=== PATIENT | male | born 1945 | race Caucasian/White ===

== ENCOUNTER 2017-09-03 18:08 | Observation (INO) | payer MEDICARE, MEDICAID, SELFPAY ==
[2017-09-03 18:09] VITALS: BP 131/64; PULSE 79; RESP 16; TEMP 37.4; O2SAT 91; BMI 18.1
--- NOTE | 2017-09-03 19:06 | ED.DCSUM_ITS ---
- ER Visit Summary Date of Service: 09/03/17 Chief Complaint: Nausea and vomiting. History of Present Illness: The patient is a 71 M who was seen and treated here earlier this morning. He has a history of chronic back pain for which she has an intrathecal pump. He has had 3 prior back surgeries. He states that he has had nausea and vomiting since last night. He denies any diarrhea. He denies any abdominal pain. He denies any hematemesis. Also stating that his back pain which is chronic is worse at this time. Physical Examination: Elderly male no acute distress. Vital signs are stable afebrile. Blood pressure 131/64. He does not look septic or toxic. H EENT exam mildly dry mucous membranes. Neck nontender no lymphadenopathy. Lungs clear to auscultation bilaterally. Heart is regular rate and rhythm rate about 80 no murmur. Abdomen is soft and nontender. Normal bowel sounds nondistended. No hernias or masses. Is moving all 4 extremities. Neurologically is awake and alert. No cauda equina. Dorsi plantar flexion intact. Test Results: CBC showed a white count of 3.8. H&H 11 and 32 which is his baseline. Electrolytes are sodium of 128. He has chronic hyponatremia. Chloride 94. Gap is 7. Normal BUN and creatinine. Emergency Department Course and Treatment: He will be treated with IV fluids and IV Zofran. He also be given morphine for his pain. Treatment Plan: Repeat exam initially I was going to attempt to let the patient be discharged to home. When his son came to pick him up he did not feel the patient was well enough to be discharged to home. I spoke to the hospitalist Dr. Bright who will admit the patient for viral syndrome, nausea and vomiting, generalized weakness and fever. Disposition: Admission Impression: Acute nausea and vomiting. Mild dehydration Acute on chronic pain Generalized weakness Chronic hyponatremia. This note was generated with [employer] dictation software. It may contain incorrect words, spelling, and punctuation that were not noted in review of the chart prior to signing ED Disposition - Plan for ED Patient: Disposition: Home or Assisted Living Chief Complaint: Nausea/Vomiting Instructions: The Cycle of Chronic Pain, ED Nausea Vomiting Referrals: Dilma Alvarez MD [Primary Care Provider] - As soon as possible Additional Instructions: Plan fluids and rest. Zofran as needed for nausea. Follow-up with your primary care physician or return to ER feeling worse.
[2017-09-03] MEDS: Ondansetron 4 MG/2 ML Vial IV (19:12)
[2017-09-03] MEDS: 0.9% Normal Saline 1,000 ML 1000 ML IV (19:12)
[2017-09-03 19:27] LABS: Anion Gap 7 (5-15); BUN 20 mg/dL (7-18); BUN/Creat Ratio 20.1 RATIO (10-20); Calcium,Total 8.3 mg/dL (8.5-10.1); Chloride 94 mmol/L (98-107); EST Glomerular Filtration Rate 79 mL/min (>60); Est Glom Filt Rate - Afr Amer 95 mL/min (>60); Estimated Creatinine Clearance 63.94 ml/min; Glucose 125 mg/dL (70-110); Potassium 4.4 mmol/L (3.5-5.1); Sodium Level 128 mmol/L (136-145)
[2017-09-03 19:28] LABS: Absolute Lymphocyte Count 0.37 X10^3/ul (0.83-4.51); Absolute Neutrophil Count 3.1 X10^3/uL (2.0-7.7); Hematocrit 32.9 % (40-54); Hemoglobin 11.4 g/dl (13.0-16.5); Lymphocyte # 0.37 X10^3/ul (4.0); Lymphocyte % 9.8 % (19-41); Mean Corp Hgb Conc 34.7 g/gl (32-36); Mean Corpuscular Hgb 29.4 pg (27.0-32.0); Mean Corpuscular Volume 84.8 fL (80-94); Monocyte# 0.32 X10^3/uL; Monocyte% 8.5 % (0-10); Neutrophil # 3.08 X10^3/uL (2.7-7.7); Neutrophil % 81.7 % (47-70); Platelet Count 153 K/mm3 (150-450); RBC Distribution Width CV 13.4 % (11.6-14.6); RBC Distribution Width SD 40.9 fl (35.1-43.9); Red Blood Count 3.88 M/mm3 (4.6-6.2); White Blood Count 3.8 K/mm3 (4.4-11.0)
[2017-09-03 19:29] LABS: Differential Indicated SCAN CRITERIA MET; POSITIVE COUNT NO; POSITIVE DIFFERENTIAL YES; POSITIVE MORPHOLOGY NO
[2017-09-03 19:48] VITALS: BP 136/66; PULSE 90; RESP 16
[2017-09-03 20:05] LABS: Differential Comment SCANNED
[2017-09-03 21:00] VITALS: BP 133/64; PULSE 75; RESP 18; O2SAT 94
[2017-09-03 23:00] VITALS: BP 110/57; RESP 16; O2SAT 95
--- NOTE | 2017-09-03 23:08 | ED.DEP ---
ED Disposition - Plan for ED Patient: Disposition: Home or Assisted Living Chief Complaint: Nausea/Vomiting Instructions: ED Nausea Vomiting, The Cycle of Chronic Pain Referrals: Dilma Alvarez MD [Primary Care Provider] - As soon as possible Additional Instructions: Plan fluids and rest. Zofran as needed for nausea. Follow-up with your primary care physician or return to ER feeling worse.
[2017-09-03 23:45] VITALS: BP 110/57; PULSE 102; RESP 16; O2SAT 95
--- NOTE | 2017-09-03 23:45 | ED.RN ---
REVIEWED D/C INSTRUCTIONS, FOLLOW UP CARE, PRESCRIPTIONS, AND S/S THAT WOULD WARRANT A RETURN TO THE ED WITH PT. PT VERBALIZED AN UNDERSTANDING AND DENIES FURTHER QUESTIONS FOR THIS RN. PT SKIN P/W/D, RESP EVEN AND UNLABORED, PT A&O X 3, NO DISTRESS NOTED. PT ASSISTED OUT OF ED IN WHEELCHAIR. PT IN LOBBY WAITING FOR SON TO COME PICK HIM UP.
[2017-09-03] MEDS: Ondansetron ODT 4 MG Tablet PO (23:47)
[2017-09-04] VITALS (7 sets, daily range): BP systolic 82–127; BP diastolic 49–72; PULSE 64–81; RESP 16–20; TEMP 36.6–38.4; O2SAT 92–97; BMI 22.1
--- NOTE | 2017-09-04 00:42 | PCM.HP.STD ---
Problem List (1) Chronic pain syndrome Status: Chronic (2) Viral gastroenteritis Status: Acute (3) Anxiety Status: Chronic (4) GERD (gastroesophageal reflux disease) Status: Chronic Qualifiers: Esophagitis presence: esophagitis presence not specified Qualified Code(s): K21.9 - Gastro-esophageal reflux disease without esophagitis (5) Hypertension Status: Chronic Qualifiers: Hypertension type: essential hypertension Qualified Code(s): I10 - Essential (primary) hypertension (6) Hypothyroidism Status: Chronic Qualifiers: Hypothyroidism type: unspecified Qualified Code(s): E03.9 - Hypothyroidism, unspecified (7) Normocytic anemia Status: Chronic (8) Rheumatoid arthritis Status: Chronic Qualifiers: Rheumatoid arthritis location: unspecified site Rheumatoid factor presence: unspecified presence Qualified Code(s): M06.9 - Rheumatoid arthritis, unspecified (9) history of malignant tumor of oropharynx Status: Chronic (10) Chronic hyponatremia Status: Chronic History of Present Illness Date of Admission: 09/04/17 Chief Complaint: Nausea, emesis The patient is a 71 y/o M w/ PMHx: Chronic Normocytic Anemia (Hgb baseline 11-12 range), History of Throat Cancer, Chronic Hyponatremia (Na baseline 127-133), HTN, GERD/PUD, Hypothyroidism, Rheumatoid Arthritis, Chronic Back Pain s/p morphine pain intrathecal pump insertion, Anxiety who was evaluated 09/03/17 AM secondary to ongoing complaint of nausea, emesis as well as intermittent subjective fever, worsened over the last three days but ongoing intermittently since [place] in addition to acute on chronic back pain secondary to muscle strain with emesis bouts, treated w/ IVFs/anti-emetics and discharged to home improved; however, he returned 09/03/17 evening with similar complaint and was administered IVFs, morphine in the ED with no observed emesis events again discharged to home but returned secondary to family concerns for ongoing acute on chronic back pain and dehydration. It is unclear what evaluation he has had outpatient per his PCP. He notes that he always has a modified diet, but cannot given exact alterations, but from description, suspect thin liquids and mechanical soft. In the ED prior evaluation work-up included CBC w/ WBC 3.8, Hgb 11.4, Plts 153 without marked shift, BMP w/ Na 128, Chl 94, BUN/Cr 20/1, glucose 125. Upon current ED return, additional work-up included T 99.3, HR 102, BP 110/57, RR 16, 95% on RA, CXR w/ no acute process. Past Medical History Past Medical History (Chronic Problems): Chronic Problems Rheumatoid arthritis (Chronic) history of malignant tumor of oropharynx (Chronic) Arthropathy of lumbar facet joint (Chronic) Anxiety (Chronic) Normocytic anemia (Chronic) GERD (gastroesophageal reflux disease) (Chronic) Hypothyroidism (Chronic) Hypertension (Chronic) Chronic pain syndrome (Chronic) Chronic hyponatremia (Chronic) Allergies ciprofloxacin [From Cipro] Allergy (Verified 08/07/17 08:02) Itching diclofenac sodium [From Solaraze] Allergy (Verified 08/07/17 08:02) Anaphylaxis fluorouracil Allergy (Verified 08/07/17 08:02) Anaphylaxis methotrexate Allergy (Verified 08/07/17 08:02) Anaphylaxis ondansetron [From Zofran (as hydrochloride)] Allergy (Verified 08/07/17 08:02) Other Penicillins Allergy (Verified 08/07/17 08:02) Itching pentazocine lactate [From Talwin] Allergy (Verified 08/07/17 08:02) Other venom-honey bee [bee venom (honey bee)] Allergy (Verified 08/07/17 08:02) Anaphylaxis amlodipine Adverse Reaction (Verified 08/07/17 08:02) Nausea buspirone Adverse Reaction (Verified 08/07/17 08:02) Other ciprofloxacin HCl [From Cipro] Adverse Reaction (Verified 08/07/17 08:02) Pain in joints clonidine Adverse Reaction (Verified 08/07/17 08:02) Other NSAIDS (Non-Steroidal Anti-Inflamma Adverse Reaction (Verified 08/07/17 08:02) Upset Stomach promethazine Adverse Reaction (Verified 08/07/17 08:02) Other SEAFOOD Adverse Reaction (Severe, Uncoded 08/07/17 08:02) Unknown Home Medications: Ambulatory Orders Medication Instructions Recorded Omeprazole [Prilosec] 40 mg PO DAILY 09/14/14 Clonazepam [Klonopin] 0.5 mg PO DAILY PRN 09/22/14 Epinephrine [Epi Pen] 0.3 mg IM X1 PRN 09/22/14 Levothyroxine [Synthroid] 125 mcg PO DAILY 09/22/14 Ensure Complete 240 ml PO 5X/DAY 09/24/15 Acetaminophen [Pain Relief] 1,000 mg PO TID 11/22/16 Lisinopril [Zestril] 10 mg PO DAILY 02/15/17 Ondansetron [Zofran Odt] 4 mg SL Q4H PRN PRN 02/15/17 MorphINE mg INTRATH CONT 09/03/17 Surgical History: - - Appendectomy, Back surgery x 2, Tonsilar tumor resection, Esophageal dilations and endscopies, R maxillary sinus surgery. Psychiatric History: Anxiety Lives: With Family Smoking Status: Former smoker Tobacco Use: Non-smoker Alcohol: None Drugs: None - *Family History Maternal History Items: Heart Disease, Hypertension Paternal History Items: Cancer, Heart Disease, Hypertension Review of Systems Constitutional: Reports: Anorexia, Fever, Malaise, Weakness, Fatigue. Denies: Chills, Weight Change HEENT: Denies: Head Aches, Sinus Congestion, Sinus Drainage Cardiovascular: Denies: Chest Pain, Palpitations Respiratory: Denies: Cough, Shortness of breath at rest, Sputum production Gastrointestinal: Reports: Nausea, Vomiting. Denies: Abdominal Pain Genitourinary: Denies: Dysuria Musculoskeletal: Reports: Back Pain. Denies: Joint Pain, Joint Tenderness Skin: Denies: Rash, Wounds Neurological: Reports: Difficulty swallowing. Denies: Focal weakness, Numbness, Tingling Psychiatric: Reports: Anxiety. Denies: Depression, Homicidal Ideations, Suicidal Ideations Hematologic/ Lymphatic: Reports: Anemia. Denies: Easy Bruising, Easy Bleeding VTE Information - Inpt Only VTE Present on Admission: No VTE Mechan Device Prophylaxis: SCD's VTE Pharm Prophylaxis ordered?: Yes Subjective: Seated upright in the ED bed, fatigued appearance. Objective: Physical Examination: General: awake, alert, oriented x 3 and cooperative, seated upright in the ED bed, fatigued appearance. Skin: normal color, turgor, no icterus, cyanosis. HEENT: AT/NC, EOMI, PERRLA, moderately dry MM, no carotid bruits or JVD noted. Lungs: Diminished BS BL bases, poor effort, no rales, ronchi or wheezing. Heart: Regular rate and rhythm; no gallop, rub audible. Abdomen: soft, NTTP, ND, normal BS, no HSM, pain pump in place RUQ. Extremities: no cyanosis, clubbing, or edema. Neurological: patient awake, alert, oriented x 3; cognitive function intact; pupils equally reactive to light and accomodation; cranial nerves II-XII grossly normal, moving all 4 extremities, no focal deficits, strength moderately to severely globally decreased secondary to acute presentation. Psychiatric: affect appears fatigued, no acute evidence of depressive or anxiety feelings. - Physical Exam Vital Signs Temp Pulse Resp BP Pulse Ox 99.3 F H 102 H 16 110/57 L 95 09/03/17 18:09 09/03/17 23:45 09/03/17 23:45 09/03/17 23:45 09/03/17 23:45 Oxygen Delivery Method Room Air Weight: 145 lb Body Mass Index (BMI) 18.1 Finger Stick Blood Glucose 86 Laboratory Tests Past 24 Hrs 09/03/17 09/03/17 19:10 19:10 WBC 3.8 L RBC 3.88 L Hgb 11.4 L Hct 32.9 L MCV 84.8 MCH 29.4 MCHC 34.7 RDW 13.4 RDW Differential 40.9 Plt Count 153 MPV 8.0 Immature Gran % (Auto) 0.000 Neut % (Auto) 81.7 H Lymph % (Auto) 9.8 L Letcher % (Auto) 8.5 Eos % (Auto) 0.0 Baso % (Auto) 0.0 Absolute Neuts (auto) 3.1 Absolute Lymphs (auto) 0.37 L Total Counted Not Reportable Differential Comment SCANNED Sodium 128 L Potassium 4.4 Chloride 94 L Carbon Dioxide 27.0 Anion Gap 7 BUN 20 H Creatinine 1.00 Estim Creat Clear Calc 63.94 Est GFR (MDRD) Af Amer 95 Est GFR (MDRD) Non-Af 79 BUN/Creatinine Ratio 20.1 H Glucose 125 H Calcium 8.3 L Assessment/Plan The patient is a 71 y/o M w/ PMHx: Chronic Normocytic Anemia (Hgb baseline 11-12 range), History of Throat Cancer, Chronic Hyponatremia (Na baseline 127-133), HTN, GERD/PUD, Hypothyroidism, Rheumatoid Arthritis, Chronic Back Pain s/p morphine pain intrathecal pump insertion, Anxiety who presents to the [facility] ED on 09/04/17 w/ ongoing intermittent complaint of nausea, emesis worsened over the last three days but ongoing intermittently since [place] in addition to acute on chronic back pain secondary to muscle strain with emesis bouts. (1) Ongoing, N/V, ? Viral Gastroenteritis: Will continue aggressive hydration, if diarrhea onset will obtain c diff, stool cx, O+P with repeat AM CBC. Will not start antibiotics at this time given suspected viral gastroenteritis. Allow clears and ADAT. Anti-emetics, pain regimen PRN. Will obtain UA, UCx, Respiratory Viral Panel as well as Bld Cx x 2 as febrile in the ED upon admission. Will defer abx as no clear source. If no marked improvement, may need to consider alternate etiology especially given underlying history of throat cancer. From review of visits, do note several ED presentations over the last year w/ nausea, emesis complaint. Last EGD noted per Dr. Hoyos, 02/23/17 unremarkable. (2) Acute on Chronic Back Pain: Likely secondary to recent bouts of emesis with strain. Maintain on fall precautions, q 2 hour position changes, PT, OT and CM consultations for discharge planning. PRN pain regimen above baseline pump regimen. (3) Chronic Hyponatremia: Admission Na 128, noted Na baseline 127-133, appears consistent, continue gentle hydration, repeat BMP in AM. (4) Chronic Normocytic Anemia: Admission Hgb 11.4, Hgb baseline 11-12 range, stable. Encourage outpatient evaluation with PCP. (5) Hypertension: Continue home regimen including lisinopril, PRN hydralazine. (6) Hypothyroidism: Continue home synthroid regimen. (7) Anxiety: Maintain on home klonopin regimen. (8) Rheumatoid Arthritis: Intrathecal pain pump in place, PRN regimen, fall precautions, therapies as noted. (9) GERD/PUD: Famotidine. (10) History of Throat CA w/ chronic oropharyngeal dysphagia: Maintain on clears initially as noted, once ADAT transition to mechanical soft, thin liquids w/ speech assessment. Following w/ Dr. Cox. (11) DVT Prophylaxis: SCDs, lovenox. (12) CODE status: FULL CODE. Discussed CODE status including difference between FULL code, DNR-CCA and DNR-CC status. Following discussions about the differences in these status, patient confirmed planned continuation of full measures. He did not continuation of these measures until they were not reasonable which we discussed would need to be further stipulated per his HCPOA or his living will which he reports having in place. Advanced Care Planning Face to Face Time: 16 minutes. Code Visit OBSV E&M: 29573 Initial observation care L3 Procedures: 94432 Advncd Care Plan 30 Min
--- NOTE | 2017-09-04 00:53 | HP.PCM_ITS ---
Problem List (1) Chronic pain syndrome Status: Chronic (2) Viral gastroenteritis Status: Acute (3) Anxiety Status: Chronic (4) GERD (gastroesophageal reflux disease) Status: Chronic Qualifiers: Esophagitis presence: esophagitis presence not specified Qualified Code(s) : K21.9 - Gastro-esophageal reflux disease without esophagitis (5) Hypertension Status: Chronic Qualifiers: Hypertension type: essential hypertension Qualified Code(s): I10 - Essential (primary) hypertension (6) Hypothyroidism Status: Chronic Qualifiers: Hypothyroidism type: unspecified Qualified Code(s): E03.9 - Hypothyroidism , unspecified (7) Normocytic anemia Status: Chronic (8) Rheumatoid arthritis Status: Chronic Qualifiers: Rheumatoid arthritis location: unspecified site Rheumatoid factor presence : unspecified presence Qualified Code(s): M06.9 - Rheumatoid arthritis, unspecified (9) history of malignant tumor of oropharynx Status: Chronic (10) Chronic hyponatremia Status: Chronic History of Present Illness Date of Admission: 09/04/17 Chief Complaint: Nausea, emesis The patient is a 71 y/o M w/ PMHx: Chronic Normocytic Anemia (Hgb baseline 11- 12 range), History of Throat Cancer, Chronic Hyponatremia (Na baseline 127-133) , HTN, GERD/PUD, Hypothyroidism, Rheumatoid Arthritis, Chronic Back Pain s/p morphine pain intrathecal pump insertion, Anxiety who was evaluated 09/03/17 AM secondary to ongoing complaint of nausea, emesis as well as intermittent subjective fever, worsened over the last three days but ongoing intermittently since Juan José in addition to acute on chronic back pain secondary to muscle strain with emesis bouts, treated w/ IVFs/anti-emetics and discharged to home improved; however, he returned 09/03/17 evening with similar complaint and was administered IVFs, morphine in the ED with no observed emesis events again discharged to home but returned secondary to family concerns for ongoing acute on chronic back pain and dehydration. It is unclear what evaluation he has had outpatient per his PCP. He notes that he always has a modified diet, but cannot given exact alterations, but from description, suspect thin liquids and mechanical soft. In the ED prior evaluation work-up included CBC w/ WBC 3.8, Hgb 11.4, Plts 153 without marked shift, BMP w/ Na 128, Chl 94, BUN/Cr 20/1, glucose 125. Upon current ED return, additional work-up included T 99.3, HR 102 , BP 110/57, RR 16, 95% on RA, CXR w/ no acute process. Past Medical History Past Medical History (Chronic Problems): Chronic Problems Rheumatoid arthritis (Chronic) history of malignant tumor of oropharynx (Chronic) Arthropathy of lumbar facet joint (Chronic) Anxiety (Chronic) Normocytic anemia (Chronic) GERD (gastroesophageal reflux disease) (Chronic) Hypothyroidism (Chronic) Hypertension (Chronic) Chronic pain syndrome (Chronic) Chronic hyponatremia (Chronic) Allergies ciprofloxacin [From Cipro] Allergy (Verified 08/07/17 08:02) Itching diclofenac sodium [From Solaraze] Allergy (Verified 08/07/17 08:02) Anaphylaxis fluorouracil Allergy (Verified 08/07/17 08:02) Anaphylaxis methotrexate Allergy (Verified 08/07/17 08:02) Anaphylaxis ondansetron [From Zofran (as hydrochloride)] Allergy (Verified 08/07/17 08:02) Other Penicillins Allergy (Verified 08/07/17 08:02) Itching pentazocine lactate [From Talwin] Allergy (Verified 08/07/17 08:02) Other venom-honey bee [bee venom (honey bee)] Allergy (Verified 08/07/17 08:02) Anaphylaxis amlodipine Adverse Reaction (Verified 08/07/17 08:02) Nausea buspirone Adverse Reaction (Verified 08/07/17 08:02) Other ciprofloxacin HCl [From Cipro] Adverse Reaction (Verified 08/07/17 08:02) Pain in joints clonidine Adverse Reaction (Verified 08/07/17 08:02) Other NSAIDS (Non-Steroidal Anti-Inflamma Adverse Reaction (Verified 08/07/17 08:02) Upset Stomach promethazine Adverse Reaction (Verified 08/07/17 08:02) Other SEAFOOD Adverse Reaction (Severe, Uncoded 08/07/17 08:02) Unknown Home Medications: Ambulatory Orders Medication Instructions Recorded Omeprazole [Prilosec] 40 mg PO DAILY 09/14/14 Clonazepam [Klonopin] 0.5 mg PO DAILY PRN 09/22/14 Epinephrine [Epi Pen] 0.3 mg IM X1 PRN 09/22/14 Levothyroxine [Synthroid] 125 mcg PO DAILY 09/22/14 Ensure Complete 240 ml PO 5X/DAY 09/24/15 Acetaminophen [Pain Relief] 1,000 mg PO TID 11/22/16 Lisinopril [Zestril] 10 mg PO DAILY 02/15/17 Ondansetron [Zofran Odt] 4 mg SL Q4H PRN PRN 02/15/17 MorphINE mg INTRATH CONT 09/03/17 Surgical History: - - Appendectomy, Back surgery x 2, Tonsilar tumor resection, Esophageal dilations and endscopies, R maxillary sinus surgery. Psychiatric History: Anxiety Lives: With Family Smoking Status: Former smoker Tobacco Use: Non-smoker Alcohol: None Drugs: None - *Family History Maternal History Items: Heart Disease, Hypertension Paternal History Items: Cancer, Heart Disease, Hypertension Review of Systems Constitutional: Reports: Anorexia, Fever, Malaise, Weakness, Fatigue. Denies: Chills, Weight Change HEENT: Denies: Head Aches, Sinus Congestion, Sinus Drainage Cardiovascular: Denies: Chest Pain, Palpitations Respiratory: Denies: Cough, Shortness of breath at rest, Sputum production Gastrointestinal: Reports: Nausea, Vomiting. Denies: Abdominal Pain Genitourinary: Denies: Dysuria Musculoskeletal: Reports: Back Pain. Denies: Joint Pain, Joint Tenderness Skin: Denies: Rash, Wounds Neurological: Reports: Difficulty swallowing. Denies: Focal weakness, Numbness , Tingling Psychiatric: Reports: Anxiety. Denies: Depression, Homicidal Ideations, Suicidal Ideations Hematologic/ Lymphatic: Reports: Anemia. Denies: Easy Bruising, Easy Bleeding VTE Information - Inpt Only VTE Present on Admission: No VTE Mechan Device Prophylaxis: SCD's VTE Pharm Prophylaxis ordered?: Yes Subjective: Seated upright in the ED bed, fatigued appearance. Objective: Physical Examination: General: awake, alert, oriented x 3 and cooperative, seated upright in the ED bed, fatigued appearance. Skin: normal color, turgor, no icterus, cyanosis. HEENT: AT/NC, EOMI, PERRLA, moderately dry MM, no carotid bruits or JVD noted. Lungs: Diminished BS BL bases, poor effort, no rales, ronchi or wheezing. Heart: Regular rate and rhythm; no gallop, rub audible. Abdomen: soft, NTTP, ND, normal BS, no HSM, pain pump in place RUQ. Extremities: no cyanosis, clubbing, or edema. Neurological: patient awake, alert, oriented x 3; cognitive function intact; pupils equally reactive to light and accomodation; cranial nerves II-XII grossly normal, moving all 4 extremities, no focal deficits, strength moderately to severely globally decreased secondary to acute presentation. Psychiatric: affect appears fatigued, no acute evidence of depressive or anxiety feelings. - Physical Exam Vital Signs Temp Pulse Resp BP Pulse Ox 99.3 F H 102 H 16 110/57 L 95 09/03/17 18:09 09/03/17 23:45 09/03/17 23:45 09/03/17 23:45 09/03/17 23:45 Oxygen Delivery Method Room Air Weight: 145 lb Body Mass Index (BMI) 18.1 Finger Stick Blood Glucose 86 Laboratory Tests Past 24 Hrs 09/03/17 09/03/17 19:10 19:10 WBC 3.8 L RBC 3.88 L Hgb 11.4 L Hct 32.9 L MCV 84.8 MCH 29.4 MCHC 34.7 RDW 13.4 RDW Differential 40.9 Plt Count 153 MPV 8.0 Immature Gran % (Auto) 0.000 Neut % (Auto) 81.7 H Lymph % (Auto) 9.8 L [place] % (Auto) 8.5 Eos % (Auto) 0.0 Baso % (Auto) 0.0 Absolute Neuts (auto) 3.1 Absolute Lymphs (auto) 0.37 L Total Counted Not Reportable Differential Comment SCANNED Sodium 128 L Potassium 4.4 Chloride 94 L Carbon Dioxide 27.0 Anion Gap 7 BUN 20 H Creatinine 1.00 Estim Creat Clear Calc 63.94 Est GFR (MDRD) Af Amer 95 Est GFR (MDRD) Non-Af 79 BUN/Creatinine Ratio 20.1 H Glucose 125 H Calcium 8.3 L Assessment/Plan The patient is a 71 y/o M w/ PMHx: Chronic Normocytic Anemia (Hgb baseline 11- 12 range), History of Throat Cancer, Chronic Hyponatremia (Na baseline 127-133) , HTN, GERD/PUD, Hypothyroidism, Rheumatoid Arthritis, Chronic Back Pain s/p morphine pain intrathecal pump insertion, Anxiety who presents to the [facility] ED on 09/04/17 w/ ongoing intermittent complaint of nausea, emesis worsened over the last three days but ongoing intermittently since Juan José in addition to acute on chronic back pain secondary to muscle strain with emesis bouts. (1) Ongoing, N/V, ? Viral Gastroenteritis: Will continue aggressive hydration, if diarrhea onset will obtain c diff, stool cx, O+P with repeat AM CBC. Will not start antibiotics at this time given suspected viral gastroenteritis. Allow clears and ADAT. Anti-emetics, pain regimen PRN. Will obtain UA, UCx, Respiratory Viral Panel as well as Bld Cx x 2 as febrile in the ED upon admission. Will defer abx as no clear source. If no marked improvement, may need to consider alternate etiology especially given underlying history of throat cancer. From review of visits, do note several ED presentations over the last year w/ nausea, emesis complaint. Last EGD noted per Dr. Hoyos, 02/23/17 unremarkable. (2) Acute on Chronic Back Pain: Likely secondary to recent bouts of emesis with strain. Maintain on fall precautions, q 2 hour position changes, PT, OT and CM consultations for discharge planning. PRN pain regimen above baseline pump regimen. (3) Chronic Hyponatremia: Admission Na 128, noted Na baseline 127-133, appears consistent, continue gentle hydration, repeat BMP in AM. (4) Chronic Normocytic Anemia: Admission Hgb 11.4, Hgb baseline 11-12 range, stable. Encourage outpatient evaluation with PCP. (5) Hypertension: Continue home regimen including lisinopril, PRN hydralazine. (6) Hypothyroidism: Continue home synthroid regimen. (7) Anxiety: Maintain on home klonopin regimen. (8) Rheumatoid Arthritis: Intrathecal pain pump in place, PRN regimen, fall precautions, therapies as noted. (9) GERD/PUD: Famotidine. (10) History of Throat CA w/ chronic oropharyngeal dysphagia: Maintain on clears initially as noted, once ADAT transition to mechanical soft, thin liquids w/ speech assessment. Following w/ Dr. Cox. (11) DVT Prophylaxis: SCDs, lovenox. (12) CODE status: FULL CODE. Discussed CODE status including difference between FULL code, DNR-CCA and DNR-CC status. Following discussions about the differences in these status, patient confirmed planned continuation of full measures. He did not continuation of these measures until they were not reasonable which we discussed would need to be further stipulated per his HCPOA or his living will which he reports having in place. Advanced Care Planning Face to Face Time: 16 minutes. Code Visit OBSV E&M: 33956 Initial observation care L3 Procedures: 11607 Advncd Care Plan 30 Min
[2017-09-04] MEDS: 0.9% Normal Saline 1,000 ML 125 ML IV ×3 (02:48→18:56)
[2017-09-04 03:00] LABS: Absolute Lymphocyte Count 0.35 X10^3/ul (0.83-4.51); Absolute Neutrophil Count 6.2 X10^3/uL (2.0-7.7); Hematocrit 29.9 % (40-54); Hemoglobin 10.3 g/dl (13.0-16.5); Lymphocyte # 0.35 X10^3/ul (4.0); Lymphocyte % 4.9 % (19-41); Mean Corp Hgb Conc 34.4 g/gl (32-36); Mean Corpuscular Hgb 29.2 pg (27.0-32.0); Mean Corpuscular Volume 84.7 fL (80-94); Monocyte# 0.53 X10^3/uL; Monocyte% 7.5 % (0-10); Neutrophil # 6.21 X10^3/uL (2.7-7.7); Neutrophil % 87.3 % (47-70); POSITIVE COUNT NO; POSITIVE DIFFERENTIAL YES; Platelet Count 145 K/mm3 (150-450); RBC Distribution Width CV 13.5 % (11.6-14.6); RBC Distribution Width SD 40.2 fl (35.1-43.9); Red Blood Count 3.53 M/mm3 (4.6-6.2); White Blood Count 7.1 K/mm3 (4.4-11.0)
[2017-09-04 03:01] LABS: Differential Indicated SCAN CRITERIA MET; POSITIVE MORPHOLOGY NO
[2017-09-04 03:02] LABS: Anion Gap 10 (5-15); BUN 20 mg/dL (7-18); BUN/Creat Ratio 19.4 RATIO (10-20); Chloride 94 mmol/L (98-107); Creatinine, Serum 1.03 mg/dL (0.70-1.30); EST Glomerular Filtration Rate 76 mL/min (>60); Est Glom Filt Rate - Afr Amer 92 mL/min (>60); Estimated Creatinine Clearance 76.81 ml/min; Glucose 121 mg/dL (70-110); Potassium 4.1 mmol/L (3.5-5.1); Sodium Level 129 mmol/L (136-145)
[2017-09-04 03:06] LABS: Lactic Acid 1.1 mmol/L (0.4-2.0)
[2017-09-04 03:12] LABS: Magnesium 1.3 mg/dL (1.6-2.6)
[2017-09-04 03:14] LABS: Differential Comment SCANNED
[2017-09-04] MEDS: Levothyroxine 125 MCG Tablet PO (05:08)
[2017-09-04 08:46] LABS: Bacteria 0 SEEN /hpf (None Seen); Mucous, Urine 0 SEEN /hpf (<or=2+); Squamous Epithelial Cells - UA 0 SEEN /hpf (0-5); White Blood Cells 0 SEEN /hpf (0-5)
[2017-09-04 08:48] LABS: Color, Urine Yellow (Yellow); Glucose, Dipstick Normal (Normal); Ketone-Dipstick Negative (Negative); Leukocyte Esterase-Dipstick Negative /ul (Negative); Nitrite-Dipstick Negative (Negative); Occult Blood-Urine 25 /ul (Negative); Protein-Dipstick 15 mg/dl (Negative); Specific Gravity, Urine 1.015 (1.002-1.030); Urine Bilirubin Dipstick Negative (Negative); Urine Clarity Clear (Clear); Urine Urobilinogen Normal (Normal); Urine pH 6.5 (5.0 - 8.0)
[2017-09-04 08:54] LABS: Red Blood Cells-Urine 0-5 SEEN /hpf (0-5)
[2017-09-04] MEDS: Enoxaparin 40 MG/0.4 ML Syringe SC (09:18)
[2017-09-04] MEDS: Famotidine 20 MG Tablet PO ×2 (09:18→16:41)
--- NOTE | 2017-09-04 11:00 | CASEMGMT ---
SHAY OCHOA Face to Face with patient for initial transition planning/care coordination assessment. SHAY OCHOA introduced self and role at [facility]. Patient lying in bed, alert and oriented. Patient willing to participate in assessment and is able to answer all questions appropriately. Care providers, pharmacy, and demographics verified. See link attached. Pt wishes to discharge home with resumption of passport services and skilled HHC if needed. SHAY OCHOA updated NGOZI Krishna Hodges regarding passport services. Patient states he has no further needs or concerns at this time. CM to follow for discharge planning needs that may arise. Disposition Plan: Patient to discharge home with passport services, family and friend support, and follow-up plans in place.
[2017-09-04] MEDS: 0.9% NaCl Peripheral Flush Adult/Peds IV (15:48)
--- NOTE | 2017-09-04 16:01 | PCM.HOSP.N ---
Hospitalist Note Seen and examined briefly today, his viral panel was positive for parainfluenza virus, patient has no complaints of any shortness of breath but states he is coughing up yellow sputum. On auscultation today, patient's lung sounds are totally clear. I will continue to give the patient IV fluids and reevaluate the patient tomorrow.
[2017-09-04] MEDS: Magnesium Citrate 300 ML 150 ML PO (16:35)
[2017-09-04] MEDS: Ondansetron 4 MG/2 ML Vial IV (19:38)
[2017-09-05] MEDS: Ondansetron 4 MG/2 ML Vial IV ×3 (01:16→14:47)
[2017-09-05 03:00] VITALS: BP 131/69; PULSE 69; RESP 20; TEMP 37.3; O2SAT 92
[2017-09-05] MEDS: clonazePAM 0.5 MG Tablet PO (03:32)
[2017-09-05] MEDS: 0.9% Normal Saline 1,000 ML 125 ML IV ×2 (03:35→11:41)
[2017-09-05 06:18] VITALS: BP 116/62
[2017-09-05] MEDS: Levothyroxine 125 MCG Tablet PO (06:29)
[2017-09-05] MEDS: Famotidine 20 MG Tablet PO (08:44)
[2017-09-05] MEDS: Enoxaparin 40 MG/0.4 ML Syringe SC (08:44)
[2017-09-05 09:02] VITALS: BP 144/72; PULSE 66; RESP 18; TEMP 36.9; O2SAT 93
--- NOTE | 2017-09-05 09:29 | CASEMGMT ---
Addendum entered by Nereida Hodges 09/05/17 16:21: Social Work Note Order for skilled home care services placed. Mukul Dickinson RN , made referral to [facility] who is able to accept. Placed call to coverage line for PASSPORT at [phone] and let Lili know that pt was discharging home today with resumption of aide services and also skilled services through [facility]. Placed call to [facility] and left to notify that pt was being discharged this date. No additional needs at this time. Plan: Home with PT/OT and SN through [facility] in addition to aide services through [facility]. CITLALI Williamson Original Note: Social Work Note Attempted to notify pt's director of casework department, Sharlene Choi, but was not able to leave a voicemail. Called coverage line for PASSPORT and spoke with Nicolas Eckert to update on pt's admission under observation status. Nicolas to notify Sharlene and reports that the pt has personal care services through [facility] 3 hrs/day 3 days/week and also has an emergency response system. No additional questions or needs at this time and anticipate discharge home with resumption of personal care services. CITLALI WilliamsonW
[2017-09-05 11:44] VITALS: O2SAT 93
--- NOTE | 2017-09-05 11:56 | RAD_ITS ---
STUDY: X-RAY CHEST REASON FOR EXAM: Male, 71 years old. Cough. Shortness of breath. TECHNIQUE: Single AP portable view of the chest. COMPARISON: Comparison is made with prior study dated September 04, 2017. FINDINGS: Since prior study, there has been progressive infiltrate in the left lower lobe. There is blunting of the left costophrenic angle. Stable increased markings in both upper lobes suggestive of scarring. Normal size heart. Normal mediastinum and aurora. Normal visualized pulmonary arteries. There is atherosclerotic tortuosity of the aortic arch and descending thoracic aorta. Normal visualized thoracic spine. Normal visualized ribs, clavicles, and shoulders. There is no demonstrated abnormality of the visualized soft tissue structures of the upper abdomen. RAD/Chest 1 View (Portable) IMPRESSION: Since prior study, there has been progressive infiltration in the left lower lobe with blunting of the left costophrenic angle. Electronically Signed: Louie Zhao MD at 12:34 EST Tel [phone], Service support ,
[2017-09-05] MEDS: Albuterol 2.5 MG/3 ML VIAL.NEB. INHALATION (14:27)
[2017-09-05 14:30] VITALS: PULSE 74; RESP 18
[2017-09-05 14:53] VITALS: BP 139/74; PULSE 79; RESP 18; TEMP 37.1; O2SAT 94
--- NOTE | 2017-09-05 16:11 | PCM.DC ---
You will use the following diet at home:: No restrictions Your food should be the consistency of: Regular Your liquids should be the consistency of: Regular/Thin Discharge Activity: Return to Normal Activity Weight Bearing Status: Weight bearing as tolerated Instructions: The Cycle of Chronic Pain, ED Nausea Vomiting Allergies/Adverse Reactions: Allergies ciprofloxacin [From Cipro] Allergy (Verified 08/07/17 08:02) Itching diclofenac sodium [From Solaraze] Allergy (Verified 08/07/17 08:02) Anaphylaxis fluorouracil Allergy (Verified 08/07/17 08:02) Anaphylaxis methotrexate Allergy (Verified 08/07/17 08:02) Anaphylaxis ondansetron [From Zofran (as hydrochloride)] Allergy (Verified 08/07/17 08:02) Other Penicillins Allergy (Verified 08/07/17 08:02) Itching pentazocine lactate [From Talwin] Allergy (Verified 08/07/17 08:02) Other venom-honey bee [bee venom (honey bee)] Allergy (Verified 08/07/17 08:02) Anaphylaxis amlodipine Adverse Reaction (Verified 08/07/17 08:02) Nausea buspirone Adverse Reaction (Verified 08/07/17 08:02) Other ciprofloxacin HCl [From Cipro] Adverse Reaction (Verified 08/07/17 08:02) Pain in joints clonidine Adverse Reaction (Verified 08/07/17 08:02) Other NSAIDS (Non-Steroidal Anti-Inflamma Adverse Reaction (Verified 08/07/17 08:02) Upset Stomach promethazine Adverse Reaction (Verified 08/07/17 08:02) Other SEAFOOD Adverse Reaction (Severe, Uncoded 08/07/17 08:02) Unknown Medications to take at Discharge Omeprazole [Prilosec] 40 mg PO DAILY 09/14/14 Clonazepam [Klonopin] 0.5 mg PO DAILY PRN 09/22/14 Epinephrine [Epi Pen] 0.3 mg IM X1 PRN 09/22/14 Levothyroxine [Synthroid] 125 mcg PO DAILY 09/22/14 Ensure Complete 240 ml PO 5X/DAY 05/07/15 Acetaminophen [Pain Relief] 1,000 mg PO TID 11/22/16 Lisinopril [Zestril] 10 mg PO DAILY 02/15/17 Ondansetron [Zofran Odt] 4 mg SL Q4H PRN PRN 02/15/17 MorphINE 0.74 mg INTRATH CONT 09/03/17 Albuterol IH (ProAir) [Proair Hfa (SP)Vent Pts] 2 puff INHALATION UD #1 inhaler 09/05/17 Guaifenesin [Mucinex] 1,200 mg PO BID #40 tab 09/05/17 The following prescriptions were given: Albuterol IH (ProAir) [Proair Hfa (SP)Vent Pts] 2 puff INHALATION UD #1 inhaler Guaifenesin [Mucinex] 1,200 mg PO BID #40 tab Primary Care Physician: Dilma Alvarez MD [Primary Care Provider] - In 1 Week
--- NOTE | 2017-09-05 16:18 | CASEMGMT ---
NGOZI and SHAY OCHOA received update that patient is requesting HHC. Patient stated he had no preference for HHC. RN DON made referral to [facility] for care home and PT/OT to eval and treat. [facility] was able to accept the patient and will see patient tomorrow. SHAY OCHOA obtained face to face from physician and forwarded to [facility]. SHAY OCHOA updated the patient regarding HHC with [facility]. Patient stated he had no further questions at this time. Patient to discharge home with resumption of passport services and care home and PT/OT with [facility].
--- NOTE | 2017-09-07 21:07 | PCM.DC.SUM ---
Discharge Date and Diagnosis Date of Admission: 09/04/17 Date of Discharge: 09/05/17 - Primary Discharge Diagnosis #1 acute parainfluenza pneumonia left lower lobe #2 acute on chronic back pain secondary to degenerative joint disease of the lumbar spine #3 chronic hyponatremia-etiology unclear #4 hypertension #5 nausea and vomiting-etiology unclear - Secondary Discharge Diagnosis Chronic Problems Rheumatoid arthritis (Chronic) history of malignant tumor of oropharynx (Chronic) Arthropathy of lumbar facet joint (Chronic) Anxiety (Chronic) Normocytic anemia (Chronic) GERD (gastroesophageal reflux disease) (Chronic) Hypothyroidism (Chronic) Hypertension (Chronic) Chronic pain syndrome (Chronic) Chronic hyponatremia (Chronic) Hospital Course and Treatment Operations: None Procedures: None Summary of Care Provided: The patient is a 71 year old M seen in the emergency room [facility] with chief complaint of nausea and vomiting as well as upper respiratory symptoms which included cough and malaise. Workup in the emergency room showed a white count of 3.8, sodium was 128, BUN and creatinine were normal. Patient was given IV fluids, IV antiemetics, and given IV morphine for back pain-patient is seen chronically by pain management for chronic back pain. Patient was placed in observation status on MedSurg 3, IV fluids were administered, a respiratory panel was obtained as well as a chest x-ray. Chest x-ray showed a left lower lobe infiltrate and respiratory panel was positive for parainfluenza virus. Patient was treated with aerosol treatments and improved with fluid administration. On 09/05/17, patient was seen and examined felt to be in stable condition for discharge home Discharge Activity: Return to Normal Activity Weight Bearing Status: Weight bearing as tolerated Home Medications: Medications to take at Discharge Omeprazole [Prilosec] 40 mg PO DAILY 09/14/14 Clonazepam [Klonopin] 0.5 mg PO DAILY PRN 09/22/14 Epinephrine [Epi Pen] 0.3 mg IM X1 PRN 09/22/14 Levothyroxine [Synthroid] 125 mcg PO DAILY 09/22/14 Ensure Complete 240 ml PO 5X/DAY 05/07/15 Acetaminophen [Pain Relief] 1,000 mg PO TID 11/22/16 Lisinopril [Zestril] 10 mg PO DAILY 02/15/17 Ondansetron [Zofran Odt] 4 mg SL Q4H PRN PRN 02/15/17 MorphINE 0.74 mg INTRATH CONT 09/03/17 Albuterol IH (ProAir) [Proair Hfa (SP)Vent Pts] 2 puff INHALATION UD #1 inhaler 09/05/17 Guaifenesin [Mucinex] 1,200 mg PO BID #40 tab 09/05/17 Following Prescrptions Were Given to Patient: Albuterol IH (ProAir) [Proair Hfa (SP)Vent Pts] 2 puff INHALATION UD #1 inhaler Guaifenesin [Mucinex] 1,200 mg PO BID #40 tab Primary Care Physician: Dilma Alvarez MD [Primary Care Provider] - In 1 Week Patient Instructions: The Cycle of Chronic Pain, ED Nausea Vomiting Disposition: Home Minutes spent on discharge:: 25 Patient Condition:: Stable Meaningful Use Info Meaningful Use Diagnoses (Choose all that apply): None applicable Code Visit OBSV E&M: 74494 Observation care discharge
== END 2017-09-05 17:37 | disposition home health service (06) ==
LOC: ED 23:09 → MS3 09-04 01:46
PROVIDERS: Admitting Provider Family Medicine; Emergency Provider Emergency Medicine; Family Provider Family Medicine; PCP Family Medicine; Visit Provider Internal Medicine
DX: J12.2 Parainfluenza virus pneumonia (principal); I10 Essential (primary) hypertension; M47.896 Other spondylosis, lumbar region; E87.1 Hypo-osmolality and hyponatremia; M06.9 Rheumatoid arthritis, unspecified; K21.9 Gastro-esophageal reflux disease without esophagitis; G89.4 Chronic pain syndrome; E03.9 Hypothyroidism, unspecified; F41.9 Anxiety disorder, unspecified; E86.0 Dehydration; A08.4 Viral intestinal infection, unspecified; D64.9 Anemia, unspecified; R13.12 Dysphagia, oropharyngeal phase; M19.90 Unspecified osteoarthritis, unspecified site; Z85.818 Personal history of malignant neoplasm of other sites of lip, oral cavity, and pharynx; Z79.899 Other long term (current) drug therapy; Z87.891 Personal history of nicotine dependence; Z87.11 Personal history of peptic ulcer disease; Z79.1 Long term (current) use of non-steroidal anti-inflammatories (NSAID); Z66 Do not resuscitate; T39.1X5A Adverse effect of 4-Aminophenol derivatives, initial encounter; Y92.9 Unspecified place or not applicable; M54.9 Dorsalgia, unspecified; M48.061 Spinal stenosis, lumbar region without neurogenic claudication; Z87.438 Personal history of other diseases of male genital organs; Z90.89 Acquired absence of other organs; Z90.49 Acquired absence of other specified parts of digestive tract
CPT/HCPCS: 36415; 71045; 80048; 81001; 83605; 83735; 84100; 85025; 87040; 87070; 87086; 87088; 87186; 87205; 87633; 92526; 94640; 94664; 96361; 96372; 96374; 96375; 96376; 97110; 97162; 97165; 97802; 99218; 99285; J7030; J7040; A4216; G0378; J2405

== ENCOUNTER 2017-11-24 09:55 | Emergency (ER) | payer MEDICARE, MEDICAID, SELFPAY ==
[2017-11-24 09:55] VITALS: BP 148/88; PULSE 82; RESP 16; TEMP 36.2; O2SAT 95; BMI 22.2
--- NOTE | 2017-11-24 10:16 | RAD_ITS ---
STUDY: X-RAY CHEST REASON FOR EXAM: Male, 72 years old. Cough. TECHNIQUE: PA and lateral views of the chest. COMPARISON: Comparison is made with prior study dated September 05, 2017. FINDINGS: Infiltration in the right middle lobe superimposed on bibasilar scarring worse on the right side. Stable elevation of the anterior aspect of the right hemidiaphragm. The previously seen left lower lobe infiltrate has resolved. There is no demonstrated pleural abnormality. Normal size heart. Normal mediastinum and aurora. Normal visualized pulmonary arteries. There is atherosclerotic tortuosity of the aortic arch and descending thoracic aorta. There are diffuse degenerative changes of the visualized thoracic spine. Normal visualized ribs, clavicles, and shoulders. There is no demonstrated abnormality of the visualized soft tissue structures of the upper abdomen. RAD/Chest PA and Lateral IMPRESSION: Right middle lobe infiltrate superimposed on scarring of both lung bases. Electronically Signed: Louie Zhao MD at 11:02 EDT Tel [phone], Service support ,
[2017-11-24 10:28] LABS: Absolute Lymphocyte Count 1.32 X10^3/ul (0.83-4.51); Absolute Neutrophil Count 7.5 X10^3/uL (2.0-7.7); Basophil# 0.01 X10^3/uL; Basophil% 0.1 % (0-1); Eosinophil# 0.11 X10^3/uL; Eosinophils% 1.1 % (0-5); Hematocrit 32.7 % (40-54); Hemoglobin 10.7 g/dl (13.0-16.5); Lymphocyte # 1.32 X10^3/ul (4.0); Lymphocyte % 13.7 % (19-41); Mean Corp Hgb Conc 32.7 g/gl (32-36); Mean Corpuscular Hgb 27.2 pg (27.0-32.0); Monocyte# 0.66 X10^3/uL; Monocyte% 6.8 % (0-10); Neutrophil # 7.54 X10^3/uL (2.7-7.7); Neutrophil % 78.1 % (47-70); POSITIVE COUNT NO; POSITIVE DIFFERENTIAL NO; POSITIVE MORPHOLOGY NO; Platelet Count 263 K/mm3 (150-450); RBC Distribution Width CV 14.6 % (11.6-14.6); RBC Distribution Width SD 44.7 fl (35.1-43.9); Red Blood Count 3.94 M/mm3 (4.6-6.2); White Blood Count 9.7 K/mm3 (4.4-11.0)
[2017-11-24 10:31] LABS: International Normalized Ratio 1.1; Prothrombin Time (Protime)PT. 14.2 SECONDS (11.7-14.9)
[2017-11-24 10:32] LABS: Partial Thromboplast Time 46.7 Seconds (24.1-36.2)
--- NOTE | 2017-11-24 10:36 | ED.DCSUM_ITS ---
- ER Visit Summary Date of Service: 11/24/17 Chief Complaint: Blood in stool History of Present Illness: The patient is a [address] Alvarez and Dr. Hoyos. Reports that he had a bowel movement yet last night that he describes as formed and small balls. States this morning he had a small hard bowel movement and when he wiped there was bright red blood on the tissue. He has not had this previously. His last colonoscopy was in approximately 2011. He denies any abdominal pain. He does report that he has had nausea that is chronic. He states he has been taking Zofran twice a day since 2016. Patient reports that he scheduled for an endoscopy in [address] Hoyos. Finally, he complains of a cough that has been present for the past 3 months and is not productive. He denies any fever or chills. No difficulty breathing. Physical Examination: Vitals: Stable. Afebrile. General: Well-nourished and well-developed. Head: Normocephalic atraumatic. Neck: Supple, no lymphadenopathy. No JVD. Nontender. Cardiovascular: Regular rate and rhythm. No murmurs. Respiratory: No respiratory distress. Clear to auscultation bilaterally. Abdominal: Soft, nontender, nondistended, normal bowel sounds. No guarding, rebound, or peritoneal signs. Rectal: No obvious external signs of bleeding. There are no hemorrhoids or anal fissures. Back: Nontender. Extremities: Nontender, no edema. Skin: Normal color, no rash. Neurologic: Alert and oriented ?3. Cranial nerves II through XII are intact. Normal strength and sensation. Psych: Normal affect. Test Results: CBC is remarkable for an H&H of 10.7 and 32.7, segmented neutrophils 78, monocytes 14. Chem-7 is more for sodium 128 and chloride of 94. His last hemoglobin was 10.3 in August. His sodium is ranged between 125- 129 since July 2012. INR is 1.1. Chest x-ray shows right middle lobe infiltrate superimposed on scarring at the bases bilaterally. Emergency Department Course and Treatment: Patient was given a fleets enema and had a large bowel movement here. There were flecks of blood in this. He has had no further bleeding. He was treated with Levaquin here. He had negative orthostatic vital signs. Treatment Plan: The patient will be discharged on Levaquin (despite the fact that he was Cipro as an allergy due to multiple allergies and the fact that he is already been on Zithromax and doxycycline for this). He is instructed to follow up Dr. Hoyos in 3 days as previously directed. Follow-up with his primary care physician in 5-7 days regarding the cough. Return to the emergency department for any worsening symptoms. Disposition: To home in improved and stable condition. Impression: 1. Pneumonia. 2. Lower GI bleed, stable. This note was generated with [employer] software. It may contain incorrect words, spelling, and punctuation that were not noted in review of the chart prior to signing ED Disposition - Plan for ED Patient: Chief Complaint: GI Bleed Instructions: ED Hematochezia Stable Prescriptions: Levofloxacin [Levaquin] 750 mg PO DAILY #7 tablet Referrals: Compa Hoyos MD [STAFF PHYSICIAN] - Keep Carlos appointment Dilma Alvarez MD [Primary Care Provider] - 5-7 Days
[2017-11-24 10:37] LABS: Anion Gap 5 (5-15); BUN 18 mg/dL (7-18); BUN/Creat Ratio 22.9 RATIO (10-20); Calcium,Total 8.8 mg/dL (8.5-10.1); Chloride 94 mmol/L (98-107); Creatinine, Serum 0.78 mg/dL (0.70-1.30); EST Glomerular Filtration Rate 104 mL/min (>60); Est Glom Filt Rate - Afr Amer 125 mL/min (>60); Estimated Creatinine Clearance 77.37 ml/min; Glucose 105 mg/dL (74-106); Potassium 4.5 mmol/L (3.5-5.1); Sodium Level 128 mmol/L (136-145)
[2017-11-24 10:53] VITALS: BP 136/84; BP 146/79; BP 156/79; PULSE 72; PULSE 76; PULSE 82
[2017-11-24] MEDS: Fleet Enema 1 ML RECTAL (11:07)
[2017-11-24 12:24] VITALS: BP 134/87; PULSE 72; RESP 15; TEMP 36.9; O2SAT 98
[2017-11-24] MEDS: levoFLOXacin 750 MG Tablet PO (12:24)
== END 2017-11-24 12:27 | disposition home or self-care (01) ==
PROVIDERS: Emergency Provider Emergency Medicine; Family Provider Family Medicine; PCP Family Medicine
DX: J18.9 Pneumonia, unspecified organism (principal); K92.1 Melena; K21.9 Gastro-esophageal reflux disease without esophagitis; I10 Essential (primary) hypertension; M06.9 Rheumatoid arthritis, unspecified; M54.9 Dorsalgia, unspecified; G89.29 Other chronic pain; E03.9 Hypothyroidism, unspecified; Z86.2 Personal history of diseases of the blood and blood-forming organs and certain disorders involving the immune mechanism; Z85.818 Personal history of malignant neoplasm of other sites of lip, oral cavity, and pharynx; Z87.891 Personal history of nicotine dependence; Z79.899 Other long term (current) drug therapy
CPT/HCPCS: 71046; 80048; 85025; 85610; 85730; 96360; 99285; J7030; J7040; A4216

== ENCOUNTER 2017-11-29 05:31 | Emergency (ER) | payer MEDICARE, MEDICAID, SELFPAY ==
[2017-11-29 05:31] VITALS: BP 180/96; PULSE 75; RESP 18; TEMP 36.4; O2SAT 97; BMI 22.4
--- NOTE | 2017-11-29 06:00 | EKG12_ITS ---
Test Reason : ABD PAIN Blood Pressure : / mmHG Vent. Rate : 070 BPM Atrial Rate : 070 BPM P-R Int : 156 ms QRS Dur : 086 ms QT Int : 364 ms P-R-T Axes : 047 005 051 degrees QTc Int : 393 ms Normal sinus rhythm Normal ECG Confirmed by VERNA BATES, LYDIA ([id number]), deputy editor in chief BRIAN LAUREN ([id number]) on 12/04/2017 3:32:33 PM Referred By: ELDER Confirmed By:LYDIA GILLESPIE MD
--- NOTE | 2017-11-29 06:14 | ED.DCSUM_ITS ---
- ER Visit Summary Date of Service: 11/29/17 Chief Complaint: Thoracic back pain History of Present Illness: The patient is a 72 M with 30 years of chronic back pain, intrathecal pump with morphine for pain control, who presents for acute worsening of his thoracic back pain. Patient states he has been laying in bed for 3 months recovering from pneumonia and a cold virus. He woke suddenly this morning with severe pain at his site of normal discomfort in the T10-T11 region right of the spine. Pain was so severe that he said it was the worst of his life. Pain has since subsided. Patient denies any bowel or bladder changes. No abdominal pain, nausea or vomiting. Patient has had a cough and shortness of breath related to pneumonia, with his last dose of Levaquin 5 days ago. Patient denies fever. He is on 100% diet of Ensure. Physical Examination: Vital signs: afebrile, hemodynamically stable, no hypoxia on room air General: well nourished, well developed, in no distress Skin: warm, dry, no rash, no pallor HEENT: normocephalic and atraumatic; PERRL, EOMI, dry mucous membranes Cardiovascular: regular rate and rhythm without murmurs, no peripheral edema, 2 + pulses all distal extremities Respiratory: No increased work of breathing, lungs are diminished in the right lower field, no rales, rhonchi or wheezing Abdominal: Abdomen is soft, nontender with normoactive bowel sounds, no guarding or rebound, no masses palpable pump in the right mid abdomen subcutaneously Back: Point tenderness in the lower thoracic paraspinal region on the right. No midline tenderness deformities or step-offs. MSK: Moves all extremities, no deformities, normal strength Neuro: Awake and alert, oriented ?4. No facial droop, sensation and motor function intact and symmetric Test Results: Abnormal Lab Results 11/29/17 11/29/17 11/29/17 06:05 06:05 06:27 WBC 5.8 RBC 3.89 L Hgb 10.8 L Hct 32.3 L MCV 83.0 MCH 27.8 MCHC 33.4 RDW 14.3 RDW Differential 42.8 Plt Count 311 MPV 7.7 Immature Gran % (Auto) 0.300 Neut % (Auto) 72.6 H Lymph % (Auto) 15.4 L [place]ruff % (Auto) 9.8 Eos % (Auto) 1.7 Baso % (Auto) 0.2 Absolute Neuts (auto) 4.2 Absolute Lymphs (auto) 0.90 Total Counted Not Reportable Sodium 129 L Potassium 4.7 Chloride 92 L Carbon Dioxide 29.0 Anion Gap 8 BUN 16 Creatinine 0.81 Estim Creat Clear Calc 96.07 Est GFR (MDRD) Af Amer 121 Est GFR (MDRD) Non-Af 100 BUN/Creatinine Ratio 19.7 Glucose 98 Calcium 8.7 Total Bilirubin 0.30 AST 16 ALT 15 L Alkaline Phosphatase 62 Troponin I < 0.02 Total Protein 7.2 Albumin 3.3 Globulin 3.9 Albumin/Globulin Ratio 0.8 L Lipase 112 Urine Color Yellow Urine Clarity Sl. Cloudy Urine pH 8.0 Ur Specific [place] 1.015 Urine Protein Negative Urine Glucose (UA) Normal Urine Ketones Negative Urine Occult Blood Negative Urine Nitrite Negative Urine Bilirubin Negative Urine Urobilinogen Normal Ur Leukocyte Esterase Negative Urine RBC 0 SEEN Urine WBC 0 SEEN Ur Squamous Epith Cells 0-5 SEEN Amorphous Sediment 1+ Urine Bacteria 0 SEEN Urine Mucus 1+ Emergency Department Course and Treatment: Patient was offered morphine for acute pain, and stated he did not want more than 1 mg. Workup was performed to look for alternative cause of patient's back pain other than his chronic musculoskeletal pain. Labs showed no leukocytosis or anemia. Patient has chronic hyponatremia and is at his baseline. Troponin negative. EKG showed no ischemia or ectopy. Patient had resolution of his pain with the morphine. No alternative cause of his pain was noted. Patient was given 1 dose of his breakthrough pain medication oxycodone prior to discharge as he states he is out of it at home. He will follow-up with pain management today to discuss further options and to have his pump evaluated for possible malfunction. Patient was discharged home with symptoms resolved. Treatment Plan: [] Disposition: [] Impression: Acute exacerbation of chronic back pain This note was generated with [employer] dictation software. It may contain incorrect words, spelling, and punctuation that were not noted in review of the chart prior to signing ED Disposition - Plan for ED Patient: Disposition: Home or Assisted Living Chief Complaint: Abd Pain Instructions: ED Back Care Tips, ED Chronic Pain Management Referrals: Theresa Ortega MD [STAFF PHYSICIAN] - 1 Day Dilma Alvarez MD [Primary Care Provider] - Additional Instructions: Follow-up with Dr. Ortega as soon as possible to discuss your breakthrough pain and to have your pump assessed. Also discuss further breakthrough pain medication prescriptions. If you have any worsening of her condition or any new concerning symptoms please return to emergency department for another evaluation.
[2017-11-29 06:16] LABS: Absolute Neutrophil Count 4.2 X10^3/uL (2.0-7.7); Basophil# 0.01 X10^3/uL; Basophil% 0.2 % (0-1); Eosinophils% 1.7 % (0-5); Hematocrit 32.3 % (40-54); Hemoglobin 10.8 g/dl (13.0-16.5); Lymphocyte % 15.4 % (19-41); Mean Corp Hgb Conc 33.4 g/gl (32-36); Mean Corpuscular Hgb 27.8 pg (27.0-32.0); Mean Platelet Vol. 7.7 fl (6.2-12.0); Monocyte# 0.57 X10^3/uL; Monocyte% 9.8 % (0-10); Neutrophil # 4.24 X10^3/uL (2.7-7.7); Neutrophil % 72.6 % (47-70); Platelet Count 311 K/mm3 (150-450); RBC Distribution Width CV 14.3 % (11.6-14.6); RBC Distribution Width SD 42.8 fl (35.1-43.9); Red Blood Count 3.89 M/mm3 (4.6-6.2); White Blood Count 5.8 K/mm3 (4.4-11.0)
[2017-11-29] MEDS: 0.9% Normal Saline 1,000 ML 1000 ML IV (06:18)
--- NOTE | 2017-11-29 06:18 | NURSING ---
STILL NEED POA AND WILL
[2017-11-29] MEDS: Morphine 4 MG/ML Syringe IV (06:24)
[2017-11-29 06:27] LABS: POSITIVE COUNT NO; POSITIVE DIFFERENTIAL NO; POSITIVE MORPHOLOGY NO
[2017-11-29 06:34] LABS: ALB/GLOB Ratio 0.8 RATIO (0.9-2.4); AST(SGOT) 16 U/L (15-37); Alanine Aminotransfer ALT/SGPT 15 U/L (16-61); Albumin, Serum 3.3 g/dL (3.2-5.0); Alkaline Phosphatase 62 U/L (45-117); Anion Gap 8 (5-15); BUN 16 mg/dL (7-18); BUN/Creat Ratio 19.7 RATIO (10-20); Calcium,Total 8.7 mg/dL (8.5-10.1); Chloride 92 mmol/L (98-107); Creatinine, Serum 0.81 mg/dL (0.70-1.30); EST Glomerular Filtration Rate 100 mL/min (>60); Est Glom Filt Rate - Afr Amer 121 mL/min (>60); Estimated Creatinine Clearance 96.07 ml/min; Globulin 3.9 g/dL (2.2-4.2); Glucose 98 mg/dL (74-106); Lipase 112 U/L (73-393); Potassium 4.7 mmol/L (3.5-5.1); Protein, Total 7.2 g/dL (6.4-8.2); Sodium Level 129 mmol/L (136-145)
[2017-11-29 06:37] LABS: Bacteria 0 SEEN /hpf (None Seen); Red Blood Cells-Urine 0 SEEN /hpf (0-5); White Blood Cells 0 SEEN /hpf (0-5)
[2017-11-29] MEDS: Ondansetron 4 MG/2 ML Vial IV (06:38)
[2017-11-29 06:43] LABS: Color, Urine Yellow (Yellow); Glucose, Dipstick Normal (Normal); Ketone-Dipstick Negative (Negative); Leukocyte Esterase-Dipstick Negative /ul (Negative); Nitrite-Dipstick Negative (Negative); Occult Blood-Urine Negative /ul (Negative); Protein-Dipstick Negative (Negative); Specific Gravity, Urine 1.015 (1.002-1.030); Urine Bilirubin Dipstick Negative (Negative); Urine Clarity Sl. Cloudy (Clear); Urine Urobilinogen Normal (Normal)
[2017-11-29 06:55] LABS: Amorphous Sediment 1+; Mucous, Urine 1+ /hpf (<or=2+)
[2017-11-29 06:56] LABS: Squamous Epithelial Cells - UA 0-5 SEEN /hpf (0-5)
--- NOTE | 2017-11-29 07:08 | ED.DEP ---
ED Disposition - Plan for ED Patient: Disposition: Home or Assisted Living Chief Complaint: Abd Pain Instructions: ED Back Care Tips, ED Chronic Pain Management Referrals: Dilma Alvarez MD [Primary Care Provider] - Theresa Ortega MD [STAFF PHYSICIAN] - 1 Day Additional Instructions: Follow-up with Dr. Ortega as soon as possible to discuss your breakthrough pain and to have your pump assessed. Also discuss further breakthrough pain medication prescriptions. If you have any worsening of her condition or any new concerning symptoms please return to emergency department for another evaluation.
[2017-11-29] MEDS: oxyCODONE 5 MG Tablet PO (07:23)
[2017-11-29 07:27] VITALS: BP 157/92; PULSE 67; RESP 20; O2SAT 96
== END 2017-11-29 07:27 | disposition home or self-care (01) ==
PROVIDERS: Emergency Provider Emergency Medicine; Family Provider Family Medicine; PCP Family Medicine
DX: M54.6 Pain in thoracic spine (principal); G89.29 Other chronic pain; E87.1 Hypo-osmolality and hyponatremia; J18.9 Pneumonia, unspecified organism; Z96.89 Presence of other specified functional implants; Z79.899 Other long term (current) drug therapy
CPT/HCPCS: 80053; 81001; 83690; 84484; 85025; 93005; 96361; 96374; 96375; 99284; J7030; A4216; J2405

== ENCOUNTER → 2017-12-18 14:56 | Outpatient (CLI) | payer MEDICARE, MEDICAID, SELFPAY ==
--- NOTE | 2017-12-18 14:59 | RAD_ITS ---
STUDY: X-RAY CHEST REASON FOR EXAM: Male, 72 years old. Cough. Recent pneumonia. History of throat cancer. TECHNIQUE: PA and lateral views of the chest. COMPARISON: November 24, 2017. FINDINGS: The lungs are hyperexpanded. There is chronic interstitial changes. Again this is most marked in the right middle lobe, suggesting superimposed infiltrate. There is no new mass or infiltrate. There is no demonstrated pleural abnormality. Normal size heart. Normal mediastinum and aurora. Normal visualized pulmonary arteries. There is atherosclerotic calcification of the aortic arch with tortuosity. There are diffuse degenerative changes of the visualized thoracic spine. Normal visualized ribs, clavicles, and shoulders. There is no demonstrated abnormality of the visualized soft tissue structures of the upper abdomen. RAD/Chest PA and Lateral IMPRESSION: Question middle lobe infiltrate superimposed on chronic pulmonary scarring. Electronically Signed: Gareth Mukherjee DO at 16:43 EDT Tel [phone], Service support ,
== END ==
PROVIDERS: Family Provider Family Medicine; PCP Family Medicine; Visit Provider Family Medicine
DX: J18.1 Lobar pneumonia, unspecified organism (principal)
CPT/HCPCS: 71046

== ENCOUNTER 2018-01-09 09:03 | Emergency (ER) | payer MEDICARE, MEDICAID, SELFPAY ==
[2018-01-09 09:04] VITALS: BP 137/87; PULSE 69; RESP 12; TEMP 36.5; O2SAT 99; BMI 22.6
--- NOTE | 2018-01-09 09:23 | RAD_ITS ---
STUDY: X-RAY CHEST REASON FOR EXAM: Male, 72 years old. Shortness of breath TECHNIQUE: PA and lateral views of the chest. COMPARISON: 12/18/2017 FINDINGS: Cardiac monitoring leads overlie the chest. The lungs are hyperinflated. The interstitial markings are prominent the right lung base, unchanged from prior study. There is no demonstrated pleural abnormality. Normal size heart. Normal mediastinum and aurora. Normal visualized pulmonary arteries. There is atherosclerotic calcification of the aortic arch with tortuosity. There are diffuse degenerative changes of the visualized thoracic spine. Normal visualized ribs, clavicles, and shoulders. There is no demonstrated abnormality of the visualized soft tissue structures of the upper abdomen. RAD/Chest PA and Lateral IMPRESSION: COPD, without focal consolidation. Electronically Signed: Brandyn Oreilly DO at 10:13 EDT Tel , Service support ,
--- NOTE | 2018-01-09 09:23 | EKG12_ITS ---
Test Reason : SOB Blood Pressure : / mmHG Vent. Rate : 071 BPM Atrial Rate : 071 BPM P-R Int : 146 ms QRS Dur : 086 ms QT Int : 378 ms P-R-T Axes : 029 -02 047 degrees QTc Int : 410 ms Normal sinus rhythm Normal ECG Confirmed by ANA KANG ([id number]), rewrite editor BRIAN LAUREN ([id number]) on 01/22/2018 5:56:35 PM Referred By: SOLEDAD Confirmed By:ANA KANG
[2018-01-09 09:32] VITALS: BP 136/89; PULSE 68; RESP 20; O2SAT 98
[2018-01-09 09:37] VITALS: O2SAT 98
[2018-01-09 09:40] LABS: Absolute Lymphocyte Count 1.04 X10^3/ul (0.83-4.51); Absolute Neutrophil Count 8.2 X10^3/uL (2.0-7.7); Basophil# 0.01 X10^3/uL; Basophil% 0.1 % (0-1); Eosinophil# 0.24 X10^3/uL; Eosinophils% 2.4 % (0-5); Hematocrit 34.2 % (40-54); Hemoglobin 11.5 g/dl (13.0-16.5); Lymphocyte # 1.04 X10^3/ul (4.0); Lymphocyte % 10.2 % (19-41); Mean Corp Hgb Conc 33.6 g/gl (32-36); Mean Corpuscular Hgb 27.4 pg (27.0-32.0); Mean Corpuscular Volume 81.6 fL (80-94); Mean Platelet Vol. 8.1 fl (6.2-12.0); Monocyte# 0.68 X10^3/uL; Monocyte% 6.7 % (0-10); Neutrophil # 8.21 X10^3/uL (2.7-7.7); Neutrophil % 80.4 % (47-70); Platelet Count 224 K/mm3 (150-450); RBC Distribution Width CV 13.9 % (11.6-14.6); RBC Distribution Width SD 40.3 fl (35.1-43.9); Red Blood Count 4.19 M/mm3 (4.6-6.2); White Blood Count 10.2 K/mm3 (4.4-11.0)
[2018-01-09 09:41] LABS: POSITIVE COUNT NO; POSITIVE DIFFERENTIAL NO; POSITIVE MORPHOLOGY NO
[2018-01-09 09:55] LABS: AST(SGOT) 18 U/L (15-37); Alanine Aminotransfer ALT/SGPT 16 U/L (16-61); Albumin, Serum 3.7 g/dL (3.2-5.0); Alkaline Phosphatase 83 U/L (45-117); Anion Gap 7 (5-15); BUN 17 mg/dL (7-18); Bilirubin, Direct 0.15 mg/dL (0.00-0.30); Chloride 93 mmol/L (98-107); Creatinine, Serum 0.81 mg/dL (0.70-1.30); EST Glomerular Filtration Rate 100 mL/min (>60); Est Glom Filt Rate - Afr Amer 121 mL/min (>60); Estimated Creatinine Clearance 97.13 ml/min; Globulin 3.8 g/dL (2.2-4.2); Glucose 102 mg/dL (74-106); Lipase 128 U/L (73-393); Potassium 4.6 mmol/L (3.5-5.1); Protein, Total 7.5 g/dL (6.4-8.2); Sodium Level 128 mmol/L (136-145)
[2018-01-09] MEDS: Morphine 2 MG/ML Syringe IV (10:53)
[2018-01-09 10:56] VITALS: BP 110/64; PULSE 66; RESP 17; O2SAT 96
--- NOTE | 2018-01-09 11:12 | ED.VISSUMM ---
- ER Visit Summary Date of Service: 01/09/18 Chief Complaint: Shortness of breath History of Present Illness: The patient is a 72 M with recurrent pneumonia since August. This morning he felt short of breath with walking only 15 feet. He does not know he may have aspirated. Symptoms are now improved. He denies any chest pain. He has chronic back pain and is complaining only of this. Patient is supposed to see Dr. Hoyos for an EGD once his pneumonia is completely cleared. EMS note was reviewed and he did not have any hypoxia on their evaluation. Physical Examination: Vital signs are unremarkable. Pulse ox is 99% on room air. Patient is alert and talkative. He is in no acute distress. Head neck examination is unremarkable. Heart is regular rate and rhythm. Lung sounds are clear. Abdomen is soft with tenderness in epigastric region. No guarding or rebound. Lower external examination was no calf tenderness or edema. Test Results: EKG is sinus at 71 with no sign of acute ischemia. Two-view chest x-ray shows COPD without focal infiltrate. CBC reveals normal white count. Hemoglobin is 11.5. Chemistry studies reveal a sodium of 128 which is consistent with his baseline. LFTs and lipase are normal. Emergency Department Course and Treatment: Patient was given IV fluids along with 2 mg of morphine and Zofran. On repeat evaluation he is resting comfortably. At this time patient has been seen multiple times for similar dyspnea. I do not feel the patient has a pulmonary embolism. I do not feel this is a cardiac etiology. Patient does have a known history of throat cancer with radiation. He states that his epiglottis does not close tightly and he has known recurrent aspiration. I suspect this is what occurred this morning. Treatment Plan: [] Disposition: Discharge Impression: Dyspnea, improved This note was generated with [employer] dictation software. It may contain incorrect words, spelling, and punctuation that were not noted in review of the chart prior to signing ED Disposition - Plan for ED Patient: Chief Complaint: Shortness of Breath Referrals: Dilma Alvarez MD [Primary Care Provider] -
--- NOTE | 2018-01-09 11:14 | ED.DEP ---
ED Disposition - Plan for ED Patient: Disposition: Home or Assisted Living Chief Complaint: Shortness of Breath Instructions: ED Dyspnea Shortness of Breath Referrals: Dilma Alvarez MD [Primary Care Provider] - Compa Hoyos MD [STAFF PHYSICIAN] -
[2018-01-09 11:35] VITALS: BP 125/66; PULSE 66; RESP 15; O2SAT 100
--- NOTE | 2018-01-10 15:32 | CM.ED ---
ED CALLBACK: Follow-up call placed to patient. Patient states he has contacted Dr. Hoyos's office to schedule an EGD with dilation and is awaiting return call from Doris. Patient also states he is scheduled to have a consultation with Dr. Ortega tomorrow, regarding pain. Patient states he was very pleased with the care he received in the ED on this visit.
== END 2018-01-09 11:36 | disposition home or self-care (01) ==
PROVIDERS: Emergency Provider Emergency Medicine; Family Provider Family Medicine; PCP Family Medicine
DX: R06.00 Dyspnea, unspecified (principal); K21.9 Gastro-esophageal reflux disease without esophagitis; I10 Essential (primary) hypertension; M06.9 Rheumatoid arthritis, unspecified; M54.9 Dorsalgia, unspecified; G89.29 Other chronic pain; Z87.891 Personal history of nicotine dependence; Z85.01 Personal history of malignant neoplasm of esophagus; Z79.51 Long term (current) use of inhaled steroids; Z79.891 Long term (current) use of opiate analgesic; Z79.899 Other long term (current) drug therapy
CPT/HCPCS: 71046; 80048; 80076; 83690; 85025; 93005; 96374; 99285; A4216

== ENCOUNTER 2018-01-12 12:30 | Emergency (ER) | payer MEDICARE, MEDICAID, SELFPAY ==
[2018-01-12 12:36] VITALS: BP 157/90; PULSE 68; RESP 14; TEMP 36.8; O2SAT 95; BMI 22.1
--- NOTE | 2018-01-12 12:48 | EKG12_ITS ---
Test Reason : SOB Blood Pressure : / mmHG Vent. Rate : 064 BPM Atrial Rate : 064 BPM P-R Int : 186 ms QRS Dur : 086 ms QT Int : 380 ms P-R-T Axes : 058 -06 034 degrees QTc Int : 392 ms Normal sinus rhythm Normal ECG Confirmed by ANA KANG ([id number]), brands editor BRIAN LAUREN ([id number]) on 01/22/2018 6:15:46 PM Referred By: MELLISSA/RU Confirmed By:ANA KANG
--- NOTE | 2018-01-12 12:48 | RAD_ITS ---
STUDY: X-RAY CHEST REASON FOR EXAM: Male, 72 years old. Dyspnea and cough. TECHNIQUE: PA and lateral views of the chest. COMPARISON: Comparison is made with prior study dated January 09, 2018. FINDINGS: EKG electrodes are seen. Hyperinflation. Stable increased linear markings in both lung bases worse in the lingular segment of the left upper lobe. This most likely recommend scarring. No acute infiltration is seen. There is no demonstrated pleural abnormality. Normal size heart. Normal mediastinum and aurora. Normal visualized pulmonary arteries. There is atherosclerotic calcification of the aortic arch with tortuosity. There are diffuse degenerative changes of the visualized thoracic spine. Normal visualized ribs, clavicles, and shoulders. There is no demonstrated abnormality of the visualized soft tissue structures of the upper abdomen. RAD/Chest PA and Lateral IMPRESSION: Hyperinflation. Stable increased linear markings suggestive of bibasilar scarring. Electronically Signed: Louie Zhao MD at 13:38 EDT Tel [phone], Service support ,
--- NOTE | 2018-01-12 12:56 | NURSING ---
NO LW OR POA
--- NOTE | 2018-01-12 13:18 | ED.VISSUMM ---
- ER Visit Summary Date of Service: 01/12/18 Chief Complaint: Patient presents with chief complaint of choking and shortness of breath that awoke him from sleep. History of Present Illness: The patient is a 72 M who was seen on January 09 for similar presentation. He has history of GERD, there is also history of esophageal cancer with history of aspiration. He was sleeping with his bed elevated 8 inches. He now sleeps in a recliner. He denies fever, chills night sweats. He denies chest pain, he denies any dyspnea, dyspnea on exertion, orthopnea or PND. He denies any fever or chills. He presently has no symptoms. He denies any blood or coffee-ground emesis. He denies black or maroon colored stool. He presently has no symptoms. Physical Examination: Patient appears no distress. He is thin. Vital signs are marked for an elevated blood pressure 157/90. Head is atraumatic normocephalic. Pupils are equal round reactive. Extraocular muscles are intact. TMs are pearly white with landmarks noted. Nares patent with no drainage. Posterior pharynx without erythema or exudate. Uvula is midline. There is no dysphonia or dysphasia. Trachea is midline. There is no stridor with auscultation of the neck. Lungs are remarkable for an his story rales. Heart is regular. There is no murmur, gallop or rub. Abdomen soft nontender. There is no asymmetry, swelling, discoloration, leg vein distention, palpable cords or tenderness along the distribution of the deep venous system. Neuro exam is nonfocal. Treatment Plan: EKG was obtained per nursing protocol. His EKG is normal with a rate of 64. Chest x-ray reveals chronic changes and unchanged from January 09. I was informed by his nurse, Risa, at 1323 that he is requesting morphine for his chronic back pain. Patient was informed that he would not receive morphine and that he can go home and take his own pain medicine or follow-up with his doctor as needed Disposition: Discharged to home Impression: Choking/dyspnea secondary to reflux This note was generated with [employer] dictation software. It may contain incorrect words, spelling, and punctuation that were not noted in review of the chart prior to signing ED Disposition - Plan for ED Patient: Disposition: Home or Assisted Living Chief Complaint: Shortness of Breath Instructions: ED GERD Referrals: Dilma Alvarez MD [Primary Care Provider] - 3-5 Days
[2018-01-12 13:34] VITALS: BP 151/77; PULSE 67; RESP 19; O2SAT 96
== END 2018-01-12 13:34 | disposition home or self-care (01) ==
PROVIDERS: Emergency Provider Emergency Medicine; Family Provider Family Medicine; PCP Family Medicine
DX: R09.89 Other specified symptoms and signs involving the circulatory and respiratory systems (principal); R06.00 Dyspnea, unspecified; K21.9 Gastro-esophageal reflux disease without esophagitis; M54.9 Dorsalgia, unspecified; G89.29 Other chronic pain; Z85.01 Personal history of malignant neoplasm of esophagus; Z79.899 Other long term (current) drug therapy
CPT/HCPCS: 71046; 93005; 99285; A4216

== ENCOUNTER 2018-01-17 09:30 | Day surgery (SDC) | payer MEDICARE, MEDICAID, SELFPAY ==
--- NOTE | 2018-01-17 09:30 | DT_ITS ---
This patient was seen during an EMR downtime January 15, 2018 - January 22, 2018. This patient may have a combination of paper and electronic documentation or all paper documentation. All documentation is viewable within the e-chart portion of [facility] for each patient visit.
== END 2018-01-17 11:35 | disposition home or self-care (01) ==
PROVIDERS: Family Provider Family Medicine; PCP Family Medicine; Visit Provider Surgery
PROC: 0DJ08ZZ Inspection of Upper Intestinal Tract, Via Natural or Artificial Opening Endoscopic (ICD-10-PCS; CPT 43235; principal; 2018-01-17 10:55)
DX: R13.10 Dysphagia, unspecified (principal); R60.0 Localized edema; Z87.891 Personal history of nicotine dependence; Z85.89 Personal history of malignant neoplasm of other organs and systems
CPT/HCPCS: 43235; J7120

== ENCOUNTER 2018-01-31 11:24 | Emergency (ER) | payer MEDICARE, MEDICAID, SELFPAY ==
[2018-01-31 11:25] VITALS: BP 145/77; PULSE 70; RESP 14; TEMP 36.6; O2SAT 97; BMI 29.2
--- NOTE | 2018-01-31 11:35 | RAD_ITS ---
STUDY: X-RAY - ABDOMEN/PELVIS REASON FOR EXAM: Male, 72 years old. Diffuse abdominal pain TECHNIQUE: Single AP view of the abdomen / pelvis. COMPARISON: None. FINDINGS: Neurostimulator catheter noted over the right lower quadrant. There is a moderate amount of colonic fecal material. There is no demonstrated free abdominal air. The visualized liver, spleen and kidneys are grossly normal in size and morphology. There are calcified phleboliths in the pelvis. There are diffuse degenerative changes of the visualized lumbar spine. RAD/Abdomen Single View IMPRESSION: No acute findings, constipation Electronically Signed: Edmond Esteban MD at 16:12 EDT , Service support ,
--- NOTE | 2018-01-31 11:35 | ED.RN ---
PT STATES THAT HE HAS SOME BLADDER PRESSURE.
--- NOTE | 2018-01-31 13:30 | ED.RN ---
PT HAD A SMALL LOOSE BM.
[2018-01-31 14:56] LABS: Bacteria 0 SEEN /hpf (None Seen); Mucous, Urine 0 SEEN /hpf (<or=2+); Squamous Epithelial Cells - UA 0 SEEN /hpf (0-5)
[2018-01-31 14:59] LABS: Color, Urine Yellow (Yellow); Glucose, Dipstick Normal (Normal); Ketone-Dipstick 50 mg/dl (Negative); Leukocyte Esterase-Dipstick Negative /ul (Negative); Nitrite-Dipstick Negative (Negative); Occult Blood-Urine 150 /ul (Negative); Protein-Dipstick 30 mg/dl (Negative); Urine Bilirubin Dipstick Negative (Negative); Urine Clarity Sl. Cloudy (Clear); Urine Urobilinogen Normal (Normal)
[2018-01-31 15:09] LABS: Red Blood Cells-Urine 5-10 SEEN /hpf (0-5); White Blood Cells 5-10 SEEN /hpf (0-5)
[2018-01-31 15:10] LABS: Amorphous Sediment 3+
[2018-01-31 15:13] VITALS: RESP 16
--- NOTE | 2018-01-31 16:06 | ED.VISSUMM ---
- ER Visit Summary Date of Service: 01/31/18 Chief Complaint: Constipation History of Present Illness: The patient is a 72 M who states for the past 3-4 days he has not had a bowel movement. He is tried an enema at home with no relief. He states that when he gets constipated he is unable to fully empty his bladder due to pressure on his prostate. He has a long history of problems with his bowels and managing constipation. Physical Examination: Afebrile vital signs are stable Gen: Well-nourished well-developed Head: Normocephalic atraumatic Eyes: Perrl EOMI ENT: TMs clear no rhinorrhea moist mucous membranes Neck: Supple no lymphadenopathy no JVD nontender CVS: Regular rate rhythm no murmurs normal S1-S2 Respiratory: No distress clear to auscultation bilaterally chest nontender Abdomen: Soft nontender distended bladder 1 cm from umbilicus normal bowel sounds no masses Back: Nontender Extremity: Nontender no edema Skin: Normal color no rash Neuro: alert orientated ?3 CN II-XII intact normal strength sensation reflexes gait cerebellar Psych: Normal affect normal mood Test Results: KUB demonstrated changes consistent with constipation and significant stool in the rectum/fecal impaction. Emergency Department Course and Treatment: Patient was able to urinate about 200 cc of urine. He had oncoparesis while here in the department. The catheter was placed and was allowed to drain the bladder. Then an enema was given and the patient had large bowel movement. Morgan catheter was removed the patient will be discharged home to follow-up with his doctor. Impression: 1. Fecal impaction 2. Urinary retention This note was generated with [employer] dictation software. It may contain incorrect words, spelling, and punctuation that were not noted in review of the chart prior to signing ED Disposition - Plan for ED Patient: Disposition: Home or Assisted Living Chief Complaint: Constipation Instructions: ED Impaction Fecal Treated Referrals: Dilma Alvarez MD [Primary Care Provider] - 3-5 Days Additional Instructions: Return if worsening or concerns
[2018-01-31 16:35] VITALS: BP 143/75
== END 2018-01-31 16:36 | disposition home or self-care (01) ==
PROVIDERS: Emergency Provider Emergency Medicine; Family Provider Family Medicine; PCP Family Medicine
DX: R33.9 Retention of urine, unspecified (principal); K59.00 Constipation, unspecified; K21.9 Gastro-esophageal reflux disease without esophagitis; I10 Essential (primary) hypertension; E03.9 Hypothyroidism, unspecified; M06.9 Rheumatoid arthritis, unspecified; M54.9 Dorsalgia, unspecified; G89.29 Other chronic pain; Z87.891 Personal history of nicotine dependence; Z79.899 Other long term (current) drug therapy
CPT/HCPCS: 51702; 74018; 81001; 99285

== ENCOUNTER 2018-02-16 15:22 | Emergency (ER) | payer MEDICARE, MEDICAID, SELFPAY ==
[2018-02-16 15:23] VITALS: BP 155/72; PULSE 72; RESP 16; TEMP 36.5; O2SAT 98; BMI 23.0
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
--- NOTE | 2018-02-16 15:55 | RAD_ITS ---
STUDY: X-RAY - LEFT FOOT CLINICAL: Male, 72 years old. Trauma TECHNIQUE: 3 view(s) of the foot. COMPARISON: None. FINDINGS: Normal talus, calcaneus, and tarsal bones. Normal visualized subtalar, talonavicular, calcaneocuboid, tarsal and tarsometatarsal articulations. Normal metatarsi. Hallux valgus deformity of the metatarsophalangeal joint of the great toe. Normal tibial and fibular sesamoid bones. Normal interphalangeal joint of the great toe. Normal phalanges of the great toe. Normal second through fifth metatarsophalangeal joints. Normal interphalangeal joints and phalanges of the lesser toes. There is a bony density lateral to the cuboid possibly representing avulsed cortical fragment as there appears to be mild soft tissue swelling. This also could represent accessory ossicle. Clinical correlation recommended RAD/Foot min 3 Views IMPRESSION: Question cortical avulsion of the lateral cuboid versus accessory ossicle.. Otherwise no evidence for acute fracture or dislocation Electronically Signed: Kenji Pearson MD at 17:01 EDT , Service support ,
--- NOTE | 2018-02-16 16:49 | NURSING ---
NO LW OR POA
--- NOTE | 2018-02-16 17:40 | ED.DEP ---
ED Disposition - Plan for ED Patient: Chief Complaint: Burn Instructions: ED Fx Foot Referrals: Orion Myers DO [STAFF PHYSICIAN] -
== END 2018-02-16 18:00 | disposition home or self-care (01) ==
PROVIDERS: Emergency Provider Emergency Medicine; Family Provider Family Medicine; PCP Family Medicine
DX: T24.231A Burn of second degree of right lower leg, initial encounter (principal); T31.0 Burns involving less than 10% of body surface; X19.XXXA Contact with other heat and hot substances, initial encounter; Y93.89 Activity, other specified; Y92.9 Unspecified place or not applicable; S92.215A Nondisplaced fracture of cuboid bone of left foot, initial encounter for closed fracture; X50.1XXA Overexertion from prolonged static or awkward postures, initial encounter; I10 Essential (primary) hypertension; K21.9 Gastro-esophageal reflux disease without esophagitis; M06.9 Rheumatoid arthritis, unspecified; Z79.899 Other long term (current) drug therapy; Z87.891 Personal history of nicotine dependence
CPT/HCPCS: 73630; 99282

== ENCOUNTER 2018-02-21 06:48 | Day surgery (SDC) | payer MEDICARE, MEDICAID, SELFPAY ==
[2018-02-21 07:08] VITALS: BP 148/79; PULSE 64; RESP 16; TEMP 36.6; O2SAT 100; BMI 21.2
--- NOTE | 2018-02-21 08:10 | PCM.OPRPT ---
Problem List (1) Aspiration pneumonia Status: Acute Qualifiers: Aspiration pneumonia type: unspecified Laterality: unspecified laterality Lung location: unspecified part of lung Qualified Code(s): J69.0 - Pneumonitis due to inhalation of food and vomit Report of Operation Date of Procedure: 02/21/18 Pre-Operative Diagnosis: j69.0 aspiration pneumonia Post-Operative Diagnosis: Same Surgery/Procedure Performed:: Esophagogastroduodenoscopy with percutaneous endoscopic gastrostomy tube placement Type of Anesthesia:: MAC Anesthesiologist: Kaelyn Bo Description of Procedure: Patient was brought into the endoscopy suite. Back of his throat was sprayed with benzocaine spray. A pediatric bite block was placed. He was given graded anesthesia. Scope was inserted in the back of the throat and directed down through the esophagus into the stomach and into the duodenum. Duodenum and stomach and esophagus all look normal. There is some narrowing in his upper esophagus getting through the oropharynx and into the esophagus itself through the upper sphincter. But the scope was able to traverse this. Abdomen was palpated the light was identified. Abdomen was marked appropriately it was sterilely prepped and draped in the usual fashion. 1% lidocaine plain was injected. A small skin darcy was made. Angiocatheter was placed through the skin darcy and into the stomach. Guidewire was placed through this. It was grasped with a snare. I brought back through the oropharynx. The PEG tube was connected to the guidewire. The PEG tube was brought back through the oropharynx through the esophagus and into the stomach. Endoscope he was then placed back into the oropharynx directed down through the esophagus and a photograph was obtained showing the PEG tube to be in good placement. A T-bar was applied. A locking cap was applied. Sterile dressings were applied. The patient tolerated the procedure well. - Admit VTE Documentation VTE Present on Admission: No VTE Mechan Device Prophylaxis: None VTE Pharm Prophylaxis ordered?: No Reason prophylaxis not ordered:: Treatment Not Indicated
[2018-02-21 08:14] VITALS: BP 128/86; BP 148/79; PULSE 63; RESP 18; TEMP 36.5; O2SAT 100
[2018-02-21 08:20] VITALS: BP 131/75; BP 148/79; PULSE 60; RESP 20; O2SAT 100
[2018-02-21 08:25] VITALS: BP 125/78; BP 148/79; PULSE 57; RESP 18; O2SAT 99
[2018-02-21 08:30] VITALS: BP 136/79; BP 148/79; PULSE 59; RESP 20; TEMP 36.4; O2SAT 100
[2018-02-21] MEDS: Acetaminophen 650 MG/20 ML UDC 1000 MG GT (09:00)
[2018-02-21 09:30] VITALS: BP 144/76; BP 148/79; PULSE 73; RESP 18; TEMP 36.4; O2SAT 99
== END 2018-02-21 09:34 | disposition home or self-care (01) ==
LOC: EN 06:49 → AC 06:50
PROVIDERS: Family Provider Family Medicine; PCP Family Medicine; Visit Provider Surgery
PROC: (CPT 43246; principal; 2018-02-21 07:50)
PROC: 0DJ08ZZ Inspection of Upper Intestinal Tract, Via Natural or Artificial Opening Endoscopic (ICD-10-PCS; CPT 43235; 2018-02-21 07:50)
DX: J69.0 Pneumonitis due to inhalation of food and vomit (principal); K21.9 Gastro-esophageal reflux disease without esophagitis; F41.9 Anxiety disorder, unspecified; M06.9 Rheumatoid arthritis, unspecified; G89.4 Chronic pain syndrome; Z85.818 Personal history of malignant neoplasm of other sites of lip, oral cavity, and pharynx; I10 Essential (primary) hypertension; E03.9 Hypothyroidism, unspecified; Z87.891 Personal history of nicotine dependence; Z79.899 Other long term (current) drug therapy; Z87.11 Personal history of peptic ulcer disease
CPT/HCPCS: 43246; 97802; J7120

== ENCOUNTER 2018-03-12 12:21 | Emergency (ER) | payer MEDICARE, MEDICAID, SELFPAY ==
[2018-03-12 12:23] VITALS: BP 161/81; PULSE 64; RESP 18; TEMP 36.6; O2SAT 98; BMI 21.5
--- NOTE | 2018-03-12 13:07 | CT_ITS ---
STUDY: CTA CHEST REASON FOR EXAM: Male, 72 years old. Shortness of breath. Right-sided chest pain. Lung nodule. RADIATION DOSAGE (If Supplied By Facility): CTDIvol = ( 9.74 ) mGy, DLP = ( 434.79 ) mGycm TECHNIQUE: The examination was performed with the intravenous administration of 100 ml of Isovue 370 contrast material. Post-processing of the angiographic images was performed, with multiplanar reformation and 3D reconstruction. Individualized dose optimization techniques were used for this CT. COMPARISON: Comparison is made with prior examination dated July 23, 2017. FINDINGS: Normal enhancement of the main pulmonary artery and right and left pulmonary arteries. Normal enhancement of the bilateral peripheral pulmonary arteries. There is no demonstrated pulmonary embolism. There is atherosclerotic calcification of the aortic arch with tortuosity. There is no demonstrated aortic dissection. Normal heart and pericardium. Normal mediastinum. Normal hilar regions. Normal visualized trachea and bronchi. Hyperinflation. There is evidence of soft tissue density with bronchiectasis along the medial aspects of the right and left upper lobes. 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 Clinical correlation is recommended. There is also evidence of a fine nodular pattern in the peripheral lateral aspect of the right middle lobe and right lower lobes with areas of infiltration and bronchiectasis in the peripheral aspect of the right middle lobe and right lower lobe. There is also evidence of bronchiectasis and scattered small nodular densities seen in the right lower lobe. There is a distinct 6 mm nodule in the posterior aspect of the right lower lobe as seen on axial image #65 and axial image #74. This represents a significant change as compared to prior study. Normal pleura. Normal chest wall structures. There are degenerative changes of thoracic spine. A gastrostomy tube is seen within a nondistended stomach. The patient is status post cholecystectomy. CT/CTA Chest W/WO Contrast IMPRESSION: No evidence of pulmonary embolism. Multiple findings in the right hemithorax as described suggestive of chronic obstructive pulmonary disease with areas of bronchiectasis and peripheral infiltration and/or scarring in the right middle lobe and right lower lobes. Symmetrical paramedian bronchiectasis with soft tissue density in the upper lobes. Correlation with a PET scan is recommended if clinically indicated. Electronically Signed: Louie Zhao MD at 14:46 EDT Tel [phone], Service support ,
[2018-03-12 13:26] LABS: Absolute Neutrophil Count 2.9 X10^3/uL (2.0-7.7); Basophil# 0.01 X10^3/uL; Basophil% 0.2 % (0-1); Eosinophils% 2.2 % (0-5); Hematocrit 32.8 % (40-54); Hemoglobin 10.5 g/dl (13.0-16.5); Lymphocyte % 20.2 % (19-41); Mean Corpuscular Hgb 27.1 pg (27.0-32.0); Mean Corpuscular Volume 84.8 fL (80-94); Mean Platelet Vol. 8.3 fl (6.2-12.0); Monocyte# 0.54 X10^3/uL; Monocyte% 12.1 % (0-10); Neutrophil % 65.3 % (47-70); POSITIVE COUNT NO; POSITIVE DIFFERENTIAL NO; Platelet Count 206 K/mm3 (150-450); RBC Distribution Width SD 49.6 fl (35.1-43.9); Red Blood Count 3.87 M/mm3 (4.6-6.2); White Blood Count 4.5 K/mm3 (4.4-11.0)
[2018-03-12 13:27] LABS: POSITIVE MORPHOLOGY NO
[2018-03-12 13:28] VITALS: O2SAT 96
[2018-03-12] MEDS: 0.9% Normal Saline 1,000 ML 1000 ML IV (13:34)
[2018-03-12 13:38] LABS: Anion Gap 5 (5-15); BUN 19 mg/dL (7-18); BUN/Creat Ratio 26.4 RATIO (10-20); Calcium,Total 9.3 mg/dL (8.5-10.1); Chloride 96 mmol/L (98-107); Creatinine, Serum 0.72 mg/dL (0.70-1.30); EST Glomerular Filtration Rate 114 mL/min (>60); Est Glom Filt Rate - Afr Amer 139 mL/min (>60); Estimated Creatinine Clearance 75.04 ml/min; Glucose 101 mg/dL (74-106); Potassium 4.4 mmol/L (3.5-5.1); Sodium Level 132 mmol/L (136-145)
[2018-03-12 14:42] VITALS: BP 154/80; PULSE 62; RESP 14; O2SAT 97
--- NOTE | 2018-03-12 15:05 | ED.VISSUMM ---
- ER Visit Summary Date of Service: 03/12/18 Chief Complaint: Cough and shortness of breath History of Present Illness: The patient is a 72 M who is in the process of changing from [facility] physicians to Dr. Matamoros. He reports he has a cough that began 2 days ago. Is productive yellow sputum. No fever or chills. Reports that he has moderate shortness of breath when he walks around. Mild shortness of breath at rest. Patient reports that he has a history of aspiration pneumonia and had a PEG tube placed [address] Hoyos. Reports that he had been doing well with this until 2 days ago when he began spitting up the tube feed orally. He is concerned that he has gotten aspiration pneumonia again. Physical Examination: Vitals: Stable. Afebrile. General: Well-nourished and well-developed. Head: Normocephalic atraumatic. Neck: Supple, no lymphadenopathy. No JVD. Nontender. Cardiovascular: Regular rate and rhythm. No murmurs. Respiratory: No respiratory distress. Clear to auscultation bilaterally. Abdominal: Soft, nontender, nondistended, normal bowel sounds. No guarding, rebound, or peritoneal signs. Back: Nontender. Extremities: Nontender, no edema. Skin: Normal color, no rash. Neurologic: Alert and oriented ?3. Cranial nerves II through XII are intact. Normal strength and sensation. Psych: Normal affect. Test Results: CBC is more for an H&H 10.5 and 32.8. Chem-7 is more for sodium 132, chloride 96, BUN of 19. Clinical Impression(s) from Imaging Studies Chest CTA 03/12/18 13:07 IMPRESSION: No evidence of pulmonary embolism. Multiple findings in the right hemithorax as described suggestive of chronic obstructive pulmonary disease with areas of bronchiectasis and peripheral infiltration and/or scarring in the right middle lobe and right lower lobes. Symmetrical paramedian bronchiectasis with soft tissue density in the upper lobes. Correlation with a PET scan is recommended if clinically indicated. Electronically Signed: Louie Zhao MD at 14:46 EDT Tel [phone], Service support , Emergency Department Course and Treatment: Patient reports that he had nodules on a CT of his chest that was performed last July and he is scheduled to see Dr. Cox next week. He was to have a CT prior to this visit. This was obtained during this visit. This CT does not show evidence of pneumonia or aspiration. Treatment Plan: Patient will be discharged instructions to follow-up with Dr. Cox next week as previously scheduled. Follow-up with Dr. Matamoros in 1 week if not improving. Return to the emergency department for any worsening symptoms. Disposition: To home in improved and stable condition. Impression: 1. URI. 2. History of aspiration pneumonia. 3. Right lower lobe nodule, 6 mm. 4. Bronchiectasis. This note was generated with [employer] dictation software. It may contain incorrect words, spelling, and punctuation that were not noted in review of the chart prior to signing ED Disposition - Plan for ED Patient: Disposition: Home or Assisted Living Chief Complaint: Shortness of Breath Instructions: ED Upper Resp Infec No Abx Tx Referrals: Hattie Garcia MD [STAFF PHYSICIAN] - 3-5 Days if not improving
[2018-03-12 15:19] VITALS: BP 154/80; PULSE 62
== END 2018-03-12 15:30 | disposition home or self-care (01) ==
PROVIDERS: Emergency Provider Emergency Medicine
DX: J06.9 Acute upper respiratory infection, unspecified (principal); Z87.09 Personal history of other diseases of the respiratory system; R91.1 Solitary pulmonary nodule; J47.9 Bronchiectasis, uncomplicated; Z93.1 Gastrostomy status; M54.9 Dorsalgia, unspecified; G89.29 Other chronic pain; Z85.818 Personal history of malignant neoplasm of other sites of lip, oral cavity, and pharynx; Z90.89 Acquired absence of other organs; Z90.49 Acquired absence of other specified parts of digestive tract; Z79.899 Other long term (current) drug therapy
CPT/HCPCS: 71275; 80048; 85025; 99284; J7030; Q9967; A4216

== ENCOUNTER 2018-08-17 16:50 | Emergency (ER) | payer MEDICARE, MEDICAID, SELFPAY ==
[2018-08-17 16:52] VITALS: BP 166/92; PULSE 76; RESP 18; TEMP 36.3; O2SAT 97; BMI 20.6
--- NOTE | 2018-08-17 17:35 | MRI_ITS ---
STUDY: MRI LUMBAR SPINE WITH AND WITHOUT CONTRAST REASON FOR EXAM: Male, 72 years old. Back pain with numbness and tingling in both legs TECHNIQUE: Standardized fat and water weighted pulse sequences were obtained in the sagittal and axial planes. 7 ml of Gadavist contrast material was administered for the contrast portion of the examination. COMPARISON: None FINDINGS: T12-L1: Normal endplates. Normal disc height, hydration and morphology. Normal bilateral facet joints. Normal central canal and bilateral lateral recesses. Normal bilateral intervertebral neural foramina. Normal lumbar lordosis. There is no substantial scoliosis. Normal conus medullaris that terminates at T12-L1 L1-2: Normal endplates. Normal disc height, hydration and morphology. Normal bilateral facet joints. Normal central canal and bilateral lateral recesses. Normal bilateral intervertebral neural foramina. L2-3: Normal endplates. Normal disc height, hydration and minimal annular bulge. Normal bilateral facet joints. Normal central canal and bilateral lateral recesses. Normal bilateral intervertebral neural foramina. L3-4: Normal endplates. Normal disc height, desiccation and minor annular bulge.. Facet arthropathy and thickening of ligamenta flava greater on the right. Normal central canal. Mild bilateral recess encroachment. Moderate left neuroforaminal stenosis and more severe narrowing on the right L4-5: Normal endplates. Narrowed disc space with minimal bulging disc osteophyte complex. Bilateral facet arthropathy greater on the right.. Normal central canal and mild bilateral recess stenosis. Moderate left neuroforaminal stenosis and more severe narrowing on the right L5-S1: Status post right laminectomy Normal endplates. Normal disc height, desiccation and minor bulging disc osteophyte complex. Mild facet arthropathy slightly greater on the right Normal central canal and bilateral lateral recesses. Mild left neural foraminal encroachment and moderate narrowing on the right. Normal visualized sacral ala. Normal visualized paraspinous soft tissue structures. There are septations within the thecal sac and clumping of nerve roots at L5-S1 consistent with arachnoiditis. There is also enhancing nerve root following contrast demonstration MRI/Spine Lumbar W/WO Contrast IMPRESSION: No evidence for acute fracture or other significant bony pathology Status post right laminectomy at L5-S1 and findings consistent with arachnoiditis Spinal stenosis at L3-4, L4-5 and L5-S1 secondary to disc disease and bony hypertrophy. Findings as above Electronically Signed: Kenji Pearson MD at 20:27 EST , Service support ,
[2018-08-17] MEDS: traMADol 50 MG Tablet 100 MG GT (17:50)
[2018-08-17 17:51] LABS: Mucous, Urine 0 SEEN /hpf (<or=2+); Red Blood Cells-Urine 0 SEEN /hpf (0-5); Squamous Epithelial Cells - UA 0 SEEN /hpf (0-5); White Blood Cells 0 SEEN /hpf (0-5)
[2018-08-17] MEDS: 0.9% Normal Saline 1,000 ML 150 ML IV (17:52)
[2018-08-17] MEDS: Acetaminophen 650 MG/20 ML UDC GT (17:53)
[2018-08-17 18:01] LABS: Color, Urine Yellow (Yellow); Glucose, Dipstick Normal (Normal); Ketone-Dipstick Negative (Negative); Leukocyte Esterase-Dipstick Negative /ul (Negative); Nitrite-Dipstick Negative (Negative); Occult Blood-Urine Negative /ul (Negative); Protein-Dipstick Negative (Negative); Urine Bilirubin Dipstick Negative (Negative); Urine Clarity Clear (Clear); Urine Urobilinogen Normal (Normal)
[2018-08-17 18:09] LABS: Absolute Lymphocyte Count 1.37 X10^3/ul (0.83-4.51); Absolute Neutrophil Count 3.6 X10^3/uL (2.0-7.7); Basophil# 0.01 X10^3/uL; Basophil% 0.2 % (0-1); Eosinophil# 0.05 X10^3/uL; Eosinophils% 0.9 % (0-5); Hematocrit 36.3 % (40-54); Hemoglobin 12.1 g/dl (13.0-16.5); Lymphocyte # 1.37 X10^3/ul (4.0); Lymphocyte % 24.6 % (19-41); Mean Corp Hgb Conc 33.3 g/gl (32-36); Mean Corpuscular Volume 93.1 fL (80-94); Mean Platelet Vol. 9.1 fl (6.2-12.0); Monocyte# 0.58 X10^3/uL; Monocyte% 10.4 % (0-10); Neutrophil # 3.56 X10^3/uL (2.7-7.7); Neutrophil % 63.9 % (47-70); Platelet Count 168 K/mm3 (150-450); RBC Distribution Width CV 13.9 % (11.6-14.6); White Blood Count 5.6 K/mm3 (4.4-11.0)
[2018-08-17 18:11] LABS: Anion Gap 9 (5-15); BUN 26 mg/dL (7-18); BUN/Creat Ratio 32.1 RATIO (10-20); Calcium,Total 9.1 mg/dL (8.5-10.1); Chloride 99 mmol/L (98-107); Creatinine, Serum 0.81 mg/dL (0.70-1.30); EST Glomerular Filtration Rate 100 mL/min (>60); Est Glom Filt Rate - Afr Amer 121 mL/min (>60); Estimated Creatinine Clearance 88.55 ml/min; Glucose 90 mg/dL (74-106); Potassium 4.1 mmol/L (3.5-5.1); Sodium Level 138 mmol/L (136-145)
[2018-08-17 18:19] LABS: Bacteria 1+ /hpf (None Seen)
[2018-08-17 18:29] LABS: POSITIVE COUNT NO; POSITIVE DIFFERENTIAL NO; POSITIVE MORPHOLOGY NO
--- NOTE | 2018-08-17 18:35 | ED.RN ---
MRI PAPERS COMPLETD PER PT AND [facility] REP TO COME IN AFTER MRI TO REVIEW PAIN PUMP TO MAKE SURE IS NOT STALLED OR OFF FROM MRI AFTER CALLING NUMBER ON ID CARD PER MRI STAFF
[2018-08-17 19:52] VITALS: BP 158/75; PULSE 70; RESP 16; O2SAT 99
--- NOTE | 2018-08-17 20:13 | ED.RN ---
BRO FROM [facility] AT BEDSIDE TO EVALUATE PAIN PUMP.
--- NOTE | 2018-08-17 22:00 | ED.DCSUM_ITS ---
- ER Visit Summary Date of Service: 08/17/18 Chief Complaint: Groin pain History of Present Illness: The patient is a 72 M with a history of multiple lumbar disc protrusions and prior laminectomy. Patient states he was told by his neurosurgeon that they would only do surgery if he gets groin pain or numbne ss indicative of cauda equina. He noted numbness below his knees when he first gets up for the past 3 weeks. He had groin pain today. He called his pain management doctor who advised him to come in as soon as possible. Physical Examination: Vital signs significant for blood pressure 166/92, otherwise unremarkable. Patient sitting upright in bed no acute distress. Head neck examination unremarkable. Heart is regular rate and rhythm. Lung sounds are clear. Abdomen is soft and nontender. PEG tube is in place. Lower external examination reveals 2+ bilateral patellar reflexes with strong distal pulses. He has normal strength on testing. Test Results: CBC was normal white count hemoglobin of 12.1. Chemistry studies normal. Urinalysis normal. MRI of the L-spine is obtained that shows no acute fracture. He is status post laminectomy at L5-S1 and findings consistent with arachnoiditis. Spinal stenosis is noted. Emergency Department Course and Treatment: Patient was given Tylenol and tramadol prior to his MRI which states usually helps his pain. He does have an intrathecal pain pump with morphine. Patient states he believes the symptoms started after getting a new bed and is wondering if that is related to his current symptoms. At this time there is no sign of acute cauda equina syndrome. He will be given 10 tabs of tramadol to get him through the weekend and he will follow-up with his pain management doctor on Monday. Treatment Plan: [] Disposition: Discharge Impression: Acute on chronic back pain This note was generated with [employer] dictation software. It may contain incorrect words, spelling, and punctuation that were not noted in review of the chart prior to signing ED Disposition - Plan for ED Patient: Chief Complaint: General Illness Referrals: Eliz Ruelas MD [Primary Care Provider] -
--- NOTE | 2018-08-17 22:00 | ED.DEP ---
ED Disposition - Plan for ED Patient: Disposition: Home or Assisted Living Chief Complaint: General Illness Instructions: ED Neck Back Pain General Prescriptions: traMADol [Ultram (G)] 50 mg PO Q6H PRN PRN #10 tablet PRN Reason: Pain Referrals: Theresa Ortega MD [STAFF PHYSICIAN] - As soon as possible
[2018-08-17 22:15] VITALS: BP 160/75; PULSE 74; RESP 16; O2SAT 100
== END 2018-08-17 22:17 | disposition home or self-care (01) ==
PROVIDERS: Emergency Provider Emergency Medicine; Family Provider Family Medicine; PCP Family Medicine
DX: M54.9 Dorsalgia, unspecified (principal); G89.29 Other chronic pain; M48.07 Spinal stenosis, lumbosacral region; M48.061 Spinal stenosis, lumbar region without neurogenic claudication; R10.30 Lower abdominal pain, unspecified; K21.9 Gastro-esophageal reflux disease without esophagitis; I10 Essential (primary) hypertension; E03.9 Hypothyroidism, unspecified; M06.9 Rheumatoid arthritis, unspecified; G62.9 Polyneuropathy, unspecified; Z85.819 Personal history of malignant neoplasm of unspecified site of lip, oral cavity, and pharynx; Z86.2 Personal history of diseases of the blood and blood-forming organs and certain disorders involving the immune mechanism; Z93.1 Gastrostomy status; Z97.8 Presence of other specified devices; Z98.890 Other specified postprocedural states; Z79.899 Other long term (current) drug therapy; Z87.891 Personal history of nicotine dependence
CPT/HCPCS: 72158; 80048; 81001; 85025; 96360; 96361; 99285; A9585; J7030; A4216

== ENCOUNTER 2018-08-28 17:14 | Emergency (ER) | payer MEDICARE, MEDICAID, SELFPAY ==
[2018-08-28 17:16] VITALS: BP 161/99; PULSE 78; RESP 18; TEMP 37.1; O2SAT 95
--- NOTE | 2018-08-28 17:30 | ED.VISSUMM ---
- ER Visit Summary Date of Service: 08/28/18 Chief Complaint: PEG tube complication History of Present Illness: The patient is a 72 M who has a PEG tube. He has this due to aspiration pneumonia with a history of oropharyngeal cancer. He states the PEG tube was placed in January by Dr. Hoyos. Tonight he was cleaning and accidentally cut the tubing with a pair scissors. He notes it is a 20 [place]. Physical Examination: Afebrile vital signs stable Gen: Well-nourished well-developed Head: Normocephalic atraumatic Eyes: Perrl EOMI ENT: TMs clear no rhinorrhea moist mucous membranes Neck: Supple no lymphadenopathy no JVD nontender CVS: Regular rate rhythm no murmurs normal S1-S2 Respiratory: No distress clear to auscultation bilaterally chest nontender Abdomen: Soft nontender nondistended normal bowel sounds no masses well-healed stoma Back: Nontender Extremity: Nontender no edema Skin: Normal color no rash Neuro: alert orientated ?3 CN II-XII intact normal strength sensation reflexes gait cerebellar Psych: Normal affect normal mood Emergency Department Course and Treatment: We were able to obtain a 20 Egyptian PEG tube. The previous tube was removed and the 20 Egyptian placed without difficulty. Gastrografin was used to confirm placement. The tube balloon was inflated with 6 cc of air. Follow-up with surgeon as scheduled Impression: 1. PEG tube complication and replacement by physician This note was generated with [employer] dictation software. It may contain incorrect words, spelling, and punctuation that were not noted in review of the chart prior to signing ED Disposition - Plan for ED Patient: Disposition: Home or Assisted Living Chief Complaint: Abd Pain Instructions: ED G Tube Replacement Referrals: Eliz Ruelas MD [Primary Care Provider] - As Needed
--- NOTE | 2018-08-28 17:33 | ED.DCSUM_ITS ---
- ER Visit Summary Date of Service: 08/28/18 Chief Complaint: PEG tube complication History of Present Illness: The patient is a 72 M who has a PEG tube. He has this due to aspiration pneumonia with a history of oropharyngeal cancer. He states the PEG tube was placed in January by Dr. Hoyos. Tonight he was cleaning and accidentally cut the tubing with a pair scissors. He notes it is a 20 [place] Island[place]. Physical Examination: Afebrile vital signs stable Gen: Well-nourished well-developed Head: Normocephalic atraumatic Eyes: Perrl EOMI ENT: TMs clear no rhinorrhea moist mucous membranes Neck: Supple no lymphadenopathy no JVD nontender CVS: Regular rate rhythm no murmurs normal S1-S2 Respiratory: No distress clear to auscultation bilaterally chest nontender Abdomen: Soft nontender nondistended normal bowel sounds no masses well-healed stoma Back: Nontender Extremity: Nontender no edema Skin: Normal color no rash Neuro: alert orientated ?3 CN II-XII intact normal strength sensation reflexes gait cerebellar Psych: Normal affect normal mood Emergency Department Course and Treatment: We were able to obtain a 20 [place] Island[place] PEG tube. The previous tube was removed and the 20 [place] Island[place] placed without difficulty. Gastrografin was used to confirm placement. The tube balloon was inflated with 6 cc of air. Follow-up with surgeon as scheduled Impression: 1. PEG tube complication and replacement by physician This note was generated with [employer] dictation software. It may contain incorrect words, spelling, and punctuation that were not noted in review of the chart prior to signing ED Disposition - Plan for ED Patient: Disposition: Home or Assisted Living Chief Complaint: Abd Pain Instructions: ED G Tube Replacement Referrals: Eliz Ruelas MD [Primary Care Provider] - As Needed
--- NOTE | 2018-08-28 18:45 | RAD_ITS ---
STUDY: X-RAY - ABDOMEN/PELVIS REASON FOR EXAM: Male, 72 years old. PEG tube placement TECHNIQUE: Single AP view of the abdomen / pelvis. COMPARISON: Prior study of 01/31/2018. FINDINGS: Normal visualized lung bases. There is an unremarkable bowel gas pattern. There is no demonstrated free abdominal air. A PEG tube is noted with PEG tube balloon is located within the proximal gastric body. There is no evidence of contrast extravasation. The visualized liver, spleen and kidneys are grossly normal in size and morphology. A medical observer is seen overlying the right lower abdomen. Normal soft tissue structures. Normal visualized osseous structures. RAD/Abdomen Single View (Portable) IMPRESSION: PEG tube present appearing in good position. There is no evidence of contrast extravasation. The bowel gas pattern appears normal. Electronically Signed: Kam Avery MD at 19:20 EST , Service support ,
== END 2018-08-28 19:23 | disposition home or self-care (01) ==
PROVIDERS: Emergency Provider Emergency Medicine; Family Provider Family Medicine; PCP Family Medicine
DX: K94.29 Other complications of gastrostomy (principal); K21.9 Gastro-esophageal reflux disease without esophagitis; I10 Essential (primary) hypertension; E03.9 Hypothyroidism, unspecified; M06.9 Rheumatoid arthritis, unspecified; Z85.819 Personal history of malignant neoplasm of unspecified site of lip, oral cavity, and pharynx; Z87.01 Personal history of pneumonia (recurrent); Z79.899 Other long term (current) drug therapy; Z87.891 Personal history of nicotine dependence
CPT/HCPCS: 74018; 99282

== ENCOUNTER 2018-08-29 04:10 | Emergency (ER) | payer MEDICARE, MEDICAID, SELFPAY ==
[2018-08-29 04:11] VITALS: BP 146/68; PULSE 69; RESP 18; TEMP 36.8; O2SAT 97
--- NOTE | 2018-08-29 04:29 | RAD_ITS ---
STUDY: X-RAY - ABDOMEN/PELVIS REASON FOR EXAM: Male, 72 years old. PEG tube placement. 20 cc Gastrografin injected into the PEG tube. TECHNIQUE: AP supine abdomen. COMPARISON: August 28, 2018. FINDINGS: Normal visualized lung bases. PEG tube present with the tip overlying the gastric body. No extravasation of oral contrast. property man overlies the right lower quadrant. There is an unremarkable bowel gas pattern. There is no demonstrated free abdominal air. The visualized liver, spleen and kidneys are grossly normal in size and morphology. Normal soft tissue structures. Normal visualized osseous structures. RAD/Abdomen Single View IMPRESSION: PEG tube tip in the gastric body without evidence of a leak. Electronically Signed: Mo Guillen MD at 5:35 EST , Service support ,
--- NOTE | 2018-08-29 04:36 | ED.DCSUM_ITS ---
- ER Visit Summary Date of Service: 08/29/18 Chief Complaint: PEG tube dislodged History of Present Illness: The patient is a 72 M returns for dislodgment of PEG tube. He was here earlier and was replaced. States he was transitioned to a PEG tube this past February followed by Dr. Hoyos. Strictly tube feeds. States was in preparation of giving himself his tube feeds when it came out. Earlier replaced secondary to accidentally cutting it when cleaning the tube. His appointment Dr. Hoyos this Monday morning for follow-up. Physical Examination: General: Alert and oriented ?3, no acute distress HEENT: Normocephalic, atraumatic. Moist mucosa membranes Neck: supple, nontender. Cardiovascular: Regular rate and rhythm, no murmurs Respiratory: Normal breath sounds, symmetric, no distress Abdomen: Soft, nontender, nondistended. PEG tube placed at orifice per patient. No erythema or drainage. Extremities: Nontender, no edema, pulses intact ?4 Neuro: no focal neurological deficits. Test Results: KUB: With Gastrografin, confirms placement reviewed by myself. Emergency Department Course and Treatment: Evaluation of PEG tube, it was dislodged with no inflation of balloon. This was checked with saline, balloon was intact. PEG tube was washed cleanse, replaced, saline injection with a total of 6 cc. KUB Gastrografin confirms placement. Discharge with outpatient follow-up. Treatment Plan: [] Disposition: Discharge Impression: 1. PEG tube displacement This note was generated with [employer] dictation software. It may contain incorrect words, spelling, and punctuation that were not noted in review of the chart prior to signing ED Disposition - Plan for ED Patient: Disposition: Home or Assisted Living Chief Complaint: General Illness Diagnosis: PEG tube displacement Instructions: Gastrostomy Feeding Tube Care: [place] Referrals: Eliz Ruelas MD [Primary Care Provider] - Compa Hoyos MD [STAFF PHYSICIAN] - Keep Carlos appointment
[2018-08-29 05:21] VITALS: RESP 18; O2SAT 98
--- OUTSIDE RECORDS SUMMARY | 2018-11-02 20:53 | XMS RPT_ITS ---
:1945 [address] [facility] Support Name Relationship Address Phone R Unavailable Unavailable Unavailable KAAAWA, CHRISTOPHER Unavailable [address] + [place] [address] R Unavailable Unavailable Unavailable KAAAWA, CHRISTOPHER Unavailable [address] + [place] [address] R Unavailable Unavailable Unavailable KAAAWA, CHRISTOPHER Unavailable [address] + [place] [address] R Unavailable Unavailable Unavailable KAAAWA, CHRISTOPHER Unavailable [address] + [place] [address] R Unavailable Unavailable Unavailable KAAAWA, CHRISTOPHER Unavailable [address] + [place] [address] KAAAWA, CHRISTOPHER Unavailable Unavailable + KAAAWA, CHRISTOPHER Unavailable Unavailable + KAAAWA, CHRISTOPHER Unavailable Unavailable + KAAAWA, CHRISTOPHER Unavailable Unavailable + KAAAWA, CHRISTOPHER Unavailable Unavailable + KAAAWA, CHRISTOPHER Unavailable Unavailable + R Unavailable Unavailable Unavailable KAAAWA, CHRISTOPHER Unavailable [address] + [place] [address] R Unavailable Unavailable Unavailable KAAAWA, CHRISTOPHER Unavailable [address] + [place] [address] R Unavailable Unavailable Unavailable KAAAWA, CHRISTOPHER Unavailable [address] + [place] [address] R Unavailable Unavailable Unavailable KAAAWA [facility] Unavailable [address] + [place] [address] [facility] Unavailable + R Unavailable Unavailable Unavailable KAAAWA [facility] Unavailable [address] + [place] [address] R Unavailable Unavailable Unavailable KAAAWA, [facility] Unavailable [address] + [place] [address] R Unavailable Unavailable Unavailable KAAAWA [facility] Unavailable [address] + [place] [address] R Unavailable Unavailable Unavailable KAAAWA, [facility] Unavailable [address] + [place] [address] R Unavailable Unavailable Unavailable KAAAWA [facility] Unavailable [address] + [place] [address] R Unavailable Unavailable Unavailable KAAAWA, [facility] Unavailable [address] + [place] [address] R Unavailable Unavailable Unavailable KAAAWA, [facility] Unavailable [address] + [place] [address] R Unavailable Unavailable Unavailable KAAAWA [facility] [place] Unavailable [address] + [place] [address] R Unavailable Unavailable Unavailable KAAAWA [facility] Unavailable [address] + [place] [address] R Unavailable Unavailable Unavailable KAAAWA [facility] Unavailable [address] + [place] [address] KAAAWA [facility] Unavailable Unavailable + KAAAWA [facility] Unavailable Unavailable + KAAAWA [facility] Unavailable Unavailable + R Unavailable Unavailable Unavailable KAAAWA, CHRISTOPHER Unavailable [address] + [place] [address] JUANY, CHRISTOPHER Unavailable Unavailable + JUANY, CHRISTOPHER Unavailable Unavailable + JUANY, CHRISTOPHER Unavailable Unavailable + R Unavailable Unavailable Unavailable KAAAWA, CHRISTOPHER Unavailable [address] + [place] [address] R Unavailable Unavailable Unavailable KAAAWA, CHRISTOPHER Unavailable [address] + [place] [address] [place], Christopher Unavailable Unavailable + R Unavailable Unavailable Unavailable KAAAWA, CHRISTOPHER Unavailable [address] + [place] [address] KAAAWA, CHRISTOPHER Unavailable Unavailable + JUANY, CHRISTOPHER Unavailable Unavailable + JUANY, CHRISTOPHER Unavailable Unavailable + JUANY, CHRISTOPHER Unavailable Unavailable + JUANY, CHRISTOPHER Unavailable Unavailable + JUANY, CHRISTOPHER Unavailable Unavailable + JUANY, CHRISTOPHER Unavailable Unavailable + JUANY, CHRISTOPHER Unavailable Unavailable + JUANY, CHRISTOPHER Unavailable Unavailable + JUANY, CHRISTOPHER Unavailable Unavailable + JUANY, CHRISTOPHER Unavailable Unavailable + JUANY, CHRISTOPHER Unavailable Unavailable + JUANY, CHRISTOPHER Unavailable Unavailable + JUANY, CHRISTOPHER Unavailable Unavailable + JUANY, CHRISTOPHER Unavailable Unavailable + Care Team Providers Name Role Phone KEITH, DILMA Attending Unavailable KEITH, DILMA Primary Care Unavailable KEITH, DILMA Primary Care Unavailable JOSE PETER MD Admitting Unavailable JOSE PETER MD Attending Unavailable KEITH, DILMA Consulting Unavailable JOSE HUMPHRIES MD Attending Unavailable KEITH, DILMA Primary Care Unavailable KEITH, DILMA Attending Unavailable KEITH, DILMA Primary Care Unavailable DR. MESERET DEWITT DO Attending Unavailable KEITH, DILMA Primary Care Unavailable MICHAEL TSAI Attending Unavailable KEITH, DILMA Primary Care Unavailable JESÚS RUELAS DO Attending Unavailable KEITH, DILMA Primary Care Unavailable RUELAS JESÚS TIJERINA Attending Unavailable KEITH, DILMA Primary Care Unavailable KEITH, DILMA Primary Care Unavailable JOSE PETER MD Admitting Unavailable JOSE PETER MD Attending Unavailable MICK BENNETT, MD. MARILUZ Briceño Consulting Unavailable KEITH, DILMA Consulting Unavailable Keith, Dilma Attending Unavailable PROVIDER, UNKNOWN Referring Unavailable Keith, Dilma Primary Care Unavailable Keith, Dilma Attending Unavailable PROVIDER, UNKNOWN Referring Unavailable Keith, Dilma Primary Care Unavailable Doreen Ann Attending Unavailable Ruelas, Jesús Primary Care Unavailable Compa Hoyos Attending Unavailable Ruelas, Jesús Referring Unavailable Ruelas, Jesús Primary Care Unavailable Compa Gómez Attending Unavailable Ruelas, Jesús Primary Care Unavailable Cr Donald Attending Unavailable Compa Hoyos Attending Unavailable Compa Hoyos Referring Unavailable Hernandez Cox Attending Unavailable Keith, Dilma Primary Care Unavailable Hernandez Cox Referring Unavailable Compa Hoyos Attending Unavailable Keith, Dilma Referring Unavailable Keith, Dilma Primary Care Unavailable Keith, Dilma Primary Care Unavailable Elia Harris Attending Unavailable Keith, Dilma Primary Care Unavailable Keisha Ladd Attending Unavailable Keith, Dilma Attending Unavailable Keith, Dilma Referring Unavailable Keith, Dilma Primary Care Unavailable Compa Hoyos Attending Unavailable Compa Hoyos Referring Unavailable Keith, Dilma Primary Care Unavailable Keith, Dilma Primary Care Unavailable Doreen Ann Attending Unavailable Keith, Dilma Primary Care Unavailable Natan Willard Attending Unavailable Keith, Dilma Primary Care Unavailable Compa Gómez Attending Unavailable Keith, Dilma Primary Care Unavailable Compa Sheldon Attending Unavailable Soha, Compa Attending Unavailable Keith, Dilma Referring Unavailable Keith, Dilma Primary Care Unavailable Soha, Compa Attending Unavailable Keith, Dilma Primary Care Unavailable Labadie, Compa Referring Unavailable Labadie, Compa Attending Unavailable Soha, Compa Referring Unavailable Keith, Dilma Primary Care Unavailable Soha, Compa Consulting Unavailable Labadie, Compa Attending Unavailable Elia Harris Attending Unavailable Primay Care Physicia, No Primary Care Unavailable Hernandez Cox Attending Unavailable Keith, Dilma Primary Care Unavailable Hernandez Cox Consulting Unavailable Keith, Dilma Referring Unavailable Soha, Compa Attending Unavailable Suraj, Jesús Referring Unavailable Soha, Compa Attending Unavailable Ruelas, Jesús Referring Unavailable PROBLEMS PROBLEMS DATE TYPE CONDITION / CODE ATTENDING STATUS SOURCE 09/06/2018 Unknown L92.9 - Compa Hoyos Active [facility] 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 and Repository subcutaneous tissue, unspecified / L92.9(ICD-10) 08/22/2018 Unknown R10.30 - Yung BarrigaDoreen choi Active [facility] abdominal pain, Community unspecified / Hospital R10.30(ICD-10) Repository 07/19/2018 Unknown K21.9 - Compa Hoyos Active [place] Gastro-esophageal [facility] reflux disease Hospital without esophagitis Repository / K21.9(ICD-10) 05/16/2018 Unknown Z85.819 - Personal Hernandez Cox Active [facility] history of Community malignant neoplasm Hospital of unspecified site Repository of lip, oral cavity, and pharynx / Z85.819(ICD-10) 05/16/2018 Unknown E03.9 - Hernandez Cox Active [facility] Hypothyroidism, Community unspecified / Hospital E03.9(ICD-10) Repository 01/22/2018 Unknown Z00.00 - Encounter Compa Hoyos Active [facility] for general adult [facility] medical examination Hospital without abnormal Repository findings / Z00.00(ICD-10) 03/07/2018 Unknown R13.10 - Dysphagia, Compa Hoyos Active [facility] unspecified / Community R13.10(ICD-10) Hospital Repository 12/18/2017 Unknown J18.1 - Lobar Keith, Active [facility] pneumonia, Dilma Community unspecified Hospital organism / Repository J18.1(ICD-10) 11/09/2017 Admitting Hyperlipidemia, KEITH, Active [facility] Diagnosis unspecified / [facility] E78.5(ICD-10) Repository PROCEDURES PROCEDURES No Procedure Records FoundRESULTS RESULTS EMERGENCY DEPARTMENT Observed: 08/29/2018 Status: F Source: [place] SUMMARY 5:23 AM [facility] REPOSITORY [facility] Medical Records Department [address] [place] [address] Emergency Department Summary 08/29/18 0433 MR#: [id number] Acct: [id number] Name: YANNICK HARRINGTON Rep #: [id number] : 1945 72 From: Cr Walls PCP: Jesús Ruelas DO Status: REG ER - ER Visit Summary Date of Service: 08/29/18 Chief Complaint: PEG tube dislodged History of Present Illness: The patient is a 72 M returns for dislodgment of PEG tube. He was here earlier and was replaced. States he was transitioned to a PEG tube this past February followed by Dr. Hoyos. Strictly tube feeds. States was in preparation of giving himself his tube feeds when it came out. Earlier replaced secondary to accidentally cutting it when cleaning the tube. His appointment Dr. Hoyos this Monday morning for follow-up. Physical Examination: General: Alert and oriented 3, no acute distress HEENT: Normocephalic, atraumatic. Moist mucosa membranes Neck: supple, nontender. Cardiovascular: Regular rate and rhythm, no murmurs Respiratory: Normal breath sounds, symmetric, no distress Abdomen: Soft, nontender, nondistended. PEG tube placed at orifice per patient. No erythema or drainage. Extremities: Nontender, no edema, pulses intact 4 Neuro: no focal neurological deficits. Test Results: KUB: With Gastrografin, confirms placement reviewed by myself. Emergency Department Course and Treatment: Evaluation of PEG tube, it was dislodged with no inflation of balloon. This was checked with saline, balloon was intact. PEG tube was washed cleanse, replaced, saline injection with a total of 6 cc. KUB Gastrografin confirms placement. Discharge with outpatient follow-up. Treatment Plan: [] Disposition: Discharge Impression: 1. PEG tube displacement This note was generated with SmartAsset dictation software. It may contain incorrect words, spelling, and punctuation that were not noted in review of the chart prior to signing ED Disposition - Plan for ED Patient: Disposition: Home or Assisted Living Chief Complaint: General Illness Diagnosis: PEG tube displacement Instructions: Gastrostomy Feeding Tube Care: [place] Referrals: Jesús Ruelas MD [Primary Care Provider] - Compa Hoyos MD [STAFF PHYSICIAN] - Keep Carlos appointment What to do if you have Problems For any increased pain, shortness of breath, bleeding, nausea or vomiting, chest pain, or any unexpected problems, contact your Primary Care Provider. Call [facility] ([phone]) or report to the closest Emergency Room. Call 911 if necessary. 08/29/18 0523 <Electronically signed by Cr Walls> Date Cr Walls Cosigner Signature (If Indicated): Date CC: Jesús Ruelas DO ABDOMEN SINGLE VIEW Observed: 08/29/2018 Status: F Source: [place] 4:30 AM [facility] Imaging Services [address] [place] [address] Abdomen Single View MR#: [id number] Acct: [id number] Name: YANNICK HARRINGTON Rep #: [id number] : 1945 M 72 From: Mo Guillen PCP: Jesús Ruelas DO Status: REG ER Study: Abdomen Single View Date of Exam: 08/29/18 Exam# [id number] Ordering Dr: Cr Donald DO STUDY: X-RAY - ABDOMEN/PELVIS REASON FOR EXAM: Male, 72 years old. PEG tube placement. 20 cc Gastrografin injected into the PEG tube. TECHNIQUE: AP supine abdomen. COMPARISON: August 28, 2018. FINDINGS: Normal visualized lung bases. PEG tube present with the tip overlying the gastric body. No extravasation of oral contrast. pad making machine operator overlies the right lower quadrant. There is an unremarkable bowel gas pattern. There is no demonstrated free abdominal air. The visualized liver, spleen and kidneys are grossly normal in size and morphology. Normal soft tissue structures. Normal visualized osseous structures. RAD/Abdomen Single View IMPRESSION: PEG tube tip in the gastric body without evidence of a leak. Electronically Signed: Mo Guillen MD at 5:35 EST , Service support , CC: Jesús Ruelas DO; Cr Donald Wind Turbine Erector: Signed EMERGENCY DEPARTMENT Observed: 08/29/2018 Status: F Source: [place] SUMMARY 1:22 AM [facility] Medical Records Department [address] [place] [address] Emergency Department Summary 08/28/18 1730 MR#: [id number] Acct: [id number] Name: YANNICK HARRINGTON Rep #: [id number] : 1945 72 From: Compa Gómez DO PCP: Jesús Ruelas DO Status: DEP ER - ER Visit Summary Date of Service: 08/28/18 Chief Complaint: PEG tube complication History of Present Illness: The patient is a 72 M who has a PEG tube. He has this due to aspiration pneumonia with a history of oropharyngeal cancer. He states the PEG tube was placed in January by Dr. Hoyos. Robert he was cleaning and accidentally cut the tubing with a pair scissors. He notes it is a 20 [place]. Physical Examination: Afebrile vital signs stable Gen: Well-nourished well-developed Head: Normocephalic atraumatic Eyes: Perrl EOMI ENT: TMs clear no rhinorrhea moist mucous membranes Neck: Supple no lymphadenopathy no JVD nontender CVS: Regular rate rhythm no murmurs normal S1-S2 Respiratory: No distress clear to auscultation bilaterally chest nontender Abdomen: Soft nontender nondistended normal bowel sounds no masses well-healed stoma Back: Nontender Extremity: Nontender no edema Skin: Normal color no rash Neuro: alert orientated 3 CN II-XII intact normal strength sensation reflexes gait cerebellar Psych: Normal affect normal mood Emergency Department Course and Treatment: We were able to obtain a 20 [place] PEG tube. The previous tube was removed and the 20 [place] placed without difficulty. Gastrografin was used to confirm placement. The tube balloon was inflated with 6 cc of air. Follow-up with surgeon as scheduled Impression: 1. PEG tube complication and replacement by physician This note was generated with SmartAsset dictation software. It may contain incorrect words, spelling, and punctuation that were not noted in review of the chart prior to signing ED Disposition - Plan for ED Patient: Disposition: Home or Assisted Living Chief Complaint: Abd Pain Instructions: ED G Tube Replacement Referrals: Jesús Ruelas MD [Primary Care Provider] - As Needed What to do if you have Problems For any increased pain, shortness of breath, bleeding, nausea or vomiting, chest pain, or any unexpected problems, contact your Primary Care Provider. Call [employer] Registry ([phone]) or report to the closest Emergency Room. Call 911 if necessary. 08/29/18 0122 <Electronically signed by Compa Gómez DO> Date Compa Gómez DO Cosigner Signature (If Indicated): Date CC: Jesús Ruelas DO ABDOMEN SINGLE VIEW Observed: 08/28/2018 Status: F Source: [place] (PORTABLE) 5:36 PM [facility] REPOSITORY [facility] Imaging Services [address] [place] [address] Abdomen Single View (Portable) MR#: [id number] Acct: [id number] Name: YANNICK HARRINGTON Rep #: [id number] : 1945 M 72 From: Kam Avery MD PCP: Jesús Ruelas DO Status: REG ER Study: Abdomen Single View (Portable) Date of Exam: 08/28/18 Exam# [id number] Ordering Dr: Compa Gómez DO STUDY: X-RAY - ABDOMEN/PELVIS REASON FOR EXAM: Male, 72 years old. PEG tube placement TECHNIQUE: Single AP view of the abdomen / pelvis. COMPARISON: Prior study of 01/31/2018. FINDINGS: Normal visualized lung bases. There is an unremarkable bowel gas pattern. There is no demonstrated free abdominal air. A PEG tube is noted with PEG tube balloon is located within the proximal gastric body. There is no evidence of contrast extravasation. The visualized liver, spleen and kidneys are grossly normal in size and morphology. A certified medical aide is seen overlying the right lower abdomen. Normal soft tissue structures. Normal visualized osseous structures. RAD/Abdomen Single View (Portable) IMPRESSION: PEG tube present appearing in good position. There is no evidence of contrast extravasation. The bowel gas pattern appears normal. Electronically Signed: Kam Avery MD at 19:20 EST , Service support , CC: Compa Gómez DO; Jesús Ruelas DO Wind Turbine Erector: Signed SURGERY VISIT REPORT Observed: 08/22/2018 Status: F Source: [place] 1:15 PM [facility] REPOSITORY [facility] [address] [place] [address]. 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 Tools Developer Required: No Is patient in pain?: Yes (back) Allergies ciprofloxacin [From Cipro] Allergy (Verified 08/22/18 13:09) Itching diclofenac sodium [From Solaraze] Allergy (Verified 08/22/18 13:09) Anaphylaxis fluorouracil Allergy (Verified 08/22/18 13:09) Anaphylaxis methotrexate Allergy (Verified 08/22/18 13:09) Anaphylaxis Penicillins Allergy (Verified 08/22/18 13:09) Itching pentazocine lactate [From Talwin] Allergy (Verified 08/22/18 13:09) Other venom-honey bee [bee venom (honey bee)] Allergy (Verified 08/22/18 13:09) Anaphylaxis amlodipine Adverse Reaction (Verified 08/22/18 13:09) Nausea buspirone Adverse Reaction (Verified 08/22/18 13:09) Other ciprofloxacin HCl [From Cipro] Adverse Reaction (Verified 08/22/18 13:09) Pain in joints clonidine Adverse Reaction (Verified 08/22/18 13:09) Other NSAIDS (Non-Steroidal Anti-Inflamma Adverse Reaction (Verified 08/22/18 13:09) Upset Stomach promethazine Adverse Reaction (Verified 08/22/18 13:09) Other trazodone Adverse Reaction (Verified 08/22/18 13:09) Other SEAFOOD Adverse Reaction (Severe, Uncoded 08/22/18 13:09) Unknown Medications Clonazepam [Klonopin] 0.5 mg PO DAILY PRN 09/22/14 [History Confirmed 08/22/18] Epinephrine [Epi Pen] 0.3 mg IM X1 PRN 09/22/14 [History Confirmed 08/22/18] Levothyroxine [Synthroid] 125 mcg PO DAILY 09/22/14 [History Confirmed 08/22/18] Acetaminophen [Pain Relief] 1,000 mg PO TID 11/22/16 [History Confirmed 08/22/18] Lisinopril [Zestril] 10 mg PO DAILY 02/15/17 [History Confirmed 08/22/18] MorphINE 0.83 mg INTRATH CONT 09/03/17 [History Confirmed 08/22/18] polyethylene glycol 3350 17 gram/dose oral powder 17 g PO QDAY PRN 11/16/17 [History Confirmed 08/22/18] Albuterol IH (ProAir) [Proair Hfa (SP)Vent Pts] 2 puff INHALATION DAILY PRN 11/21/17 [History Confirmed 08/22/18] Lactose-Reduced Food/Fiber [Jevity 1.2 Rob Liquid] 237 ml OTHER Q4H PRN PRN 04/12/18 [History Confirmed 08/22/18] Oxycodone [Oxyir] 5 mg PO PRN PRN 04/12/18 [History Confirmed 08/22/18] traMADol [Ultram (G)] 50 mg PO Q6H PRN PRN #10 tab 08/17/18 [Rx Confirmed 08/22/18] Subjective Details: Patient is status post fulguration with silver nitrate of proud flesh around his G-tube this was completed on 07/14/2018 he presents today and I think we did much of any good had removing the prior flesh. It looks as big as it did before I even did it the last time. He states that will occasionally bleed he has no drainage around Objective Details: Proud flesh measuring about 2 mm in width circumferentially around the G-tube site. There is no cellulitis Assessment AND Plan Problems 1. Proud flesh L92.9 Plan I am going to see him back on the of this month and at this time we are going to use electrocautery to remove the proud flesh. Coding Level of Care Code Off vis,est,level 2 Diagnoses Proud flesh L92.9 08/22/18 1315 <Electronically signed by Compa Hoyos MD> Date Compa Hoyos MD Cosigner Signature: Date (if applicable) CC: Jesús Ruelas DO EMERGENCY DEPARTMENT Observed: 08/18/2018 Status: F Source: [place] SUMMARY 12:05 AM [facility] REPOSITORY [facility] Medical Records Department [address] [place] [address] [place] [address] Emergency Department Summary 08/17/18 2158 MR#: [id number] Acct: [id number] Name: YANNICK HARRINGTON Rep #: [id number] : 1945 72 From: Doreen Ann MD PCP: Jesús Ruelas DO Status: DEP ER - ER Visit Summary Date of Service: 08/17/18 Chief Complaint: Groin pain History of Present Illness: The patient is a 72 M with a history of multiple lumbar disc protrusions and prior laminectomy. Patient states he was told by his neurosurgeon that they would only do surgery if he gets groin pain or numbness indicative of cauda equina. He noted numbness below his knees when he first gets up for the past 3 weeks. He had groin pain today. He called his pain management doctor who advised him to come in as soon as possible. Physical Examination: Vital signs significant for blood pressure 166/92, otherwise unremarkable. Patient sitting upright in bed no acute distress. Head neck examination unremarkable. Heart is regular rate and rhythm. Lung sounds are clear. Abdomen is soft and nontender. PEG tube is in place. Lower external examination reveals 2+ bilateral patellar reflexes with strong distal pulses. He has normal strength on testing. Test Results: CBC was normal white count hemoglobin of 12.1. Chemistry studies normal. Urinalysis normal. MRI of the L-spine is obtained that shows no acute fracture. He is status post laminectomy at L5-S1 and findings consistent with arachnoiditis. Spinal stenosis is noted. Emergency Department Course and Treatment: Patient was given Tylenol and tramadol prior to his MRI which states usually helps his pain. He does have an intrathecal pain pump with morphine. Patient states he believes the symptoms started after getting a new bed and is wondering if that is related to his current symptoms. At this time there is no sign of acute cauda equina syndrome. He will be given 10 tabs of tramadol to get him through the weekend and he will follow-up with his pain management doctor on Monday. Treatment Plan: [] Disposition: Discharge Impression: Acute on chronic back pain This note was generated with olookation software. It may contain incorrect words, spelling, and punctuation that were not noted in review of the chart prior to signing ED Disposition - Plan for ED Patient: Chief Complaint: General Illness Referrals: Jesús Ruelas MD [Primary Care Provider] - What to do if you have Problems For any increased pain, shortness of breath, bleeding, nausea or vomiting, chest pain, or any unexpected problems, contact your Primary Care Provider. Call [facility] ([phone]) or report to the closest Emergency Room. Call 911 if necessary. 08/18/18 0005 <Electronically signed by Doreen Ann MD> Date Doreen Ann MD Cosigner Signature (If Indicated): Date CC: Jesús Ruelas DO DISCHARGE INSTRUCTION Observed: 08/17/2018 Status: F Source: [place] 10:01 PM [facility] REPOSITORY [facility] Medical Records Department [address] [place] [address] Discharge Instruction 08/17/182199 MR#: [id number] Acct: [id number] Name: YANNICK HARRINGTON Rep #: [id number] : 1945 72 From: Doreen Ann MD PCP: Jesús Ruelas DO Status: REG ER ED Disposition - Plan for ED Patient: Disposition: Home or Assisted Living Chief Complaint: General Illness Instructions: ED Neck Back Pain General Prescriptions: traMADol [Ultram (G)] 50 mg PO Q6H PRN PRN #10 tablet PRN Reason: Pain Referrals: Theresa Ortega MD [STAFF PHYSICIAN] - As soon as possible What to do if you have Problems For any increased pain, shortness of breath, bleeding, nausea or vomiting, chest pain, or any unexpected problems, contact your Primary Care Provider. Call [facility] ([phone]) or report to the closest Emergency Room. Call 911 if necessary. 08/17/182200 <Electronically signed by Doreen Ann MD> Date Doreen Ann MD Cosign Signature (If Indicated): Date CC: Jesús Ruelas DO BASIC METABOLIC Collected: 08/17/2018 Status: F Source: [place] PROFILE (BMP) 5:52 PM [facility] REPOSITORY TYPE CODE TESTS RESULT OUT OF RANGE REFERENCE UNITS LAB L501.0100 74-106 mg/dL Normal GLU 90 Result Comment: Please note revised GLUCOSE reference range effective 2017. LAB L501.1000 7-18 mg/dL High BUN 26 LAB L501.1100 0.70-1.30 mg/dL Normal CREAT,SERUM 0.81 Result Comment: The validity of the calculated GFR AND GFRAA in patients over 70 years has not been determined. Clinical correlation is essential. LAB L501.1110 >60 mL/min Normal EST GFR 100 Result Comment: Non- GFR Calc LAB L501.1115 >60 mL/min Normal EST GFR - AA 121 Result Comment: GFR Calc LAB L501.1255 ml/min Normal Estimated CRCL 88.55 LAB L501.1300 10-20 RATIO High BUN/CRE 32.1 LAB L501.2200 8.5-10 mg/dL Normal .1 CA 9.1 LAB L501.5300 136-14 mmol/L Normal 5 NA 138 LAB L501.5600 3.5-5. mmol/L Normal 1 K 4.1 LAB L501.5900 98-107 mmol/L Normal CL 99 LAB L501.6100 21.0-3 mmol/L Normal 2.0 CO2 30.0 LAB L501.6200 5-15 Normal GAP 9 Performed By: #### L500.2500 #### [facility] [address] [place], [place], [address] CBC W/DIFF, AUTOMATED Collected: 08/17/2018 Status: F Source: [place] 5:52 PM [facility] REPOSITORY TYPE CODE TESTS RESULT OUT OF RANGE REFERENCE UNITS LAB L100.1000 4.4-11.0 K/mm3 Normal WBC 5.6 LAB L100.1200 4.6-6.2 M/mm3 Low RBC 3.90 LAB L100.1300 13.0-16.5 g/dl Low HGB 12.1 LAB L100.1400 40-54 % Low HCT 36.3 LAB L100.1500 80-94 fL Normal MCV 93.1 LAB L100.1600 27.0-32.0 pg Normal MCH 31.0 LAB L100.1700 32-36 g/gl Normal MCHC 33.3 LAB L100.1810 11.6-14.6 % Normal RDW CV 13.9 LAB L100.1820 35.1-43.9 fl High RDW SD 47.0 LAB L100.1900 150-450 K/mm3 Normal PLT 168 LAB L100.2000 6.2-12.0 fl Normal MPV 9.1 LAB L100.2100 47-70 % Normal NEUT% 63.9 LAB L100.2200 19-41 % Normal LY% 24.6 LAB L100.2300 0-10 % High MONO% 10.4 LAB L100.2400 0-5 % Normal EO% 0.9 LAB L100.2500 0-1 % Normal BASO% 0.2 LAB L100.2550 0.0-0.9 % Normal IM GRAN % 0.000 Result Comment: IG% - Immature Granulocytes (promyelocytes, myelocytes and metamyelocytes) > 1% indicates that a LEFT SHIFT is Present. LAB L100.2620 2.0-7.7 X10 3/uL Normal Absolute Neut 3.6 LAB L100.2720 0.83-4.51 X10 3/ul Normal Absolute Lymph 1.37 Performed By: #### L100.0100 #### [facility] [address] [place], [address] URINALYSIS, COMPLETE Collected: 08/17/2018 Status: F Source: DARIUS 5:45 PM [facility] REPOSITORY Order Comment: Order Date: 08/17/18 How was Urine Obtained? CLEAN CATCH TYPE CODE TESTS RESULT OUT OF RANGE REFERENCE UNITS LAB L400.3000 Yellow COLOR Normal Yellow LAB L400.3050 Clear Normal CLARITY Clear LAB L400.3200 Normal mg/dl Normal GLUCOSE, UR Normal LAB L400.3300 Negative mg/dL Normal BILIRUBIN URINE Negative LAB L400.3400 Negative mg/dl Normal KETONE UR Negative LAB L400.3465 1.002-1.030 Normal SP.GR. DIPSTX 1.010 LAB L400.3550 5.0 - 8.0 pH UR Normal 8.0 LAB L400.3600 Negative mg/dl PROT Normal DIPSTX Negative LAB L400.3700 Normal mg/dl Normal UROBILI Normal LAB L400.3750 Negative Normal NITRITE UR Negative LAB L400.3780 Negative /ul Normal OCCULT BLOOD-UR Negative LAB L400.3800 Negative /ul LEUK Normal ESTERASE Negative LAB L400.4050 0-5 /hpf WBC 0 Normal SEEN LAB L400.4100 0-5 /hpf 0 Normal RBC-UA SEEN LAB L400.4150 0-5 /hpf SQUAM 0 Normal EPI SEEN LAB L400.4300 None Seen /hpf 1+ Normal BACTERIA LAB L400.4350 <or=2+ /hpf 0 Normal MUCUS, URINE SEEN Performed By: #### L400.0001 #### [facility] [address] [place], [address] SPINE LUMBAR W/WO Observed: 08/17/2018 Status: F Source: DARIUS CONTRAST 5:37 PM [facility] REPOSITORY [facility] Services [address] [place] [address] Spine Lumbar W/WO Contrast MR#: [id number] Acct: [id number] Name: YANNICK HARRINGTON Rep #: [id number] : 1945 M 72 From: Kenji Pearson MD PCP: Jesús Ruelas DO Status: DEP ER Study: Spine Lumbar W/WO Contrast Date of Exam: 08/17/18 Exam# [id number] Ordering Dr: Doreen Ann MD ADDENDUM by Kenji Pearson MD on 08/20/18 at 1723 ADDENDUM ADDENDUM: MRI on December 22, 2015 has been received for comparison purposes. The degenerative disease at L3-4 has progressed slightly since prior study and the spinal stenosis is new. There has been mild progression of the disc disease at L4- 5 as well as the spinal stenosis. The neuroforaminal stenosis has increased slightly since prior exam. Comparison with prior lumbar spine x-ray study has not changed appreciably considering differences in imaging techniques Electronically Signed: Kenji Pearson MD at 17:23 EST , Service support , 08/20/18 172 Date cc: Doreen Ann MD; Jesús Ruelas DO * Signed ADDENDUM by Kenji Pearson MD on 08/20/18 at 1723 MRI/Spine Lumbar W/WO Contrast 08/20/181727 Date cc: Doreen Ann MD; Jesús Ruelas DO * Signed STUDY: MRI LUMBAR SPINE WITH AND WITHOUT CONTRAST REASON FOR EXAM: Male, 72 years old. Back pain with numbness and tingling in both legs TECHNIQUE: Standardized fat and water weighted pulse sequences were obtained in the sagittal and axial planes. 7 ml of Gadavist contrast material was administered for the contrast portion of the examination. COMPARISON: None FINDINGS: T12-L1: Normal endplates. Normal disc height, hydration and morphology. Normal bilateral facet joints. Normal central canal and bilateral lateral recesses. Normal bilateral intervertebral neural foramina. Normal lumbar lordosis. There is no substantial scoliosis. Normal conus medullaris that terminates at T12-L1 L1-2: Normal endplates. Normal disc height, hydration and morphology. Normal bilateral facet joints. Normal central canal and bilateral lateral recesses. Normal bilateral intervertebral neural foramina. L2-3: Normal endplates. Normal disc height, hydration and minimal annular bulge. Normal bilateral facet joints. Normal central canal and bilateral lateral recesses. Normal bilateral intervertebral neural foramina. L3-4: Normal endplates. Normal disc height, desiccation and minor annular bulge.. Facet arthropathy and thickening of ligamenta flava greater on the right. Normal central canal. Mild bilateral recess encroachment. Moderate left neuroforaminal stenosis and more severe narrowing on the right L4-5: Normal endplates. Narrowed disc space with minimal bulging disc osteophyte complex. Bilateral facet arthropathy greater on the right.. Normal central canal and mild bilateral recess stenosis. Moderate left neuroforaminal stenosis and more severe narrowing on the right L5-S1: Status post right laminectomy Normal endplates. Normal disc height, desiccation and minor bulging disc osteophyte complex. Mild facet arthropathy slightly greater on the right Normal central canal and bilateral lateral recesses. Mild left neural foraminal encroachment and moderate narrowing on the right. Normal visualized sacral ala. Normal visualized paraspinous soft tissue structures. There are septations within the thecal sac and clumping of nerve roots at L5-S1 consistent with arachnoiditis. There is also enhancing nerve root following contrast demonstration MRI/Spine Lumbar W/WO Contrast IMPRESSION: No evidence for acute fracture or other significant bony pathology Status post right laminectomy at L5-S1 and findings consistent with arachnoiditis Spinal stenosis at L3-4, L4-5 and L5-S1 secondary to disc disease and bony hypertrophy. Findings as above Electronically Signed: Kenji Pearson MD at 20:27 EST , Service support , CC: Doreen Ann MD; Jesús Ruelas DO Wind Turbine Erector: Signed VL AORTA SCREENING Observed: 08/09/2018 Status: F Source: [facility] [employer] WITH ORDER MEDICARE 7:55 AM [facility] REPOSITORY ORIGINAL VL AORTA SCREENING WITH ORDER MEDICARE CLINICAL STATEMENT: former smoker. Evaluate for AAA COMPARISON: None TECHNIQUE: Grayscale, color Doppler, and spectral waveform analysis was obtained of the aorta and iliac arteries. FINDINGS: Proximal aorta: 2.67 x 2.54 cm Mid aorta: 2.47 x 2.23 cm Distal aorta: 2.76 x 2.61 cm RIGHT common iliac artery: 1.12 cm LEFT common iliac artery: 1.12 cm. IMPRESSION: Atherosclerotic aorta with Ectasia of abdominal aorta, greatest of the distal aorta, measuring up to 2.7 cm. No aneurysm is seen at this time. Ectasia of bilateral common iliac arteries, measuring up to 1.1 cm. I have personally reviewed the images of this examination and agree with the resident's findings and interpretation. Interpreted By: Todd Peralta MD Preliminary Report By: Robbi David DO Electronically Signed By: Todd Peralta MD Dictated Date: 08/09/2018 9:02:38 AM Prelim Date: 08/09/2018 9:05:08 AM Sign Date: 08/09/2018 10:59:15 AM PSA Collected: 08/02/2018 Status: F Source: [facility] 6:27 AM [facility] REPOSITORY TYPE CODE TESTS RESULT OUT OF REFERENCE UNITS RANGE LAB PSA(LOINC) 0.00-4.00 ng/mL Prostate 0.86 Specific Antigen Performed By: #### PSA, LIPID, CMP, GFR #### [place] [address] LIPID Collected: 08/02/2018 Status: F Source: [facility] 6:27 AM [facility] REPOSITORY TYPE CODE TESTS RESULT OUT OF REFERENCE UNITS RANGE LAB CHOL(LOINC 0-200 mg/dL ) Cholesterol 151 Result Comment: Cholesterol Reference Interval: Less than 200 Desirable 200-239 Borderline high risk 240 and above High risk LAB TRIG(LOINC) 0-150 mg/dL Triglycerides 143 Result Comment: Triglyceride Reference Interval: Less than 150 Normal 150-199 Borderline high risk 200-499 High risk 500 or higher Very high risk LAB HD(LOINC) 40-60 mg/dL HDL Low Cholesterol 31 LAB LDL(LOINC) 0-130 mg/dL LDL Cholesterol 91 Performed By: #### PSA, LIPID, CMP, GFR #### [place] [address] CMP Collected: 08/02/2018 Status: F Source: [facility] 6:27 AM [facility] REPOSITORY TYPE CODE TESTS RESULT OUT OF REFERENCE UNITS RANGE LAB GLU(LOINC) 83-110 mg/dL Low Glucose Level 81 LAB NA(LOINC) 136-145 mmol/L Sodium Level 138 LAB K(LOINC) 3.5-5.1 mmol/L Potassium Level 4.7 LAB CL(LOINC) 98-107 mmol/L Chloride 98 LAB CO2(LOINC) 23-31 mmol/L CO2 High 33 LAB EBAL(LOINC mEq/L ) Electrolyte Balance 7.0 LAB BUN(LOINC) 7-18 mg/dL BUN High 25 LAB CRE(LOINC) 0.70-1.30 mg/dL Creatinine Lvl (s) 0.79 LAB BC(LOINC) 7-27 ratio High BUN/Creatinine 32 Ratio LAB CA(LOINC) 8.4-10.2 mg/dL Calcium Lvl 9.1 LAB PROT(LOINC 6.4-8.2 G/dL ) Total Protein 7.6 LAB ALB(LOINC) 3.4-4.8 G/dL Albumin Level 4.2 LAB GLB(LOINC) G/dL Globulin 3.4 LAB AG(LOINC) 1.1-2.5 ratio A/G Ratio 1.2 LAB BILT(LOINC 0.2-1.0 mg/dL ) Bili Total 0.9 LAB AP(LOINC) 40-135 U/L Alk Phos 93 LAB AST(LOINC) 10-40 U/L AST/SGOT 19 LAB ALT(LOINC) 10-35 U/L ALT/SGPT 31 Performed By: #### PSA, LIPID, CMP, GFR #### [place] [address] .GFR Collected: 08/02/2018 Status: F Source: [facility] 6:27 AM [facility] REPOSITORY TYPE CODE TESTS RESULT OUT OF REFERENCE UNITS RANGE LAB GFRAA(LOINC ml/min/1.73 ) sqm GFR 117 Nauruan Result Comment: GFR Population mean for , Non- Americans Ages 20-29 = 116 mL/min/1.73 sq.m. Ages 30-39 = 107 mL/min/1.73 sq.m. Ages 40-49 = 99 mL/min/1.73 sq.m. Ages 50-59 = 93 mL/min/1.73 sq.m. Ages 60-69 = 85 mL/min/1.73 sq.m. Ages 70+ = 75 mL/min/1.73 sq.m. Chronic Kidney Disease: Less than 60 mL/min/1.73 square meters End Stage Renal Disease: Less than 15 mL/min/1.73 square meters LAB GFRNO(LOINC) ml/min/1.73sqm GFR Non- 97 Result Comment: GFR Population mean for , Non- Americans Ages 20-29 = 116 mL/min/1.73 sq.m. Ages 30-39 = 107 mL/min/1.73 sq.m. Ages 40-49 = 99 mL/min/1.73 sq.m. Ages 50-59 = 93 mL/min/1.73 sq.m. Ages 60-69 = 85 mL/min/1.73 sq.m. Ages 70+ = 75 mL/min/1.73 sq.m. Chronic Kidney Disease: Less than 60 mL/min/1.73 square meters End Stage Renal Disease: Less than 15 mL/min/1.73 square meters Performed By: #### PSA, LIPID, CMP, GFR #### [place] [address] SURGERY VISIT REPORT Observed: 07/16/2018 Status: F Source: [place] 9:00 AM [facility] [address] [place] [address]. [address] [place] [address] OFFICE VISIT Date of Service: 07/11/18 MR#: [id number] Acct: [id number] Name: YANNICK HARRINGTON Rep #: [id number] : 1945 Provider: Compa Hoyos MD Age/Sex: 72/M Location: [facility] Status: Signed Intake Vital Signs07/11/18 Blood Pressure 149/76 H 07/11/18 Blood Pressure Location Rt brachial 07/11/18 Blood Pressure Position Sitting 07/11/18 Respiratory Rate 20 H Intake Visit Reasons: F/U PEG TUBE FEBRUARY 2018/ HEARTBURN 4OUTOF 7 DAYS Chief Complaint: Follow-up for head and neck cancer-Right tonsillar cancer. Tools Developer Required: No Is patient in pain?: No Allergies ciprofloxacin [From Cipro] Allergy (Verified 07/14/18 09:29) Itching diclofenac sodium [From Solaraze] Allergy (Verified 07/14/18 09:29) Anaphylaxis fluorouracil Allergy (Verified 07/14/18 09:29) Anaphylaxis methotrexate Allergy (Verified 07/14/18 09:29) Anaphylaxis ondansetron [From Zofran (as hydrochloride)] Allergy (Verified 07/14/18 09:29) Other Penicillins Allergy (Verified 07/14/18:29) Itching pentazocine lactate [From Talwin] Allergy (Verified 07/14/18 09:29) Other venom-honey bee [bee venom (honey bee)] Allergy (Verified 07/14/18 09:29) Anaphylaxis amlodipine Adverse Reaction (Verified 07/14/18:29) Nausea buspirone Adverse Reaction (Verified 07/14/18:29) Other ciprofloxacin HCl [From Cipro] Adverse Reaction (Verified 07/14/18:29) Pain in joints clonidine Adverse Reaction (Verified 07/14/18:) Other NSAIDS (Non-Steroidal Anti-Inflamma Adverse Reaction (Verified 07/14/18:29) Upset Stomach promethazine Adverse Reaction (Verified 07/14/18:29) Other trazodone Adverse Reaction (Verified 07/14/18:29) Other SEAFOOD Adverse Reaction (Severe, Uncoded 07/14/18:29) Unknown Medications Clonazepam [Klonopin] 0.5 mg PO DAILY PRN 09/22/14 [History Confirmed 07/14/18] Epinephrine [Epi Pen] 0.3 mg IM X1 PRN 09/22/14 [History Confirmed 07/14/18] Levothyroxine [Synthroid] 125 mcg PO DAILY 09/22/14 [History Confirmed 07/14/18] Acetaminophen [Pain Relief] 1,000 mg PO TID 11/22/16 [History Confirmed 07/14/18] Lisinopril [Zestril] 10 mg PO DAILY 02/15/17 [History Confirmed 07/14/18] MorphINE 0.83 mg INTRATH CONT 09/03/17 [History Confirmed 07/14/18] polyethylene glycol 3350 17 gram/dose oral powder 17 g PO QDAY PRN 11/16/17 [History Confirmed 07/14/18] Albuterol IH (ProAir) [Proair Hfa (SP)Vent Pts] 2 puff INHALATION DAILY PRN 11/21/17 [History Confirmed 07/14/18] Lactose-Reduced Food/Fiber [Jevity 1.2 Rob Liquid] 237 ml OTHER Q4H PRN PRN 04/12/18 [History Confirmed 07/14/18] Oxycodone [Oxyir] 5 mg PO PRN PRN 04/12/18 [History Confirmed 07/14/18] omeprazole 40 mg capsule,delayed release 40 mg PO BID 42 Days #84 cap 07/11/18 [Rx Confirmed 07/14/18] [facility] Medical History Hypertension (Chronic) Hypothyroidism (Chronic) GERD (gastroesophageal reflux disease) (Chronic) Normocytic anemia (Chronic) Anxiety (Chronic) 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) Chronic hyponatremia (Chronic) Viral gastroenteritis (Acute) Chronic pain syndrome (Chronic) Rheumatoid arthritis (Chronic) History of pneumococcal pneumonia (Acute) History of throat cancer (Acute) Hyponatremia (Acute) Leukocytosis (Acute) pain pump (Acute) Surgical History History of appendectomy (Acute) History of colonoscopy (Acute) History of esophagogastroduodenoscopy (EGD) (Acute 01/17/18) History of laminectomy (Acute) History of rhinoplasty (Acute) History of tonsillectomy and adenoidectomy (Acute) S/P percutaneous endoscopic gastrostomy (PEG) tube placement (Acute) Social History Smoking Status: Former smoker alcohol intake: never HPI HPI HPI: YANNICK HARRINGTON, is a 72 M who presents to the office today for evaluation of worsening reflux. I placed a PEG tube in Yannick Carrasco February 21 of this year. He gives himself tube feeds 6 times a day. He uses a proton pump inhibitor in the early a.m. By 4 PM he has bad reflux. He will use Maalox to try to help with this. His GERD has gotten a lot worse over the last several weeks. In addition the patient is complaining of some proud flesh around his G-tube site. ROS General General: Yes weight change and fatigue; no appetite, colon cancer, breast cancer or weakness HEENT HEENT: Yes difficulty swallowing; no eye injury, eye surgery, swollen glands or hoarseness Endo Endocrine: Yes thyroid disease; no diabetes mellitus, thyroid cancer, Hair loss, heat intolerance or cold intolerance Skin Skin: No rash or changing moles Breast Breast: No left breast lump, right breast lump, nipple discharge, breast pain, abnormal mammogram, abnormal US or breast enlargement Musc Musculoskeletal: Yes back problems and arthritis; no rheumatoid arthritis, gout or joint pain Cardio Cardiovascular: Yes high blood pressure; no murmur, pacemaker, heart disease, atrial fibrillation, heart attack, heart stent, palpitations, shortness of breat with exertion or chest pain Psych Psychiatric: Yes anxiety; no depression or hearing voices Resp Respiratory: Yes shortness of breath, No sleep apnea, No cough, No COPD, No asthma, No emphysema, No wheezing Gastro Gastrointestinal: Yes abdominal pain, Yes nausea or vomiting, No diarrhea, Yes constipation, Yes blood in stool, No acid reflux, No hemorrhoids, Yes ulcers, Yes gallbladder problem, No black,tarry stools Aleksandr Hematologic: No blood thinners, No blood disorders, No bleeding, No anemia, No blood clots Neuro Neurologic: No weakness Exam Chest Breast Palpation: No nipple discharge Cardio Heart Sounds: no murmurs GI Other: There is minimal proud flesh around the G-tube site. There is no overt cellulitis identified. His abdomen is scaphoid and soft. Assessment AND Plan Problems 1. Gastroesophageal reflux disease, esophagitis presence not specified K21.9 2. Proud flesh L92.9 Plan I am going to increase his proton pump inhibitor to 80 mg a day for the next 6 weeks. I will see him back at that time I would then change him to an H2 erich in addition to a proton pump inhibitor to see if we can keep his reflux at bay. I am also going to see him back in the office this coming Monday to put silver nitrate on his proud flesh. Medications Changed: Coding Level of Care Code Off vis,est,level 3 Diagnoses Gastroesophageal reflux disease, esophagitis presence not specified K21.9 Esophagitis presence: esophagitis presence not specified Proud flesh L92.9 07/16/18 0900 <Electronically signed by Compa Hoyos MD> Date Compa Hoyos MD Cosigner Signature: Date (if applicable) CC: SURGERY VISIT REPORT Observed: 07/16/2018 Status: F Source: [place] 8:29 AM [facility] REPOSITORY [facility] [address] [place] [address] OFFICE VISIT Date of Service: 07/14/18 MR#: [id number] Acct: [id number] Name: YANNICK HARRINGTON Rep #: [id number] : 1945 Provider: Compa Hoyos MD Age/Sex: 72/M Location: [facility] Status: Signed Intake Intake Visit Reasons: Fulgeration of [employer]We [employer] Hunted Flesh Tools Developer Required: No Is patient in pain?: No Allergies ciprofloxacin [From Cipro] Allergy (Verified 07/14/18 09:29) Itching diclofenac sodium [From Solaraze] Allergy (Verified 07/14/18 09:29) Anaphylaxis fluorouracil Allergy (Verified 07/14/18 09:29) Anaphylaxis methotrexate Allergy (Verified 07/14/18 09:29) Anaphylaxis ondansetron [From Zofran (as hydrochloride)] Allergy (Verified 07/14/18 09:29) Other Penicillins Allergy (Verified 07/14/18 09:29) Itching pentazocine lactate [From Talwin] Allergy (Verified 07/14/18 09:29) Other venom-honey bee [bee venom (honey bee)] Allergy (Verified 07/14/18 09:29) Anaphylaxis amlodipine Adverse Reaction (Verified 07/14/18 09:29) Nausea buspirone Adverse Reaction (Verified 07/14/18 09:29) Other ciprofloxacin HCl [From Cipro] Adverse Reaction (Verified 07/14/18 09:29) Pain in joints clonidine Adverse Reaction (Verified 07/14/18 09:29) Other NSAIDS (Non-Steroidal Anti-Inflamma Adverse Reaction (Verified 07/14/18 09:29) Upset Stomach promethazine Adverse Reaction (Verified 07/14/18 09:29) Other trazodone Adverse Reaction (Verified 07/14/18 09:29) Other SEAFOOD Adverse Reaction (Severe, Uncoded 07/14/18 09:29) Unknown Medications Clonazepam [Klonopin] 0.5 mg PO DAILY PRN 09/22/14 [History Confirmed 07/14/18] Epinephrine [Epi Pen] 0.3 mg IM X1 PRN 09/22/14 [History Confirmed 07/14/18] Levothyroxine [Synthroid] 125 mcg PO DAILY 09/22/14 [History Confirmed 07/14/18] Acetaminophen [Pain Relief] 1,000 mg PO TID 11/22/16 [History Confirmed 07/14/18] Lisinopril [Zestril] 10 mg PO DAILY 02/15/17 [History Confirmed 07/14/18] MorphINE 0.83 mg INTRATH CONT 09/03/17 [History Confirmed 07/14/18] polyethylene glycol 3350 17 gram/dose oral powder 17 g PO QDAY PRN 11/16/17 [History Confirmed 07/14/18] Albuterol IH (ProAir) [Proair Hfa (SP)Vent Pts] 2 puff INHALATION DAILY PRN 11/21/17 [History Confirmed 07/14/18] Lactose-Reduced Food/Fiber [Jevity 1.2 Rob Liquid] 237 ml OTHER Q4H PRN PRN 04/12/18 [History Confirmed 07/14/18] Oxycodone [Oxyir] 5 mg PO PRN PRN 04/12/18 [History Confirmed 07/14/18] omeprazole 40 mg capsule,delayed release 40 mg PO BID 42 Days #84 cap 07/11/18 [Rx Confirmed 07/14/18] PFSH Medical History Hypertension (Chronic) Hypothyroidism (Chronic) GERD (gastroesophageal reflux disease) (Chronic) Normocytic anemia (Chronic) Anxiety (Chronic) 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) Chronic hyponatremia (Chronic) Viral gastroenteritis (Acute) Chronic pain syndrome (Chronic) Rheumatoid arthritis (Chronic) History of pneumococcal pneumonia (Acute) History of throat cancer (Acute) Hyponatremia (Acute) Leukocytosis (Acute) pain pump (Acute) Surgical History History of appendectomy (Acute) History of colonoscopy (Acute) History of esophagogastroduodenoscopy (EGD) (Acute 01/17/18) History of laminectomy (Acute) History of rhinoplasty (Acute) History of tonsillectomy and adenoidectomy (Acute) S/P percutaneous endoscopic gastrostomy (PEG) tube placement (Acute) Social History Smoking Status: Former smoker alcohol intake: never HPI HPI HPI: YANNICK HARRINGTON, is a 72 M who presents to the office today for Office Procedures [facility] Procedure Procedure Performed By: Procedure performed by: Compa Hoyos Preoperative diagnosis: proud flessh around G-tube Postoperative diagnosis: The same Procedure: Fulguration of proud flesh Surgeon: Soha Procedure: The proud flesh around the G-tube was chemically treated with silver nitrate. I did this for approximately 30 seconds. I then deactivated the silver nitrate with normal saline. Sterile dressings were applied. The patient tolerated the procedure well. CPT code = 16498 Procedure Time Out Time Out Informed consent given: Yes Consent signed: Yes Time out checklist: patient, procedure, site marked/identified, positioning of patient, supplies available, allergies confirmed, team agrees on procedure Time out staff in room: Yes Time out verified: Yes Time out date: 07/14/18 Time out time: 08:15 Assessment AND Plan Orders Orders: Coding Level of Care Code Attention Charmaine Comment CPT code = 42878 07/16/18 0829 <Electronically signed by Compa Hoyos MD> Date Compa Hoyos MD Cosign Signature: Date (if applicable) CC: ONCOLOGY VISIT REPORT Observed: 04/16/2018 Status: F Source: [place] 12:28 PM [facility] REPOSITORY [place] [facility] [place] [address] OFFICE VISIT Date of Service: 04/13/18 1203 MR#: [id number] Acct: [id number] Name: YANNICK HARRINGTON Rep #: [id number] : 1945 From: Hernandez Cox MD Age/Sex: 72/M Location: OMD Status: Signed Subjective - Date of Service Date of Service:: 04/12/18 - Chief Complaint Follow-up for head and neck cancer-Right tonsillar cancer. 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 He was treated with chemotherapy and radiation therapy, finished therapy on 02/28/2011. He had right neck lymph node dissection on 04/15/2011 which was negative for recurrent malignancy. He is on observation comes in for follow-up. He has had multiple admissions for aspiration pneumonia, and now uses PEG tube for feeding. - Past Medical/Social History Past Medical History Past Medical History: Anxiety,Rheumatoid arthritis Other Past Medical History: Bleeding Ulcer Herniated Disc Cancer: Other Other Cancer History: TONSIL, MALIGNANT NEOPLASM Past Surgical History Surgical: Appendectomy,Cholecystectomy Other Surgical History: Laminectomies Family History Paternal Past Medical History: Unknown Paternal History of Cancer Other Maternal Past Medical History: Unknown Social History Social History: No changes Smoking Status Former smoker Review of Systems Constitutional:: Denies: Fever, Sweats, Weight loss, Appetite change, Chills Cardiovascular:: Denies: Chest pain, Palpitations, Dyspnea on exertion, Orthopnea, PND, Shortness of breath Respiratory: Denies: Cough, Hemoptysis, Shortness of Breath, Wheezing Gastrointestinal:: Denies: Abdominal pain, Nausea, Vomiting,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 is normal. The lungs are well-expanded. No acute infiltrate is present. Chronic fibrotic densities are stable. There is no sign of pleural fluid or pneumothorax. IMPRESSION: No acute chest process. Interpreted By: Avtar Tucker MD Preliminary Report By: Avtar Tucker MD Electronically Signed By: Avtar Tucker MD Dictated Date: 01/03/2018 6:59:49 AM Prelim Date: 01/03/2018 6:59:49 AM Sign Date: 01/03/2018 7:01:16 AM CHEST PA AND LATERAL Observed: 12/18/2017 Status: F Source: [place] 2:59 PM [facility] REPOSITORY [facility] Imaging Services [address] [place] [address] Chest PA and Lateral MR#: [id number] Acct: [id number] Name: YANNICK HARRINGTON Rep #: [id number] : 1945 M 72 From: Gareth Mukherjee DO PCP: Dilma Alvarez MD Status: REG CLI Study: Chest PA and Lateral Date of Exam: 12/18/17 Exam# [id number] Ordering Dr: Dilma Alvarez MD STUDY: X-RAY CHEST REASON FOR EXAM: Male, 72 years old. Cough. Recent pneumonia. History of throat cancer. TECHNIQUE: PA and lateral views of the chest. COMPARISON: November 24, 2017. FINDINGS: The lungs are hyperexpanded. There is chronic interstitial changes. Again this is most marked in the right middle lobe, suggesting superimposed infiltrate. There is no new mass or infiltrate. There is no demonstrated pleural abnormality. Normal size heart. Normal mediastinum and aurora. Normal visualized pulmonary arteries. There is atherosclerotic calcification of the aortic arch with tortuosity. There are diffuse degenerative changes of the visualized thoracic spine. Normal visualized ribs, clavicles, and shoulders. There is no demonstrated abnormality of the visualized soft tissue structures of the upper abdomen. RAD/Chest PA and Lateral IMPRESSION: Question middle lobe infiltrate superimposed on chronic pulmonary scarring. Electronically Signed: Gareth Mukherjee DO at 16:43 EDT Tel [phone], Service support , CC: Dilma Alvarez MD [employer] Erector: Signed 12 LEAD ELECTROCARDIOGRAM Observed: 12/04/2017 Status: F Source: [place] 3:32 PM [facility] REPOSITORY [facility] Cardiovascular Services [address] [place] [address] 12 Lead EKG 11/29/17 0536 MR#: [id number] Acct: [id number] Name: YANNICK HARRINGTON Rep #: [id number] : 1945 72 From: Morgan Gillespie MD Attending Dr: Status: DEP ER Ordering Dr: Keisha Ladd MD Date: 11/29/17 Location: ED Sex: M C Admitted: Test Reason : ABD PAIN Blood Pressure : / mmHG Vent. Rate : 070 BPM Atrial Rate : 070 BPM P-R Int : 156 ms QRS Dur : 086 ms QT Int : 364 ms P-R-T Axes : 047 005 051 degrees QTc Int : 393 ms Normal sinus rhythm Normal ECG Confirmed by VERNA BATES, MORGAN ([id number]), digital editor BRIAN LAUREN ([id number]) on 12/04/2017 3:32:33 PM Referred By: ELDER Confirmed By:MORGAN GILLESPIE MD 12/04/17 1532 Date Morgan Gillespie MD CC: Keisha Ladd MD; Dilma Alvarez MD Signed EMERGENCY DEPARTMENT Observed: 11/29/2017 Status: F Source: [place] SUMMARY 9:03 AM [facility] REPOSITORY [facility] Medical Records Department [address] [place] [address] Emergency Department Summary 11/29/17 0611 MR#: [id number] Acct: [id number] Name: YANNICK HARRINGTON Rep #: [id number] : 1945 72 From: Keisha Ladd MD PCP: Dilma Alvarez MD Status: DEP ER - ER Visit Summary Date of Service: 11/29/17 Chief Complaint: Thoracic back pain History of Present Illness: The patient is a 72 M with 30 years of chronic back pain, intrathecal pump with morphine for pain control, who presents for acute worsening of his thoracic back pain. Patient states he has been laying in bed for 3 months recovering from pneumonia and a cold virus. He woke suddenly this morning with severe pain at his site of normal discomfort in the T10-T11 region right of the spine. Pain was so severe that he said it was the worst of his life. Pain has since subsided. Patient denies any bowel or bladder changes. No abdominal pain, nausea or vomiting. Patient has had a cough and shortness of breath related to pneumonia, with his last dose of Levaquin 5 days ago. Patient denies fever. He is on 100% diet of Ensure. Physical Examination: Vital signs: afebrile, hemodynamically stable, no hypoxia on room air General: well nourished, well developed, in no distress Skin: warm, dry, no rash, no pallor HEENT: normocephalic and atraumatic; PERRL, EOMI, dry mucous membranes Cardiovascular: regular rate and rhythm without murmurs, no peripheral edema, 2+ pulses all distal extremities Respiratory: No increased work of breathing, lungs are diminished in the right lower field, no rales, rhonchi or wheezing Abdominal: Abdomen is soft, nontender with normoactive bowel sounds, no guarding or rebound, no masses palpable pump in the right mid abdomen subcutaneously Back: Point tenderness in the lower thoracic paraspinal region on the right. No midline tenderness deformities or step-offs. MSK: Moves all extremities, no deformities, normal strength Neuro: Awake and alert, oriented 4. No facial droop, sensation and motor function intact and symmetric Test Results: Abnormal Lab Results WBC 5.8 RBC 3.89 L Hgb 10.8 L Emergency Department Course and Treatment: Patient was offered morphine for acute pain, and stated he did not want more than 1 mg. Workup was performed to look for alternative cause of patient's back pain other than his chronic musculoskeletal pain. Labs showed no leukocytosis or anemia. Patient has chronic hyponatremia and is at his baseline. Troponin negative. EKG showed no ischemia or ectopy. Patient had resolution of his pain with the morphine. No alternative cause of his pain was noted. Patient was given 1 dose of his breakthrough pain medication oxycodone prior to discharge as he states he is out of it at home. He will follow-up with pain management today to discuss further options and to have his pump evaluated for possible malfunction. Patient was discharged home with symptoms resolved. Treatment Plan: [] Disposition: [] Impression: Acute exacerbation of chronic back pain This note was generated with SmartAsset dictation software. It may contain incorrect words, spelling, and punctuation that were not noted in review of the chart prior to signing ED Disposition - Plan for ED Patient: Disposition: Home or Assisted Living Chief Complaint: Abd Pain Instructions: ED Back Care Tips, ED Chronic Pain Management Referrals: Theresa Ortega MD [STAFF PHYSICIAN] - 1 Day Dilma Alvarez MD [Primary Care Provider] - Additional Instructions: Follow-up with Dr. Basali as soon as possible to discuss your breakthrough pain and to have your pump assessed. Also discuss further breakthrough pain medication prescriptions. If you have any worsening of her condition or any new concerning symptoms please return to emergency department for another evaluation. What to do if you have Problems For any increased pain, shortness of breath, bleeding, nausea or vomiting, chest pain, or any unexpected problems, contact your Primary Care Provider. Call [facility] ([phone]) or report to the closest Emergency Room. Call 911 if necessary. 11/29/17 0903 <Electronically signed by Keisha Ladd MD> Date Keisha Ladd MD Cosigner Signature (If Indicated): Date CC: Dilma Alvarez MD DISCHARGE INSTRUCTION Observed: 11/29/2017 Status: F Source: [place] 8:45 AM [facility] REPOSITORY [facility] Medical Records Department [address] [place] [address] Discharge Instruction 11/29/17707 MR#: [id number] Acct: [id number] Name: YANNICK HARRINGTON Rep #: [id number] : 1945 72 From: Keisha Ladd MD PCP: Dilma Alvarez MD Status: [facility] ER ED Disposition - Plan for ED Patient: Disposition: Home or Assisted Living Chief Complaint: Abd Pain Instructions: ED Back Care Tips, ED Chronic Pain Management Referrals: Dilma Alvarez MD [Primary Care Provider] - Theresa Ortega MD [STAFF PHYSICIAN] - 1 Day Additional Instructions: Follow-up with Dr. Ortega as soon as possible to discuss your breakthrough pain and to have your pump assessed. Also discuss further breakthrough pain medication prescriptions. If you have any worsening of her condition or any new concerning symptoms please return to emergency department for another evaluation. What to do if you have Problems For any increased pain, shortness of breath, bleeding, nausea or vomiting, chest pain, or any unexpected problems, contact your Primary Care Provider. Call [facility] ([phone]) or report to the closest Emergency Room. Call 911 if necessary. 11/29/17 0845 <Electronically signed by Keisha Ladd MD> Date Keisha Ladd MD Cosigner Signature (If Indicated): Date CC: Dilma Alvarez MD URINALYSIS, COMPLETE Collected: 11/29/2017 Status: F Source: [place] 6:27 AM [facility] REPOSITORY Order Comment: How was Urine Obtained? CLEAN CATCH TYPE CODE TESTS RESULT OUT OF RANGE REFERENCE UNITS LAB L400.3000 Yellow COLOR Normal Yellow LAB L400.3050 Clear Normal CLARITY Sl. Cloudy LAB L400.3200 Normal mg/dl Normal GLUCOSE, UR Normal LAB L400.3300 Negative mg/dL Normal BILIRUBIN URINE Negative LAB L400.3400 Negative mg/dl Normal KETONE UR Negative LAB L400.3465 1.002-1.030 Normal SP.GR. DIPSTX 1.015 LAB L400.3550 5.0 - 8.0 pH UR Normal 8.0 LAB L400.3600 Negative mg/dl PROT Normal DIPSTX Negative LAB L400.3700 Normal mg/dl Normal UROBILI Normal LAB L400.3750 Negative Normal NITRITE UR Negative LAB L400.3780 Negative /ul Normal OCCULT BLOOD-UR Negative LAB L400.3800 Negative /ul LEUK Normal ESTERASE Negative LAB L400.4050 0-5 /hpf WBC 0 Normal SEEN LAB L400.4100 0-5 /hpf 0 Normal RBC-UA SEEN LAB L400.4150 0-5 /hpf SQUAM Normal EPI 0-5 SEEN LAB L400.4300 None Seen /hpf 0 Normal BACTERIA SEEN LAB L400.4350 <or=2+ /hpf 1+ Normal MUCUS, URINE LAB L400.4900 1+ Normal AMORPHOUS Performed By: #### L400.0001 #### [facility] [address] [place], [address] CBC W/DIFF, AUTOMATED Collected: 11/29/2017 Status: F Source: [place] 6:05 AM [facility] REPOSITORY TYPE CODE TESTS RESULT OUT OF RANGE REFERENCE UNITS LAB L100.1000 4.4-11.0 K/mm3 Normal WBC 5.8 LAB L100.1200 4.6-6.2 M/mm3 Low RBC 3.89 LAB L100.1300 13.0-16.5 g/dl Low HGB 10.8 LAB L100.1400 40-54 % Low HCT 32.3 LAB L100.1500 80-94 fL Normal MCV 83.0 LAB L100.1600 27.0-32.0 pg Normal MCH 27.8 LAB L100.1700 32-36 g/gl Normal MCHC 33.4 LAB L100.1810 11.6-14.6 % Normal RDW CV 14.3 LAB L100.1820 35.1-43.9 fl Normal RDW SD 42.8 LAB L100.1900 150-450 K/mm3 Normal PLT 311 LAB L100.2000 6.2-12.0 fl Normal MPV 7.7 LAB L100.2100 47-70 % High NEUT% 72.6 LAB L100.2200 19-41 % Low LY% 15.4 LAB L100.2300 0-10 % Normal MONO% 9.8 LAB L100.2400 0-5 % Normal EO% 1.7 LAB L100.2500 0-1 % Normal BASO% 0.2 LAB L100.2550 0.0-0.9 % Normal IM GRAN % 0.300 Result Comment: IG% - Immature Granulocytes (promyelocytes, myelocytes and metamyelocytes) > 1% indicates that a LEFT SHIFT is Present. LAB L100.2620 2.0-7.7 X10 3/uL Normal Absolute Neut 4.2 LAB L100.2720 0.83-4.51 X10 3/ul Normal Absolute Lymph 0.90 Performed By: #### L100.0100 #### [facility] [address] [place], [place], [address] COMPREHENSIVE METABOLIC Collected: 11/29/2017 Status: F Source: [place] 6:05 AM [facility] REPOSITORY Order Comment: 'TROP' Serial specimen #1, #2, #3, or #4: 1 TYPE CODE TESTS RESULT OUT OF RANGE REFERENCE UNITS LAB L501.0100 74-106 mg/dL Normal GLU 98 Result Comment: Please note revised GLUCOSE reference range effective 2017. LAB L501.1000 7-18 mg/dL Normal BUN 16 LAB L501.1100 0.70-1.30 mg/dL Normal CREAT,SERUM 0.81 Result Comment: The validity of the calculated GFR AND GFRAA in patients over 70 years has not been determined. Clinical correlation is essential. LAB L501.1110 >60 mL/min Normal EST GFR 100 Result Comment: Non- GFR Calc LAB L501.1115 >60 mL/min Normal EST GFR - AA 121 Result Comment: GFR Calc LAB L501.1255 ml/min Normal Estimated CRCL 96.07 LAB L501.1300 10-20 RATIO Normal BUN/CRE 19.7 LAB L501.1500 6.4-8. g/dL Normal 2 T PROT 7.2 LAB L501.1800 3.2-5. g/dL Normal 0 ALB 3.3 LAB L501.1950 2.2-4. g/dL Normal 2 GLOB 3.9 LAB L501.2000 0.9-2. RATIO Low 4 A/G 0.8 LAB L501.2200 8.5-10 mg/dL Normal .1 CA 8.7 LAB L501.4100 15-37 U/L Normal AST 16 LAB L501.4305 45-117 U/L Normal ALK P 62 LAB L501.4405 16-61 U/L Low ALT 15 LAB L501.4600 0.20-1 mg/dL Normal .00 T BILI 0.30 LAB L501.5300 136-14 mmol/L Low 5 NA 129 LAB L501.5600 3.5-5. mmol/L Normal 1 K 4.7 LAB L501.5900 98-107 mmol/L Low CL 92 LAB L501.6100 21.0-3 mmol/L Normal 2.0 CO2 29.0 LAB L501.6200 5-15 Normal GAP 8 Performed By: #### L500.4050, L501.2450, L501.4010 #### [facility] [address] [place], [address] LIPASE Collected: 11/29/2017 Status: F Source: [place] 6:05 AM [facility] REPOSITORY Order Comment: 'TROP' Serial specimen #1, #2, #3, or #4: 1 TYPE CODE TESTS RESULT OUT OF RANGE REFERENCE UNITS LAB L501.2450 73-393 U/L Normal LIPASE 112 Performed By: #### L500.4050, L501.2450, L501.4010 #### [facility] [address] [place], [address] TROPONIN-I Collected: 11/29/2017 Status: F Source: [place] 6:05 AM [facility] REPOSITORY Order Comment: 'TROP' Serial specimen #1, #2, #3, or #4: 1 TYPE CODE TESTS RESULT OUT OF RANGE REFERENCE UNITS LAB L501.4010 <0.06 ng/mL Normal < 0.02 TROPONIN-I Result Comment: TROPONIN-I EXPECTED VALUES <0.05 NEGATIVE 0.06 - 0.59 AT RISK OF OK > OR = 0.60 SUGGEST OK Performed By: #### L500.4050, L501.2450, L501.4010 #### [facility] [address] [facility] [place] [place], [address] EMERGENCY DEPARTMENT Observed: 11/24/2017 Status: F Source: [place] SUMMARY 5:39 PM [facility] REPOSITORY [facility] Medical Records Department [address] [place] [address] Emergency Department Summary 11/24/17 1017 MR#: [id number] Acct: [id number] Name: YANNICK HARRINGTON Rep #: [id number] : 1945 72 From: Elia Harris MD PCP: Dilma Alvarez MD Status: DEP ER - ER Visit Summary Date of Service: 11/24/17 Chief Complaint: Blood in stool History of Present Illness: The patient is a [address] Alvarez and Dr. Hoyos. Reports that he had a bowel movement yet last night that he describes as formed and small balls. States this morning he had a small hard bowel movement and when he wiped there was bright red blood on the tissue. He has not had this previously. His last colonoscopy was in approximately 2011. He denies any abdominal pain. He does report that he has had nausea that is chronic. He states he has been taking Zofran twice a day since 2016. Patient reports that he scheduled for an endoscopy in [address] Hoyos. Finally, he complains of a cough that has been present for the past 3 months and is not productive. He denies any fever or chills. No difficulty breathing. Physical Examination: Vitals: Stable. Afebrile. General: Well-nourished and well-developed. Head: Normocephalic atraumatic. Neck: Supple, no lymphadenopathy. No JVD. Nontender. Cardiovascular: Regular rate and rhythm. No murmurs. Respiratory: No respiratory distress. Clear to auscultation bilaterally. Abdominal: Soft, nontender, nondistended, normal bowel sounds. No guarding, rebound, or peritoneal signs. Rectal: No obvious external signs of bleeding. There are no hemorrhoids or anal fissures. Back: Nontender. Extremities: Nontender, no edema. Skin: Normal color, no rash. Neurologic: Alert and oriented 3. Cranial nerves II through XII are intact. Normal strength and sensation. Psych: Normal affect. Test Results: CBC is remarkable for an H AND H of 10.7 and 32.7, segmented neutrophils 78, monocytes 14. Chem-7 is more for sodium 128 and chloride of 94. His last hemoglobin was 10.3 in August. His sodium is ranged between 125-129 since July 2012. INR is 1.1. Chest x-ray shows right middle lobe infiltrate superimposed on scarring at the bases bilaterally. Emergency Department Course and Treatment: Patient was given a fleets enema and had a large bowel movement here. There were flecks of blood in this. He has had no further bleeding. He was treated with Levaquin here. He had negative orthostatic vital signs. Treatment Plan: The patient will be discharged on Levaquin (despite the fact that he was Cipro as an allergy due to multiple allergies and the fact that he is already been on Zithromax and doxycycline for this). He is instructed to follow up Dr. Hoyos in 3 days as previously directed. Follow-up with his primary care physician in 5- 7 days regarding the cough. Return to the emergency department for any worsening symptoms. Disposition: To home in improved and stable condition. Impression: 1. Pneumonia. 2. Lower GI bleed, stable. This note was generated with SmartAsset dictation software. It may contain incorrect words, spelling, and punctuation that were not noted in review of the chart prior to signing ED Disposition - Plan for ED Patient: Chief Complaint: GI Bleed Instructions: ED Hematochezia Stable Prescriptions: Levofloxacin [Levaquin] 750 mg PO DAILY #7 tablet Referrals: Compa Hoyos MD [STAFF PHYSICIAN] - Keep Carlos appointment Dilma Alvarez MD [Primary Care Provider] - 5-7 Days What to do if you have Problems For any increased pain, shortness of breath, bleeding, nausea or vomiting, chest pain, or any unexpected problems, contact your Primary Care Provider. Call [employer] [facility] ([phone]) or report to the closest Emergency Room. Call 911 if necessary. 11/24/17 1739 <Electronically signed by Elia Harris MD> Date Elia Harris MD Cosigner Signature (If Indicated): Date CC: Dilma Alvarez MD CHEST PA AND LATERAL Observed: 11/24/2017 Status: F Source: [place] 10:17 AM [facility] REPOSITORY [facility] Imaging Services [address] [place] [address] Chest PA and Lateral MR#: [id number] Acct: [id number] Name: YANNICK HARRINGTON Rep #: [id number] : 1945 M 72 From: Louie Zhao MD PCP: Dilma Alvarez MD Status: REG ER Study: Chest PA and Lateral Date of Exam: 11/24/17 Exam# [id number] Ordering Dr: Elia Harris MD STUDY: X-RAY CHEST REASON FOR EXAM: Male, 72 years old. Cough. TECHNIQUE: PA and lateral views of the chest. COMPARISON: Comparison is made with prior study dated September 05, 2017. FINDINGS: Infiltration in the right middle lobe superimposed on bibasilar scarring worse on the right side. Stable elevation of the anterior aspect of the right hemidiaphragm. The previously seen left lower lobe infiltrate has resolved. There is no demonstrated pleural abnormality. Normal size heart. Normal mediastinum and aurora. Normal visualized pulmonary arteries. There is atherosclerotic tortuosity of the aortic arch and descending thoracic aorta. There are diffuse degenerative changes of the visualized thoracic spine. Normal visualized ribs, clavicles, and shoulders. There is no demonstrated abnormality of the visualized soft tissue structures of the upper abdomen. RAD/Chest PA and Lateral IMPRESSION: Right middle lobe infiltrate superimposed on scarring of both lung bases. Electronically Signed: Louie Zhao MD at 11:02 EDT Tel [phone], Service support , CC: Dilma Alvarez MD; Elai Harris MD Wind Turbine Erector: Signed CBC W/DIFF, AUTOMATED Collected: 11/24/2017 Status: F Source: [place] 10:06 AM [facility] REPOSITORY TYPE CODE TESTS RESULT OUT OF RANGE REFERENCE UNITS LAB L100.1000 4.4-11.0 K/mm3 Normal WBC 9.7 LAB L100.1200 4.6-6.2 M/mm3 Low RBC 3.94 LAB L100.1300 13.0-16.5 g/dl Low HGB 10.7 LAB L100.1400 40-54 % Low HCT 32.7 LAB L100.1500 80-94 fL Normal MCV 83.0 LAB L100.1600 27.0-32.0 pg Normal MCH 27.2 LAB L100.1700 32-36 g/gl Normal MCHC 32.7 LAB L100.1810 11.6-14.6 % Normal RDW CV 14.6 LAB L100.1820 35.1-43.9 fl High RDW SD 44.7 LAB L100.1900 150-450 K/mm3 Normal PLT 263 LAB L100.2000 6.2-12.0 fl Normal MPV 8.0 LAB L100.2100 47-70 % High NEUT% 78.1 LAB L100.2200 19-41 % Low LY% 13.7 LAB L100.2300 0-10 % Normal MONO% 6.8 LAB L100.2400 0-5 % Normal EO% 1.1 LAB L100.2500 0-1 % Normal BASO% 0.1 LAB L100.2550 0.0-0.9 % Normal IM GRAN % 0.200 Result Comment: IG% - Immature Granulocytes (promyelocytes, myelocytes and metamyelocytes) > 1% indicates that a LEFT SHIFT is Present. LAB L100.2620 2.0-7.7 X10 3/uL Normal Absolute Neut 7.5 LAB L100.2720 0.83-4.51 X10 3/ul Normal Absolute Lymph 1.32 Performed By: #### L100.0100 #### [facility] [facility] [place], [place], [id number] PROTHROMBIN TIME W/INR Collected: 11/24/2017 Status: F Source: [place] 10:06 AM [facility] REPOSITORY TYPE CODE TESTS RESULT OUT OF RANGE REFERENCE UNITS LAB L300.4150 11.7-14.9 SECONDS Normal PROTIME 14.2 LAB L300.4200 Normal INR 1.1 Performed By: #### L300.3900, L300.4310 #### [facility] [address] [place], [place], [id number] PARTIAL THROMBOPLAST Collected: 11/24/2017 Status: F Source: [place] TIME 10:06 AM [facility] REPOSITORY TYPE CODE TESTS RESULT OUT OF REFERENCE UNITS RANGE LAB L300.4310 24.1-36.2 Seconds High PTT 46.7 Performed By: #### L300.3900, L300.4310 #### [facility] [address] [place], [address] BASIC METABOLIC Collected: 11/24/2017 Status: F Source: [place] PROFILE (BMP) 10:06 AM [facility] REPOSITORY TYPE CODE TESTS RESULT OUT OF RANGE REFERENCE UNITS LAB L501.0100 74-106 mg/dL Normal GLU 105 Result Comment: Fasting Glucose result from 100 to 125 mg/dL suggests IMPAIRED HOMEOSTASIS per A.D.A. criteria. Please note revised GLUCOSE reference range effective 2017. LAB L501.1000 7-18 mg/dL Normal BUN 18 LAB L501.1100 0.70-1.30 mg/dL Normal CREAT,SERUM 0.78 Result Comment: The validity of the calculated GFR AND GFRAA in patients over 70 years has not been determined. Clinical correlation is essential. LAB L501.1110 >60 mL/min Normal EST GFR 104 Result Comment: Non- GFR Calc LAB L501.1115 >60 mL/min Normal EST GFR - AA 125 Result Comment: GFR Calc LAB L501.1255 ml/min Normal Estimated CRCL 77.37 LAB L501.1300 10-20 RATIO High BUN/CRE 22.9 LAB L501.2200 8.5-10 mg/dL Normal .1 CA 8.8 LAB L501.5300 136-14 mmol/L Low 5 NA 128 LAB L501.5600 3.5-5. mmol/L Normal 1 K 4.5 LAB L501.5900 98-107 mmol/L Low CL 94 LAB L501.6100 21.0-3 mmol/L Normal 2.0 CO2 29.0 LAB L501.6200 5-15 Normal GAP 5 Performed By: #### L500.2500 #### [facility] [address] [place], [address] SURGERY VISIT REPORT Observed: 11/16/2017 Status: F Source: [place] 2:19 PM [facility] REPOSITORY [facility] [address] [place] [address] OFFICE VISIT Date of Service: 11/16/17 MR#: [id number] Acct: [id number] Name: YANNICK HARRINGTON Rep #: [id number] : 1945 Provider: Compa Hoyos MD Age/Sex: 72/M Location: [facility] Status: Signed Intake Vital Signs11/16/17 Height 6 ft 3 in 11/16/17 Weight: 176 lb 11/16/17 Body Mass Index (BMI) 21.9 Intake Visit Reasons: epigastric pain, hx GERD Tools Developer Required: No Is patient in pain?: Yes Allergies ciprofloxacin [From Cipro] Allergy (Verified 11/16/17 13:34) Itching diclofenac sodium [From Solaraze] Allergy (Verified 11/16/17 13:34) Anaphylaxis fluorouracil Allergy (Verified 11/16/17 13:34) Anaphylaxis methotrexate Allergy (Verified 11/16/17 13:34) Anaphylaxis ondansetron [From Zofran (as hydrochloride)] Allergy (Verified 11/16/17 13:34) Other Penicillins Allergy (Verified 11/16/17 13:34) Itching pentazocine lactate [From Talwin] Allergy (Verified 11/16/17 13:34) Other venom-honey bee [bee venom (honey bee)] Allergy (Verified 11/16/17 13:34) Anaphylaxis amlodipine Adverse Reaction (Verified 11/16/17 13:34) Nausea buspirone Adverse Reaction (Verified 11/16/17 13:34) Other ciprofloxacin HCl [From Cipro] Adverse Reaction (Verified 11/16/17 13:34) Pain in joints clonidine Adverse Reaction (Verified 11/16/17 13:34) Other NSAIDS (Non-Steroidal Anti-Inflamma Adverse Reaction (Verified 11/16/17 13:34) Upset Stomach promethazine Adverse Reaction (Verified 11/16/17 13:34) Other SEAFOOD Adverse Reaction (Severe, Uncoded 11/16/17 13:34) Unknown Medications Omeprazole [Prilosec] 40 mg PO DAILY 09/14/14 [History Confirmed 11/16/17] Clonazepam [Klonopin] 0.5 mg PO DAILY PRN 09/22/14 [History Confirmed 11/16/17] Epinephrine [Epi Pen] 0.3 mg IM X1 PRN 09/22/14 [History Confirmed 11/16/17] Levothyroxine [Synthroid] 125 mcg PO DAILY 09/22/14 [History Confirmed 11/16/17] Ensure Complete 240 ml PO 5X/DAY 05/07/15 [History Confirmed 11/16/17] Acetaminophen [Pain Relief] 1,000 mg PO TID 11/22/16 [History Confirmed 11/16/17] Lisinopril [Zestril] 10 mg PO DAILY 02/15/17 [History Confirmed 11/16/17] MorphINE 0.74 mg INTRATH CONT 09/03/17 [History] Albuterol IH (ProAir) [Proair Hfa (SP)Vent Pts] 2 puff INHALATION UD #1 inhaler 09/05/17 [Rx Confirmed 11/16/17] polyethylene glycol 3350 17 gram/dose oral powder 17 g PO QDAY 11/16/17 [History Confirmed 11/16/17] [facility] Medical History Hypertension (Chronic) Hypothyroidism (Chronic) GERD (gastroesophageal reflux disease) (Chronic) Normocytic anemia (Chronic) Anxiety (Chronic) 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 I saw this patient back in February 2017 at that time I did a upper endoscopy on him for all intents and purposes it was negative and his H. pylori was negative. This winter he has had a rather tough time with having pneumonia and was subsequently in the hospital numerous times receiving IV antibiotics. During this time his this time when he was sick he developed a 40 pound weight loss had significant nausea vomiting and has developed some significant epigastric abdominal discomfort as well. He is continued to have increasing difficulty swallowing his pills. This is a significant change from when I saw him last year. ROS General General: Yes weight change and fatigue; no appetite, colon cancer, breast cancer or weakness HEENT HEENT: Yes difficulty swallowing; no eye injury, eye surgery, swollen glands or hoarseness Endo Endocrine: Yes thyroid disease; no diabetes mellitus, thyroid cancer, Hair loss, heat intolerance or cold intolerance Skin Skin: No rash or changing moles Breast Breast: No left breast lump, right breast lump, nipple discharge, breast pain, abnormal mammogram, abnormal US or breast enlargement Musc Musculoskeletal: Yes back problems and arthritis; no rheumatoid arthritis, gout or joint pain Cardio Cardiovascular: Yes high blood pressure; no murmur, pacemaker, heart disease, atrial fibrillation, heart attack, heart stent, palpitations, shortness of breat with exertion or chest pain Psych Psychiatric: Yes anxiety; no depression or hearing voices Resp Respiratory: Yes cough, No shortness of breath, No sleep apnea, No COPD, No asthma, No emphysema, No wheezing Gastro Gastrointestinal: Yes abdominal pain, Yes nausea or vomiting, Yes constipation, Yes ulcers, No diarrhea, No blood in stool, No acid reflux, No hemorrhoids, No gallbladder problem, No black,tarry stools Aleksandr Hematologic: No blood thinners, No blood disorders, No bleeding, No anemia, No blood clots Neuro Neurologic: No system reviewed and no additional complaints, except as docu, No as per HPI, No abnormal walking, No abnormal hearing, No abnormal movements, No abnormal speech, No behavioral changes, No burning sensations, No confusion, No seizure-like activity, No unsteadiness, No dizziness, No localized weakness, No frequent falls, No headache(s), No lack of coordination, No loss of vision, No memory loss, No numbness, No other visual disturbances, No radiating pain, No restless legs, No sensory deficit, No fainting, No tingling, No tremor(s), No weakness, No other Exam Const General: well developed, no acute distress, well hydrated Orientation: oriented to person, oriented to place, oriented to time [facility] Head: normocephalic, atraumatic Ears: external ears normal Mouth: moist mucous membranes Eyes Sclera: sclerae normal Pupils: normal by confrontation Neck Neck: no lymphadenopathy noted Neck mass: No Thyroid: symmetrical, thyroid normal Chest Chest palpation AND inspection: normal inspection of the chest Breast Palpation: No nipple discharge Resp Effort AND Inspection: normal respiratory effort Auscultation: clear to auscultation bilaterally Percussion: percussion normal Cardio Rate: regular rate Rhythm: regular rhythm Heart Sounds: no murmurs GI Palpation: soft, no masses, no hepatosplenomegaly, nontender Rectal Exam: other Other: Rectal exam deferred. Extrem General: no clubbing, cyanosis or edema, normal to inspection Assessment AND Plan Problems 1. Epigastric abdominal pain R10.13 2. Nausea and vomiting, intractability of vomiting not specified, unspecified vomiting type R11.2 3. Gastroesophageal reflux disease, esophagitis presence not specified K21.9 Plan I have discussed the above with the patient. I have offered the patient esophagogastroduodenoscopy for evaluation. I have explained the risks/benefits of the procedure and described the procedure. I have discussed the risks with the patient, including but not limited to: infection, bleeding, perforation of the GI tract requiring emergency surgery, inability to complete the procedure, injury to any internal organs, complications of anesthesia, etc. - the patient understands and agrees to proceed. I have answered all the patient's questions to the patient's satisfaction and the patient has no further questions. There is really nothing else I can do here other than rescoped him. I realized that a scope which was done on 02/23/2017 was essentially normal he has had such a significant change in his exam and his presentation I believe an upper scope is warranted in this situation Medications Discontinued: Coding Level of Care Code Off vis,est,level 3 Diagnoses Epigastric abdominal pain R10.13 Nausea and vomiting, intractability of vomiting not specified, unspecified vomiting type R11.2 Vomiting type: unspecified Vomiting Intractability: unspecified Gastroesophageal reflux disease, esophagitis presence not specified K21.9 Esophagitis presence: esophagitis presence not specified 11/16/17 1419 <Electronically signed by Compa Hoyos MD> Date Compa Hoyos MD Cosigner Signature: Date (if applicable) CC: Dilma Alvarez MD BMP Collected: 11/09/2017 Status: F Source: [facility] 12:45 PM [facility] REPOSITORY TYPE CODE TESTS RESULT OUT OF REFERENCE UNITS RANGE LAB 1547-9 83-110 mg/dL GLUCOSE 91 LAB NA(LOINC) 136-146 mEq/L Low Sodium Level 127 LAB K(LOINC) 3.5-5.1 mEq/L Potassium Level 4.9 LAB CL(LOINC) 98-107 mEq/L Low Chloride 90 LAB CO2(LOINC) 23-31 mEq/L CO2 29 LAB EBAL(LOINC mEq/L ) Electrolyte Balance 8.0 LAB BUN(LOINC) 7.0-18.0 mg/dL BUN 17.2 LAB CRE(LOINC) 0.6-1.2 mg/dL Creatinine Lvl (s) 0.7 LAB BC(LOINC) 7-27 ratio BUN/Creatinine 25 Ratio LAB CA(LOINC) 8.4-10.2 mg/dL Calcium Lvl 9.5 Performed By: #### BMP, GFR #### [address] [address] .GFR Collected: 11/09/2017 Status: F Source: [facility] 12:45 PM [facility] REPOSITORY TYPE CODE TESTS RESULT OUT OF REFERENCE UNITS RANGE LAB GFRAA(LOINC ml/min/1.73 ) sqm GFR 128 Nauruan Result Comment: GFR Population mean for , Non- Americans Ages 20-29 = 116 mL/min/1.73 sq.m. Ages 30-39 = 107 mL/min/1.73 sq.m. Ages 40-49 = 99 mL/min/1.73 sq.m. Ages 50-59 = 93 mL/min/1.73 sq.m. Ages 60-69 = 85 mL/min/1.73 sq.m. Ages 70+ = 75 mL/min/1.73 sq.m. Chronic Kidney Disease: Less than 60 mL/min/1.73 square meters End Stage Renal Disease: Less than 15 mL/min/1.73 square meters LAB GFRNO(LOINC) ml/min/1.73sqm GFR Non- >60 Result Comment: GFR Population mean for , Non- Americans Ages 20-29 = 116 mL/min/1.73 sq.m. Ages 30-39 = 107 mL/min/1.73 sq.m. Ages 40-49 = 99 mL/min/1.73 sq.m. Ages 50-59 = 93 mL/min/1.73 sq.m. Ages 60-69 = 85 mL/min/1.73 sq.m. Ages 70+ = 75 mL/min/1.73 sq.m. Chronic Kidney Disease: Less than 60 mL/min/1.73 square meters End Stage Renal Disease: Less than 15 mL/min/1.73 square meters Performed By: #### BMP, GFR #### [address] [place], [place] [address] XR ABDOMEN AP Observed: 11/07/2017 Status: F Source: [facility] 11:57 AM [facility] REPOSITORY ORIGINAL XR ABDOMEN AP CLINICAL STATEMENT: pain COMPARISON: None FINDINGS:The bowel gas pattern is nonobstructed. There is a large amount of stool throughout the colon. A neurostimulator battery pack is seen over the right lower quadrant. There are punctate calcifica tions within the left upper quadrant, possibly small renal calculi. IMPRESSION:No acute process identified. Possible left nephrolithiasis. Interpreted By: Tere Higuera MD Preliminary Report By: Tere Higuera MD Electronically Signed By: Tere Higuera MD Dictated Date: 11/07/2017 12:00:55 PM Prelim Date: 11/07/2017 12:00:55 PM Sign Date: 11/07/2017 12:02:18 PM CBC Collected: 11/07/2017 Status: F Source: [facility] 11:33 AM [facility] REPOSITORY TYPE CODE TESTS RESULT OUT OF REFERENCE UNITS RANGE LAB WBC(LOINC) 4.60-10.80 10 3/mcL WBC 4.90 LAB RBCCT(LOINC 4.04-6.13 10 6/mcL ) Low RBC 3.90 LAB HGB(LOINC) 14.0-18.0 G/dL Low Hgb 11.3 LAB HCT(LOINC) 42.0-52.0 % Low Hct 31.8 LAB MCV(LOINC) 80.0-94.0 fL MCV 81.4 LAB MCH(LOINC) 27.0-31.2 pg MCH 29.0 LAB MCHC(LOINC) 31.8-35.4 G/dL High MCHC 35.6 LAB RDW(LOINC) 11.5-14.5 % High RDW 16.3 LAB PLT(LOINC) 130-400 10 3/mcL Platelet 256 LAB MPV(LOINC) 7.4-10.4 fL Low MPV 6.3 Performed By: #### CBC, ADIFF, ANEU, MG, CMP, GFR #### [address] [place], [place] [address] .AUTO DIFF Collected: 11/07/2017 Status: F Source: [facility] 11:33 AM [facility] REPOSITORY TYPE CODE TESTS RESULT OUT OF REFERENCE UNITS RANGE LAB GUNNAR(LOINC) 37.0-80.0 % Neutrophil % 61.9 LAB LYM(LOINC) 10.0-50.0 % Lymphocyte % 22.6 LAB MON(LOINC) 1.7-13.0 % Monocyte % 11.5 LAB EO(LOINC) 0.0-7.0 % Eosinophil % 3.5 LAB BAS(LOINC) 0.0-2.5 % Basophil % 0.5 LAB ABLYM(LOIN 0.77-3.85 10 3/mcL C) Lymphocyte, 1.10 Absolute LAB LEONA(LOINC 0.15-1.00 10 3/mcL ) Monocyte, 0.60 Absolute LAB AEOS(LOINC 0.00-0.40 10 3/mcL ) Eosinophil, 0.20 Absolute LAB ABAS(LOINC 0.00-0.19 10 3/mcL ) Basophil, 0.00 Absolute Performed By: #### CBC, ADIFF, ANEU, MG, CMP, GFR #### [place] [address] .NEUABS Collected: 11/07/2017 Status: F Source: [facility] 11:33 AM [facility] REPOSITORY TYPE CODE TESTS RESULT OUT OF REFERENCE UNITS RANGE LAB ANEU(LOINC) 2.85-6.16 10 3/mcL Neutrophil, 3.00 Absolute Performed By: #### CBC, ADIFF, ANEU, MG, CMP, GFR #### [place] [address] MG Collected: 11/07/2017 Status: F Source: [facility] 11:33 AM [facility] REPOSITORY TYPE CODE TESTS RESULT OUT OF REFERENCE UNITS RANGE LAB MG(LOINC) 1.7-2.5 mg/dL Magnesium Lvl 1.8 Performed By: #### CBC, ADIFF, ANEU, MG, CMP, GFR #### [place] [address] CMP Collected: 11/07/2017 Status: F Source: [facility] 11:33 AM [facility] REPOSITORY TYPE CODE TESTS RESULT OUT OF REFERENCE UNITS RANGE LAB 1547-9 83-110 mg/dL GLUCOSE 107 LAB NA(LOINC) 136-146 mEq/L Low Sodium Level 127 LAB K(LOINC) 3.5-5.1 mEq/L Potassium High Level 5.6 LAB CL(LOINC) 98-107 mEq/L Low Chloride 91 LAB CO2(LOINC) 23-31 mEq/L CO2 29 LAB EBAL(LOINC mEq/L ) Electrolyte Balance 7.0 LAB BUN(LOINC) 7.0-18.0 mg/dL BUN 17.4 LAB CRE(LOINC) 0.6-1.2 mg/dL Creatinine Lvl (s) 0.8 LAB BC(LOINC) 7-27 ratio BUN/Creatinine 22 Ratio LAB CA(LOINC) 8.4-10.2 mg/dL Calcium Lvl 9.5 LAB PROT(LOINC 6.0-8.3 G/dL ) Total Protein 7.1 LAB ALB(LOINC) 3.4-4.8 G/dL Albumin Level 4.3 LAB GLB(LOINC) G/dL Globulin 2.8 LAB AG(LOINC) 1.1-2.5 ratio A/G Ratio 1.5 LAB BILT(LOINC 0.2-1.0 mg/dL ) Bili Total 0.5 LAB AP(LOINC) 40-135 IU/L Alk Phos 67 LAB AST(LOINC) 10-40 IU/L AST/SGOT 17 LAB ALT(LOINC) 10-35 IU/L Low ALT/SGPT 9 Performed By: #### CBC, ADIFF, ANEU, MG, CMP, GFR #### [place] [id number] .GFR Collected: 11/07/2017 Status: F Source: [facility] 11:33 AM [facility] REPOSITORY TYPE CODE TESTS RESULT OUT OF REFERENCE UNITS RANGE LAB GFRAA(LOINC ml/min/1.73 ) sqm GFR 121 [place]uan Result Comment: GFR Population mean for , Non- Americans Ages 20-29 = 116 mL/min/1.73 sq.m. Ages 30-39 = 107 mL/min/1.73 sq.m. Ages 40-49 = 99 mL/min/1.73 sq.m. Ages 50-59 = 93 mL/min/1.73 sq.m. Ages 60-69 = 85 mL/min/1.73 sq.m. Ages 70+ = 75 mL/min/1.73 sq.m. Chronic Kidney Disease: Less than 60 mL/min/1.73 square meters End Stage Renal Disease: Less than 15 mL/min/1.73 square meters LAB GFRNO(LOINC) ml/min/1.73sqm GFR Non- >60 Result Comment: GFR Population mean for , Non- Americans Ages 20-29 = 116 mL/min/1.73 sq.m. Ages 30-39 = 107 mL/min/1.73 sq.m. Ages 40-49 = 99 mL/min/1.73 sq.m. Ages 50-59 = 93 mL/min/1.73 sq.m. Ages 60-69 = 85 mL/min/1.73 sq.m. Ages 70+ = 75 mL/min/1.73 sq.m. Chronic Kidney Disease: Less than 60 mL/min/1.73 square meters End Stage Renal Disease: Less than 15 mL/min/1.73 square meters Performed By: #### CBC, ADIFF, ANEU, MG, CMP, GFR #### [address] [address] [address] THORAX W/ CONTRAST Observed: 10/19/2017 Status: F Source: [facility] 8:24 AM [facility] REPOSITORY ORIGINAL CT THORAX W/ CONTRAST CLINICAL STATEMENT: leukocytosis, shortness of breath, cough, weight loss . History of head and neck cancer COMPARISON: None FINDINGS: This exam was performed according to our departmental dose- optimization program which includes automated exposure control, adjustment of the mA and/or kVp according to patient size and/or use of iterati ve reconstruction technique where applicable. Moderate atherosclerosis seen of the coronary arteries and aorta. The heart is normal in size. Mildly enlarged lymph nodes visualized. A RIGHT hilar lymph node is approximately 11 mm in diameter on image 45. A borderline subcarinal space lymph node is 1 cm in short axis. A RIGHT paratracheal spac e lymph node on image 34 measures 13 mm in diameter. Other scattered subcentimeter lymph nodes visualized. Symmetric apical fibrosis with bronchiectasis noted. The fibrosis is somewhat sharply demarcated and may indicate prior radiation therapy to this region. Several scattered subpleural nodular densities n oted bilaterally. Irregular patchy airspace disease noted in the LEFT lower lobe. There are small clustered nodules in the lingula measuring 2 to 3 mm in size. Bronchial wall thickening noted. There is multifocal mucus plugging in the RIGHT lung. There are groundglass densities scattered throughout the RIGHT lung, most pronounced in the RIGHT middle lobe and R IGHT lower lobe. Irregular micronodular/tree-in-bud nodules visualized in the RIGHT middle lobe and RIGHT lower lobe. Irregular aggregate nodular areas of consolidation also visualized in the RIGHT lowe r lobe and RIGHT middle lobe measuring up to 14 mm in size. No pleural fluid seen. Degenerative changes seen of the spine. No destructive osseous lesion visualized. No suspicious findings seen in the visualized abdomen. There is likely a partially visualized cyst in the LEFT kidney. IMPRESSION: 1. Bronchial wall thickening with multifocal mucus plugging, most pronounced in the RIGHT middle lobe and RIGHT lower lobe. Associated groundglass, micronodular changes and larger nodular areas of conso lidation visualized in the RIGHT middle lobe and RIGHT lower lobe. Findings likely are related to infectious/inflammatory disease such as bronchopneumonia. Follow-up after therapy is advised to ensure c omplete resolution and exclude neoplastic disease. Similar but less pronounced findings seen in the posterior LEFT lower lobe. 2. Borderline lymphadenopathy is likely reactive. Again, attention on follow-up advised. Interpreted By: Robbi Bonilla MD Preliminary Report By: Robbi Bonilla MD Electronically Signed By: Robbi Bonilla MD Dictated Date: 10/19/2017 9:03:16 AM Prelim Date: 10/19/2017 9:03:16 AM Sign Date: 10/19/2017 9:12:33 AM CBC Collected: 10/19/2017 Status: F Source: [facility] 5:34 AM [facility] REPOSITORY TYPE CODE TESTS RESULT OUT OF REFERENCE UNITS RANGE LAB WBC(LOINC) 4.60-10.80 10 3/mcL WBC 10.50 LAB RBCCT(LOINC 4.04-6.13 10 6/mcL ) Low RBC 3.74 LAB HGB(LOINC) 14.0-18.0 G/dL Low Hgb 10.3 LAB HCT(LOINC) 42.0-52.0 % Low Hct 30.7 LAB MCV(LOINC) 80.0-94.0 fL MCV 82.2 LAB MCH(LOINC) 27.0-31.2 pg MCH 27.5 LAB MCHC(LOINC) 31.8-35.4 G/dL MCHC 33.5 LAB RDW(LOINC) 11.5-14.5 % High RDW 16.3 LAB PLT(LOINC) 130-400 10 3/mcL Platelet 299 LAB MPV(LOINC) 7.4-10.4 fL Low MPV 6.3 Performed By: #### CBC, ADIFF, ANEU, GFR, BMP #### [address] [address] .AUTO DIFF Collected: 10/19/2017 Status: F Source: [facility] 5:34 AM [facility] REPOSITORY TYPE CODE TESTS RESULT OUT OF REFERENCE UNITS RANGE LAB GUNNAR(LOINC) 37.0-80.0 % High Neutrophil % 80.4 LAB LYM(LOINC) 10.0-50.0 % Lymphocyte % 11.7 LAB MON(LOINC) 1.7-13.0 % Monocyte % 7.0 LAB EO(LOINC) 0.0-7.0 % Eosinophil % 0.5 LAB BAS(LOINC) 0.0-2.5 % Basophil % 0.4 LAB ABLYM(LOIN 0.77-3.85 10 3/mcL C) Lymphocyte, 1.20 Absolute LAB LEONA(LOINC 0.15-1.00 10 3/mcL ) Monocyte, 0.70 Absolute LAB AEOS(LOINC 0.00-0.40 10 3/mcL ) Eosinophil, 0.10 Absolute LAB ABAS(LOINC 0.00-0.19 10 3/mcL ) Basophil, 0.00 Absolute Performed By: #### CBC, ADIFF, ANEU, GFR, BMP #### [address] [address] .NEUABS Collected: 10/19/2017 Status: F Source: [facility] 5:34 AM [facility] REPOSITORY TYPE CODE TESTS RESULT OUT OF REFERENCE UNITS RANGE LAB ANEU(LOINC) 2.85-6.16 10 3/mcL High Neutrophil, 8.40 Absolute Performed By: #### CBC, ADIFF, ANEU, GFR, BMP #### [address] [address] .GFR Collected: 10/19/2017 Status: F Source: [facility] 5:34 AM [facility] REPOSITORY TYPE CODE TESTS RESULT OUT OF REFERENCE UNITS RANGE LAB GFRAA(LOINC ml/min/1.73 ) sqm GFR 145 [place] Result Comment: GFR Population mean for , Non- Americans Ages 20-29 = 116 mL/min/1.73 sq.m. Ages 30-39 = 107 mL/min/1.73 sq.m. Ages 40-49 = 99 mL/min/1.73 sq.m. Ages 50-59 = 93 mL/min/1.73 sq.m. Ages 60-69 = 85 mL/min/1.73 sq.m. Ages 70+ = 75 mL/min/1.73 sq.m. Chronic Kidney Disease: Less than 60 mL/min/1.73 square meters End Stage Renal Disease: Less than 15 mL/min/1.73 square meters LAB GFRNO(LOINC) ml/min/1.73sqm GFR Non- >60 Result Comment: GFR Population mean for , Non- Americans Ages 20-29 = 116 mL/min/1.73 sq.m. Ages 30-39 = 107 mL/min/1.73 sq.m. Ages 40-49 = 99 mL/min/1.73 sq.m. Ages 50-59 = 93 mL/min/1.73 sq.m. Ages 60-69 = 85 mL/min/1.73 sq.m. Ages 70+ = 75 mL/min/1.73 sq.m. Chronic Kidney Disease: Less than 60 mL/min/1.73 square meters End Stage Renal Disease: Less than 15 mL/min/1.73 square meters Performed By: #### CBC, ADIFF, ANEU, GFR, BMP #### [place] [address] [address] BMP Collected: 10/19/2017 Status: F Source: [facility] 5:34 AM [facility] REPOSITORY TYPE CODE TESTS RESULT OUT OF REFERENCE UNITS RANGE LAB 1547-9 83-110 mg/dL GLUCOSE 94 LAB NA(LOINC) 136-146 mEq/L Low Sodium Level 133 LAB K(LOINC) 3.5-5.1 mEq/L Potassium Level 4.3 LAB CL(LOINC) 98-107 mEq/L Chloride 98 LAB CO2(LOINC) 23-31 mEq/L CO2 27 LAB EBAL(LOINC mEq/L ) Electrolyte Balance 8.0 LAB BUN(LOINC) 7.0-18.0 mg/dL BUN 10.1 LAB CRE(LOINC) 0.6-1.2 mg/dL Creatinine Lvl (s) 0.7 LAB BC(LOINC) 7-27 ratio BUN/Creatinine 14 Ratio LAB CA(LOINC) 8.4-10.2 mg/dL Calcium Lvl 8.9 Performed By: #### CBC, ADIFF, ANEU, GFR, BMP #### [facility] [address] [place], [place] [address] MYCO Collected: 10/19/2017 Status: F Source: [facility] 5:34 AM [facility] REPOSITORY Order Comment: haritha rodriguez to eileen henry 2017 14:39:09 EST TYPE CODE TESTS RESULT OUT OF RANGE REFERENCE UNITS LAB [id number](LOINC) Abnormal Mycoplasma IgM Positive Result Comment: INTERPRETATION OF MYCOPLASMA BY EIA (Effective 08/19/04): Negative No detectable antibodies to M. pneumoniae. Indicates absence of current or previous infection. Positive Reactive for antibodies to M. pneumoniae. Indicates a past or recent infection. Equivocal Equivocal for antibodies to M. pneumoniae. Repeat testing by an alternate method suggested. LAB CD:[id number]([facility]) Mycoplasma IgG Neg Result Comment: INTERPRETATION OF MYCOPLASMA BY EIA (Effective 08/19/04): Negative No detectable antibodies to M. pneumoniae. Indicates absence of current or previous infection. Positive Reactive for antibodies to M. pneumoniae. Indicates a past or recent infection. Equivocal Equivocal for antibodies to M. pneumoniae. Repeat testing by an alternate method suggested. Performed By: #### MYCO #### [address] [address] UA Collected: 10/18/2017 Status: F Source: [facility] 11:04 PM [facility] REPOSITORY TYPE CODE TESTS RESULT OUT OF REFERENCE UNITS RANGE LAB SPCUA(LOIN C) UA Specimen Type Clean Catch LAB CLRUA(LOIN C) UA Color YELLOW LAB APPUA(LOIN C) UA Appear CLEAR LAB SGUA(LOINC ) UA Spec Grav 1.020 LAB GLUA(LOINC mg/dL ) UA Glucose NEGATIVE LAB BILUA(LOIN C) UA Bili NEGATIVE LAB KETUA(LOIN mg/dL C) UA Ketones NEGATIVE LAB BLDUA(LOIN C) UA Blood TRACE-INTACT LAB PHUA(LOINC ) UA pH 7.0 LAB PROUA(LOIN mg/dL C) UA Protein NEGATIVE LAB UROUA(LOIN E.U./dL C) UA Urobilinogen 0.2 LAB NITUA(LOIN C) UA Nitrite NEGATIVE LAB LEUUA(LOIN C) UA Leuk Est NEGATIVE Performed By: #### UA, UAMICAO #### [place] [address] .URINALYSIS MICROSCOPIC Collected: 10/18/2017 Status: F Source: [facility]) 11:04 [facility] RE[facility] TYPE CODE TESTS RESULT OUT OF RANGE REFERENCE UNITS LAB WBCUA(LOIN None Seen /hpf C) UA WBC None Seen LAB RBCUA(LOIN None Seen /hpf C) UA RBC Abnormal 0-5 LAB EPIUA(LOIN None Seen /hpf C) UA Squam Epithelial None Seen Performed By: #### UA, UAMICAO #### [place] [address] NAUR Collected: 10/18/2017 Status: F Source: [facility] 11:04 [facility] REPOSITORY TYPE CODE TESTS RESULT OUT OF REFERENCE UNITS RANGE LAB BRAIN(LOINC) mEq/L U Sodium 124 Performed By: #### NAUR #### [place] [address] #### OSMOU #### [place] [address] OSMOU Collected: 10/18/2017 Status: F Source: [facility] 11:04 [facility] REPOSITORY TYPE CODE TESTS RESULT OUT OF REFERENCE UNITS RANGE LAB OSMOU(LOIN 390-1090 mOsm/kg C) U Osmolality 475 Performed By: #### NAUR #### [place] [address] #### OSMOU #### [place] [address] Observed: 10/18/2017 Status: F Source: [facility] EVITA 11:04 [facility] REPOSITORY . MICRO - Microbiology PROCEDURE: Legionella Urine Ag [*1] SOURCE: Urine BODY SITE: COLLECTED DATE/TIME: 10/18/2017 23:04 EST RECEIVED DATE/TIME: 10/19/2017 20:42 EST START DATE/TIME: 10/19/2017 20:42 EST FREE TEXT SOURCE: FINAL REPORTS Final Report [] Verified Date/Time/Personnel: 10/19/2017 21:25 EST Presumptive negative for L. pneumophila serogroup 1 antigen in urine, suggesting no recent or current infection. Legionnaire's disease cannot be ruled out since other serogroups and species may also cause disease. Performing Locations *1: This test was performed at: [address], [address] [place] [address] Performed By: #### EVITA #### [place] [address] Observed: 10/18/2017 Status: F Source: [facility] 11:04 PM [facility] REPOSITORY . MICRO - Microbiology PROCEDURE: Streptococcus Pneumoniae Urine Antig [1 *1] SOURCE: Urine BODY SITE: COLLECTED DATE/TIME: 10/18/2017 23:04 EST RECEIVED DATE/TIME: 10/19/2017 20:42 EST START DATE/TIME: 10/19/2017 20:42 EST FREE TEXT SOURCE: FINAL REPORTS Final Report [] Verified Date/Time/Personnel: 10/19/2017 21:26 EST Streptococcus pneumoniae antigen Positive for pneumococcal pneumonia. Interpretive Data 1: Streptococcus Pneumoniae Urine Antig This test has not been evaluated on patients taking antibiotics for greater than 24 hours or on patients who have recently completed an antibiotic regimen. The accuracy of this test has not been proven in young children. Performing Locations *1: This test was performed at: [address] Performed By: #### SPAG #### [place] [address] XR CHEST 1 VIEW Observed: 10/18/2017 Status: F Source: [facility] 10:29 PM [facility] REPOSITORY ORIGINAL XR CHEST 1 VIEW PORTABLE UPRIGHT AP TIME: 10:23 PM Clinical Statement: syncopal episode Comparison: Chest radiograph October 03, 2017 Findings: Heart size is normal. There is pleural thickening at the lung apices. Bi basilar atelectasis. No focal consolidation, vascular congestion, pleural effusion, or pneumothorax. No acute osseous abnormality. IMPRESSION: No acute radiographic finding. Bibasilar atelectasis. I have personally reviewed the images of this examination and agree with the resident's findings and interpretation. Interpreted By: Orion Maya MD Preliminary Report By: Indiana Loyola DO Electronically Signed By: Orion Maya MD Dictated Date: 10/18/2017 10:48:19 PM Prelim Date: 10/18/2017 10:49:24 PM Sign Date: 10/18/2017 11:00:16 PM CBC Collected: 10/18/2017 Status: F Source: [facility] 10:10 PM [facility] REPOSITORY TYPE CODE TESTS RESULT OUT OF REFERENCE UNITS RANGE LAB WBC(LOINC) 4.60-10.80 10 3/mcL High WBC 19.00 LAB RBCCT(LOINC 4.04-6.13 10 6/mcL ) Low RBC 3.88 LAB HGB(LOINC) 14.0-18.0 G/dL Low Hgb 10.5 LAB HCT(LOINC) 42.0-52.0 % Low Hct 31.6 LAB MCV(LOINC) 80.0-94.0 fL MCV 81.7 LAB MCH(LOINC) 27.0-31.2 pg MCH 27.1 LAB MCHC(LOINC) 31.8-35.4 G/dL MCHC 33.2 LAB RDW(LOINC) 11.5-14.5 % High RDW 15.9 LAB PLT(LOINC) 130-400 10 3/mcL Platelet 320 LAB MPV(LOINC) 7.4-10.4 fL Low MPV 6.2 Performed By: #### CBC, ADIFF, ANEU, BMP, GFR #### [place] [address] .AUTO DIFF Collected: 10/18/2017 Status: F Source: [facility] 10:10 PM [facility] REPOSITORY TYPE CODE TESTS RESULT OUT OF REFERENCE UNITS RANGE LAB GUNNAR(LOINC) 37.0-80.0 % High Neutrophil % 87.3 LAB LYM(LOINC) 10.0-50.0 % Low Lymphocyte % 5.7 LAB MON(LOINC) 1.7-13.0 % Monocyte % 6.4 LAB EO(LOINC) 0.0-7.0 % Eosinophil % 0.3 LAB BAS(LOINC) 0.0-2.5 % Basophil % 0.3 LAB ABLYM(LOIN 0.77-3.85 10 3/mcL C) Lymphocyte, 1.10 Absolute LAB LEONA(LOINC 0.15-1.00 10 3/mcL ) High Monocyte, 1.20 Absolute LAB AEOS(LOINC 0.00-0.40 10 3/mcL ) Eosinophil, 0.10 Absolute LAB ABAS(LOINC 0.00-0.19 10 3/mcL ) Basophil, 0.10 Absolute Performed By: #### CBC, ADIFF, ANEU, BMP, GFR #### [address] [address] .NEUABS Collected: 10/18/2017 Status: F Source: [facility] 10:10 PM [facility] REPOSITORY TYPE CODE TESTS RESULT OUT OF REFERENCE UNITS RANGE LAB ANEU(LOINC) 2.85-6.16 10 3/mcL High Neutrophil, 16.60 Absolute Performed By: #### CBC, ADIFF, ANEU, BMP, GFR #### [address] [address] BMP Collected: 10/18/2017 Status: F Source: [facility] 10:10 PM [facility] REPOSITORY TYPE CODE TESTS RESULT OUT OF REFERENCE UNITS RANGE LAB 1547-9 83-110 mg/dL GLUCOSE High 118 LAB NA(LOINC) 136-146 mEq/L Low Sodium Level 126 LAB K(LOINC) 3.5-5.1 mEq/L Potassium Level 4.6 LAB CL(LOINC) 98-107 mEq/L Low Chloride 93 LAB CO2(LOINC) 23-31 mEq/L CO2 26 LAB EBAL(LOINC mEq/L ) Electrolyte Balance 7.0 LAB BUN(LOINC) 7.0-18.0 mg/dL BUN 14.3 LAB CRE(LOINC) 0.6-1.2 mg/dL Creatinine Lvl (s) 0.7 LAB BC(LOINC) 7-27 ratio BUN/Creatinine 20 Ratio LAB CA(LOINC) 8.4-10.2 mg/dL Calcium Lvl 9.0 Performed By: #### CBC, ADIFF, ANEU, BMP, GFR #### [place] [place] [id number] [place], [place] [address] .GFR Collected: 10/18/2017 Status: F Source: [facility] 10:10 PM [facility] REPOSITORY TYPE CODE TESTS RESULT OUT OF REFERENCE UNITS RANGE LAB GFRAA(LOINC ml/min/1.73 ) sqm GFR 127 Nauruan Result Comment: GFR Population mean for , Non- Americans Ages 20-29 = 116 mL/min/1.73 sq.m. Ages 30-39 = 107 mL/min/1.73 sq.m. Ages 40-49 = 99 mL/min/1.73 sq.m. Ages 50-59 = 93 mL/min/1.73 sq.m. Ages 60-69 = 85 mL/min/1.73 sq.m. Ages 70+ = 75 mL/min/1.73 sq.m. Chronic Kidney Disease: Less than 60 mL/min/1.73 square meters End Stage Renal Disease: Less than 15 mL/min/1.73 square meters LAB GFRNO(LOINC) ml/min/1.73sqm GFR Non- >60 Result Comment: GFR Population mean for , Non- Americans Ages 20-29 = 116 mL/min/1.73 sq.m. Ages 30-39 = 107 mL/min/1.73 sq.m. Ages 40-49 = 99 mL/min/1.73 sq.m. Ages 50-59 = 93 mL/min/1.73 sq.m. Ages 60-69 = 85 mL/min/1.73 sq.m. Ages 70+ = 75 mL/min/1.73 sq.m. Chronic Kidney Disease: Less than 60 mL/min/1.73 square meters End Stage Renal Disease: Less than 15 mL/min/1.73 square meters Performed By: #### CBC, ADIFF, ANEU, BMP, GFR #### [place] [id number] [place], [place] [address] Observed: 10/18/2017 Status: F Source: [facility] 10:10 PM [facility] REPOSITORY . MICRO - Microbiology PROCEDURE: Rapid Influenza A+B Screen w Cult if Ind [*1] SOURCE: Nasopharyngeal BODY SITE: COLLECTED DATE/TIME: 10/18/2017 22:10 EST RECEIVED DATE/TIME: 10/18/2017 22:23 EST START DATE/TIME: 10/18/2017 22:23 EST FREE TEXT SOURCE: FINAL REPORTS Final Report [] Verified Date/Time/Personnel: 10/18/2017 22:50 EST Specimen is negative for the presence of influenza A antigen. . Specimen is negative for the presence of influenza B antigen. . Inadequate specimen collection, improper sample handling and/or low levels of viral shedding may yield a false-negative result. . The optimal specimen type for the Rapid Flu test is a nasopharyngeal wash/aspirate or nasopharyngeal swab. All negative rapid tests for Flu A and Flu B will be confirmed with a Respiratory Id Panel by PCR. . Assay method employs immunofluorescence technology. Performing Locations *1: This test was performed at: [address] Performed By: #### RFLU #### [place] [address] RESPID Collected: 10/18/2017 Status: F Source: [facility] 10:05 PM [facility] REPOSITORY Order Comment: Order added by [id number] TYPE CODE TESTS RESULT OUT OF REFERENCE UNITS RANGE LAB RESADENO( Not Detected LOINC) Adenovirus Not Detected LAB COVHKU1(L Not Detected OINC) Coronavirus HKU1 Not Detected LAB COVNL63(L Not Detected OINC) Coronavirus NL63 Not Detected LAB [id number](L Not Detected OINC) Coronavirus 229E Not Detected LAB COVOC43(L Not Detected OINC) Coronavirus OC43 Not Detected LAB HMV(LOINC Not Detected ) Human Metapneumovirus Not Detected LAB INFA(LOIN Not Detected C) Influenza A Not Detected LAB INFAB(MATEO Not Detected NC) Influenza B Not Detected LAB PARAFLU1( Not Detected LOINC) Parainfluenza 1 Not Detected LAB PARAFLU2( Not Detected LOINC) Parainfluenza 2 Not Detected LAB PARAFLU3( Not Detected LOINC) Parainfluenza 3 Not Detected LAB PARAFLU4( Not Detected LOINC) Parainfluenza 4 Not Detected LAB RHINO(MATEO Not Detected NC) Rhinovirus/Enterovir us Not Detected LAB RESRSV(LO Not Detected INC) Respiratory Syncytial Virus Not Detected LAB RESMYCO(L Not Detected OINC) Mycoplasma pneumoniae Not Detected LAB RESCHLAM( Not Detected LOINC) Chlamydophila pneumoniae Not Detected LAB RESBORD(L Not Detected OINC) Bordetella Pertussis Not Detected LAB RESBPAR(L Not Detected OINC) Bordetella Parapertussis Not Detected Performed By: #### RESPID #### [place] [address] [place] [address] XR CHEST 2 VIEWS Observed: 10/03/2017 Status: F Source: [facility] 1:50 PM [facility] REPOSITORY ORIGINAL XR CHEST 2 VIEWS CLINICAL STATEMENT: Streptococcal pneumonia COMPARISON: 09/09/2017 FINDINGS:The cardiac contours are stable. There is improving aeration to the left base. Coarsened lung markings are present without a discrete consolidation currently identified. Degenerative changes ar e noted in the spine. The apices are incompletely included on today's exam. IMPRESSION:Improving aeration to the left lung base Interpreted By: Kayla Delaney MD Preliminary Report By: Kayla Delaney MD Electronically Signed By: Kayla Delaney MD Dictated Date: 10/03/2017 3:50:27 PM Prelim Date: 10/03/2017 3:50:27 PM Sign Date: 10/03/2017 3:50:53 PM CBC Collected: 09/12/2017 Status: F Source: [facility] 5:20 AM [facility] REPOSITORY TYPE CODE TESTS RESULT OUT OF REFERENCE UNITS RANGE LAB WBC(LOINC) 4.60-10.80 10 3/mcL WBC 8.10 LAB RBCCT(LOINC 4.04-6.13 10 6/mcL ) Low RBC 3.18 LAB HGB(LOINC) 14.0-18.0 G/dL Low Hgb 8.9 LAB HCT(LOINC) 42.0-52.0 % Low Hct 26.4 LAB MCV(LOINC) 80.0-94.0 fL MCV 82.9 LAB MCH(LOINC) 27.0-31.2 pg MCH 28.1 LAB MCHC(LOINC) 31.8-35.4 G/dL MCHC 33.9 LAB RDW(LOINC) 11.5-14.5 % RDW 14.4 LAB PLT(LOINC) 130-400 10 3/mcL Platelet 278 LAB MPV(LOINC) 7.4-10.4 fL Low MPV 6.9 Performed By: #### CBC, ADIFF, ANEU, CMP, GFR #### [address] [address] .AUTO DIFF Collected: 09/12/2017 Status: F Source: [facility] 5:20 AM [facility] REPOSITORY TYPE CODE TESTS RESULT OUT OF REFERENCE UNITS RANGE LAB GUNNAR(LOINC) 37.0-80.0 % High Neutrophil % 89.0 LAB LYM(LOINC) 10.0-50.0 % Low Lymphocyte % 7.5 LAB MON(LOINC) 1.7-13.0 % Monocyte % 3.3 LAB EO(LOINC) 0.0-7.0 % Eosinophil % 0.0 LAB BAS(LOINC) 0.0-2.5 % Basophil % 0.2 LAB ABLYM(LOIN 0.77-3.85 10 3/mcL C) Low Lymphocyte, 0.60 Absolute LAB LEONA(LOINC 0.15-1.00 10 3/mcL ) Monocyte, 0.30 Absolute LAB AEOS(LOINC 0.00-0.40 10 3/mcL ) Eosinophil, 0.00 Absolute LAB ABAS(LOINC 0.00-0.19 10 3/mcL ) Basophil, 0.00 Absolute Performed By: #### CBC, ADIFF, ANEU, CMP, GFR #### [address] [address] .NEUABS Collected: 09/12/2017 Status: F Source: [facility] 5:20 AM [facility] REPOSITORY TYPE CODE TESTS RESULT OUT OF REFERENCE UNITS RANGE LAB ANEU(LOINC) 2.85-6.16 10 3/mcL High Neutrophil, 7.20 Absolute Performed By: #### CBC, ADIFF, ANEU, CMP, GFR #### [address] [address] CMP Collected: 09/12/2017 Status: F Source: [facility] 5:20 AM [facility] REPOSITORY TYPE CODE TESTS RESULT OUT OF REFERENCE UNITS RANGE LAB 1547-9 83-110 mg/dL GLUCOSE 83 LAB NA(LOINC) 136-146 mEq/L Sodium Level 138 LAB K(LOINC) 3.5-5.1 mEq/L Potassium Level 3.7 LAB CL(LOINC) 98-107 mEq/L Chloride 106 LAB CO2(LOINC) 23-31 mEq/L CO2 25 LAB EBAL(LOINC mEq/L ) Electrolyte Balance 7.0 LAB BUN(LOINC) 7.0-18.0 mg/dL BUN High 30.8 LAB CRE(LOINC) 0.6-1.2 mg/dL Creatinine Lvl (s) 0.7 LAB BC(LOINC) 7-27 ratio High BUN/Creatinine 44 Ratio LAB CA(LOINC) 8.4-10.2 mg/dL Low Calcium Lvl 8.0 LAB PROT(LOINC 6.0-8.3 G/dL ) Low Total Protein 5.0 LAB ALB(LOINC) 3.4-4.8 G/dL Low Albumin Level 2.8 LAB GLB(LOINC) G/dL Globulin 2.2 LAB AG(LOINC) 1.1-2.5 ratio A/G Ratio 1.3 LAB BILT(LOINC 0.2-1.0 mg/dL ) Bili Total 0.5 LAB AP(LOINC) 40-135 IU/L Alk Phos 54 LAB AST(LOINC) 10-40 IU/L AST/SGOT 15 LAB ALT(LOINC) 10-35 IU/L ALT/SGPT 16 Performed By: #### CBC, ADIFF, ANEU, CMP, GFR #### [address] [address] .GFR Collected: 09/12/2017 Status: F Source: [facility] 5:20 AM [facility] REPOSITORY TYPE CODE TESTS RESULT OUT OF REFERENCE UNITS RANGE LAB GFRAA(LOINC ml/min/1.73 ) sqm GFR 139 Nauruan Result Comment: GFR Population mean for , Non- Americans Ages 20-29 = 116 mL/min/1.73 sq.m. Ages 30-39 = 107 mL/min/1.73 sq.m. Ages 40-49 = 99 mL/min/1.73 sq.m. Ages 50-59 = 93 mL/min/1.73 sq.m. Ages 60-69 = 85 mL/min/1.73 sq.m. Ages 70+ = 75 mL/min/1.73 sq.m. Chronic Kidney Disease: Less than 60 mL/min/1.73 square meters End Stage Renal Disease: Less than 15 mL/min/1.73 square meters LAB GFRNO(LOINC) ml/min/1.73sqm GFR Non- >60 Result Comment: GFR Population mean for , Non- Americans Ages 20-29 = 116 mL/min/1.73 sq.m. Ages 30-39 = 107 mL/min/1.73 sq.m. Ages 40-49 = 99 mL/min/1.73 sq.m. Ages 50-59 = 93 mL/min/1.73 sq.m. Ages 60-69 = 85 mL/min/1.73 sq.m. Ages 70+ = 75 mL/min/1.73 sq.m. Chronic Kidney Disease: Less than 60 mL/min/1.73 square meters End Stage Renal Disease: Less than 15 mL/min/1.73 square meters Performed By: #### CBC, ADIFF, ANEU, CMP, GFR #### [address] [address] Observed: 09/10/2017 Status: F Source: [facility] 11:32 AM [place] [facility] REPOSITORY . MICRO - Microbiology PROCEDURE: Streptococcus Pneumoniae Urine Antig [1 *1] SOURCE: Urine BODY SITE: COLLECTED DATE/TIME: 09/10/2017 11:32 EST RECEIVED DATE/TIME: 09/10/2017 18:30 EST START DATE/TIME: 09/10/2017 18:30 EST FREE TEXT SOURCE: FINAL REPORTS Final Report [] Verified Date/Time/Personnel: 09/10/2017 19:00 EST Streptococcus pneumoniae antigen Positive for pneumococcal pneumonia. Interpretive Data 1: Streptococcus Pneumoniae Urine Antig This test has not been evaluated on patients taking antibiotics for greater than 24 hours or on patients who have recently completed an antibiotic regimen. The accuracy of this test has not been proven in young children. Performing Locations *1: This test was performed at: [address], [address] [place] [address] Performed By: #### SPAG #### [address] [address] Observed: 09/10/2017 Status: F Source: [facility] 5:45 AM [place] REPOSITORY . MICRO - Microbiology PROCEDURE: Blood Culture (bacterial) [*1] SOURCE: Blood BODY SITE: COLLECTED DATE/TIME: 09/10/2017 05:45 EST RECEIVED DATE/TIME: 09/10/2017 18:26 EST START DATE/TIME: 09/10/2017 18:26 EST FREE TEXT SOURCE: FINAL REPORTS Final Report [] Verified Date/Time/Personnel: 09/15/2017 18:59 EST Blood Culture: No Growth at 5 days. PRELIMINARY REPORTS Preliminary Report [] Verified Date/Time/Personnel: 09/10/2017 18:59 EST Culture has been received in lab and is no growth to date. Routine cultures are held for 5 days. Performing Locations *1: This test was performed at: [address] Performed By: #### CBL #### [place] [address] Observed: 09/10/2017 Status: F Source: [facility] 5:45 AM [facility] REPOSITORY . MICRO - Microbiology PROCEDURE: Blood Culture (bacterial) [*1] SOURCE: Blood BODY SITE: COLLECTED DATE/TIME: 09/10/2017 05:45 EST RECEIVED DATE/TIME: 09/10/2017 18:26 EST START DATE/TIME: 09/10/2017 18:26 EST FREE TEXT SOURCE: FINAL REPORTS Final Report [] Verified Date/Time/Personnel: 09/15/2017 18:59 EST Blood Culture: No Growth at 5 days. PRELIMINARY REPORTS Preliminary Report [] Verified Date/Time/Personnel: 09/10/2017 18:59 EST Culture has been received in lab and is no growth to date. Routine cultures are held for 5 days. Performing Locations *1: This test was performed at: [address] Performed By: #### CBL #### [place] [address] XR CHEST 1 VIEW Observed: 09/09/2017 Status: F Source: [facility] 6:38 PM [facility] REPOSITORY ORIGINAL XR CHEST 1 VIEW PORTABLE AP UPRIGHT TIME: 6:04 PM CLINICAL STATEMENT: Abnormal breath sounds COMPARISON: Chest x-ray 09/08/2017 FINDINGS: The cardiomediastinal contours are normal. There are chronic coarsened interstitial markings present. Bibasilar atelectasis versus scarring noted, greater on the left and right. Left lower lob e infiltrative consolidation is not excluded. There is no vascular congestion, large pleural effusion, or pneumothorax. IMPRESSION: Left lower lobe atelectasis versus airspace disease. I have personally reviewed the images of this examination and agree with the resident's findings and interpretation. Interpreted By: Jason Mcdonnell DO Preliminary Report By: Mariana Wei MD Electronically Signed By: Jason Mcdonnell DO Dictated Date: 09/09/2017 6:45:40 PM Prelim Date: 09/09/2017 6:49:53 PM Sign Date: 09/09/2017 7:05:05 PM CBC Collected: 09/09/2017 Status: F Source: [facility] 5:38 AM [facility] REPOSITORY TYPE CODE TESTS RESULT OUT OF REFERENCE UNITS RANGE LAB WBC(LOINC) 4.60-10.80 10 3/mcL Low WBC 3.10 LAB RBCCT(LOINC 4.04-6.13 10 6/mcL ) Low RBC 3.78 LAB HGB(LOINC) 14.0-18.0 G/dL Low Hgb 10.7 LAB HCT(LOINC) 42.0-52.0 % Low Hct 30.7 LAB MCV(LOINC) 80.0-94.0 fL MCV 81.2 LAB MCH(LOINC) 27.0-31.2 pg MCH 28.3 LAB MCHC(LOINC) 31.8-35.4 G/dL MCHC 34.9 LAB RDW(LOINC) 11.5-14.5 % RDW 13.6 LAB PLT(LOINC) 130-400 10 3/mcL Platelet 217 LAB MPV(LOINC) 7.4-10.4 fL Low MPV 6.4 Performed By: #### CBC, ADIFF, ANEU, BMP, GFR #### [address] [address] .AUTO DIFF Collected: 09/09/2017 Status: F Source: [facility] 5:38 AM [facility] REPOSITORY TYPE CODE TESTS RESULT OUT OF REFERENCE UNITS RANGE LAB GUNNAR(LOINC) 37.0-80.0 % High Neutrophil % 83.3 LAB LYM(LOINC) 10.0-50.0 % Lymphocyte % 13.1 LAB MON(LOINC) 1.7-13.0 % Monocyte % 3.4 LAB EO(LOINC) 0.0-7.0 % Eosinophil % 0.0 LAB BAS(LOINC) 0.0-2.5 % Basophil % 0.2 LAB ABLYM(LOIN 0.77-3.85 10 3/mcL C) Low Lymphocyte, 0.40 Absolute LAB LEONA(LOINC 0.15-1.00 10 3/mcL ) Low Monocyte, 0.10 Absolute LAB AEOS(LOINC 0.00-0.40 10 3/mcL ) Eosinophil, 0.00 Absolute LAB ABAS(LOINC 0.00-0.19 10 3/mcL ) Basophil, 0.00 Absolute Performed By: #### CBC, ADIFF, ANEU, BMP, GFR #### [address] [address] .NEUABS Collected: 09/09/2017 Status: F Source: [facility] 5:38 AM [facility] REPOSITORY TYPE CODE TESTS RESULT OUT OF REFERENCE UNITS RANGE LAB ANEU(LOINC) 2.85-6.16 10 3/mcL Low Neutrophil, 2.60 Absolute Performed By: #### CBC, ADIFF, ANEU, BMP, GFR #### [address] [address] BMP Collected: 09/09/2017 Status: F Source: [facility] 5:38 [facility] REPOSITORY TYPE CODE TESTS RESULT OUT OF REFERENCE UNITS RANGE LAB 1547-9 83-110 mg/dL GLUCOSE High 138 LAB NA(LOINC) 136-146 mEq/L Low Sodium Level 135 LAB K(LOINC) 3.5-5.1 mEq/L Potassium Level 4.2 LAB CL(LOINC) 98-107 mEq/L Chloride 104 LAB CO2(LOINC) 23-31 mEq/L CO2 24 LAB EBAL(LOINC mEq/L ) Electrolyte Balance 7.0 LAB BUN(LOINC) 7.0-18.0 mg/dL BUN 11.1 LAB CRE(LOINC) 0.6-1.2 mg/dL Creatinine Lvl (s) 0.7 LAB BC(LOINC) 7-27 ratio BUN/Creatinine 16 Ratio LAB CA(LOINC) 8.4-10.2 mg/dL Calcium Lvl 8.4 Performed By: #### CBC, ADIFF, ANEU, BMP, GFR #### [place] [place] [id number] [place], [place] [address] .GFR Collected: 09/09/2017 Status: F Source: [facility] 5:38 AM [facility] REPOSITORY TYPE CODE TESTS RESULT OUT OF REFERENCE UNITS RANGE LAB GFRAA(LOINC ml/min/1.73 ) sqm GFR 145 [place]uan Result Comment: GFR Population mean for , Non- Americans Ages 20-29 = 116 mL/min/1.73 sq.m. Ages 30-39 = 107 mL/min/1.73 sq.m. Ages 40-49 = 99 mL/min/1.73 sq.m. Ages 50-59 = 93 mL/min/1.73 sq.m. Ages 60-69 = 85 mL/min/1.73 sq.m. Ages 70+ = 75 mL/min/1.73 sq.m. Chronic Kidney Disease: Less than 60 mL/min/1.73 square meters End Stage Renal Disease: Less than 15 mL/min/1.73 square meters LAB GFRNO(LOINC) ml/min/1.73sqm GFR Non- >60 Result Comment: GFR Population mean for , Non- Americans Ages 20-29 = 116 mL/min/1.73 sq.m. Ages 30-39 = 107 mL/min/1.73 sq.m. Ages 40-49 = 99 mL/min/1.73 sq.m. Ages 50-59 = 93 mL/min/1.73 sq.m. Ages 60-69 = 85 mL/min/1.73 sq.m. Ages 70+ = 75 mL/min/1.73 sq.m. Chronic Kidney Disease: Less than 60 mL/min/1.73 square meters End Stage Renal Disease: Less than 15 mL/min/1.73 square meters Performed By: #### CBC, ADIFF, ANEU, BMP, GFR #### [id number] [place], [place] [address] MG Collected: 09/09/2017 Status: F Source: [employer] 5:38 AM [facility] REPOSITORY TYPE CODE TESTS RESULT OUT OF REFERENCE UNITS RANGE LAB MG(LOINC) 1.7-2.5 mg/dL Magnesium Lvl 1.7 Performed By: #### MG #### [id number] [place], [place] [address] #### [facility] #### [address] [address] [facility] Collected: 09/09/2017 Status: F Source: [facility] 5:38 AM [facility] REPOSITORY Order Comment: Positive result called to [facility] by Cihp López 09-10-17 0700 TYPE CODE TESTS RESULT OUT OF RANGE REFERENCE UNITS LAB CD:[id number](LOINC) Abnormal Mycoplasma IgM Positive Result Comment: spoke to rito lópez INTERPRETATION OF MYCOPLASMA BY EIA (Effective 08/19/04): Negative No detectable antibodies to M. pneumoniae. Indicates absence of current or previous infection. Positive Reactive for antibodies to M. pneumoniae. Indicates a past or recent infection. Equivocal Equivocal for antibodies to M. pneumoniae. Repeat testing by an alternate method suggested. LAB CD:[id number](LOINC) Mycoplasma IgG Neg Result Comment: INTERPRETATION OF MYCOPLASMA BY EIA (Effective 08/19/04): Negative No detectable antibodies to M. pneumoniae. Indicates absence of current or previous infection. Positive Reactive for antibodies to M. pneumoniae. Indicates a past or recent infection. Equivocal Equivocal for antibodies to M. pneumoniae. Repeat testing by an alternate method suggested. Performed By: #### MG #### [address] [address] #### MYCO #### [place] [address] Observed: 09/09/2017 Status: F Source: [facility] EVITA 4:59 AM [facility] REPOSITORY . MICRO - Microbiology PROCEDURE: Legionella Urine Ag [*1] SOURCE: Urine BODY SITE: COLLECTED DATE/TIME: 09/09/2017 04:59 EST RECEIVED DATE/TIME: 09/09/2017 18:50 EST START DATE/TIME: 09/09/2017 18:51 EST FREE TEXT SOURCE: FINAL REPORTS Final Report [] Verified Date/Time/Personnel: 09/09/2017 21:54 EST Presumptive negative for L. pneumophila serogroup 1 antigen in urine, suggesting no recent or current infection. Legionnaire's disease cannot be ruled out since other serogroups and species may also cause disease. Performing Locations *1: This test was performed at: [facility], [address] [place] [address], [address] Performed By: #### EVITA #### [address] [address] XR CHEST 1 VIEW Observed: 09/08/2017 Status: F Source: [facility] 4:46 PM [facility] REPOSITORY ORIGINAL Chest one view 4:43 PM 09/08/2017 HISTORY: Cough and fever COMPARISON: April 13, 2017 The heart is normal in size and there is no vascular congestion present. There is some background interstitial fibrosis present, with no consolidation or pleural fluid identified. Interpreted By: Orion Zhou MD Preliminary Report By: Orion Zhou MD Electronically Signed By: Orion Zhou MD Dictated Date: 09/08/2017 4:59:03 PM Prelim Date: 09/08/2017 4:59:03 PM Sign Date: 09/08/2017 4:59:44 PM CBC Collected: 09/08/2017 Status: F Source: [facility] 4:24 PM [facility] REPOSITORY TYPE CODE TESTS RESULT OUT OF REFERENCE UNITS RANGE LAB WBC(LOINC) 4.60-10.80 10 3/mcL WBC 6.10 LAB RBCCT(LOINC 4.04-6.13 10 6/mcL ) RBC 4.06 LAB HGB(LOINC) 14.0-18.0 G/dL Low Hgb 11.4 LAB HCT(LOINC) 42.0-52.0 % Low Hct 33.5 LAB MCV(LOINC) 80.0-94.0 fL MCV 82.4 LAB MCH(LOINC) 27.0-31.2 pg MCH 28.0 LAB MCHC(LOINC) 31.8-35.4 G/dL MCHC 34.0 LAB RDW(LOINC) 11.5-14.5 % RDW 14.0 LAB PLT(LOINC) 130-400 10 3/mcL Platelet 213 LAB MPV(LOINC) 7.4-10.4 fL Low MPV 6.3 Performed By: #### CBC, ADIFF, ANEU, BMP, GFR #### [address] [address] .AUTO DIFF Collected: 09/08/2017 Status: F Source: [facility] 4:24 PM [facility] REPOSITORY TYPE CODE TESTS RESULT OUT OF REFERENCE UNITS RANGE LAB GUNNAR(LOINC) 37.0-80.0 % Neutrophil % 74.6 LAB LYM(LOINC) 10.0-50.0 % Lymphocyte % 13.4 LAB MON(LOINC) 1.7-13.0 % Monocyte % 11.4 LAB EO(LOINC) 0.0-7.0 % Eosinophil % 0.5 LAB BAS(LOINC) 0.0-2.5 % Basophil % 0.1 LAB ABLYM(LOIN 0.77-3.85 10 3/mcL C) Lymphocyte, 0.80 Absolute LAB LEONA(LOINC 0.15-1.00 10 3/mcL ) Monocyte, 0.70 Absolute LAB AEOS(LOINC 0.00-0.40 10 3/mcL ) Eosinophil, 0.00 Absolute LAB ABAS(LOINC 0.00-0.19 10 3/mcL ) Basophil, 0.00 Absolute Performed By: #### CBC, ADIFF, ANEU, BMP, GFR #### [address] [address] .NEUABS Collected: 09/08/2017 Status: F Source: [facility] 4:24 PM [facility] REPOSITORY TYPE CODE TESTS RESULT OUT OF REFERENCE UNITS RANGE LAB ANEU(LOINC) 2.85-6.16 10 3/mcL Neutrophil, 4.60 Absolute Performed By: #### CBC, ADIFF, ANEU, BMP, GFR #### [address] [address] BMP Collected: 09/08/2017 Status: F Source: [facility] 4:24 PM [facility] REPOSITORY TYPE CODE TESTS RESULT OUT OF REFERENCE UNITS RANGE LAB 1547-9 83-110 mg/dL GLUCOSE 106 LAB NA(LOINC) 136-146 mEq/L Low Sodium Level 134 LAB K(LOINC) 3.5-5.1 mEq/L Potassium Level 3.8 LAB CL(LOINC) 98-107 mEq/L Chloride 99 LAB CO2(LOINC) 23-31 mEq/L CO2 26 LAB EBAL(LOINC mEq/L ) Electrolyte Balance 9.0 LAB BUN(LOINC) 7.0-18.0 mg/dL BUN 14.8 LAB CRE(LOINC) 0.6-1.2 mg/dL Creatinine Lvl (s) 0.8 LAB BC(LOINC) 7-27 ratio BUN/Creatinine 18 Ratio LAB CA(LOINC) 8.4-10.2 mg/dL Calcium Lvl 8.8 Performed By: #### CBC, ADIFF, ANEU, BMP, GFR #### [address] [address] .GFR Collected: 09/08/2017 Status: F Source: [facility] 4:24 PM [facility]OUNDATION REPOSITORY TYPE CODE TESTS RESULT OUT OF REFERENCE UNITS RANGE LAB GFRAA(LOINC ml/min/1.73 ) sqm GFR 116 Nauruan Result Comment: GFR Population mean for , Non- Americans Ages 20-29 = 116 mL/min/1.73 sq.m. Ages 30-39 = 107 mL/min/1.73 sq.m. Ages 40-49 = 99 mL/min/1.73 sq.m. Ages 50-59 = 93 mL/min/1.73 sq.m. Ages 60-69 = 85 mL/min/1.73 sq.m. Ages 70+ = 75 mL/min/1.73 sq.m. Chronic Kidney Disease: Less than 60 mL/min/1.73 square meters End Stage Renal Disease: Less than 15 mL/min/1.73 square meters LAB GFRNO(LOINC) ml/min/1.73sqm GFR Non- >60 Result Comment: GFR Population mean for , Non- Americans Ages 20-29 = 116 mL/min/1.73 sq.m. Ages 30-39 = 107 mL/min/1.73 sq.m. Ages 40-49 = 99 mL/min/1.73 sq.m. Ages 50-59 = 93 mL/min/1.73 sq.m. Ages 60-69 = 85 mL/min/1.73 sq.m. Ages 70+ = 75 mL/min/1.73 sq.m. Chronic Kidney Disease: Less than 60 mL/min/1.73 square meters End Stage Renal Disease: Less than 15 mL/min/1.73 square meters Performed By: #### CBC, ADIFF, ANEU, BMP, GFR #### [facility] [address], [place] [address] Observed: 09/08/2017 Status: C Source: [facility] 4:24 PM [facility] REPOSITORY . MICRO - Microbiology PROCEDURE: Blood Culture (bacterial) [*1] SOURCE: Blood BODY SITE: COLLECTED DATE/TIME: 09/08/2017 16:24 EST RECEIVED DATE/TIME: 09/08/2017 20:34 EST START DATE/TIME: 09/08/2017 20:34 EST FREE TEXT SOURCE: AMENDED REPORTS Amended Report [] Verified Date/Time/Personnel: 09/12/2017 08:15 EST Staphylococcus hominis subsp. hominis Isolated from aerobe bottle only. This staphylococci is presumed to be resistant to clindamycin based on the detection of inducible clindamycin resistance. Clindamycin may still be effective in some patients. Staphylococcus epidermidis Isolated from anaerobe bottle only. FINAL REPORTS Final Report [] Verified Date/Time/Personnel: 09/12/2017 08:14 EST Staphylococcus hominis subsp. hominis Isolated from aerobe bottle only. This staphylococci is presumed to be resistant to clindamycin based on the detection of inducible clindamycin resistance. Clindamycin may still be effective in some patients. Staphylococcus epidermidis Isolated from aerobe bottle only. PRELIMINARY REPORTS Preliminary Report [] Verified Date/Time/Personnel: 09/11/2017 08:03 EST Staphylococcus hominis subsp. hominis Isolated from aerobe bottle only. Clindamycin Induction Test in progress. Staphylococcus coagulase negative Second morphology. Isolated from aerobe bottle only. Final identification and LISA to follow. Preliminary Report [] Verified Date/Time/Personnel: 09/10/2017 07:55 EST Staphylococcus coagulase negative Isolated from aerobe bottle only. Final identification and LISA to follow. Preliminary Report [] Verified Date/Time/Personnel: 09/08/2017 21:59 EST Culture has been received in lab and is no growth to date. Routine cultures are held for 5 days. STAINS GSANA [] Verified Date/Time/Personnel: 09/10/2017 02:24 EST Gram Positive Cocci GSAER [] Verified Date/Time/Personnel: 09/09/2017 14:49 EST Gram Positive Cocci MICRO - Microbiology SUSCEPTIBILITY RESULTS Staphylococcus hominis subsp. hominis Antibiotic LISA Dilutn LISA Interp Ceftriaxone <=8 Resistant Clindamycin Resistant [C1] Erythromycin >4 Resistant Oxacillin >2 Resistant Penicillin >8 Resistant Rifampin <=1 Susceptible Tetracycline >8 Resistant Trimethoprim/ >2/38 Resistant Sulfa Vancomycin 1 Susceptible Staphylococcus epidermidis Antibiotic LISA Dilutn LISA Interp Ceftriaxone <=8 Resistant Clindamycin >4 Resistant Erythromycin >4 Resistant Oxacillin >2 Resistant Penicillin 2 Resistant Rifampin <=1 Susceptible Tetracycline >8 Resistant Trimethoprim/ <=0.5/9.5 Susceptible Sulfa Vancomycin 2 Susceptible Corrected Results C1: Clindamycin Corrected from Susceptible on 09/12/2017 08:14 EST by Nereida Waters Performing Locations *1: This test was performed at: [address] Performed By: #### CBL #### [place] [address] Observed: 09/08/2017 Status: F Source: [facility] 4:24 PM [facility]OUND[facility] REPOSITORY . MICRO - Microbiology PROCEDURE: Blood Culture (bacterial) [*1] SOURCE: Blood BODY SITE: COLLECTED DATE/TIME: 09/08/2017 16:24 EST RECEIVED DATE/TIME: 09/08/2017 20:34 EST START DATE/TIME: 09/08/2017 20:34 EST FREE TEXT SOURCE: FINAL REPORTS Final Report [] Verified Date/Time/Personnel: 09/13/2017 20:59 EST Blood Culture: No Growth at 5 days. PRELIMINARY REPORTS Preliminary Report [] Verified Date/Time/Personnel: 09/08/2017 21:59 EST Culture has been received in lab and is no growth to date. Routine cultures are held for 5 days. Performing Locations *1: This test was performed at: [address] Performed By: #### CBL #### [place] [address] ALLERGIES ALLERGIES DATE TYPE / CODE NAME / CODE REACTION SEVERITY SOURCE Drug pentazocine Other Unknown [place] 9 Allergy/964491606( lactate/Q94777522 [facility]) 5(RXNORM) Hospital Repository Drug diclofenac Anaphylaxis Unknown [place] 9 Allergy/531530810( sodium/P490685950 [facility]) (RXNORM) Hospital Repository Drug ciprofloxacin Pain in joints Unknown [place] 9 Allergy/141644333( HCl/A724867946(RX [facility]) NORM) Hospital Repository Drug NSAIDS Upset Stomach Unknown [place] 9 Allergy/290889171( (Non-Steroidal [facility]) Anti-Inflamma/F00 Hospital 9856554(RXNORM) Repository Drug Penicillins/F0010 Itching Unknown [place] 9 Allergy/027160577( [address](RXNORM) [facility] SNOMED [facility]) Hospital Repository Drug methotrexate/F006 Anaphylaxis Unknown [place] 9 Allergy/702615159( 367146(RXNORM) [facility] Hospital Repository Drug fluorouracil/F006 Anaphylaxis Unknown [place] 9 Allergy/766449739( 892431(RXNORM) [facility] SNOMED CT) Hospital Repository Drug ciprofloxacin/F00 Itching Unknown [place] 9 Allergy/235077431( 6859724(RXNORM) [facility] Hospital Repository Drug amlodipine/I98851 Nausea Unknown [place] 9 Allergy/147671223( 3672(RXNORM) [facility] Hospital Repository Drug promethazine/F006 Other Unknown [place] 9 Allergy/823919023( 636724(RXNORM) [facility] Hospital Repository Drug clonidine/A916094 Other Unknown [place] 9 Allergy/403626517( 495(RXNORM) [facility] Hospital Repository Drug buspirone/Z100629 Other Unknown [place] 9 Allergy/433671125( 586(RXNORM) [facility] Hospital Repository Drug trazodone/D440942 Other Unknown [place] 9 Allergy/987937477( 610(RXNORM) [facility] Hospital Repository Drug venom-honey Anaphylaxis Unknown [place] 9 Allergy/907290129( bee/S986299896(RX [facility]) NORM) Hospital Repository Miscellaneous SEAFOOD Unknown SV [place] 9 Allergy/749581346( [facility]) Hospital Repository Drug ondansetron/F0060 Other Unknown [place] 8 Allergy/840094064( 56791(RXNORM) [facility] SNOMED CT) Hospital Repository ENCOUNTERS ENCOUNTERS ADMIT/DISCHARGE ACCOUNT NUMBER ADMITTING ENCOUNTER LOCATION SOURCE CLASS 09/06/2018/09/06/19 [id number] Ambulatory BMSBuilding: [place] 19 BMS.[facility] Repository 08/29/2018/08/29/19 [id number] Emergency [address] ding:ED Repository 08/28/2018/08/28/19 [id number] Emergency [place] ding:ED Repository 08/22/2018/08/22/19 [id number] Ambulatory BMSBuilding: [place] 19 BMS.[facility] Repository 08/17/2018/08/17/19 [id number] Emergency [place] ding:ED Repository 08/09/2018/08/09/20 [id number] Ambulatory BBuilding:RA [address] Repository 08/02/2018/08/02/20 [id number] Ambulatory BBuilding:[place] [address] Repository 07/14/2018/07/14/20 [id number] Ambulatory BMSBuilding: [place] 18 BMS.[facility] Repository 07/11/2018/07/11/20 [id number] Ambulatory BMSBuilding: [place] 18 BMS.[facility] Repository 04/12/2018 [id number] Ambulatory [facility] ding:OMD Repository 04/12/2018 [id number] Ambulatory BMSBuilding: [place] BMS.CF.[facility] Repository 04/06/2018 [id number] Ambulatory [facility] Repository 03/12/2018/03/12/20 [id number] Emergency [place] ding:ED Repository 02/21/2018/02/22/20 [id number] Ambulatory [address] ding:ENRoom: Repository AC11 02/21/2018 [id number] Ambulatory BMSBuilding: [place] BMS.CF.[facility] Repository 02/19/2018/02/20/20 [id number] Ambulatory BMSBuilding: [place] 18 BMS.[facility] Repository 02/16/2018/02/17/20 [id number] Emergency [address] ding:ED Repository 01/31/2018/02/01/20 [id number] Emergency [address] ding:ED Repository 01/17/2018/01/18/20 [id number] Ambulatory [address] ding:EN Repository 01/17/2018 [id number] Ambulatory BMSBuilding: [place] BMS.CF.[facility] Repository 01/12/2018/01/13/20 [id number] Emergency [address] ding:ED Repository 01/09/2018/01/10/20 [id number] Emergency [address] ding:ED Repository 01/03/2018/01/04/20 [id number] Emergency BBuilding:ER [address] Repository 12/18/2017 [id number] Ambulatory [facility] ding:RAD Repository 12/17/2017/12/18/19 [id number] Emergency BBuilding:ER [address] Repository 11/29/2017/11/30/19 [id number] Emergency [address] ding:ED Repository 11/24/2017/11/25/19 [id number] Emergency [address] ding:ED Repository 11/20/2017 [id number] Ambulatory [facility] Repository 11/16/2017/11/17/19 [id number] Ambulatory BMSBuilding: [place] 18 BMS.[facility] Repository 11/09/2017/11/14/19 [id number] Ambulatory BBuilding:DR [place] [facility] Repository 11/07/2017/11/08/19 [id number] Emergency BBuilding:MINA [place] 18 [facility] Repository 10/18/2017/10/21/19 [id number] ROME BATES, Inpatient BBuilding:MS Caitlin GARCIA W Encounter URRoom: Health 0234Bed: A [facility] Repository 10/03/2017/10/03/19 [id number] Ambulatory CAITLIN [place] 18 [facility] ding:RAD [facility] Repository 09/08/2017/09/13/19 [id number] ROME BATES, Inpatient BBuilding:MS Caitlin GARCIA W Encounter URRoom: Health 0234Bed: A [facility] Repository PAYERS PAYERS ENCOUNTER GUARANTOR PAYER SUBSCRIBER SOURCE 09/06/2018 YANNICK C Primary YANNICK C [place] [id number] E Insurance:[facility]ICARE [facility] [address] PART A [facility] [id number] Number: Repository [address]Yfq: 330 [id number] [phone] (HP) Date:2018-07-14 09/06/2018 Secondary YANNICK Tatum Mccoy Insurance:CARESOURCEP KAAAWADOB: [facility] [place], [place] Number: [id number] Hospital [id number] Repository Date:2018-07-14 [address]ATTN: [place] [address]XH: 09/06/2018 Tertiary NOT GIVENUNK [place] Insurance:SELF PAY [facility] Number: Effective Repository Date:2018-08-31 08/29/2018 YANNICK C Primary YANNICK C [place] [id number] E Insurance:MEDICARE [facility]: [facility] [address] PART A [facility] [id number] Number: Repository [id number]: 330 [id number] [phone] (HP) Date:2018-08-29 08/29/2018 Secondary YANNICK C [place] Insurance:CARESOURCEP KAAAWADOB: [facility] [place], [place] Number: [id number] Hospital [id number] Repository Date:2018-08-29P [address]ATTN: [place] [address]IQ: 08/29/2018 Tertiary NOT GIVENUNK [place] Insurance:SELF PAY [facility] Number: Effective Repository Date:2018-08-29 08/28/2018 YANNICK C Primary YANNICK C [place] [id number] E Insurance:MEDICARE B: Community [address] PART A [facility] [id number] Number: Repository [address]Qds: 330 [id number] [phone] (HP) Date:2018-08-28 08/28/2018 Secondary YANNICK C [place] Insurance:CARESOURCEP DOB: [facility] [place], [place] Number: [id number] Hospital [id number] Repository Date:2018-08-28P [address]ATTN: [place] [address]XF: 08/28/2018 Tertiary NOT GIVENUNK [place] Insurance:SELF PAY [facility] Number: Effective Repository Date:2018-08-28 08/22/2018 YANNICK C Primary YANNICK C [place] [id number] E Insurance:MEDICARE DOB: Community [address] PART A [facility] [id number] Number: Repository [address]Dxm: 330 [id number] [phone] (HP) Date:2018-07-11 08/22/2018 Secondary YANNICK C [place] Insurance:CARESOURCEP ERLANDDOB: [facility] [place], [place] Number: [id number] Hospital [id number] Repository Date:2018-07-11P [address]ATTN: [place] [address]JL: 08/22/2018 Tertiary NOT GIVENUNK [place] Insurance:SELF PAY [facility] Number: Effective Repository Date:2018-08-22 08/17/2018 YANNICK C Primary YANNICK C [place] [id number] E Insurance:[facility]ICARE [facility]: [facility] [address] PART A BPolic [id number] Hospital [address] Number: Repository [id number]: 330 [id number] [phone] (HP) Date:2018-08-17 08/17/2018 Secondary YANNICK Tatum [place] Insurance:[facility]: [facility] [place], [place] Number: [id number] Hospital [id number] Repository Date:2018-08-17 [address]ATTN: [place] [address]XT: 08/17/2018 Tertiary NOT GIVENUNK [place] Insurance:SELF PAY [facility] Number: Effective Repository Date:2018-08-17 08/09/2018 [facility] Insurance:[facility]ARE [facility]: [facility] E PART B [facility] [id number] Repository [place] Number: E [address] CA[place] [address], [place] [id number] [address] [place] [address]~JSUNDERLAN Date:2018-08-09Tel: (007) D7@ANA LILIA..Critical access hospital [id number] [phone] : Name:PCGS (HP)Tel: (000) (HP) Administrators LLCPO 000-0000 (WP) [address] [place] [address]ZD: 08/09/2018 Secondary [facility] Insurance:[facility]: [facility] [id number] Repository Number: E BELEN CAAL [id number] [address] [place] [address] Date:2018-08-09Tel: [phone] [id number] [phone] Name:Alphonse Claims (HP)Tel: (000) DeptPO [address] (WP) [address], [place] [address]UP: 08/02/[address] [facility]: [facility] E PART B [facility] [id number] Repository BEL[place] CAAL Number: E [place] [address], [place] [id number] [address] [place] [address]~JSUNDERLAN Date:2018-08-02Tel: [phone] D7@ANA LILIA..Critical access hospital [id number] [phone] : Name:PCGS (HP)Tel: (000) (HP) Administrators LLCPO 000-0000 (WP) [address], [place] [address]EN: 08/02/2018 Secondary [facility]: [facility] [id number] Repository Number: Don BELEN CAAL [id number] [address] [place] [address] Date:2018-08-02Tel: [id number] [phone] Name:Alphonse Claims ()Tel: (000) DeptPO [address] (WP) [address] [place] [address]DH: 07/14/2018 YANNICK C Primary YANNICK C [place] [id number] E Insurance:MEDICARE [facility]: [facility] A BPolic [id number] Number: Repository [address]Pgi: 330 [id number] [phone] () Date:2018-07-11 07/14/2018 Secondary YANNICK C [place] [facility]: [facility] [place], [place] Number: [id number] Hospital [id number] Repository Date:2018-07-11P [address]ATTN: [place] [address]MY: 07/14/2018 Tertiary NOT GIVENUNK [place] Insurance:SELF PAY [facility] Number: Effective Repository Date:2018-07-14 07/11/2018 YANNICK C Primary YANNICK C [place] [id number] E Insurance:MEDICARE DOB: Community [address] PART A [facility] [id number] Number: Repository [address]Suc: [phone]) [id number] [phone] (HP) Date:2018-07-09 07/11/2018 Secondary YANNICK C [place] Insurance:CARESOURCEP [facility]: [facility] [place], [place] Number: [id number] Hospital [id number] Repository Date:2018-07-09P [address]ATTN: [place] [address]IJ: 07/11/2018 Tertiary NOT GIVENUNK [place] Insurance:SELF PAY [facility] Number: Effective Repository Date:2018-07-10 04/12/2018 YANNICK C Primary YANNICK C [place] [id number] E Insurance:MEDICARE DOB: Community [address] PART A [facility] [id number] Number: Repository [address]Wrl: 330 [id number] [phone] (HP) Date:2011-10-13 04/12/2018 Secondary YANNICK C [place] Insurance:CARESOURCEP [facility]: [facility] [place], [place] Number: [id number] Hospital [id number] Repository Date:2014-02-11P [address]Attn: [place] [address]IZ: 04/12/2018 Tertiary NOT GIVENUNK [place] Insurance:SELF PAY [facility] Number: Effective Repository Date:2016-11-17 04/12/2018 YANNICK C Primary YANNICK C [place] [id number] E Insurance:MEDICARE DOB: Community [address] PART A [facility] [id number] Number: Repository [id number]: [phone] [id number] [phone] (HP) Date:2018-04-12 04/12/2018 Secondary YANNICK C [place] Insurance:[facility] DOB: Community *IN [facility] [id number] Hospital Number: Repository [id number] Date:[id number] CLAIMS [address], [place] [address]HX: 04/12/2018 Tertiary NOT GIVENUNK [place] Insurance:SELF PAY [facility] Number: Effective Repository Date:2018-04-12 04/06/2018 Yannick C Primary Yannick C [facility] Insurance:MedicarePol [facility] System icy Number: Effective [id number] Repository [address] Date:2011-10-[address] [place] [address]Bpg: () 04/06/2018 Secondary Yannick C [facility] Insurance:MedicarePol [facility] System icy Number: Effective [id number] Repository Date:2011-10-13 04/06/2018 Tertiary Yannick Tatum [facility] Insurance:CareSourceP [facility] Number: [id number] Repository Effective Date: 03/12/2018 YANNICK C Primary YANNICK C [place] [id number] E Insurance:MEDICARE [facility] HEALTHCAREDOB: Community [address] PART A [facility] [id number] Number: Repository [id number]: ([phone]) [id number] [phone] () Date:2018-03-12 03/12/2018 Secondary YANNICK C [place] Insurance:CARESOURCEP KAAAWADOB: [facility], [place] Number: [id number] Hospital [id number] Repository Date:2018-03-12P [address]ATTN: [place] [address]IN: 03/12/2018 Tertiary NOT GIVENUNK [place] Insurance:SELF PAY [facility] Number: Effective Repository Date:2018-03-12 02/21/2018 YANNICK C Primary YANNICK C [place] [id number] E Insurance:MEDICARE DIVINE SAVIOR HEALTHCAREDOB: Community [address] PART A [facility] [id number] Number: Repository [id number]: 330 [id number] [phone] (HP) Date:2018-02-19 02/21/2018 Secondary YANNICK C [place] Insurance:CARESOURCEP [facility]ALTHCAREDOB: [facility] olicy Number: [id number] Hospital [id number] Repository Date:2018-02-19 [address]ATTN: [place] [address]YS: 02/21/2018 Tertiary NOT GIVENUNK [place] Insurance:SELF PAY [facility] Number: Effective Repository Date:2018-02-19 02/21/2018 YANNICK C Primary YANNICK C [place] [id number] E Insurance:MEDICARE DOB: Community [address] PART A [facility] [id number] Number: Repository [id number]: 330 [id number] [phone] () Date:2018-02-19 02/21/2018 Secondary YANNICK C [place] Insurance:CARESOURCEP KAAAWADOB: [facility] [place] Number: [id number] Hospital [id number] Repository Date:2018-02-19 [address]ATTN: [place] [address]XR: 02/21/2018 Tertiary NOT GIVENUNK [place] Insurance:SELF PAY [facility] Number: Effective Repository Date:2018-02-21 02/19/2018 YANNICK C Primary YANNICK C [place] [id number] E Insurance:MEDICARE DOB: Community [address] PART A [facility] [id number] Number: Repository [id number]: 330 [id number] [phone] () Date:2018-02-19 02/19/2018 Secondary YANNICK C [place] Insurance:CARESOURCEP KAAAWADOB: [facility] [place], [place] Number: [id number] Hospital [id number] Repository Date:2018-02-19 [address]ATTN: [place] [address]ED: 02/19/2018 Tertiary NOT GIVENUNK [place] Insurance:SELF PAY [facility] Number: Effective Repository Date:2018-02-19 02/16/2018 YANNICK C Primary YANNICK C [place] [id number] E Insurance:MEDICARE DOB: Community [address] PART A [facility] [id number] Number: Repository [id number]: 330 [id number] [phone] () Date:2018-02-16 02/16/2018 Secondary YANNICK C [place] Insurance:CARESOURCEP DOB: [facility] oly Number: [id number] Hospital [id number] Repository Date:2018-02-16P [address]ATTN[place] [address]MY: 02/16/2018 Tertiary NOT GIVENUNK [place] Insurance:SELF PAY [facility] Hospital Number: Effective Repository Date:2018-02-16 01/31/2018 YANNICK C Primary YANNICK C [place] [id number] E Insurance:MEDICARE B: Community [address] PART A [facility] [id number] Number: Repository [id number]: 330 [id number] [phone] () Date:2018-01-31 01/31/2018 Secondary YANNICK C [place] Insurance:CARESOURCEP B: [facility] [place], [place] Number: [id number] Hospital [id number] Repository Date:2018-01-31P [address]ATTN: [place] [address]OI: 01/31/2018 Tertiary NOT GIVENUNK [place] Insurance:SELF PAY [facility] Number: Effective Repository Date:2018-01-31 01/17/2018 YANNICK C Primary YANNICK C [place] [id number] E Insurance:MEDICARE B: Community [address] PART A [facility] [id number] Number: Repository [address]Esd: [id number] [phone] Date:2017-11-16 (HP) 01/17/2018 Secondary YANNICK C [place] Insurance:CARESOURCEP [place]OB: Community olicy Number: [id number] Hospital [id number] Repository Date:2017-11-[address]ATTN: [place] [address]YK: 01/17/2018 Tertiary NOT GIVENUNK [place] Insurance:SELF PAY [facility] Number: Effective Repository Date:2017-12-19 01/17/2018 YANNICK C Primary YANNICK C [place] [id number] E Insurance:MEDICARE DIVINE SAVIOR HEALTHCAREDOB: Community [address] PART A [facility] [id number] Number: Repository [id number]: 330 [id number] [phone] () Date:2017-11-16 01/17/2018 Secondary YANNICK C [place] Insurance:CARESOURCEP SUN[place]DOB: [facility] [place], [place] Number: [id number] Hospital [id number] Repository Date:2017-11-[address]ATTN: [place] [address]LK: 01/17/2018 Tertiary NOT GIVENUNK [place] Insurance:SELF PAY [facility] Number: Effective Repository Date:2018-01-17 01/12/2018 YANNICK C Primary YANNICK Winn [place] [id number] E Insurance:MEDICARE DIVINE SAVIOR HEALTHCAREDOB: Community [address] PART A [facility] [id number] Number: Repository [id number]: [id number] [phone] Date:2018-01-12 () 01/12/2018 Secondary YANNICK C [place] Insurance:CARESOURCEP [place]DOB: [facility] [place], [place] Number: [id number] Hospital [id number] Repository Date:2018-01-12 [address]ATTN: [place] [address]AF: 01/12/2018 Tertiary NOT GIVENUNK [place] Insurance:SELF PAY Community [facility] Number: Effective Repository Date:2018-01-12 01/09/2018 YANNICK Winn Primary YANNICK Mccoy E Insurance:MEDICARE [facility]: [facility] [address] PART [address] BPolicy [id number] Number: Repository [address]Kjf: [id number] [phone] Date:2018-01-092 (HP) 01/09/2018 Secondary YANNICK Mccoy Insurance:CARESOURCEP [facility]: [facility] [place], [place] Number: [id number] Hospital [id number] Repository Date:2018-01-09 [address]ATTN: [place] [address]VQ: 01/09/2018 Tertiary NOT GIVENUNK [place] Insurance:SELF PAY [facility] Number: Effective Repository Date:2018-01-09 01/03/2018 YANNICK C Primary YANNICK [facility] Insurance:MEDICARE [facility]: [facility] E PART [facility] Number: [id number] CA[address] [id number] E [address] CA[address] [place] [address] Date:2018-01-[address] [place] [address] 42080~JSUNDERLAN [id number] 780[address]Sgx: [phone]) D7@[facility]..Critical access hospital Name:[facility] : Administrators LLCPO ()Tel: (000) (HP) [address]Zrsypkdnk, 000-0000 (WP) [place] [address]PW: 01/03/2018 Secondary YANNICK Ch[facility]ell [facility] Insurance:[facility]: [facility] [id number] Repository Number: [address] [id number] [address] [place] [address] Date:2018-01-03 01381Gdy: [phone] [id number] Name:Alphonse Claims ()Tel: (000) DeptPO [address]0000 ([place]) [place], [place] [address]TN: 12/18/2017 YANNICK C Primary YANNICK Mccoy E Insurance:MEDICARE [facility]: [facility] [address] BPolicy [id number] Number: Repository [address]Kov: [id number] [phone] Date:2017-12-18 () 12/18/2017 Secondary YANNICK C [place] Insurance:[facility]OSPITALB: [facility] [place], [place] Number: [id number] Hospital [id number] Repository Date:2017-12-18 [address]N: [place] [address]BA: 12/18/2017 Tertiary NOT GIVENUNK [place] Insurance:SELF PAY [facility] Number: Effective Repository Date:2017-12-18 12/17/2017 YANNICK C Primary YANNICK [facility]: Insurance:MEDICARE [facility]: [facility] E PART [facility] Number: [id number] CA[address] [id number] E [address] CA[address] [place] [address] Date:2017-12-[address] [place] [address]661~JSUNDERLAN [id number]: ([phone]) D7@ANA LILIA..Bhavna Name:[facility] : Administrators LLCPO ()Tel: (000) (HP) [address] [address]Ahmowcico, 000-0000 ([place]) [place] [address]XJ: 12/17/2017 Secondary YANNICK Chappell Health Insurance:[facility]: [facility] [id number] Repository Number: E [address] CAAL [id number] [address] [place] [address] Date:2017-12-17 726[address]Qco: [phone] [id number] Name:Alphonse Claims ()Tel: (000) DeptPO [phone] () [address] [place] [address]KK: 11/29/2017 YANNICK C Primary YANNICK C [place] [id number] E Insurance:MEDICARE DOB: Community [address] PART A [facility] [id number] Number: Repository [id number]: [id number] [phone] Date:2017-11-29 () 11/29/2017 Secondary YANNICK C [place] Insurance:CARESOURCEP [facility]: [facility] olic Number: [id number] Hospital [id number] Repository Date:2017-11-29 [address]ATTN: [place] [address]QY: 11/29/2017 Tertiary NOT GIVENUNK [place] Insurance:SELF PAY [facility] Number: Effective Repository Date:2017-11-29 11/24/2017 YANNICK C Primary YANNICK Tatum [place] [id number] E Insurance:MEDICARE DOB: Community [address] PART A [facility] [id number] Number: Repository [address]Jfz: [id number] [phone] Date:2017-11-24 () 11/24/2017 Secondary YANNICK C [place] Insurance:CARESOURCEP [facility]: [facility] Number: [id number] Hospital [id number] Repository Date:2017-11-24 [address]ATTN: [place] [address]EG: 11/24/2017 Tertiary NOT GIVENUNK [place] Insurance:SELF PAY [facility] Number: Effective Repository Date:2017-11-24 11/20/2017 Yannick C Primary Yannick [facility]: Insurance:CareSourceP [facility]: [facility] Number: [id number] Repository [address] Effective Date: [place], [place] [address]Yaq: () 11/20/2017 Secondary Yannick L[facility] Insurance:MedicarePol [place]OB: System icy Number: Effective [id number] Repository Date:2011-10-13 11/20/2017 Tertiary Yannick C [facility] Insurance:MedicarePol [facility]: System icy Number: Effective [id number] Repository Date:2011-10-13 11/16/2017 YANNICK C Primary YANNICK C [place] [id number] E Insurance:MEDICARE ERDIVINE SAVIOR HEALTHCAREDOB: Community [address] PART A [facility] [id number] Number: Repository [id number]: [id number] [phone] Date:2017-11-15 () 11/16/2017 Secondary YANNICK C [place] Insurance:[facility]OL[facility]OSPITALB: [facility] [place] [place] Number: [id number] Hospital [id number] Repository Date:2017-11-15 [address]ATTN: [place] [address]RK: 11/16/2017 Tertiary NOT GIVENUNK [place] Insurance:SELF PAY [facility] Number: Effective Repository Date:2017-11-16 11/09/2017 YANNICK C Primary YANNIKC [facility]ell [facility]: Insurance:MEDICARE [facility]: [facility] E PART [facility] Number: [id number] [place] [address] Date:2017-02-[address] [place] [address]78[address]~JSUNDERLAN [id number]: ([phone]) D7@ANA LILIA..Bhavna Name:[facility] 9 : Administrators LLCPO ()Tel: (000) (HP) [address] [address]Elwngqyqo, 000-0000 ([place]) [place] [address]MT: 11/09/2017 Secondary YANNICK Chappell Health Insurance:CARESOURCE KAAAWADOB: [facility] [id number] Repository Number: E [address] [id number] [address], [place] Date:2017-11-09Tel: [phone] [id number] Name:Alphonse Claims ()Tel: (000) DeptPO [address]-0000 ([place]) [address], [place] [address]HD: 11/07/2017 [facility] Primary [facility]: Insurance:MEDICARE [place]DOB: [facility] E PART BPolicy Number: [id number], [place] Date:2017-02-25 - [address] [place] [address]297~JSUNDERLAN [id number] [id number]: ([phone]) D7@ANA LILIA..Critical access hospital Name:[facility] : Administrators LLCPO ()Tel: (000) (HP) [address] [address]Etunalzgz, 000-0000 ([place]) [place] [address]AU: 11/07/2017 [facility] Insurance:[facility]: [facility] [id number] Repository Number: [address] [id number] [address], [place] Date:2017-11-07Tel: [phone] [id number] Name:Alphonse Claims ()Tel: (000) DeptPO [address]-0000 (WP) [address] [place] [address]FB: 10/18/2017 [facility]: Insurance:MEDICARE [place]DER[place]DOB: [facility] E PART APolicy Number: [id number] [address], [place] Date:2017-08-[address] [place] [address]Ejw: ([phone] [id number]: Name:MMail Code (HP)Tel: [phone]) [phone] Box (HP) (WP) [address]Tccgmncv, [place] 000-0000 ([place]) [address]DC: 10/18/2017 Secondary [facility] Health Insurance:MEDICARE [place]DER[place]DOB: [facility] BPolicy Number: [id number] Repository [id number] E [address] Date:2017-08-14 - [address] [place] [address] [id number]: ([phone]) Name:[facility] Administrators LLCPO (HP)Tel: (000) [address] [address]Kkleqvlhs, 000-0000 ([place]) [place] [address]FJ: 10/18/2017 [facility] Insurance:[facility]: [facility] [id number] Repository Number: E [address] [id number] [address] [place] [address] Date:2017-10-1853556Mtx: ([phone] [id number] [phone] Name:Alphonse Lozano ()Tel: (000) DeptPO [address]0000 (WP) [address], [place] [address]TY: 10/03/2017 [facility]: Insurance:MEDICARE [place]DER[place]DOB: [facility] E PART BPolicy Number: [id number] [id number] E [address], [place] Date:2017-10-[address] [place] [address]Lxp: ([phone] [id number] 132[address]Ztg: Name:[facility] (HP)Tel: (999) Administrators LLCPO (HP) (WP) [address] [address]Fhfuahbwb, 000-0000 (WP) [place] [address]EH: 10/03/2017 Secondary [facility] Insurance:[facility]: [facility] [id number] Repository Number: Don [address] [id number] [address] [place] [address] Date:2017-10-03 [address]Ckc: ([id number] [phone] Name:Alphonse Lozano (HP)Tel: (000) DeptPO [address]-0000 (WP) [address], [place] [address]XS: 09/08/2017 [facility]: Insurance:MEDICARE [place]DOB: [facility] PART APolicy Number: [id number] Repository [address] [id number] [address] [place] [address] Date:2017-09-[address] [place] [address]Vxe: ([id number] 026[address]Uah: Name:MMail Code 325 (HP)Tel: (999) [address] (HP) (WP) [address]Jxodkjwj, [place] 000-0000 ([place]) [address]VD: 09/08/2017 Secondary [facility] Insurance:MEDICARE [place]DER[place]DOB: [facility] BPolicy Number: [id number] Repository [id number] [address] Date:2017-09-08 - [address] [place] [address] [id number] 15702Bwp: (330) Name:[facility] -325 Administrators LLCPO (HP)Tel: (000) [address] [address]Smzuhtpxl, 000-0000 (WP) [place] [address]XD: 09/08/2017 Tertiary [facility] Insurance:[facility]: [facility] [id number] Repository Number: Don [address] [id number] [address] [place] [address] Date:2017-09-08 - 088[address]Zeg: [phone] [id number] [phone] Name:Alphonse Lozano ()Tel: (337) DeptPN Ckk 000-0000 (WP) [address], [place] [address]HO:
== END 2018-08-29 06:03 | disposition home or self-care (01) ==
PROVIDERS: Emergency Provider Emergency Medicine; Family Provider Family Medicine; PCP Family Medicine
DX: Z43.1 Encounter for attention to gastrostomy (principal); K21.9 Gastro-esophageal reflux disease without esophagitis; I10 Essential (primary) hypertension; M06.9 Rheumatoid arthritis, unspecified; E03.9 Hypothyroidism, unspecified; F41.9 Anxiety disorder, unspecified; Z85.819 Personal history of malignant neoplasm of unspecified site of lip, oral cavity, and pharynx; Z79.899 Other long term (current) drug therapy; Z87.891 Personal history of nicotine dependence
CPT/HCPCS: 74018; 99284

== ENCOUNTER 2018-09-22 20:04 | Emergency (ER) | payer MEDICARE, MEDICAID, SELFPAY ==
[2018-09-22 20:05] VITALS: BP 159/90; PULSE 63; RESP 20; TEMP 36.7; O2SAT 96; BMI 21.3
--- NOTE | 2018-09-22 20:12 | EKG12_ITS ---
Test Reason : DIZZINESS Blood Pressure : / mmHG Vent. Rate : 064 BPM Atrial Rate : 064 BPM P-R Int : 168 ms QRS Dur : 084 ms QT Int : 374 ms P-R-T Axes : 064 -14 039 degrees QTc Int : 385 ms Normal sinus rhythm Normal ECG Confirmed by SARITA BATES, EMMETT ([id number]), telegraph editor BRIAN LAUREN ([id number]) on 09/25/2018 8:32:33 AM Referred By: WILMER Confirmed By:EMMETT STEIN MD
--- NOTE | 2018-09-22 20:13 | CT_ITS ---
STUDY: CT BRAIN WITHOUT CONTRAST REASON FOR EXAM: Male, 72 years old. Dizziness. RADIATION DOSAGE (If Supplied By Facility): CTDIvol = ( ) mGy, DLP = ( ) mGycm TECHNIQUE: Transaxial CT imaging of the brain was performed without administration of intravenous contrast material. Individualized dose optimization techniques were used for this CT. COMPARISON: 04/08/2017. FINDINGS: Normal soft tissue structures. Normal calvarium. There is mild cerebral atrophy with widening of the extra-axial spaces and ventricular dilatation. There are areas of decreased attenuation within the white matter tracts of the supratentorial brain, consistent with microvascular disease changes. Normal basal ganglia and thalami. Normal brainstem. There is mild cerebellar atrophy. There is no intracranial hemorrhage. There are no findings of an acute ischemic infarction. Normal visualized paranasal sinuses. CT/Brain/Head without Contrast IMPRESSION: No change and no acute abnormality. Stable mild atrophy and White matter disease. Electronically Signed: Jean Perez MD at 21:51 EST , Service support ,
--- NOTE | 2018-09-22 20:15 | ED.DCSUM_ITS ---
- ER Visit Summary Date of Service: 09/22/18 Chief Complaint: Dizziness, headache History of Present Illness: The patient is a 72 M who has a headache. It started earlier today. It was behind his right eye but now is in the right anglican area. It sharp. He denies any visual changes. No blurry vision. He has not fallen. He felt off balance today when he got up to walk. He checked his blood pressure and it was a little bit high. He does have a pain pump. He has a history of oral cancer and has had a PEG tube. He does tube feeds at home. Physical Examination: Vital signs reviewed. HEENT exam reveals no temporal artery tenderness. There are no rashes. He has no sinus tenderness. His pupils are equal. His mucous memories are moist. Heart is regular rate and rhythm. Lungs are clear bilaterally. Abdomen soft and nontender. He has a PEG tube in place. Extremities reveal no edema. Skin exam reveals no rashes. Neurologic exam normal. Test Results: Laboratory studies reveal hemoglobin of 12.3. Sodium 133. CAT scan of the head reveals chronic changes. His EKG is sinus rhythm with no ST changes. Emergency Department Course and Treatment: Patient was given 2 mg of IV morphine. He feels improved. He has no symptoms at this time. I feel he is safe to be discharged home. He will continue his home medications. He will follow-up with his PCP Treatment Plan: [] Disposition: Discharge Impression: Headache Dizziness, resolved This note was generated with [employer] dictation software. It may contain incorrect words, spelling, and punctuation that were not noted in review of the chart prior to signing ED Disposition - Plan for ED Patient: Referrals: Eliz Ruelas MD [Primary Care Provider] -
[2018-09-22 20:30] VITALS: RESP 18
[2018-09-22] MEDS: Morphine 4 MG/ML Syringe IV (20:32)
[2018-09-22 20:34] LABS: Absolute Lymphocyte Count 0.92 X10^3/ul (0.83-4.51); Absolute Neutrophil Count 2.8 X10^3/uL (2.0-7.7); Basophil# 0.01 X10^3/uL; Basophil% 0.2 % (0-1); Eosinophils% 2.2 % (0-5); Hematocrit 37.4 % (40-54); Hemoglobin 12.3 g/dl (13.0-16.5); Lymphocyte # 0.92 X10^3/ul (4.0); Lymphocyte % 20.4 % (19-41); Mean Corp Hgb Conc 32.9 g/gl (32-36); Mean Corpuscular Hgb 30.9 pg (27.0-32.0); Mean Platelet Vol. 8.9 fl (6.2-12.0); Monocyte# 0.64 X10^3/uL; Monocyte% 14.2 % (0-10); Neutrophil # 2.82 X10^3/uL (2.7-7.7); Neutrophil % 62.8 % (47-70); POSITIVE COUNT NO; POSITIVE DIFFERENTIAL NO; POSITIVE MORPHOLOGY NO; Platelet Count 182 K/mm3 (150-450); RBC Distribution Width CV 13.8 % (11.6-14.6); RBC Distribution Width SD 47.2 fl (35.1-43.9); Red Blood Count 3.98 M/mm3 (4.6-6.2); White Blood Count 4.5 K/mm3 (4.4-11.0)
[2018-09-22 21:02] LABS: Anion Gap 5 (5-15); BUN 23 mg/dL (7-18); BUN/Creat Ratio 29.5 RATIO (10-20); Calcium,Total 8.9 mg/dL (8.5-10.1); Chloride 99 mmol/L (98-107); Creatinine, Serum 0.78 mg/dL (0.70-1.30); EST Glomerular Filtration Rate 104 mL/min (>60); Est Glom Filt Rate - Afr Amer 126 mL/min (>60); Estimated Creatinine Clearance 72.35 ml/min; Glucose 99 mg/dL (74-106); Potassium 4.6 mmol/L (3.5-5.1); Sodium Level 133 mmol/L (136-145)
--- NOTE | 2018-09-22 21:55 | ED.DEP ---
ED Disposition - Plan for ED Patient: Disposition: Home or Assisted Living Instructions: ED Cephalgia Unspecified Referrals: Eliz Ruelas MD [Primary Care Provider] -
[2018-09-22 22:14] VITALS: BP 162/91; PULSE 63; RESP 16; O2SAT 96
== END 2018-09-22 22:15 | disposition home or self-care (01) ==
PROVIDERS: Emergency Provider Emergency Medicine; Family Provider Family Medicine; PCP Family Medicine
DX: R51 Headache (principal); R42 Dizziness and giddiness; K21.9 Gastro-esophageal reflux disease without esophagitis; I10 Essential (primary) hypertension; F41.9 Anxiety disorder, unspecified; E03.9 Hypothyroidism, unspecified; Z85.819 Personal history of malignant neoplasm of unspecified site of lip, oral cavity, and pharynx; Z97.8 Presence of other specified devices; Z93.1 Gastrostomy status; Z79.899 Other long term (current) drug therapy
CPT/HCPCS: 70450; 80048; 85025; 93005; 96374; 99284; A4216

== ENCOUNTER 2018-11-07 17:37 | Emergency (ER) | payer MEDICARE, SELFPAY ==
[2018-11-06 13:33] VITALS: BMI 21.3
[2018-11-07 17:38] VITALS: BP 146/86; PULSE 63; RESP 18; TEMP 36.4; O2SAT 96; BMI 21.3
[2018-11-07 17:46] VITALS: TEMP 36.8
--- NOTE | 2018-11-07 18:05 | RAD_ITS ---
STUDY: X-RAY CHEST REASON FOR EXAM: Male, 73 years old. Cough with leg weakness. TECHNIQUE: Frontal and lateral views of the chest. COMPARISON: January 12, 2018 FINDINGS: There is stable hyperexpansion with scarring and mild diffuse interstitial pattern with granulomatous calcifications. Findings are compatible with COPD. There is no demonstrated pleural abnormality. Normal size heart. Normal mediastinum and aurora. Normal visualized pulmonary arteries. Normal visualized aortic arch and descending thoracic aorta. There are diffuse degenerative changes of the visualized thoracic spine. Normal visualized ribs, clavicles, and shoulders. There is no demonstrated abnormality of the visualized soft tissue structures of the upper abdomen. RAD/Chest PA and Lateral IMPRESSION: Stable findings of COPD with no acute superimposed pathology. Electronically Signed: Vasu Amezcua MD at 19:10 EDT , Service support ,
--- NOTE | 2018-11-07 18:09 | ED.DCSUM_ITS ---
- ER Visit Summary Date of Service: 11/07/18 Chief Complaint: Cough History of Present Illness: The patient is a 73 M who presents with a cough that has been getting worse over the past month. Patient states he is coughing up some brown sputum. Patient admits to some intermittent headaches. Patient admits to some diarrhea. Patient has a feeding tube in place because of esophageal strictures. Patient is concerned over possible aspiration pneumonia. Patient was started on clindamycin by his primary care physician. Patient denies any fevers or chills. Patient also complains of some chronic back pain. Patient states he feels like my legs do not want to work. Patient denies any urinary or stool incontinence. Physical Examination: Vital signs are stable. Patient is afebrile. Patient is in no acute distress. Oral mucosa is pink and moist. Neck is supple. Trachea is midline. There is no JVD noted. Heart was regular rate and rhythm. Lungs showed rhonchi in the right base. There is no respiratory distress noted. Abdomen is soft nontender. Bowel sounds are normal. Cranial nerves II through XII are intact. There are no focal motor or sensory deficits noted. Deep tendon reflexes are 2/4 bilaterally in the patella and Achilles reflexes bilaterally. She was able to stand and ambulate in the emergency [place]. Test Results: CBC and basic metabolic profile were essentially within normal limits. Urinalysis was obtained and was normal. Chest x-ray was obtained. There is no acute cardiopulmonary process. Emergency Department Course and Treatment: Patient was given a dose of Tylenol here. Patient felt better on reevaluation. Patient was instructed to follow-up with his primary care physician in 5-7 days. Patient was instructed to drink plenty of fluids. Patient understood and was agreeable with the plan. All questions were answered. Disposition: Discharge home Impression: Acute bronchitis This note was generated with [employer] dictation software. It may contain incorrect words, spelling, and punctuation that were not noted in review of the chart prior to signing ED Disposition - Plan for ED Patient: Disposition: Home or Assisted Living Diagnosis: Acute bronchitis Instructions: ED Upper Resp Infec No Abx Tx Referrals: Gagan Dutton MD [Primary Care Provider] - 5-7 Days
[2018-11-07 18:32] LABS: Absolute Lymphocyte Count 1.11 X10^3/ul (0.83-4.51); Absolute Neutrophil Count 3.7 X10^3/uL (2.0-7.7); Basophil# 0.01 X10^3/uL; Basophil% 0.2 % (0-1); Eosinophil# 0.03 X10^3/uL; Eosinophils% 0.6 % (0-5); Hematocrit 36.6 % (40-54); Lymphocyte # 1.11 X10^3/ul (4.0); Lymphocyte % 20.6 % (19-41); Mean Corp Hgb Conc 32.8 g/gl (32-36); Mean Corpuscular Hgb 30.4 pg (27.0-32.0); Mean Corpuscular Volume 92.7 fL (80-94); Mean Platelet Vol. 9.2 fl (6.2-12.0); Monocyte# 0.55 X10^3/uL; Monocyte% 10.2 % (0-10); Neutrophil % 68.4 % (47-70); Platelet Count 169 K/mm3 (150-450); RBC Distribution Width CV 13.3 % (11.6-14.6); RBC Distribution Width SD 44.5 fl (35.1-43.9); Red Blood Count 3.95 M/mm3 (4.6-6.2); White Blood Count 5.4 K/mm3 (4.4-11.0)
[2018-11-07 18:37] LABS: POSITIVE COUNT NO; POSITIVE DIFFERENTIAL NO; POSITIVE MORPHOLOGY NO
[2018-11-07 18:44] LABS: Anion Gap 4 (5-15); BUN 28 mg/dL (7-18); BUN/Creat Ratio 36.4 RATIO (10-20); Calcium,Total 8.8 mg/dL (8.5-10.1); Chloride 99 mmol/L (98-107); Creatinine, Serum 0.77 mg/dL (0.70-1.30); EST Glomerular Filtration Rate 106 mL/min (>60); Est Glom Filt Rate - Afr Amer 128 mL/min (>60); Estimated Creatinine Clearance 71.11 ml/min; Glucose 82 mg/dL (74-106); Potassium 4.3 mmol/L (3.5-5.1); Sodium Level 133 mmol/L (136-145)
[2018-11-07] MEDS: Acetaminophen 650 MG/20 ML UDC GT (19:02)
[2018-11-07 19:10] LABS: Bacteria 0 SEEN /hpf (None Seen); Mucous, Urine 0 SEEN /hpf (<or=2+); Red Blood Cells-Urine 0 SEEN /hpf (0-5); Squamous Epithelial Cells - UA 0 SEEN /hpf (0-5); White Blood Cells 0 SEEN /hpf (0-5)
[2018-11-07 19:13] LABS: Color, Urine Yellow (Yellow); Glucose, Dipstick Normal (Normal); Ketone-Dipstick Negative (Negative); Leukocyte Esterase-Dipstick Negative /ul (Negative); Nitrite-Dipstick Negative (Negative); Occult Blood-Urine Negative /ul (Negative); Protein-Dipstick Negative (Negative); Urine Bilirubin Dipstick Negative (Negative); Urine Clarity Clear (Clear); Urine Urobilinogen Normal (Normal)
[2018-11-07 20:50] VITALS: BP 157/77; PULSE 57; RESP 16; RESP 18; O2SAT 98
== END 2018-11-07 20:52 | disposition home or self-care (01) ==
PROVIDERS: Emergency Provider Emergency Medicine; Family Provider Family Medicine; PCP Family Medicine
DX: J20.9 Acute bronchitis, unspecified (principal); G89.29 Other chronic pain; M54.9 Dorsalgia, unspecified; Z85.89 Personal history of malignant neoplasm of other organs and systems
CPT/HCPCS: 71046; 80048; 81001; 85025; 99283; A4216

== ENCOUNTER 2018-11-30 22:29 | Emergency (ER) | payer MEDICARE, SELFPAY ==
[2018-11-30 22:32] VITALS: BP 152/74; PULSE 59; RESP 18; TEMP 36.8; O2SAT 99; BMI 21.3
--- NOTE | 2018-11-30 22:43 | ED.VISSUMM ---
- ER Visit Summary Date of Service: 11/30/18 Chief Complaint: PEG tube leaking History of Present Illness: The patient is a 73 M with history of throat cancer had a PEG tube inserted 2 months ago, he noticed leaking today. He has no symptoms. Physical Examination: He has a soft abdomen, the PEG site is clean dry and intact without signs of infection. Emergency Department Course and Treatment: PEG tube was replaced with a 20 Fijian, patient tolerated procedure well I will discharge him with reassurance. Discharge stable condition Impression: [PEG tube replacement] This note was generated with [employer] dictation software. It may contain incorrect words, spelling, and punctuation that were not noted in review of the chart prior to signing ED Disposition - Plan for ED Patient: Disposition: Home or Assisted Living Instructions: Gastrostomy Feeding Tube Care: [place] Referrals: Gagan Dutton MD [NON-STAFF] - 1 Week if not improving
--- NOTE | 2018-11-30 22:53 | ED.DCSUM_ITS ---
- ER Visit Summary Date of Service: 11/30/18 Chief Complaint: PEG tube leaking History of Present Illness: The patient is a 73 M with history of throat cancer had a PEG tube inserted 2 months ago, he noticed leaking today. He has no symptoms. Physical Examination: He has a soft abdomen, the PEG site is clean dry and intact without signs of infection. Emergency Department Course and Treatment: PEG tube was replaced with a 20 Bolivian, patient tolerated procedure well I will discharge him with reassurance. Discharge stable condition Impression: [PEG tube replacement] This note was generated with [employer] dictation software. It may contain incorrect words, spelling, and punctuation that were not noted in review of the chart prior to signing ED Disposition - Plan for ED Patient: Disposition: Home or Assisted Living Instructions: Gastrostomy Feeding Tube Care: [place] Referrals: Gagan Dutton MD [NON-STAFF] - 1 Week if not improving
== END 2018-11-30 23:00 | disposition home or self-care (01) ==
PROVIDERS: Emergency Provider Emergency Medicine; Family Provider Family Medicine; PCP Family Medicine
DX: Z43.1 Encounter for attention to gastrostomy (principal); Z85.819 Personal history of malignant neoplasm of unspecified site of lip, oral cavity, and pharynx; Z79.899 Other long term (current) drug therapy
CPT/HCPCS: 99283

== ENCOUNTER 2019-01-07 04:46 | Emergency (ER) | payer MEDICARE, SELFPAY ==
[2019-01-07 04:50] VITALS: BP 161/90; PULSE 59; RESP 15; TEMP 36.7; O2SAT 98; BMI 21.4
--- NOTE | 2019-01-07 05:11 | ED.VISSUMM ---
- ER Visit Summary Date of Service: 01/07/19 Chief Complaint: Acute on chronic back pain History of Present Illness: The patient is a 73 M known history of prior back pain, chronic pain syndrome under pain management. Also history of prior throat cancer with radiation, chemo and resection reportedly a cure. Patient states he has chronic back pain he is a pain pump. He sees pain management. He has had lower thoracic back pain the night. No fall, injury or trauma. No fever or redness. No new neurological findings. He has chronic weakness in his left leg from his prior back history. He has had prior back surgery. He denies any bowel bladder incontinence. Physical Examination: Older male no acute distress. Initial blood pressure 161/90. Afebrile. H EENT exam unremarkable. Neck nontender no lymphadenopathy. Lungs clear to auscultation bilaterally. Heart regular rhythm no murmur rate about 60. Chest wall nontender. Abdomen soft nontender. Normal bowel sounds no peritoneal signs. No pulsatile mass. Patient is moving all 4 extremities. 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 He has normal motor strength and sensation in the right lower leg. His left leg he is able to do dorsi and plantar flexion. He is able to lift it off the bed. But he has 4 out of 5 strength versus 5 out of 5 on the right. He states this is chronic and not new. There are no signs of cauda equina or saddle anesthesia. He has normal medial thigh sensation. Test Results: None Emergency Department Course and Treatment: Patient wanted something for pain but did not want anything more than 2 mg of morphine due to his pain pump. Will be given IM morphine 2 mg. Treatment Plan: Follow-up with his pain management doctor. Disposition: Discharge Impression: Acute on chronic back pain with a history of degenerative disc disease Prior back surgery. History of throat cancer that underwent treatment. This note was generated with [employer] dictation software. It may contain incorrect words, spelling, and punctuation that were not noted in review of the chart prior to signing ED Disposition - Plan for ED Patient: Referrals: Eliz Gomez DO [Primary Care Provider] -
--- NOTE | 2019-01-07 05:14 | ED.DCSUM_ITS ---
- ER Visit Summary Date of Service: 01/07/19 Chief Complaint: Acute on chronic back pain History of Present Illness: The patient is a 73 M known history of prior back pain, chronic pain syndrome under pain management. Also history of prior throat cancer with radiation, chemo and resection reportedly a cure. Patient states he has chronic back pain he is a pain pump. He sees pain management. He has had lower thoracic back pain the night. No fall, injury or trauma. No fever or redness. No new neurological findings. He has chronic weakness in his left leg from his prior back history. He has had prior back surgery. He denies any bowel bladder incontinence. Physical Examination: Older male no acute distress. Initial blood pressure 161/90. Afebrile. H EENT exam unremarkable. Neck nontender no lymphadenopathy. Lungs clear to auscultation bilaterally. Heart regular rhythm no murmur rate about 60. Chest wall nontender. Abdomen soft nontender. Normal bowel sounds no peritoneal signs. No pulsatile mass. Patient is moving all 4 extremities. 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 He has normal motor strength and sensation in the right lower leg. His left leg he is able to do dorsi and plantar flexion. He is able to lift it off the bed. But he has 4 out of 5 strength versus 5 out of 5 on the right. He states this is chronic and not new. There are no signs of cauda equina or saddle anesthesia. He has normal medial thigh sensation. Test Results: None Emergency Department Course and Treatment: Patient wanted something for pain but did not want anything more than 2 mg of morphine due to his pain pump. Will be given IM morphine 2 mg. Treatment Plan: Follow-up with his pain management doctor. Disposition: Discharge Impression: Acute on chronic back pain with a history of degenerative disc disease Prior back surgery. History of throat cancer that underwent treatment. This note was generated with [employer] dictation software. It may contain incorrect words, spelling, and punctuation that were not noted in review of the chart prior to signing ED Disposition - Plan for ED Patient: Referrals: Eliz Gomez DO [Primary Care Provider] -
--- NOTE | 2019-01-07 05:14 | ED.DEP ---
ED Disposition - Plan for ED Patient: Disposition: Home or Assisted Living Instructions: ED Neck Back Pain General Referrals: Eliz Gomez, [Primary Care Provider] - 3-5 Days if not improving Additional Instructions: Continue your current home pain medications. Follow-up with your pain management Dr. Ortega Return to ER if intractable pain, feeling worse or unable to urinate or move your bowels or incontinent.
[2019-01-07] MEDS: Morphine 2 MG/ML Syringe IM (05:21)
[2019-01-07 05:47] VITALS: BP 152/86; PULSE 57; RESP 15; O2SAT 100
[2019-01-07 06:39] VITALS: BP 152/86; PULSE 57; RESP 15; O2SAT 100
== END 2019-01-07 07:59 | disposition home or self-care (01) ==
PROVIDERS: Emergency Provider Emergency Medicine; Family Provider Family Medicine; PCP Family Medicine
DX: M54.9 Dorsalgia, unspecified (principal); G89.4 Chronic pain syndrome; Z98.890 Other specified postprocedural states; Z85.819 Personal history of malignant neoplasm of unspecified site of lip, oral cavity, and pharynx; Z92.21 Personal history of antineoplastic chemotherapy; Z92.3 Personal history of irradiation; R53.1 Weakness; I10 Essential (primary) hypertension; Z97.8 Presence of other specified devices; Z79.899 Other long term (current) drug therapy
CPT/HCPCS: 96372; 99284

== ENCOUNTER 2019-01-12 03:34 | Emergency (ER) | payer MEDICARE, SELFPAY ==
[2019-01-12 03:35] VITALS: BP 158/87; PULSE 65; RESP 15; TEMP 36.6; O2SAT 98; BMI 20.5
--- NOTE | 2019-01-12 04:12 | RAD_ITS ---
STUDY: X-RAY CHEST REASON FOR EXAM: Male, 73 years old. Pain TECHNIQUE: PA and lateral views of the chest. COMPARISON: 11/07/2018 FINDINGS: There is hyperinflation of the lungs consistent with chronic obstructive lung disease (COPD). Stable scarring and distortion of parenchyma along the right base, stable elevation of the right hemidiaphragm. There is no focal parenchymal abnormality. There is no demonstrated pneumothorax. There is stable pleural fibrotic thickening of the pulmonary lung apices. Normal size heart. Normal mediastinum and aurora. Normal visualized pulmonary arteries. There is atherosclerotic calcification of the aortic arch with tortuosity. There is demineralization of the osseous structures. Mild kyphosis and moderate degenerative changes of the upper thoracic spine. Normal visualized ribs, clavicles, and shoulders. There is no demonstrated abnormality of the visualized soft tissue structures of the upper abdomen. RAD/Chest PA and Lateral IMPRESSION: COPD, scarring, hyperinflation, osteopenia, arteriosclerosis and degenerative changes are stable findings. No pulmonary edema, congestive heart failure or confluent pneumonia. Electronically Signed: Radha Medina MD at 5:17 EDT , Service support ,
--- NOTE | 2019-01-12 04:12 | RAD_ITS ---
STUDY: X-RAY - THORACIC SPINE REASON FOR EXAM: Male, 73 years old. Pain TECHNIQUE: 5 view(s) of the thoracic spine were obtained. COMPARISON: Lateral chest view 11/07/2018. Thoracic spine 08/04/2017. FINDINGS: Normal kyphosis of the thoracic spine. There is no substantial scoliosis. There is demineralization of the thoracic spine with endplate spondylosis. There is multilevel disc space narrowing of the thoracic spine. Kyphosis of the upper thoracic spine without change Stable COPD/emphysema, apical pleural thickening, atherosclerosis. RAD/Thoracic Spine 3 Views IMPRESSION: Stable osteoporosis, degenerative changes, kyphosis of the upper thoracic spine without acute compression injury or malalignment. Electronically Signed: Radha Medina MD at 5:19 EDT , Service support ,
--- NOTE | 2019-01-12 04:16 | ED.VIS.BACK ---
History of Present Illness Chief Complaint: Back Informant: Patient Onset: Hours - 3-4 Context: Gradual Onset - at rest Chronic pain exacerbated by: unknown Timing: Continuous Quality: Aching Location: Thoracic - upper Current Severity: Severe Maximum Severity: Severe Worsened by: improves with: Movement Relieved by: Remaining Still Associated Symptoms: - - Pain radiates around both sides of chest to his front. This is not new. It is worse now since the pain has been worse. Narrative: Pain is not usually this severe. His pain is chronic, he has an intrathecal morphine pain pump, it is due for a refill in about a month. He has a history of throat cancer for which he had radiation that the images esophagus and now he is fed through a PEG. He has had chronic back pain as well as facet issues that he has had injections for in the past, which is what this feels like. He did no heavy lifting, had any injury, or anything else he can think of to cause exacerbation of the pain. He denies any radiation into his upper or lower extremities, no bowel or bladder dysfunction, or trouble breathing. Prior similar symptoms: Yes, With Prior Back Pain - Past Medical History (1) Aspiration pneumonia Status: Resolved (2) Anxiety Status: Chronic (3) Arthropathy of lumbar facet joint Status: Chronic (4) Chronic hyponatremia Status: Chronic (5) Chronic pain syndrome Status: Chronic (6) GERD (gastroesophageal reflux disease) Status: Chronic (7) History of oropharyngeal cancer Status: Chronic (8) Hypertension Status: Chronic (9) Hypothyroidism Status: Chronic (10) Normocytic anemia Status: Chronic (11) Rheumatoid arthritis Status: Chronic Past Medical History - Allergies and Home Meds Allergies/Adverse Reactions: Allergies ciprofloxacin [From Cipro] Allergy (Verified 01/12/19 03:42) Itching diclofenac sodium [From Solaraze] Allergy (Verified 01/12/19 03:42) Anaphylaxis fluorouracil Allergy (Verified 01/12/19 03:42) Anaphylaxis methotrexate Allergy (Verified 01/12/19 03:42) Anaphylaxis Penicillins Allergy (Verified 01/12/19 03:42) Itching pentazocine lactate [From Talwin] Allergy (Verified 01/12/19 03:42) Other venom-honey bee [bee venom (honey bee)] Allergy (Verified 01/12/19 03:42) Anaphylaxis amlodipine Adverse Reaction (Verified 01/12/19 03:42) Nausea buspirone Adverse Reaction (Verified 01/12/19 03:42) Other ciprofloxacin HCl [From Cipro] Adverse Reaction (Verified 01/12/19 03:42) Pain in joints clonidine Adverse Reaction (Verified 01/07/19 04:55) Other NSAIDS (Non-Steroidal Anti-Inflamma Adverse Reaction (Verified 01/07/19 04:55) Upset Stomach promethazine Adverse Reaction (Verified 01/07/19 04:55) Other trazodone Adverse Reaction (Verified 01/07/19 04:55) Other dizzy, (possible hypotensive related) fall SEAFOOD Adverse Reaction (Severe, Uncoded 11/30/18 22:32) Unknown Primary Care Physician: Eliz Gomez DO [Primary Care Provider] - Surgical History: - - Appendectomy, Back surgery x 2, Tonsilar tumor resection, Esophageal dilations and endscopies, R maxillary sinus surgery. Smoking Status: Former smoker Drugs: None - Family History Maternal Family History: Reports: Heart Disease, Hypertension Paternal Family History: Reports: Cancer, Heart Disease, Hypertension Review of Systems General: Denies: Chills, Fever Cardiovascular: Reports: Chest pain. Denies: Palpitations, Heart racing Respiratory: Denies: Dyspnea, Cough Gastrointestinal: Denies: Abdominal pain, Nausea, Vomiting Musculoskeletal: Reports: Back pain. Denies: Neck pain, Swelling, Extremity Pain Skin: Denies: Rash, Wounds Neurological: Denies: Headache, Weakness, Numbness Physical Exam Vital Signs/Narrative: Vital Signs Temp Pulse Resp BP Pulse Ox 01/12/19 03:35 97.8 F 65 15 158/87 H 98 Inital Vital Signs reviewed: Yes General: Well nourished, Well developed, - - NAD Head: Normocephalic, Atraumatic Eyes: Perrl, EOMI Neck: Supple, Nontender, No lymphadenopathy Cardiovascular: Regular rate, Regular rhythm, No murmurs Respiratory: No distress, CTA bilaterally, Chest tenderness - Along approx T3-4 dermatome areas bilaterally very superficially tender; no skin abn. Abdomen: Soft, Nontender, Nondistended, Normal bowel sounds, - - PEG site benign Back: Normal Inspection, Nontender - pt indicates around T2-3 area of pain. Negative for: Spinal tenderness Extremeties: Nontender, No edema Skin: Normal color, No rash, No Trauma Neuro: Alert, Oriented, Normal Strength, Normal Sensation, Normal DTR, Normal Gait Psychological: Normal affect, Normal Mood Diagnostic/Tx/Re-eval Clinical Impression(s) from Imaging Studies Chest X-Ray 01/12/19 04:12 IMPRESSION: COPD, scarring, hyperinflation, osteopenia, arteriosclerosis and degenerative changes are stable findings. No pulmonary edema, congestive heart failure or confluent pneumonia. Electronically Signed: Radha Medina MD at 5:17 EDT , Service support , Thoracic Spine X-Ray 01/12/19 04:12 IMPRESSION: Stable osteoporosis, degenerative changes, kyphosis of the upper thoracic spine without acute compression injury or malalignment. Electronically Signed: Radha Medina MD at 5:19 EDT , Service support , - Medical Decision Making Pain is a little improved after Dilaudid. He appears relatively comfortable. X-rays show no acute pathology, only chronic spinal arthropathy. He wants to know specifically about the facets, I recommend that he follow-up with his pain management doctor who may review the x-rays as well. I offered him steroids and he is comfortable with that and going home, I offered him another dose of Dilaudid but he declined. He is following up with his pain management doctor next week. He is comfortable with this overall plan. ED Disposition - Plan for ED Patient: Disposition: Home or Assisted Living Diagnosis: Thoracic radiculopathy, Thoracic back pain Instructions: ED Cervical Radiculopathy Prescriptions: Prednisone [Deltasone] 40 mg PO DAILY #10 tablet Referrals: lEiz Gomez, [Primary Care Provider] - Doctor,Your [STAFF PHYSICIAN] - Keep Carlos appointment
[2019-01-12] MEDS: HYDROmorphone 1 MG/ML Syringe IV (04:29)
[2019-01-12 05:52] VITALS: BP 163/93; PULSE 61; RESP 15; O2SAT 99
== END 2019-01-12 06:20 | disposition home or self-care (01) ==
PROVIDERS: Emergency Provider Emergency Medicine; Family Provider Family Medicine; PCP Family Medicine
DX: M47.24 Other spondylosis with radiculopathy, thoracic region (principal); M54.6 Pain in thoracic spine; M48.04 Spinal stenosis, thoracic region; M40.204 Unspecified kyphosis, thoracic region; M81.0 Age-related osteoporosis without current pathological fracture; J44.9 Chronic obstructive pulmonary disease, unspecified; F41.9 Anxiety disorder, unspecified; M12.88 Other specific arthropathies, not elsewhere classified, other specified site; G89.4 Chronic pain syndrome; K21.9 Gastro-esophageal reflux disease without esophagitis; Z85.818 Personal history of malignant neoplasm of other sites of lip, oral cavity, and pharynx; I10 Essential (primary) hypertension; E03.9 Hypothyroidism, unspecified; M06.9 Rheumatoid arthritis, unspecified; Z92.3 Personal history of irradiation; Z97.8 Presence of other specified devices; Z93.1 Gastrostomy status; Z87.01 Personal history of pneumonia (recurrent); Z86.2 Personal history of diseases of the blood and blood-forming organs and certain disorders involving the immune mechanism; Z79.899 Other long term (current) drug therapy; Z87.891 Personal history of nicotine dependence
CPT/HCPCS: 71046; 72072; 96374; 99284

== ENCOUNTER 2019-01-13 12:13 | Emergency (ER) | payer MEDICARE, SELFPAY ==
[2019-01-12 03:35] VITALS: BMI 20.5
[2019-01-13 12:13] VITALS: BP 171/90; PULSE 70; RESP 14; TEMP 36.7; O2SAT 96; BMI 22.7
--- NOTE | 2019-01-13 12:57 | ED.VISSUMM ---
- ER Visit Summary Date of Service: 01/13/19 Chief Complaint: Right chest wall pain History of Present Illness: The patient is a 73 M who presents with right-sided lung and chest pain that became worse today. Patient was seen here 2 other times in the past 4 days. Patient states he had plain x-rays done on his visit yesterday. Patient states he was given a dose of Dilaudid yesterday which helped. Patient states that his tramadol that he normally takes at home is not helping. Patient states he does see a pain management physician for his spine pain. Patient states his blood pressure has been going up and down with the pain. Patient denies any shortness of breath. Patient states he has a history of throat cancer and sees Dr. Cox. Patient states that he gets yearly CT scans of his chest to make sure there are no metastases from his throat cancer. Patient states his last CT was approximately 1 year ago. Physical Examination: Vital signs are stable. Patient is afebrile. Patient is in no acute distress. Oral mucosa is pink and moist. Neck is supple. Trachea is midline. There is no JVD noted. Heart was regular rate and rhythm. Lungs are clear and equal bilaterally. There is tenderness over the right side of his chest. Abdomen is soft. Bowel sounds are normal. There is no tenderness. There is no guarding noted. Skin is warm dry. Cranial nerves II through XII are intact. There are no focal motor or sensory deficits noted. The remaining physical exam is within normal limits. Test Results: CBC showed a hemoglobin of 12.4 and hematocrit 37.4. Basic metabolic profile was essentially normal. Troponin was normal. CTA of the chest was obtained. There is no evidence of PE. There is some bronchitis noted. There is sequelae of prior radiation therapy of the medial upper lungs bilaterally. Emergency Department Course and Treatment: Patient was given a dose of Dilaudid here. Patient states this improved his pain. Patient is concerned if his pain will come back after he goes home. Patient was given 1 dose of oxycodone here prior to discharge. Patient was instructed to call Dr. Ramos's office tomorrow for further management of his pain. Patient was also instructed to follow-up with Dr. Cox as scheduled. Patient understood and was agreeable with the plan. All questions were answered. Disposition: Discharge home Impression: Right chest pain This note was generated with [employer] software. It may contain incorrect words, spelling, and punctuation that were not noted in review of the chart prior to signing ED Disposition - Plan for ED Patient: Disposition: Home or Assisted Living Diagnosis: Right-sided chest pain Instructions: ED Chest Pain Atypical Unkn Cause Referrals: Eliz Gomez DO [Primary Care Provider] - 5-7 Days
--- NOTE | 2019-01-13 13:00 | EKG12_ITS ---
Test Reason : RIGHT SIDE LUNG PAIN Blood Pressure : / mmHG Vent. Rate : 068 BPM Atrial Rate : 068 BPM P-R Int : 162 ms QRS Dur : 084 ms QT Int : 366 ms P-R-T Axes : 073 001 054 degrees QTc Int : 389 ms Normal sinus rhythm Normal ECG Confirmed by SARITA BATES, EMMETT ([id number]), proposal editor BRIAN LAUREN ([id number]) on 01/14/2019 11:49:12 AM Referred By: DWIGHT/OLIVER Confirmed By:EMMETT STEIN MD
--- NOTE | 2019-01-13 13:00 | CT_ITS ---
STUDY: CTA CHEST REASON FOR EXAM: Male, 73 years old. Right-sided chest pain with history of throat cancer RADIATION DOSAGE (If Supplied By Facility): CTDIvol = ( 10.55 ) mGy, DLP = ( 450.60 ) mGycm TECHNIQUE: The examination was performed with the intravenous administration of 100ML IV Isovue 300. Post-processing of the angiographic images was performed, with multiplanar reformation and 3D reconstruction. Individualized dose optimization techniques were used for this CT. COMPARISON: None. FINDINGS: Normal enhancement of the main pulmonary artery and right and left pulmonary arteries. Normal enhancement of the bilateral peripheral pulmonary arteries. There is no demonstrated pulmonary embolism. There is atherosclerotic calcification of the aortic arch with tortuosity. There is no demonstrated aortic dissection. Normal heart and pericardium. There are calcifications of the coronary arteries. Normal mediastinum. Normal hilar regions. There is bronchial wall thickening of the right middle and lower lobes with inspissated bronchial density in the distal branches. Tree in bud micronodules are identified relatively diffusely in the right middle and lower lobes. No cavitating process. Consolidation of the bilateral medial upper lungs likely related to radiation port sites/pneumonitis. Focal opacity along the right lateral border of the trachea on axial image 247 of series 2 likely represents aspirated mucus. Normal pleura. Normal chest wall structures. There are degenerative changes of thoracic spine. Gastrostomy tube is noted extending to the gastric lumen. Prominent biliary system may be related to prior cholecystectomy. Nonobstructing calculi at the bilateral kidneys partially visualized. Subcentimeter cyst of the anterior left mid kidney is partially visualized. CT/CTA Chest W/WO Contrast IMPRESSION: 1. No central or segmental pulmonary embolism. 2. Right middle and lower lobe bronchial wall thickening with inspissated material, tree-in-bud pattern likely representing bronchitis/bronchiolitis. No cavitating process. Given history of throat cancer, follow-up is recommended. 3. Nonobstructing renal calculi. Gastrostomy tube. 4. Atherosclerosis including coronary arteries. 5. Probable sequela of prior radiation therapy involving the bilateral medial upper lungs. Electronically Signed: Quentin Razo MD at 14:43 EDT , Service support ,
[2019-01-13] MEDS: HYDROmorphone 1 MG/ML Syringe IV (13:31)
[2019-01-13] MEDS: 0.9% Normal Saline 1,000 ML 1000 ML IV (13:31)
[2019-01-13 13:44] LABS: Absolute Lymphocyte Count 1.04 X10^3/ul (0.83-4.51); Absolute Neutrophil Count 3.8 X10^3/uL (2.0-7.7); Basophil# 0.01 X10^3/uL; Basophil% 0.2 % (0-1); Eosinophil# 0.02 X10^3/uL; Eosinophils% 0.4 % (0-5); Hematocrit 37.4 % (40-54); Hemoglobin 12.4 g/dl (13.0-16.5); Lymphocyte # 1.04 X10^3/ul (4.0); Lymphocyte % 19.2 % (19-41); Mean Corp Hgb Conc 33.2 g/gl (32-36); Mean Corpuscular Hgb 30.6 pg (27.0-32.0); Mean Corpuscular Volume 92.3 fL (80-94); Mean Platelet Vol. 9.3 fl (6.2-12.0); Monocyte# 0.52 X10^3/uL; Monocyte% 9.6 % (0-10); Neutrophil # 3.81 X10^3/uL (2.7-7.7); Neutrophil % 70.4 % (47-70); Platelet Count 163 K/mm3 (150-450); RBC Distribution Width CV 13.9 % (11.6-14.6); RBC Distribution Width SD 47.2 fl (35.1-43.9); Red Blood Count 4.05 M/mm3 (4.6-6.2); White Blood Count 5.4 K/mm3 (4.4-11.0)
[2019-01-13 13:47] LABS: POSITIVE COUNT NO; POSITIVE DIFFERENTIAL NO; POSITIVE MORPHOLOGY NO
[2019-01-13 13:59] LABS: Anion Gap 3 (5-15); BUN 28 mg/dL (7-18); Calcium,Total 8.9 mg/dL (8.5-10.1); Chloride 99 mmol/L (98-107); Creatinine, Serum 0.74 mg/dL (0.70-1.30); EST Glomerular Filtration Rate 111 mL/min (>60); Est Glom Filt Rate - Afr Amer 134 mL/min (>60); Estimated Creatinine Clearance 75.93 ml/min; Glucose 89 mg/dL (74-106); Potassium 4.4 mmol/L (3.5-5.1); Sodium Level 134 mmol/L (136-145)
[2019-01-13 15:37] VITALS: BP 150/57; PULSE 68; RESP 18; O2SAT 98
[2019-01-13] MEDS: oxyCODONE 5 MG Tablet PO (15:39)
== END 2019-01-13 15:43 | disposition home or self-care (01) ==
PROVIDERS: Emergency Provider Emergency Medicine; Family Provider Family Medicine; PCP Family Medicine
DX: R07.89 Other chest pain (principal); R11.2 Nausea with vomiting, unspecified; M54.9 Dorsalgia, unspecified; J40 Bronchitis, not specified as acute or chronic; I10 Essential (primary) hypertension; Z85.819 Personal history of malignant neoplasm of unspecified site of lip, oral cavity, and pharynx; Z92.3 Personal history of irradiation; Z79.899 Other long term (current) drug therapy
CPT/HCPCS: 71275; 80048; 84484; 85025; 93005; 96361; 96374; 99285; J7030; Q9967; A4216

== ENCOUNTER 2019-01-15 15:43 | Emergency (ER) | payer MEDICARE, SELFPAY ==
[2019-01-15 15:44] VITALS: BP 147/82; PULSE 56; RESP 18; TEMP 36.4; O2SAT 97; BMI 22.2
--- NOTE | 2019-01-15 15:52 | ED.RN ---
NOW ABLE TO MOVE LEGS
--- NOTE | 2019-01-15 18:48 | ED.DCSUM_ITS ---
- ER Visit Summary Date of Service: 01/15/19 Chief Complaint: Numbness and weakness History of Present Illness: The patient is a 73 M with numbness and weakness in his legs. The patient saw Dr. Ortega today. He said he had a steroid injection in his thoracic spine between 1 PM and 1:30 PM. He was worried that the injection was too deep. He said that he went home and about 2:15 PM he was having numbness and weakness down his lower back starting at the injection site and down into his legs. He said he could not move his knees or feet. Currently, he said his symptoms are improving. He reports some tingling in his lower extremities now. Patient was able to urinate with some mild difficulty, but he does have a history of an enlarged prostate. No other associated symptoms. Physical Examination: Afebrile and vital signs unremarkable except for a heart rate of 56. Patient is alert and oriented. No acute distress. Sitting and breathing comfortably. Thoracic injection site has a Band-Aid in place. It is clean, dry, intact. Nontender. Heart regular. Lungs clear. Abdomen soft and nontender. Extremities nontender with no edema. Muscle groups are symmetric, 3 out of 5 strength except for the bilateral hip flexors which are 1 out of 5. He reports subjective paresthesias, worse in the left leg. Test Results: None performed Emergency Department Course and Treatment: Patient was discussed with Dr. Ortega. He said that since the symptoms are improving, and he does not have pain to his back, this is likely a result of the lidocaine. He asked to observe the patient for couple hours. If he had a hematoma or spinal cord injury, he would be worsening. He did not advise MRI unless the patient was worsening. Patient was observed for over 2 hours. With every reevaluation, he was able to move more and more. He was able to ambulate without assistance. He still said he felt some pain in his left lower leg and that he felt his left lower leg was weak. He also said he has chronic pain and weakness in his left leg. He asked to be admitted to the hospital for rest tonight. He said that he did not have any food in his system and he would like to have something to eat. I informed him that we could speak with the hospitalist about admitting him, but based on his presentation, I did not feel that he needed imaging and Dr. Ortega did not feel that he needed imaging. Patient been notified me that he wanted to leave and will follow-up as an outpatient. He will return if he has new or worsening issues. Treatment Plan: As above Disposition: Discharge Impression: 1. Left leg pain chronic This note was generated with [employer] dictation software. It may contain incorrect words, spelling, and punctuation that were not noted in review of the chart prior to signing ED Disposition - Plan for ED Patient: Referrals: Eliz Gomez DO [Primary Care Provider] -
--- NOTE | 2019-01-15 18:55 | ED.DEP ---
ED Disposition - Plan for ED Patient: Instructions: ED Chronic Pain Management Referrals: Eliz Gomez DO [Primary Care Provider] - Theresa Ortega MD [STAFF PHYSICIAN] -
[2019-01-15 19:03] VITALS: BP 158/89; PULSE 61; RESP 18; O2SAT 97
== END 2019-01-15 19:04 | disposition home or self-care (01) ==
LOC: ED 16:18
PROVIDERS: Emergency Provider Emergency Medicine; Family Provider Family Medicine; PCP Family Medicine
DX: M79.604 Pain in right leg (principal); G89.29 Other chronic pain; R20.2 Paresthesia of skin; R29.898 Other symptoms and signs involving the musculoskeletal system; N40.0 Benign prostatic hyperplasia without lower urinary tract symptoms; K21.9 Gastro-esophageal reflux disease without esophagitis; I10 Essential (primary) hypertension; E03.9 Hypothyroidism, unspecified; M06.9 Rheumatoid arthritis, unspecified; Z85.01 Personal history of malignant neoplasm of esophagus; Z86.2 Personal history of diseases of the blood and blood-forming organs and certain disorders involving the immune mechanism; Z79.899 Other long term (current) drug therapy; Z87.891 Personal history of nicotine dependence
CPT/HCPCS: 99284

== ENCOUNTER 2019-04-22 19:20 | Emergency (ER) | payer MEDICARE, SELFPAY ==
[2019-04-17 13:47] VITALS: BMI 21.3
[2019-04-22 19:23] VITALS: BP 162/86; PULSE 77; RESP 20; TEMP 36.8; O2SAT 97; BMI 21.4
[2019-04-22 19:42] VITALS: BP 165/89; PULSE 76; RESP 20; O2SAT 97
--- NOTE | 2019-04-22 19:51 | CT_ITS ---
STUDY: CT ABDOMEN AND PELVIS WITHOUT CONTRAST REASON FOR EXAM: Male, 73 years old. Black stool. GI bleed. RADIATION DOSAGE (If Supplied By Facility): CTDIvol = ( 7.88 ) mGy, DLP = ( 376.10 ) mGycm TECHNIQUE: Transaxial images were obtained from the dome of the diaphragm to the symphysis pubis without oral contrast, and without intravenous contrast. Sagittal and coronal images were reconstructed. Individualized dose optimization techniques were used for this CT. COMPARISON: July 23, 2017. FINDINGS: The visualized lung bases are unremarkable. The visualized portions of the heart are within normal limits. Normal liver. There is non-visualization of the gallbladder, which may be secondary to either contraction or a prior cholecystectomy. Normal spleen. Normal pancreas. Normal bilateral adrenal glands. The right kidney is of normal size and cortical thickness. There are 2 tiny 1 to 2 mm calcifications lower pole calyx. There is no hydronephrosis. Normal visualized right ureter. Left kidney is normal in size and cortical thickness. There is a 2 x 4 mm calcification upper pole calyx. There is a 1.5 cm mid renal cyst. There are is a 4 mm calcification lower pole. No hydronephrosis. Normal visualized left ureter. There is a gastrostomy tube in the body of otherwise normal stomach. Normal small intestine. Normal colon. There is non-visualization of the appendix. There is diffuse atherosclerotic calcification of the ectatic abdominal aorta, without a demonstrated aneurysm. Normal inferior vena cava. Normal retroperitoneum. The urinary bladder is well distended. There is normal wall thickness. There is dense material dependently on the right which may represent small stones. Normal prostate. No pelvic lymphadenopathy. No free air or free fluid is seen within the peritoneal cavity. There is a pump versus generator in the soft tissues of the right lower abdomen with its catheter extending into the spinal canal. There are diffuse degenerative changes of the visualized lumbar spine. CT/Abdomen/Pelvis without Cont IMPRESSION: 1. Mildly high density material along the right dependent wall of the urinary bladder. Question small bladder calculi. 2. No other major change in findings when compared to the previous examination. Electronically Signed: Gareth Mukherjee DO at 20:37 EDT Tel [phone], Service support ,
[2019-04-22 20:04] LABS: Absolute Lymphocyte Count 1.19 X10^3/uL (0.83-4.51); Absolute Neutrophil Count 5.9 X10^3/uL (2.0-7.7); Basophil# 0.03 X10^3/uL; Basophil% 0.4 % (0-1); Eosinophil# 0.02 X10^3/uL; Eosinophils% 0.3 % (0-5); Hemoglobin 11.7 g/dL (13.0-16.5); Lymphocyte # 1.19 X10^3/ul (4.0); Lymphocyte % 15.4 % (19-41); Mean Corp Hgb Conc 33.4 g/dL (32-36); Mean Corpuscular Hgb 31.6 pg (27.0-32.0); Mean Corpuscular Volume 94.6 fL (80-94); Mean Platelet Vol. 9.4 fl (6.2-12.0); Monocyte# 0.57 X10^3/uL; Monocyte% 7.4 % (0-10); NRBC Flagged by Analyzer 0 % (0-5); Neutrophil # 5.88 X10^3/uL (2.7-7.7); Neutrophil % 76.2 % (47-70); Platelet Count 197 K/mm3 (150-450); RBC Distribution Width CV 13.1 % (11.6-14.6); RBC Distribution Width SD 45.3 fl (35.1-43.9); White Blood Count 7.7 K/mm3 (4.4-11.0)
[2019-04-22 20:08] LABS: Partial Thromboplast Time 36.2 Seconds (24.1-36.2)
[2019-04-22 20:14] LABS: ALB/GLOB Ratio 1.1 RATIO (0.9-2.4); AST(SGOT) 23 U/L (15-37); Alanine Aminotransfer ALT/SGPT 24 U/L (16-61); Albumin, Serum 3.9 g/dL (3.2-5.0); Alkaline Phosphatase 93 U/L (45-117); Anion Gap 7 (5-15); BUN 25 mg/dL (7-18); BUN/Creat Ratio 33.1 RATIO (10-20); Calcium,Total 9.2 mg/dL (8.5-10.1); Chloride 98 mmol/L (98-107); Creatinine, Serum 0.76 mg/dL (0.70-1.30); EST Glomerular Filtration Rate 108 mL/min (>60); Est Glom Filt Rate - Afr Amer 131 mL/min (>60); Estimated Creatinine Clearance 71.78 ml/min; Globulin 3.7 g/dL (2.2-4.2); Glucose 88 mg/dL (74-106); Lipase 98 U/L (73-393); Potassium 4.1 mmol/L (3.5-5.1); Protein, Total 7.6 g/dL (6.4-8.2); Sodium Level 136 mmol/L (136-145)
[2019-04-22] MEDS: 0.9% Normal Saline 1,000 ML 1000 ML IV (20:27)
[2019-04-22 20:51] VITALS: BP 143/81; BP 153/81; BP 154/82; PULSE 66; PULSE 72; PULSE 76
--- NOTE | 2019-04-22 21:04 | ED.DCSUM_ITS ---
- ER Visit Summary Date of Service: 04/22/19 Chief Complaint: Black stool History of Present Illness: The patient is a [address] Hoyos. He has a history of an ulcer. Reports that 3 weeks ago his neurologist started him on an aspirin. States that yesterday he began having loose black stools. Reports that he is had this 3 times today. He reports that he has a sharp pain just inferior to his PEG tube that began today. It was 10 out of 10 at worst and 3 out of 10 currently. Is worsened by nothing. Is relieved by Percocet. Reports he had nausea, but this is resolved. He denies any vomiting. Physical Examination: Vitals: Stable. Afebrile. General: Well-nourished and well-developed. Head: Normocephalic atraumatic. Neck: Supple, no lymphadenopathy. No JVD. Nontender. Cardiovascular: Regular rate and rhythm. No murmurs. Respiratory: No respiratory distress. Clear to auscultation bilaterally. Abdominal: Soft, mild tenderness palpation just inferior to his PEG tube. This is approximately 2 cm area. nondistended, normal bowel sounds. No guarding, rebound, or peritoneal signs. Back: Nontender. Extremities: Nontender, no edema. Skin: Normal color, no rash. Neurologic: Alert and oriented ?3. Cranial nerves II through XII are intact. Normal strength and sensation. Psych: Normal affect. Test Results: CBC shows an H&H of 11.7 35.0. His hemoglobin on April 17 was 11.8. Segmented neutrophils 76 lymphocytes 15. Chem-7 shows a BUN of 25. Coags are normal. LFTs are normal. Lipase is normal. Clinical Impression(s) from Imaging Studies Abdomen/Pelvis CT 04/22/19 19:51 IMPRESSION: 1. Mildly high density material along the right dependent wall of the urinary bladder. Question small bladder calculi. 2. No other major change in findings when compared to the previous examination. Electronically Signed: Gareth Mukherjee DO at 20:37 EDT Tel [phone], Service support , Emergency Department Course and Treatment: Patient is resting comfortably. He has had no diarrhea while here. He was given a dose of Protonix IV. 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 He states that he is a very difficult endoscopy. At this time he has a stable upper GI bleed and is resting comfortably. I feel that he is a suitable candidate for further outpatient by evaluation. Patient was discussed with Dr. Small. He will have his omeprazole increased from 40 mg once a day to 40 mg twice a day and instructed to follow-up with Dr. Hoyos this week for another exam. Does understand that if he has worsening bleeding, chest pain, shortness of breath, lightheadedness, syncope, or any other concerns he can return to emerge department for further evaluation. Disposition: To home in improved and stable condition. Impression: 1. Stable upper GI bleed. This note was generated with [employer] dictation software. It may contain incorrect words, spelling, and punctuation that were not noted in review of the chart prior to signing ED Disposition - Plan for ED Patient: Disposition: Home or Assisted Living Instructions: GI BLEED, Upper (Stable) Referrals: Compa Hoyos MD [STAFF PHYSICIAN] - 3-5 Days Additional Instructions: Take 40 mg of omperazole twice a day until you see Dr. Hoyos.
[2019-04-22 21:37] VITALS: BP 133/65; PULSE 67; RESP 22; O2SAT 98
== END 2019-04-22 21:38 | disposition home or self-care (01) ==
PROVIDERS: Emergency Provider Emergency Medicine; Family Provider General Practice; PCP General Practice
DX: K92.2 Gastrointestinal hemorrhage, unspecified (principal); Z93.1 Gastrostomy status; I10 Essential (primary) hypertension; M54.9 Dorsalgia, unspecified; G89.29 Other chronic pain; Z85.819 Personal history of malignant neoplasm of unspecified site of lip, oral cavity, and pharynx; Z90.49 Acquired absence of other specified parts of digestive tract; Z79.899 Other long term (current) drug therapy; Z87.891 Personal history of nicotine dependence
CPT/HCPCS: 74176; 80053; 83690; 85025; 85610; 85730; 96361; 96365; 99285; J7030; A4216; J3490

== ENCOUNTER 2019-06-03 07:19 | Day surgery (SDC) | payer MEDICARE, SELFPAY ==
[2019-05-27 14:49] VITALS: BMI 21.4
[2019-06-03] VITALS (7 sets, daily range): BP systolic 94–151; BP diastolic 59–95; PULSE 65–72; RESP 14–16; TEMP 36.3–36.9; O2SAT 92–98; BMI 21.2
[2019-06-03] MEDS: Lactated Ringers 1,000 ML 100 ML IV (08:34)
--- NOTE | 2019-06-03 08:36 | PCM.HP.BLA ---
History and Physical Date of Admission: 06/03/19 [facility] [address] [place] [address] OFFICE VISIT Date of Service: 05/27/19 MR#: [id number] Acct: [id number] Name: YANNICK HARRINGTON Rep #: [id number] : 1945 Provider: Compa Hoyos MD Age/Sex: 73/M Location: [facility] Status: Signed Intake Vital Signs 05/27/19 Body Mass Index (BMI) 21.4 05/22/19 Body Mass Index (BMI) 21.4 Intake Visit Reasons: repeat egd Chief Complaint: ER f/u [facility] Required: No Is patient in pain?: Yes Allergies ciprofloxacin [From Cipro] Allergy (Verified 05/27/19 14:49) Itching diclofenac sodium [From Solaraze] Allergy (Verified 05/27/19 14:49) Anaphylaxis fluorouracil Allergy (Verified 05/27/19 14:49) Anaphylaxis methotrexate Allergy (Verified 05/27/19 14:49) Anaphylaxis Penicillins Allergy (Verified 05/27/19 14:49) Itching pentazocine lactate [From Talwin] Allergy (Verified 05/27/19 14:49) Other venom-honey bee [bee venom (honey bee)] Allergy (Verified 05/27/19 14:49) Anaphylaxis amlodipine Adverse Reaction (Verified 05/27/19 14:49) Nausea buspirone Adverse Reaction (Verified 05/27/19 14:49) Other ciprofloxacin HCl [From Cipro] Adverse Reaction (Verified 05/27/19 14:49) Pain in joints clonazepam [From Klonopin] Adverse Reaction (Verified 05/27/19 14:49) Other clonidine Adverse Reaction (Verified 05/27/19 14:49) Other NSAIDS (Non-Steroidal Anti-Inflamma Adverse Reaction (Verified 05/27/19 14:49) Upset Stomach promethazine Adverse Reaction (Verified 05/27/19 14:49) Other trazodone Adverse Reaction (Verified 05/27/19 14:49) Other SEAFOOD Adverse Reaction (Severe, Uncoded 05/27/19 14:49) Unknown Medications Epi Pen (for allergic rxn) 0.3 mg IM X1 PRN 09/22/14 [History Confirmed 05/27/19] Levothyroxine [Synthroid] 125 mcg PO DAILY 09/22/14 [History Confirmed 05/27/19] Acetaminophen [Pain Relief] 1,000 mg PO TID 11/22/16 [History Confirmed 05/27/19] Lisinopril [Zestril] 20 mg PO DAILY 02/15/17 [History Confirmed 05/27/19] MorphINE 0.0825 mg INTRATH CONT 09/03/17 [History Confirmed 05/27/19] Albuterol IH (ProAir) [Proair Hfa (SP)Vent Pts] 2 puff INHALATION DAILY PRN 11/21/17 [History Confirmed 05/27/19] Lactose-Reduced Food/Fiber [Jevity 1.2 Demetrius Liquid] 237 ml OTHER X1 04/12/18 [History Confirmed 05/27/19] omeprazole 40 mg capsule,delayed release 40 mg PO DAILY #30 cap 08/23/18 [Rx Confirmed 05/27/19] Oxycodone HCl/Acetaminophen [Oxycodone-Acetaminophen 5-325] 0.5 - 1 tab 04/22/19 [History Confirmed 05/27/19] [facility] Medical History Hypertension (Chronic) Hypothyroidism (Chronic) GERD (gastroesophageal reflux disease) (Chronic) Normocytic anemia (Chronic) Anxiety (Chronic) 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) Chronic hyponatremia (Chronic) Viral gastroenteritis (Acute) Chronic pain syndrome (Chronic) Rheumatoid arthritis (Chronic) History of pneumococcal pneumonia (Acute) History of throat cancer (Acute) Hyponatremia (Acute) Leukocytosis (Acute) pain pump (Acute) Surgical History History of appendectomy (Acute) History of colonoscopy (Acute) History of esophagogastroduodenoscopy (EGD) (Acute ~01/17/18) History of laminectomy (Acute) History of rhinoplasty (Acute) History of tonsillectomy and adenoidectomy (Acute) S/P percutaneous endoscopic gastrostomy (PEG) tube placement (Acute) Social History (Updated 05/30/19 @ 11:52 by Compa Hoyos MD) Smoking Status: Former smoker alcohol intake: never HPI HPI HPI: YANNICK JUANY, is a 73 M who presents to the office today for HPI HPI Surgical H&P: Yes HPI: YANNICK HARRINGTON, is a 73 M who presents to the office today for Evaluation of epigastric abdominal pain pain seems to be worse at night when his stomach is empty. It does not appear to be related to his meds. He has had a very complicated past medical history is in the Process of being evaluated by neurologist and/or a pain specialist with regards to his discomfort. I have scoped him in the pastSecondary to him having episodes of black stool. He has been on omeprazole 40 mg twice daily but his drop down to once a day now. Given the fact that his discomfort has increased in nature I think it is important for us to reevaluate his stomach to make sure that there is absolutely no pathology going in there so that the neurologist and/or pain specialist can treat him effectively. ROS General General: Yes weight change and fatigue; no appetite, colon cancer, breast cancer or weakness HEENT HEENT: Yes difficulty swallowing; no eye injury, eye surgery, swollen glands or hoarseness Endo Endocrine: Yes thyroid disease; no diabetes mellitus, thyroid cancer, Hair loss, heat intolerance or cold intolerance Skin Skin: No rash or changing moles Breast Breast: No left breast lump, right breast lump, nipple discharge, breast pain, abnormal mammogram, abnormal US or breast enlargement Musc Musculoskeletal: Yes back problems and arthritis; no rheumatoid arthritis, gout or joint pain Cardio Cardiovascular: Yes high blood pressure; no murmur, pacemaker, heart disease, atrial fibrillation, heart attack, heart stent, palpitations, shortness of breat with exertion or chest pain Psych Psychiatric: Yes anxiety; no depression or hearing voices Resp Respiratory: Yes shortness of breath, No sleep apnea, No cough, No COPD, No asthma, No emphysema, No wheezing Gastro Gastrointestinal: Yes abdominal pain, Yes nausea or vomiting, No diarrhea, Yes constipation, Yes blood in stool, No acid reflux, No hemorrhoids, Yes ulcers, Yes gallbladder problem, No black,tarry stools Aleksandr Hematologic: No blood thinners, No blood disorders, No bleeding, No anemia, No blood clots Neuro Neurologic: No weakness Exam Const General: no acute distress, well developed, well hydrated Orientation: oriented to person, oriented to place, oriented to time [facility] Head: normocephalic, atraumatic Ears: external ears normal Mouth: moist mucous membranes Eyes Sclera: sclerae normal Pupils: normal by confrontation Neck Neck: no lymphadenopathy noted Neck mass: No Thyroid: thyroid normal, symmetrical Chest Chest palpation & inspection: normal inspection of the chest Breast Palpation: No nipple discharge Resp Effort & Inspection: normal respiratory effort Auscultation: clear to auscultation bilaterally Percussion: percussion normal Cardio Rate: regular rate Rhythm: regular rhythm Heart Sounds: no murmurs GI Palpation: soft, no hepatosplenomegaly, no masses, nontender Rectal Exam: other Other: Rectal exam deferred. PEG tube is in place and working well. Extrem General: normal to inspection, no clubbing, cyanosis or edema Assessment & Plan Problems 1. Epigastric abdominal pain R10.13 Plan I have discussed the above with the patient. I have offered the patient esophagogastroduodenoscopy for evaluation. I have explained the risks/benefits of the procedure and described the procedure. I have discussed the risks with the patient, including but not limited to: infection, bleeding, perforation of the GI tract requiring emergency surgery, inability to complete the procedure, injury to any internal organs, complications of anesthesia, etc. - the patient understands and agrees to proceed. I have answered all the patient's questions to the patient's satisfaction and the patient has no further questions. The patient has been given instructions for the colon cleansing preparation. Coding Level of Care Code Off vis,est,level 3 Diagnoses Epigastric abdominal pain R10.13 05/30/19 1152 <Electronically signed by Compa Hoyos MD> Date Compa Hoyos MD Cosigner Signature: Date (if applicable) CC: ~ I have re-examined the patient. There are no clinical changes since date of exam.
--- NOTE | 2019-06-03 08:50 | OP.ENDO_ITS ---
06/03/2019 Tere Perdue Md Re : Upper GI endoscopy procedure for [place] This procedure was performed on Monday, June 03, 2019. My impressions and recommendations are as follows: Impressions : - Z-line regular, 40 cm from the incisors. No specimens collected. - Small hiatal hernia. - Normal stomach. No specimens collected. - Normal examined duodenum. No specimens collected. Recommendations : - Discharge patient to home. - Resume previous diet. - Continue present medications. - Repeat upper endoscopy (date not yet determined) for surveillance. - Return to primary care physician PRN. My findings are described in the full procedure note, which is enclosed. If I can be of further assistance, please feel free to contact me at Doctor phone number(s): , Fax: [phone], Work: . Sincerely, MD Compa Conway MD 06/03/2019 8:50:25 AM This report has been signed electronically.
== END 2019-06-03 09:36 | disposition home or self-care (01) ==
LOC: EN 07:20 → AC 07:22
PROVIDERS: Family Provider General Practice; PCP General Practice; Referring Provider General Practice; Visit Provider Surgery
PROC: 0DJ08ZZ Inspection of Upper Intestinal Tract, Via Natural or Artificial Opening Endoscopic (ICD-10-PCS; CPT 43235; principal; 2019-06-03 08:10)
DX: K44.9 Diaphragmatic hernia without obstruction or gangrene (principal); I10 Essential (primary) hypertension; E03.9 Hypothyroidism, unspecified; K21.9 Gastro-esophageal reflux disease without esophagitis; M46.96 Unspecified inflammatory spondylopathy, lumbar region; G89.4 Chronic pain syndrome; F41.9 Anxiety disorder, unspecified; M06.9 Rheumatoid arthritis, unspecified; Z85.818 Personal history of malignant neoplasm of other sites of lip, oral cavity, and pharynx; Z86.2 Personal history of diseases of the blood and blood-forming organs and certain disorders involving the immune mechanism; Z87.01 Personal history of pneumonia (recurrent); Z87.19 Personal history of other diseases of the digestive system; Z79.899 Other long term (current) drug therapy; Z87.891 Personal history of nicotine dependence
CPT/HCPCS: 43235; J7120; J2405

== ENCOUNTER → 2020-04-13 09:57 | Outpatient (CLI) | payer MEDICARE, SELFPAY ==
[2019-06-03 07:58] VITALS: BMI 21.2
[2020-04-13 10:20] LABS: Absolute Lymphocyte Count 1.04 X10^3/uL (0.83-4.51); Absolute Neutrophil Count 5.2 X10^3/uL (2.0-7.7); Basophil# 0.03 X10^3/uL; Basophil% 0.4 % (0-1); Eosinophil# 0.16 X10^3/uL; Eosinophils% 2.3 % (0-5); Hematocrit 38.8 % (40-54); Hemoglobin 12.4 g/dL (13.0-16.5); Lymphocyte # 1.04 X10^3/ul (4.0); Lymphocyte % 14.7 % (19-41); Mean Corpuscular Hgb 31.3 pg (27.0-32.0); Mean Platelet Vol. 9.5 fl (6.2-12.0); Monocyte# 0.61 X10^3/uL; Monocyte% 8.6 % (0-10); NRBC Flagged by Analyzer 0 % (0-5); Neutrophil # 5.23 X10^3/uL (2.7-7.7); Neutrophil % 73.9 % (47-70); Platelet Count 214 K/mm3 (150-450); RBC Distribution Width CV 13.9 % (11.6-14.6); RBC Distribution Width SD 50.7 fl (35.1-43.9); Red Blood Count 3.96 M/mm3 (4.6-6.2); White Blood Count 7.1 K/mm3 (4.4-11.0)
[2020-04-13 10:43] LABS: ALB/GLOB Ratio 1.1 RATIO (0.9-2.4); AST(SGOT) 24 U/L (15-37); Alanine Aminotransfer ALT/SGPT 37 U/L (16-61); Alkaline Phosphatase 117 U/L (45-117); Anion Gap 4 (5-15); BUN 26 mg/dL (7-18); Calcium,Total 9.1 mg/dL (8.5-10.1); Chloride 100 mmol/L (98-107); Creatinine, Serum 0.84 mg/dL (0.70-1.30); EST Glomerular Filtration Rate 95 mL/min (>60); Est Glom Filt Rate - Afr Amer 115 mL/min (>60); Globulin 3.7 g/dL (2.2-4.2); Glucose 97 mg/dL (74-106); LDH 82 U/L (87-241); Potassium 4.5 mmol/L (3.5-5.1); Protein, Total 7.7 g/dL (6.4-8.2); Sodium Level 135 mmol/L (136-145); Thyroid Stim Hormone (TSH) 4.91 uIU/mL (0.358-3.74)
[2020-04-13 18:16] LABS: Xtra Tube EP Lab EXTRA TUBE
== END ==
PROVIDERS: PCP General Practice; Referring Provider Internal Medicine Medical Oncology; Visit Provider Internal Medicine Medical Oncology
DX: Z85.819 Personal history of malignant neoplasm of unspecified site of lip, oral cavity, and pharynx (principal)
CPT/HCPCS: 36415; 80053; 83615; 84439; 84443; 85025

== ENCOUNTER 2020-10-15 07:06 | Outpatient (RCR) | payer MEDICARE, SELFPAY ==
[2020-10-15] MEDS: COVID-19 VACC, MRNA(PFIZER)/PF 30 MCG/0.3 ML SYRINGE IM (11:33)
[2020-11-05] MEDS: COVID-19 VACC, MRNA(PFIZER)/PF 30 MCG/0.3 ML SYRINGE IM (10:57)
== END 2020-10-15 23:59 ==
LOC: IMMUN 07:06
PROVIDERS: PCP Family Medicine Sports Medicine; Referring Provider Family Medicine; Visit Provider Family Medicine
DX: Z23 Encounter for immunization (principal)
CPT/HCPCS: 0001A; 0002A

== ENCOUNTER → 2021-04-05 12:02 | Outpatient (CLI) | payer MEDICARE, MEDICAID, SELFPAY ==
--- NOTE | 2021-04-05 12:21 | RAD_ITS ---
STUDY: X-RAY - THORACIC SPINE REASON FOR EXAM: Male, 75 years old. BACK PAIN TECHNIQUE: 3 view(s) of the thoracic spine were obtained. COMPARISON: None. FINDINGS: There is an increase in the normal thoracic kyphosis. Minimal scoliosis with convexity to the right. There is demineralization of the thoracic spine with endplate spondylosis. There is multilevel disc space narrowing of the thoracic spine. No distinct fracture. The soft tissue structures are unremarkable. RAD/Thoracic Spine 3 Views IMPRESSION: Diffuse osteopenia along with degenerative disease as described. No acute fracture or subluxation. Electronically Signed: Alanna Escobar MD at 2:08 EDT , Service support ,
== END ==
PROVIDERS: PCP Family Medicine Sports Medicine; Referring Provider Anesthesiology Pain Medicine; Visit Provider Anesthesiology Pain Medicine
DX: M54.9 Dorsalgia, unspecified (principal)
CPT/HCPCS: 72072

== ENCOUNTER 2022-12-07 21:43 | Emergency (ER) | payer MEDICARE, MEDICAID, SELFPAY ==
[2022-12-07 21:46] VITALS: BP 120/60; PULSE 88; RESP 16; TEMP 37.6; O2SAT 87; BMI 16.7
[2022-12-07 21:51] VITALS: O2SAT 87
--- NOTE | 2022-12-07 22:12 | ED.RN ---
PT O2 SATS 87% ON ROOM AIR. 2L O2 APPLIED VIA NC. O2 SATS ONLY INCREASE TO 89%. 02 INCREASED TO 4L. SATS INCREASED TO 92%
[2022-12-07 22:44] VITALS: RESP 20
[2022-12-07 22:57] VITALS: PULSE 78; RESP 22
[2022-12-07] MEDS: Sodium Chloride 3% 500 ML IV.SOLN. INHALATION (22:57)
--- NOTE | 2022-12-07 23:00 | EKG12_ITS ---
Test Reason : DYSRHYTHMIA Blood Pressure : / mmHG Vent. Rate : 088 BPM Atrial Rate : 088 BPM P-R Int : 146 ms QRS Dur : 074 ms QT Int : 340 ms P-R-T Axes : 070 -26 055 degrees QTc Int : 411 ms Normal sinus rhythm Normal ECG Confirmed by SARITA BATES, EMMETT ([id number]), senior editor LILLIE ELLER ([id number]) on 12/09/2022 8:17:51 AM Referred By: OSITO Confirmed By:EMMETT STEIN MD
[2022-12-07 23:44] VITALS: BP 131/64
[2022-12-08] VITALS: RESP 16
--- NOTE | 2022-12-08 00:35 | EX.ED.DYSGE1 ---
HPI History of Present Illness Chief Complaint: Shortness of Breath Narrative Narrative: Patient is a 77-year-old male with past medical history of rheumatoid arthritis and chronic pain syndrome as well as aspiration pneumonia. He reports roughly 2 weeks ago he was admitted to [facility] secondary to pneumonia. He reports he was treated with antibiotics and then discharged 6 days ago to the assisted. He states that because of his recent diagnosis of pneumonia and past medical history he will cough often and typically bring up sputum. According to assisted he had a coughing spell prior to arrival that brought up purulent sputum and his pulse ox dipped to 87%. He states he has not required any type of supplemental oxygen at baseline but because of his drop in pulse ox the nursing was concerned and sent him to the hospital for evaluation [facility] Medical History (Updated 12/08/22 @ 02:[address] Tae Gee, ) Anxiety Arthropathy of lumbar facet joint Chronic hyponatremia Chronic pain syndrome GERD (gastroesophageal reflux disease) history of malignant tumor of oropharynx History of pneumococcal pneumonia History of throat cancer Hypertension Hyponatremia Hypothyroidism Leukocytosis Normocytic anemia pain pump Rheumatoid arthritis Viral gastroenteritis Home Medications levothyroxine 125 mcg tablet 125 mcg GT DAILY 09/22/14 [History Last Taken 02/21/18 03:00 125 mcg] acetaminophen 500 mg tablet 1,000 mg GT TID PAIN 11/22/16 [History Last Taken 02/21/18 04:00] lisinopril 10 mg tablet 20 mg GT DAILY 02/15/17 [History Last Taken 06/03/19 06:00 10 mg] MorphINE 0.86 ml intrathecal CONT 09/03/17 [History Last Taken 11/24/17] lactose-reduced food with fiber 0.06 gram-1.2 kcal/mL oral liquid 237 ml GT Q4H 04/12/18 [History Last Taken Unknown] [place]'s wort 300 mg capsule 300 mg GT BID 05/31/19 [History Last Taken Unknown] clonazepam 0.5 mg tablet 0.5 mg GT Q4H PRN PRN Anxiety 05/31/19 [History Last Taken Unknown] tramadol 50 mg tablet 50 mg GT Q4H PRN PRN Pain Or Fever 05/31/19 [History Last Taken Unknown] turmeric root extract 500 mg capsule 700 mg GT DAILY 05/31/19 [History Last Taken Unknown] omeprazole 40 mg capsule,delayed release See Rx Instructions .Route .COMPLEX #30 caps 10/19/20 [Rx Last Taken Unknown] doxycycline monohydrate 25 mg/5 mL oral suspension 20 ml feeding tube BID 7 days #280 mL 12/08/22 [Rx Last Taken Unknown] Allergy/AdvReac Type Severity Reaction Status Date / Time Fish Containing Products Allergy Severe NEEDS Verified 12/07/22 21:44 FOLLOW-UP shellfish derived Allergy Severe NEEDS Verified 12/07/22 21:44 FOLLOW-UP ciprofloxacin [From Cipro] Allergy Itching Verified 12/07/22 21:44 diclofenac sodium Allergy Anaphylaxis Verified 12/07/22 21:44 [From Solaraze] fluorouracil Allergy Anaphylaxis Verified 12/07/22 21:44 methotrexate Allergy Anaphylaxis Verified 12/07/22 21:44 Penicillins Allergy Itching Verified 12/07/22 21:44 pentazocine lactate Allergy Other Verified 12/07/22 21:44 [From Talwin] venom-honey bee Allergy Anaphylaxis Verified 12/07/22 21:44 [bee venom (honey bee)] amlodipine AdvReac Nausea Verified 12/07/22 21:44 buspirone AdvReac Other Verified 12/07/22 21:44 ciprofloxacin HCl AdvReac Pain in Verified 12/07/22 21:44 [From Cipro] joints clonidine AdvReac Other Verified 12/07/22 21:44 NSAIDS (Non-Steroidal AdvReac Upset Verified 12/07/22 21:44 Anti-Inflamma Stomach promethazine AdvReac Other Verified 12/07/22 21:44 trazodone AdvReac Other Verified 12/07/22 21:44 Surgical History History of appendectomy History of colonoscopy History of esophagogastroduodenoscopy (EGD) (~01/17/18) History of laminectomy History of rhinoplasty History of tonsillectomy and adenoidectomy S/P percutaneous endoscopic gastrostomy (PEG) tube placement Social History (Updated 07/30/20 @ 17:[address] Compa Hoyos MD) Smoking Status: Former smoker alcohol intake: never ROS ROS ED Constitutional Constitutional ED: Denies chills or fever(s) ENT ENT ED: Reports rhinorrhea; Denies sore throat Cardiovascular Cardiovascular: Denies chest pain Respiratory/Chest Respiratory/Chest: Reports cough; Denies dyspnea Gastrointestinal Gastrointestinal: Denies abdominal pain, diarrhea, nausea or vomiting Genitourinary Genitourinary ED: Denies dysuria Musculoskeletal Musculoskeletal: Reports back pain Integumentary Denies rash Neurologic Neurologic: Denies headache(s) Hematologic/Lymphatic Hematologic/Lymphatic: Denies easy bleeding or easy bruising EXAM Physical Exam Const Vital Signs: 12/07/22 21:46 12/07/22 21:51 12/07/22 22:57 Temperature 99.6 F H Temperature Source Oral Pulse Rate 88 78 Respiratory Rate 16 22 H Respiratory Effort Short of Breath Respiratory Depth Normal Respiratory Pattern Normal Tachypnea Blood Pressure 120/60 Blood Pressure Mean 80 Pulse Ox 87 Oxygen Delivery Method Room Air Room Air 12/07/22 22:44 12/07/22 23:44 12/08/22 00:00 Temperature Temperature Source Pulse Rate Respiratory Rate 20 H 16 Respiratory Effort Respiratory Depth Respiratory Pattern Blood Pressure 131/64 H Blood Pressure Mean 86 Pulse Ox Oxygen Delivery Method Positive cachectic General Appearance ED: cachectic Nutritional Appearance: cachectic HEENT Reports dry mucous membranes HEENT Narrative: Cobblestoning the posterior pharynx consistent with sinus drainage without airway edema or compromise. No tongue or lip swelling noted Mouth ED: Yes dry mucous membranes Mouth: dry mucous membranes Eyes PERRL and EOMs intact bilaterally Neck supple and no JVD Chest Wall palpation of chest normal Chest Narrative: No bony deformity or crepitance Resp Resp Narrative: Breath sounds are diminished throughout with faint rhonchi in the bilateral bases but otherwise no nasal flaring retractions tachypnea or accessory muscle use Cardio regular rate and regular rhythm GI normal to inspection, nondistended, normoactive bowel sounds, non-tender, non-distended and no masses GI Narrative: PEG tube in place without secondary soft tissue changes to suggest infection. No voluntary guarding or rigidity. No pulsatile mass or fluid wave Auscultation: normoactive bowel sounds Palpation: soft Extremity normal to inspection Extremity Narrative: No asymmetric edema no pitting edema negative Homans' sign bilaterally Neuro oriented x3 and CN's II-XII intact bilaterally Sensorium / Orientation: alert Psych mental status grossly normal Skin no rashes or lesions noted MDM MDM MDM Narrative Medical decision making narrative: Patient presented to the ER in no acute respiratory distress satting 87 to 90% on room air. Despite this he was in no acute respiratory distress and was able to speak in full sentences. He has known pneumonia from his recent admission at [facility] and he also reports that productive sputum is normal for him. At this time as he is in no respiratory distress and has known pneumonia I do not believe it is necessary to repeat a chest x-ray as it will typically take 4 to 6 weeks to have resolution. The patient was given a nebulized saline treatment to help induce coughing and sputum production. Following this the patient was able to cough multiple purulent secretions up. However despite doing this he remained in no respiratory distress and his pulse ox was in the low 90s. At this time patient is not requiring supplemental oxygen his baseline pulse ox is approximately 90 to 92% at rest. He is in no respiratory distress and has not any dyspnea with speech. Therefore I feel he is safe to return to the assisted but will add antibiotics through the PEG tube based on his history of aspiration and recent pneumonia. This plan of care was discussed with the patient and he is agreeable to it History & Record Review Discussion w/independent historian: EMS personnel and Patient Discharge Plan Triage Chief Complaint: Shortness of Breath Other Complaint: Chest Pain ED Provider: Tae Gee Dx/Rx/DC Orders Clinical Impression: Cough productive of purulent sputum, History of pneumonia, Chronic pain syndrome, History of oropharyngeal cancer Instructions: ED Pneumonia (Adult) Prescriptions: New doxycycline monohydrate 25 mg/5 mL suspension for reconstitution 20 ml feeding tube BID 7 Days Qty: 280 0RF No Action levothyroxine 125 MCG tablet 125 mcg GT DAILY Label Comments: THYROID acetaminophen 500 MG tablet 1,000 mg GT TID lactose-reduced food with fibr 237 ML liquid 237 ml GT Q4H Label Comments: per pt takes q3hrs to make a total of 6 times a day. lisinopril 10 MG tablet 20 mg GT DAILY Rx Instructions: took 10 mg MorphINE 0.86 ml INTRATH CONT Label Comments: .074 MG CONTINUOUS VIA INTRATHECAL PAIN PUMP IN SPINAL CORD. clonazepam 0.5 MG tablet 0.5 mg GT Q4H PRN PRN (Reason: Anxiety) tramadol 50 MG tablet 50 mg GT Q4H PRN PRN (Reason: Pain Or Fever) [place]'s wort 300 MG capsule 300 mg GT BID turmeric root extract 500 MG capsule 700 mg GT DAILY omeprazole 40 mg capsule,delayed release(DR/EC) See Rx Instructions .ROUTE .COMPLEX Qty: 30 0RF Dose Instruction: take 1 capsule by mouth once daily Rx Instructions: take 1 capsule by mouth once daily Primary Care Provider: Amanda Landin Referrals: Amanda Landin MD [Primary Care Provider] - Activity Restrictions/Additional Instructions: The patient has not been hypoxic in the ER and he does not require any supplemental oxygen. He has no pneumonia from his time at the [facility] this will cause him to cough and bring up purulent sputum. Occasionally he may have difficulty clearing the sputum which can lead to transient drop in his pulse ox. Please place him on 2 to 6 L nasal cannula oxygen as needed for an SPO2 less than 90%. Start antibiotics secondary to his persistent pneumonia. However he is not in distress and is not showing signs of sepsis and does not need placed in the hospital Disposition Disposition: Home, Self Care Discharge Date/Time: 12/08/22 01:09
== END 2022-12-08 01:09 | disposition home or self-care (01) ==
PROVIDERS: Emergency Provider Emergency Medicine; PCP Family Medicine Sports Medicine; Visit Provider Emergency Medicine
DX: R05.8 Other specified cough (principal); Z93.1 Gastrostomy status; I10 Essential (primary) hypertension; Z87.891 Personal history of nicotine dependence; R09.3 Abnormal sputum; Z85.819 Personal history of malignant neoplasm of unspecified site of lip, oral cavity, and pharynx; J18.9 Pneumonia, unspecified organism; E03.9 Hypothyroidism, unspecified; Z79.899 Other long term (current) drug therapy; F41.9 Anxiety disorder, unspecified; K21.9 Gastro-esophageal reflux disease without esophagitis; G89.4 Chronic pain syndrome
CPT/HCPCS: 93005; 94640; 99285

== ENCOUNTER 2022-12-10 04:46 | Emergency (ER) | payer MEDICARE, MEDICAID, SELFPAY ==
[2022-12-10 04:48] VITALS: BP 111/53; PULSE 64; RESP 16; TEMP 36.7; O2SAT 92; BMI 16.3
[2022-12-10 05:45] VITALS: BP 122/56; PULSE 63; RESP 16; O2SAT 94
--- NOTE | 2022-12-10 05:45 | RAD_ITS ---
INDICATION: cough EXAMINATION/TECHNIQUE: X-RAY - XR Chest 1 View COMPARISON: FINDINGS: LINES/DEVICES: None. LUNGS: Patchy groundglass opacities in both lungs more prominent in The lung suggesting bilateral pneumonia. MEDIASTINUM AND CARDIOVASCULAR STRUCTURES: Cardiac silhouette not enlarged. Central airways and mediastinal contour are unremarkable. BONES AND SOFT TISSUES: Unremarkable. RAD/Chest 1 View (Portable) IMPRESSION: Patchy bilateral pneumonia. Electronically Signed: Ariadne Colindres MD at 6:31 EDT ,
[2022-12-10 05:49] LABS: Absolute Lymphocyte Count 0.57 X10^3/uL (0.83-4.51); Absolute Neutrophil Count 5.7 X10^3/uL (2.0-7.7); Basophil# 0.03 X10^3/uL; Basophil% 0.4 % (0-1); Eosinophil# 0.01 X10^3/uL; Eosinophils% 0.1 % (0-5); Hematocrit 28.3 % (40-54); Hemoglobin 8.9 g/dL (13.0-16.5); Lymphocyte # 0.57 X10^3/ul (0.83-4.51); Lymphocyte % 8.2 % (19-41); Mean Corp Hgb Conc 31.4 g/dL (32-36); Mean Corpuscular Hgb 29.3 pg (27.0-32.0); Mean Corpuscular Volume 93.1 fL (80-94); Mean Platelet Vol. 9.1 fl (6.2-12.0); Monocyte# 0.63 X10^3/uL; NRBC Flagged by Analyzer 0 % (0-5); Neutrophil # 5.68 X10^3/uL (2.7-7.7); Neutrophil % 81.3 % (47-70); POSITIVE DIFFERENTIAL YES; Platelet Count 243 K/mm3 (150-450); RBC Distribution Width CV 14.9 % (11.6-14.6); RBC Distribution Width SD 51.2 fl (35.1-43.9); Red Blood Count 3.04 M/mm3 (4.6-6.2)
[2022-12-10 05:52] LABS: Differential Indicated SCAN CRITERIA MET
[2022-12-10 06:06] LABS: Anion Gap 6 (5-15); BUN 48 mg/dL (7-18); BUN/Creat Ratio 90.9 RATIO (10-20); Calcium,Total 9.1 mg/dL (8.5-10.1); Chloride 101 mmol/L (98-107); Creatinine, Serum 0.53 mg/dL (0.70-1.30); EST Glomerular Filtration Rate 161 mL/min (>60); Est Glom Filt Rate - Afr Amer 195 mL/min (>60); Estimated Creatinine Clearance 52.71 ml/min; Glucose 109 mg/dL (74-106); Magnesium 1.9 mg/dL (1.6-2.6); Potassium 3.8 mmol/L (3.5-5.1); Sodium Level 134 mmol/L (136-145)
[2022-12-10 06:34] LABS: Differential Comment SCANNED; Hypochromasia 1+
[2022-12-10 07:05] VITALS: BP 113/50; PULSE 61; RESP 20; O2SAT 96
--- NOTE | 2022-12-10 07:11 | EDS_ITS ---
HPI History of Present Illness Chief Complaint: Fatigue Narrative Narrative: Patient is a 77-year-old male from the [facility] with history of hypertension hypothyroidism chronic hyponatremia and chronic pain. He was recently sent to the [facility] secondary to pneumonia and difficulty caring for himself. Patient states that the [facility] is not caring for him the way they should be. He states they are not giving him his medications the way he they should be. He states he would feel better in the hospital and felt like he was being neglected and therefore he asked for EMS to bring him into the hospital for evaluation [facility] Medical History (Updated 12/10/22 @ 07:[address] Tae Gee, DO) Anxiety Arthropathy of lumbar facet joint Chronic hyponatremia Chronic pain syndrome GERD (gastroesophageal reflux disease) history of malignant tumor of oropharynx History of pneumococcal pneumonia History of throat cancer Hypertension Hyponatremia Hypothyroidism Leukocytosis Normocytic anemia pain pump Rheumatoid arthritis Viral gastroenteritis Home Medications levothyroxine 125 mcg tablet 137 mcg GT DAILY 09/22/14 [History Last Taken 02/21/18 03:00 125 mcg] acetaminophen 500 mg tablet 1,000 mg GT TID PAIN 11/22/16 [History Last Taken 02/21/18 04:00] lisinopril 10 mg tablet 20 mg GT DAILY 02/15/17 [History Last Taken 06/03/19 06:00 10 mg] MorphINE 0.86 ml intrathecal CONT 09/03/17 [History Last Taken 11/24/17] lactose-reduced food with fiber 0.06 gram-1.2 kcal/mL oral liquid 237 ml GT Q4H 04/12/18 [History Last Taken Unknown] [place]'s wort 300 mg capsule 300 mg GT BID 05/31/19 [History Last Taken Unknown] clonazepam 0.5 mg tablet 0.5 mg GT Q4H PRN PRN Anxiety 05/31/19 [History Last Taken Unknown] tramadol 50 mg tablet 50 mg GT Q4H PRN PRN Pain Or Fever 05/31/19 [History Last Taken Unknown] turmeric root extract 500 mg capsule 700 mg GT DAILY 05/31/19 [History Last Taken Unknown] omeprazole 40 mg capsule,delayed release See Rx Instructions .Route .COMPLEX #30 caps 10/19/20 [Rx Last Taken Unknown] doxycycline monohydrate 25 mg/5 mL oral suspension 20 ml feeding tube BID 7 days #280 mL 12/08/22 [Rx Last Taken Unknown] albuterol sulfate 2.5 mg/3 mL (0.083 %) solution for nebulization 2.5 mg inhalation BID 12/10/22 [History Last Taken Unknown] sertraline 100 mg tablet 100 mg feeding tube DAILY 12/10/22 [History Last Taken Unknown] Allergy/AdvReac Type Severity Reaction Status Date / Time Fish Containing Products Allergy Severe NEEDS Verified 12/07/22 21:44 FOLLOW-UP shellfish derived Allergy Severe NEEDS Verified 12/07/22 21:44 FOLLOW-UP ciprofloxacin [From Cipro] Allergy Itching Verified 12/07/22 21:44 diclofenac sodium Allergy Anaphylaxis Verified 12/07/22 21:44 [From Solaraze] fluorouracil Allergy Anaphylaxis Verified 12/07/22 21:44 methotrexate Allergy Anaphylaxis Verified 12/07/22 21:44 Penicillins Allergy Itching Verified 12/07/22 21:44 pentazocine lactate Allergy Other Verified 12/07/22 21:44 [From Talwin] venom-honey bee Allergy Anaphylaxis Verified 12/07/22 21:44 [bee venom (honey bee)] amlodipine AdvReac Nausea Verified 12/07/22 21:44 buspirone AdvReac Other Verified 12/07/22 21:44 ciprofloxacin HCl AdvReac Pain in Verified 12/07/22 21:44 [From Cipro] joints clonidine AdvReac Other Verified 12/07/22 21:44 NSAIDS (Non-Steroidal AdvReac Upset Verified 12/07/22 21:44 Anti-Inflamma Stomach promethazine AdvReac Other Verified 12/07/22 21:44 trazodone AdvReac Other Verified 12/07/22 21:44 Surgical History History of appendectomy History of colonoscopy History of esophagogastroduodenoscopy (EGD) (~01/17/18) History of laminectomy History of rhinoplasty History of tonsillectomy and adenoidectomy S/P percutaneous endoscopic gastrostomy (PEG) tube placement Social History (Updated 07/30/20 @ 17:[address] Compa Hoyos MD) Smoking Status: Former smoker alcohol intake: never ROS ROS ED Constitutional Constitutional ED: Reports fever(s); Denies chills ENT ENT ED: Reports rhinorrhea and sore throat Cardiovascular Cardiovascular: Denies chest pain Respiratory/Chest Respiratory/Chest: Reports cough; Denies dyspnea Gastrointestinal Gastrointestinal: Denies abdominal pain, diarrhea, nausea or vomiting Genitourinary Genitourinary ED: Denies dysuria Musculoskeletal Musculoskeletal: Reports back pain Integumentary Denies rash Neurologic Neurologic: Denies headache(s) Hematologic/Lymphatic Hematologic/Lymphatic: Denies easy bleeding or easy bruising EXAM Physical Exam Const Vital Signs: 12/10/22 04:48 12/10/22 05:45 12/10/22 07:05 Temperature 98.1 F Temperature Source Temporal Pulse Rate 64 63 61 Respiratory Rate 16 16 20 H Blood Pressure 111/53 L 122/56 H 113/50 L Blood Pressure Mean 72 78 71 Pulse Ox 92 94 96 Oxygen Delivery Method Room Air Room Air Room Air 12/10/22 08:05 Temperature Temperature Source Pulse Rate 61 Respiratory Rate 18 Blood Pressure 119/52 L Blood Pressure Mean Pulse Ox 93 Oxygen Delivery Method Positive well nourished and well developed General Appearance ED: well developed HEENT Reports moist mucous membranes HEENT Narrative: Cobblestoning noted in the posterior pharynx consistent with sinus drainage but no tongue or lip swelling no oral lesions no airway edema or compromise. No secondary changes to suggest infection Eyes PERRL and EOMs intact bilaterally Neck supple and no JVD Chest Wall palpation of chest normal Resp normal respiratory effort Resp Narrative: Breath sounds are diminished throughout with faint rhonchi in the bilateral bases greatest on the right. However there is no nasal flaring retractions tachypnea or accessory muscle use Cardio regular rate and regular rhythm GI normal to inspection, nondistended, normoactive bowel sounds, non-tender, non- distended and no masses GI Narrative: PEG tube in place without surrounding secondary soft tissue changes to suggest infection Auscultation: normoactive bowel sounds Palpation: soft Narrative: Normal circumcised male without blood or discharge from the urethral meatus no testicular masses or swelling noted no overlying soft tissue changes to suggest Nalini's gangrene. Extremity normal to inspection Extremity Narrative: Patient has chronic weakness of the left lower leg but overall there is no bony deformity or joint effusion or asymmetric swelling and negative Homans' sign bilaterally Neuro oriented x3 and CN's II-XII intact bilaterally Neuro Narrative: Patient has chronic weakness of the left lower leg secondary to spinal cord derangement which is chronic in nature Sensorium / Orientation: alert Psych mental status grossly normal Skin no rashes or lesions noted Skin Narrative: Skin is pale in color but capillary refills less than 3 seconds MDM MDM MDM Narrative Medical decision making narrative: Patient presented to the ER afebrile and normotensive and he had normal work of breathing with a pulse ox in the low to mid 90s on room air. He has known pneumonia and is currently on doxycycline. His reason for coming today seems to be more of a frustration over his care versus worsening infection. However with concern for worsening pneumonia leading to sepsis or acute kidney injury or severe derangement to his electrolytes and elected perform a basic work-up along with chest x-ray. Chest x-ray confirmed pneumonia for which she is currently on. Labs showed hemoglobin of 9 which is down from previous value of 11 but it is above a transfusion value and he is hemodynamically stable as his blood pressure is normotensive and heart rate is normal as well and therefore there is no need for transfusion or further evaluation. At this time he does not show signs of septicemia acute kidney injury or need for transfusion and he is not requiring supplemental oxygen. Therefore there is no reason to admit him to the hospital and he can continue to treat his pneumonia on an outpatient basis. History & Record Review Discussion w/independent historian: EMS personnel and Patient Lab Data Labs: Laboratory Results - last 24 hr 12/10/22 12/10/22 05:40 05:40 WBC 7.0 RBC 3.04 L Hgb 8.9 L Hct 28.3 L MCV 93.1 MCH 29.3 MCHC 31.4 L RDW Std Deviation 51.2 H RDW Coeff of Gina 14.9 H Plt Count 243 MPV 9.1 Immature Gran % (Auto) 1.000 H Neut % (Auto) 81.3 H Lymph % (Auto) 8.2 L Ramsey % (Auto) 9.0 Eos % (Auto) 0.1 Baso % (Auto) 0.4 Absolute Neuts (auto) 5.7 Absolute Lymphs (auto) 0.57 L Nucleated RBC % 0 Differential Comment SCANNED Hypochromasia 1+ Sodium 134 L Potassium 3.8 Chloride 101 Carbon Dioxide 27.0 Anion Gap 6 BUN 48 H Creatinine 0.53 L Estim Creat Clear Calc 52.71 Est GFR (MDRD) Af Amer 195 Est GFR (MDRD) Non-Af 161 BUN/Creatinine Ratio 90.9 H Glucose 109 H Calcium 9.1 Magnesium 1.9 Radiography Diagnostic Testing: Clinical Impression(s) from Imaging Studies Chest X-Ray 12/10/22 05:45 IMPRESSION: Patchy bilateral pneumonia. Electronically Signed: Ariadne Colindres MD at 6:31 EDT Reading Location ID and State: [facility] / [place] Tel , Service support , Chest x-ray as interpreted by the emergency medicine physician reveals patchy groundglass opacities in the bilateral lower lobes consistent with pneumonia Discharge Plan Triage Chief Complaint: Fatigue ED Provider: Tae Gee Dx/Rx/DC Orders Clinical Impression: Bilateral pneumonia, Hypothyroidism, History of oropharyngeal cancer Instructions: Treating Pneumonia Prescriptions: No Action levothyroxine 125 MCG tablet 137 mcg GT DAILY Label Comments: THYROID acetaminophen 500 MG tablet 1,000 mg GT TID lactose-reduced food with fibr 237 ML liquid 237 ml GT Q4H Label Comments: per pt takes q3hrs to make a total of 6 times a day. lisinopril 10 MG tablet 20 mg GT DAILY Rx Instructions: took 10 mg MorphINE 0.86 ml INTRATH CONT Label Comments: .074 MG CONTINUOUS VIA INTRATHECAL PAIN PUMP IN SPINAL CORD. clonazepam 0.5 MG tablet 0.5 mg GT Q4H PRN PRN (Reason: Anxiety) tramadol 50 MG tablet 50 mg GT Q4H PRN PRN (Reason: Pain Or Fever) [place]'s wort 300 MG capsule 300 mg GT BID turmeric root extract 500 MG capsule 700 mg GT DAILY doxycycline monohydrate 25 mg/5 mL suspension for reconstitution 20 ml feeding tube BID 7 Days Qty: 280 0RF albuterol sulfate 2.5 mg /3 mL (0.083 %) solution for nebulization 2.5 mg inhalation BID Label Comments: inhale contents of 1 vial ( 3 milliliters ) in nebulizer by mouth... (REFER TO PRESCRIPTION NOTES). sertraline 100 mg tablet 100 mg feeding tube DAILY Label Comments: take 1 tablet by mouth once daily omeprazole 40 mg capsule,delayed release(DR/EC) See Rx Instructions .ROUTE .COMPLEX Qty: 30 0RF Dose Instruction: take 1 capsule by mouth once daily Rx Instructions: take 1 capsule by mouth once daily Primary Care Provider: Amanda Landin Referrals: Amanda Landin MD [Primary Care Provider] - Activity Restrictions/Additional Instructions: You need to continue your doxycycline twice a day typically at breakfast and din ner to treat the pneumonia that was noted on your x-ray. If you have worsening of symptoms or further concerns please return to the hospital for repeat evaluation Disposition Disposition: Home, Self Care
--- NOTE | 2022-12-10 07:50 | NURSING ---
CALLED [facility], ETA IS WITHIN HOUR
--- NOTE | 2022-12-10 07:58 | ED.RN ---
update given to [facility] regarding results and discharge care.
[2022-12-10 08:05] VITALS: BP 119/52; PULSE 61; RESP 18; O2SAT 93
== END 2022-12-10 09:14 | disposition home or self-care (01) ==
PROVIDERS: Emergency Provider Emergency Medicine; PCP Family Medicine Sports Medicine; Visit Provider Emergency Medicine
DX: J18.9 Pneumonia, unspecified organism (principal); Z93.1 Gastrostomy status; I10 Essential (primary) hypertension; E03.9 Hypothyroidism, unspecified; Z87.891 Personal history of nicotine dependence; Z85.89 Personal history of malignant neoplasm of other organs and systems; F41.9 Anxiety disorder, unspecified; Z79.899 Other long term (current) drug therapy; K21.9 Gastro-esophageal reflux disease without esophagitis; G89.4 Chronic pain syndrome
CPT/HCPCS: 71045; 80048; 83735; 85025; 99284; A4216

== ENCOUNTER 2022-12-14 01:47 | Emergency (ER) | payer MEDICARE, MEDICAID, SELFPAY ==
[2022-12-14 01:49] VITALS: BP 138/69; PULSE 66; RESP 18; TEMP 36.4; O2SAT 93; BMI 16.8
--- NOTE | 2022-12-14 01:59 | RAD_ITS ---
EXAM: XR LUMBOSACRAL SPINE, 2 OR 3 VIEWS CLINICAL INDICATION: pain/fall TECHNIQUE: Frontal and lateral views of the lumbar spine and sacrum. COMPARISON: No relevant prior studies available. FINDINGS: VERTEBRAE: Unremarkable. Preserved vertebral body height. No fracture. No spondylolisthesis. Preservation of the normal lumbar lordosis. No significant facet arthropathy. DISC SPACES: Degenerative changes of the intervertebral discs. VASCULATURE: Atherosclerotic calcifications of the abdominal aorta. GASTROINTESTINAL TRACT: Unremarkable as visualized. Included bowel gas pattern is non-obstructive. RAD/Lumbar Spine 2 or 3 Views IMPRESSION: 1. No acute injuries identified involving the lumbar spine. 2. Degenerative changes. Electronically Signed: Jaiden Edmond MD at 2:40 EDT ,
--- NOTE | 2022-12-14 02:00 | EDS_ITS ---
HPI History of Present Illness Chief Complaint: Back Informant: patient, EMS and SNF Narrative Narrative: Patient presents at 2 AM for an exacerbation of my chronic back pain due to an accidental fall that he states he had a couple days ago. He states he slipped on the floor and fell, he thinks to his right side, and he thinks he twisted his back in the process. He states sometimes the pain goes down his left leg to his foot/toes. He has trouble bearing weight/walking since the fall due to the pain in his back. He denies any bowel or bladder dysfunction states he is urinating and having bowel movements normally since then and no abdominal pain. No other injuries. [facility] Medical History Anxiety Arthropathy of lumbar facet joint Chronic hyponatremia Chronic pain syndrome GERD (gastroesophageal reflux disease) history of malignant tumor of oropharynx History of pneumococcal pneumonia History of throat cancer Hypertension Hyponatremia Hypothyroidism Leukocytosis Normocytic anemia pain pump Rheumatoid arthritis Viral gastroenteritis Home Medications levothyroxine 125 mcg tablet 137 mcg GT DAILY 09/22/14 [History Last Taken 02/21/18 03:00 125 mcg] acetaminophen 500 mg tablet 1,000 mg GT TID PAIN 11/22/16 [History Last Taken 02/21/18 04:00] lisinopril 10 mg tablet 20 mg GT DAILY 02/15/17 [History Last Taken 06/03/19 06:00 10 mg] MorphINE 0.86 ml intrathecal CONT 09/03/17 [History Last Taken 11/24/17] lactose-reduced food with fiber 0.06 gram-1.2 kcal/mL oral liquid 237 ml GT Q4H 04/12/18 [History Last Taken Unknown] [employer] wort 300 mg capsule 300 mg GT BID 05/31/19 [History Last Taken Unknown] clonazepam 0.5 mg tablet 0.5 mg GT Q4H PRN PRN Anxiety 05/31/19 [History Last Taken Unknown] tramadol 50 mg tablet 50 mg GT Q4H PRN PRN Pain Or Fever 05/31/19 [History Last Taken Unknown] turmeric root extract 500 mg capsule 700 mg GT DAILY 05/31/19 [History Last Taken Unknown] omeprazole 40 mg capsule,delayed release See Rx Instructions .Route .COMPLEX #30 caps 10/19/20 [Rx Last Taken Unknown] doxycycline monohydrate 25 mg/5 mL oral suspension 20 ml feeding tube BID 7 days #280 mL 12/08/22 [Rx Last Taken Unknown] albuterol sulfate 2.5 mg/3 mL (0.083 %) solution for nebulization 2.5 mg inhalation BID 12/10/22 [History Last Taken Unknown] sertraline 100 mg tablet 100 mg feeding tube DAILY 12/10/22 [History Last Taken Unknown] Allergy/AdvReac Type Severity Reaction Status Date / Time Fish Containing Products Allergy Severe NEEDS Verified 12/07/22 21:44 FOLLOW-UP shellfish derived Allergy Severe NEEDS Verified 12/07/22 21:44 FOLLOW-UP ciprofloxacin [From Cipro] Allergy Itching Verified 12/07/22 21:44 diclofenac sodium Allergy Anaphylaxis Verified 12/07/22 21:44 [From Solaraze] fluorouracil Allergy Anaphylaxis Verified 12/07/22 21:44 methotrexate Allergy Anaphylaxis Verified 12/07/22 21:44 Penicillins Allergy Itching Verified 12/07/22 21:44 pentazocine lactate Allergy Other Verified 12/07/22 21:44 [From Talwin] venom-honey bee Allergy Anaphylaxis Verified 12/07/22 21:44 [bee venom (honey bee)] amlodipine AdvReac Nausea Verified 12/07/22 21:44 buspirone AdvReac Other Verified 12/07/22 21:44 ciprofloxacin HCl AdvReac Pain in Verified 12/07/22 21:44 [From Cipro] joints clonidine AdvReac Other Verified 12/07/22 21:44 fentanyl AdvReac NEEDS Verified 12/14/22 02:03 FOLLOW-UP linezolid AdvReac PT UNSURE Verified 12/14/22 02:04 OF REACTION NSAIDS (Non-Steroidal AdvReac Upset Verified 12/07/22 21:44 Anti-Inflamma Stomach promethazine AdvReac Other Verified 12/07/22 21:44 trazodone AdvReac Other Verified 12/07/22 21:44 Surgical History History of appendectomy History of colonoscopy History of esophagogastroduodenoscopy (EGD) (~01/17/18) History of laminectomy History of rhinoplasty History of tonsillectomy and adenoidectomy S/P percutaneous endoscopic gastrostomy (PEG) tube placement Social History Smoking Status: Former smoker alcohol intake: never ROS ROS ED Constitutional Constitutional ED: Denies chills or fever(s) Gastrointestinal Gastrointestinal: Denies abdominal pain, constipation, fecal incontinence, nausea or vomiting Genitourinary Genitourinary ED: Reports other Details: no urinary retention ; Denies abdominal discomfort or urinary incontinence Musculoskeletal Musculoskeletal: Reports as per HPI, back pain and extremity pain; Denies neck pain Integumentary Denies rash or wounds Neurologic Neurologic: Denies headache(s), paresthesias or weakness EXAM Physical Exam Const Vital Signs: 12/14/22 01:49 Temperature 97.6 F L Temperature Source Temporal Pulse Rate 66 Respiratory Rate 18 Blood Pressure 138/69 H Blood Pressure Mean 92 Pulse Ox 93 Oxygen Delivery Method Room Air Positive well nourished, well developed and cachectic General Appearance ED: well developed, cachectic and NAD Nutritional Appearance: cachectic HEENT Negative for trauma or tenderness Eyes PERRL and EOMs intact bilaterally Neck full ROM and supple GI normal to inspection, nondistended, normoactive bowel sounds, soft to palpation and non-tender Back/Spine normal to inspection Back/Spine Narrative: Diffuse lumbosacral pain/tenderness, less throughout the sacrum. No step-off, no obvious signs of trauma/injury, no crepitance. Limited exam because patient does not want to sit up due to pain and has trouble rolling over to the side. Lumbar Spine / Lower Back: ROM limited, lumbar spinal tenderness, paraspinal muscle tenderness and straight leg raise negative bilaterally Extremity normal to inspection, full ROM and no pedal edema Neuro oriented x3 and no sensory deficits noted Sensorium / Orientation: alert Motor Exam: strength 5/5 throughout and clonus absent Deep Tendon Reflexes: Rt Patellar (L4): 2+, Lt Patellar (L4): 2+, Rt Ankle (S1): 2+ and Lt Ankle (S1): 2+ Deep Tendon Reflexes Back: Rt Patellar (L4): 2+, Lt Patellar (L4): 2+, Rt Ankle (S1): 2+ and Lt Ankle (S1): 2+ Plantar Reflex: Downgoing: bilateral Psych mental status grossly normal and thought process normal Skin no rashes or lesions noted and no wounds MDM MDM MDM Narrative Medical decision making narrative: I obtained three-view x-ray series of the lumbosacral spine, it shows chronic changes but nothing acute on my interpretation, radiology in agreement. Patient was given an oxycodone and will be discharged back to shelter facility. Radiography Diagnostic Testing: Clinical Impression(s) from Imaging Studies Lumbar Spine X-Ray 12/14/22 01:59 IMPRESSION: 1. No acute injuries identified involving the lumbar spine. 2. Degenerative changes. Electronically Signed: Jaiden Edmond MD at 2:40 EDT , Discharge Plan Triage Chief Complaint: Back ED Provider: Lucas Henry Dx/Rx/DC Orders Clinical Impression: Acute exacerbation of chronic low back pain, Chronic pain syndrome, Debility, Fall from slip, trip, or stumble Instructions: ED Back Pain (Acute or Chronic) Prescriptions: No Action levothyroxine 125 MCG tablet 137 mcg GT DAILY Label Comments: THYROID acetaminophen 500 MG tablet 1,000 mg GT TID lactose-reduced food with fibr 237 ML liquid 237 ml GT Q4H Label Comments: per pt takes q3hrs to make a total of 6 times a day. lisinopril 10 MG tablet 20 mg GT DAILY Rx Instructions: took 10 mg MorphINE 0.86 ml INTRATH CONT Label Comments: .074 MG CONTINUOUS VIA INTRATHECAL PAIN PUMP IN SPINAL CORD. clonazepam 0.5 MG tablet 0.5 mg GT Q4H PRN PRN (Reason: Anxiety) tramadol 50 MG tablet 50 mg GT Q4H PRN PRN (Reason: Pain Or Fever) Zee's wort 300 MG capsule 300 mg GT BID turmeric root extract 500 MG capsule 700 mg GT DAILY doxycycline monohydrate 25 mg/5 mL suspension for reconstitution 20 ml feeding tube BID 7 Days Qty: 280 0RF albuterol sulfate 2.5 mg /3 mL (0.083 %) solution for nebulization 2.5 mg inhalation BID Label Comments: inhale contents of 1 vial ( 3 milliliters ) in nebulizer by mouth... (REFER TO PRESCRIPTION NOTES). sertraline 100 mg tablet 100 mg feeding tube DAILY Label Comments: take 1 tablet by mouth once daily omeprazole 40 mg capsule,delayed release(DR/EC) See Rx Instructions .ROUTE .COMPLEX Qty: 30 0RF Dose Instruction: take 1 capsule by mouth once daily Rx Instructions: take 1 capsule by mouth once daily Primary Care Provider: Morgan Gomez Referrals: Morgan Gomez MD [Primary Care Provider] - 3-5 Days if not improving Disposition Disposition: Home, Self Care
[2022-12-14] MEDS: oxyCODONE 5 MG Tablet PO (02:15)
== END 2022-12-14 06:47 | disposition home or self-care (01) ==
PROVIDERS: Emergency Provider Emergency Medicine; PCP Family Medicine; Visit Provider Emergency Medicine
DX: G89.29 Other chronic pain (principal); Z93.1 Gastrostomy status; M54.9 Dorsalgia, unspecified; Z87.891 Personal history of nicotine dependence; I10 Essential (primary) hypertension; R53.81 Other malaise; W01.10XA Fall on same level from slipping, tripping and stumbling with subsequent striking against unspecified object, initial encounter; E03.9 Hypothyroidism, unspecified; F41.9 Anxiety disorder, unspecified; Z79.899 Other long term (current) drug therapy; K21.9 Gastro-esophageal reflux disease without esophagitis
CPT/HCPCS: 72100; 99285

== ENCOUNTER 2022-12-18 19:51 | Emergency (ER) | payer MEDICARE, MEDICAID, SELFPAY ==
[2022-12-18 19:52] VITALS: BP 153/75; PULSE 76; RESP 16; TEMP 36.3; O2SAT 93; BMI 17.7
[2022-12-18] MEDS: Orphenadrine 60 MG/2 ML Ampul IM (20:37)
[2022-12-18] MEDS: Ketorolac 30 MG/ML Syringe IM (20:37)
--- NOTE | 2022-12-18 20:56 | EDS_ITS ---
HPI History of Present Illness Chief Complaint: Back Narrative Narrative: Patient is a 77-year-old male who is presenting to the ER with chief complaint of chronic pain. Patient does have a morphine pain pump. Patient has chronic pain to his lower back with bilateral lumbar radiculopathy into his lower extremities. Patient lives at [facility]. Patient was transported to the ER secondary to pain. Patient was here several days ago, had a fall. Patient had x-ray at that time that showed no acute fracture. Patient was sent back to the nursing facility. Patient does have a chronic pain specialist, Dr. Ortega. There was a note from nursing staff that patient does have a pain pump managed by the chronic pain physician, . Dr Ortega does not want patient to have any more pain medication or he may fire him as a patient. Patient does have a history of malignant neoplasm of the larynx. Patient states that his chronic pain is not being managed appropriately with the morphine pump. Patient is hoping to get additional pain medication until he can talk to his pain management physician in the next few days. Patient has no headache or neck pain. No chest pain or shortness of breath. No abdominal pain, nausea or vomiting. Patient has no new pain, patient states that this is his chronic pain that he is presenting to the ER tonight for reevaluation. Patient is aware that he did have a fall several days ago, that he is in the ER for that, had lumbar x-ray that showed no acute fracture. Patient's had no new fall, no new injury, no new acute indication for any new imaging at this time. [facility] Medical History Anxiety Arthropathy of lumbar facet joint Chronic hyponatremia Chronic pain syndrome GERD (gastroesophageal reflux disease) history of malignant tumor of oropharynx History of pneumococcal pneumonia History of throat cancer Hypertension Hyponatremia Hypothyroidism Leukocytosis Normocytic anemia pain pump Rheumatoid arthritis Viral gastroenteritis Home Medications levothyroxine 125 mcg tablet 137 mcg GT DAILY 09/22/14 [History Last Taken 02/21/18 03:00 125 mcg] acetaminophen 500 mg tablet 1,000 mg GT TID PAIN 11/22/16 [History Last Taken 02/21/18 04:00] lisinopril 10 mg tablet 20 mg GT DAILY 02/15/17 [History Last Taken 06/03/19 06: 00 10 mg] MorphINE 0.86 ml intrathecal CONT 09/03/17 [History Last Taken 11/24/17] lactose-reduced food with fiber 0.06 gram-1.2 kcal/mL oral liquid 237 ml GT Q4H 04/12/18 [History Last Taken Unknown] Zee's wort 300 mg capsule 300 mg GT BID 05/31/19 [History Last Taken Unknown] clonazepam 0.5 mg tablet 0.5 mg GT Q4H PRN PRN Anxiety 05/31/19 [History Last Taken Unknown] tramadol 50 mg tablet 50 mg GT Q4H PRN PRN Pain Or Fever 05/31/19 [History Last Taken Unknown] turmeric root extract 500 mg capsule 700 mg GT DAILY 05/31/19 [History Last Taken Unknown] omeprazole 40 mg capsule,delayed release See Rx Instructions .Route .COMPLEX #30 caps 10/19/20 [Rx Last Taken Unknown] doxycycline monohydrate 25 mg/5 mL oral suspension 20 ml feeding tube BID 7 days #280 mL 12/08/22 [Rx Last Taken Unknown] albuterol sulfate 2.5 mg/3 mL (0.083 %) solution for nebulization 2.5 mg inhalation BID 12/10/22 [History Last Taken Unknown] sertraline 100 mg tablet 100 mg feeding tube DAILY 12/10/22 [History Last Taken Unknown] Allergy/AdvReac Type Severity Reaction Status Date / Time Fish Containing Products Allergy Severe NEEDS Verified 12/07/22 21:44 FOLLOW-UP shellfish derived Allergy Severe NEEDS Verified 12/07/22 21:44 FOLLOW-UP ciprofloxacin [From Cipro] Allergy Itching Verified 12/07/22 21:44 diclofenac sodium Allergy Anaphylaxis Verified 12/07/22 21:44 [From Solaraze] fluorouracil Allergy Anaphylaxis Verified 12/07/22 21:44 methotrexate Allergy Anaphylaxis Verified 12/07/22 21:44 Penicillins Allergy Itching Verified 12/07/22 21:44 pentazocine lactate Allergy Other Verified 12/07/22 21:44 [From Elie] venom-honey bee Allergy Anaphylaxis Verified 12/07/22 21:44 [bee venom (honey bee)] amlodipine AdvReac Nausea Verified 12/07/22 21:44 buspirone AdvReac Other Verified 12/07/22 21:44 ciprofloxacin HCl AdvReac Pain in Verified 12/07/22 21:44 [From Cipro] joints clonidine AdvReac Other Verified 12/07/22 21:44 fentanyl AdvReac NEEDS Verified 12/14/22 02:03 FOLLOW-UP linezolid AdvReac PT UNSURE Verified 12/14/22 02:04 OF REACTION NSAIDS (Non-Steroidal AdvReac Upset Verified 12/07/22 21:44 Anti-Inflamma Stomach promethazine AdvReac Other Verified 12/07/22 21:44 trazodone AdvReac Other Verified 12/07/22 21:44 Surgical History History of appendectomy History of colonoscopy History of esophagogastroduodenoscopy (EGD) (~01/17/18) History of laminectomy History of rhinoplasty History of tonsillectomy and adenoidectomy S/P percutaneous endoscopic gastrostomy (PEG) tube placement Social History Smoking Status: Former smoker alcohol intake: never ROS ROS ED ROS Narrative REVIEW OF SYSTEMS: Unless otherwise stated in this report the patient's positive and negative responses for review of systems for constitutional, eyes, ENT, cardiovascular, respiratory, gastrointestinal, neurological, , musculoskeletal, and integument systems and related systems to the presenting problem are either stated in the history of present illness or were not pertinent or were negative for the symptoms and/or complaints related to the presenting medical problem. EXAM Physical Exam Narrative Exam Narrative: Vital signs reviewed and patient is not hypoxic. General: The patient appears well and in no apparent distress. Patient is resting comfortably on cart. Not toxic, lethargic, or listless. Skin: Warm, dry, no pallor noted. There is no rash noted. Head: Normocephalic, atraumatic Eye: Normal conjunctiva, no drainage, EOMI. PERRL. Ears, Nose, Mouth, and Throat: oral mucosa is moist. Nares patent. Mouth without vesicles. Cardiovascular: Regular Rate and Rhythm, no murmurs, gallops, or rubs Respiratory: Patient is in no distress, no accessory muscle use, lungs are clear to auscultation, no wheezing, rales or rhonchi Back: Patient has mild to moderate tender points along paraspinal thoracic and lumbar spine. No new midline thoracic or lumbar sacral tenderness to palpation. No new step-offs. No signs of saddle anesthesia or cauda equina. No new acute pain to his back., no CVA tenderness bilaterally to percussion. NO CTLS midline or paracervicl tenderness to palpation. No rash. GI: Soft, no palpable pulsatile mass. No tenderness to palpation, no masses appreciated. No rebound, guarding, or rigidity noted. Patient is an adult diaper. Patient does have a PEG tube, the area around the PEG tube is clean, dry, intact. No distention. No peritoneal signs. Patient does have a large pain pump to the right lower quadrant. No tenderness to palpation to the pain pump. There is no redness. It is clean, dry and intact around the right lower quadrant. Musculoskeletal: The patient has full range of motion of all extremities and joints with no difficulty. Patient has no motor, no sensory deficits. Neurological: A&O x4, normal speech, no focal neurological deficits. Psychiatric: Cooperative Const Vital Signs: 12/18/22 19:52 12/18/22 21:10 Temperature 97.3 F L 98.7 F Temperature Source Oral Pulse Rate 76 78 Respiratory Rate 16 18 Blood Pressure 153/75 H 168/78 H Blood Pressure Mean 101 Pulse Ox 93 94 Oxygen Delivery Method Room Air MDM MDM MDM Narrative Medical decision making narrative: Patient was reminded he is in pain management. Patient is aware the recommendation from his paint and table edger Dr. Ortega is not to receive any new additional pain medication prescriptions. Patient was given injection of Toradol and Norflex in the ER. Patient has no acute indication for any new imaging at this time. Patient is aware that he does speak to his pain management physician tomorrow about his chronic pain management at the nursing facility. Patient understands this. Patient was thankful for injections of Toradol and Norflex, education done at bedside. Patient was educated that we cannot treat chronic pain from the emergency room as well. Discharge Plan Triage Chief Complaint: Back ED Provider: Kenji Fitzgerald Dx/Rx/DC Orders Clinical Impression: Chronic pain syndrome Instructions: ED Chronic Pain Prescriptions: No Action levothyroxine 125 MCG tablet 137 mcg GT DAILY Label Comments: THYROID acetaminophen 500 MG tablet 1,000 mg GT TID lactose-reduced food with fibr 237 ML liquid 237 ml GT Q4H Label Comments: per pt takes q3hrs to make a total of 6 times a day. lisinopril 10 MG tablet 20 mg GT DAILY Rx Instructions: took 10 mg MorphINE 0.86 ml INTRATH CONT Label Comments: .074 MG CONTINUOUS VIA INTRATHECAL PAIN PUMP IN SPINAL CORD. clonazepam 0.5 MG tablet 0.5 mg GT Q4H PRN PRN (Reason: Anxiety) tramadol 50 MG tablet 50 mg GT Q4H PRN PRN (Reason: Pain Or Fever) Zee's wort 300 MG capsule 300 mg GT BID turmeric root extract 500 MG capsule 700 mg GT DAILY doxycycline monohydrate 25 mg/5 mL suspension for reconstitution 20 ml feeding tube BID 7 Days Qty: 280 0RF albuterol sulfate 2.5 mg /3 mL (0.083 %) solution for nebulization 2.5 mg inhalation BID Label Comments: inhale contents of 1 vial ( 3 milliliters ) in nebulizer by mouth... (REFER TO PRESCRIPTION NOTES). sertraline 100 mg tablet 100 mg feeding tube DAILY Label Comments: take 1 tablet by mouth once daily omeprazole 40 mg capsule,delayed release(DR/EC) See Rx Instructions .ROUTE .COMPLEX Qty: 30 0RF Dose Instruction: take 1 capsule by mouth once daily Rx Instructions: take 1 capsule by mouth once daily Primary Care Provider: Morgan Gomez Referrals: Morgan Gomez MD [Primary Care Provider] - Activity Restrictions/Additional Instructions: Patient has a morphine pain pump. No indication for narcotics for chronic pain. Patient was given injection of Toradol and Norflex. Patient was happy with this decision and will follow-up with his pain management physician tomorrow for additional help with chronic pain, Dr Ortega. Disposition Disposition: Half-Way Facility Discharge Location: [facility] Discharge Date/Time: 12/18/22 22:52
--- NOTE | 2022-12-18 21:06 | NURSING ---
Report called to Nurses station [address]. Notified of meds given and pt will be returning per squad.
[2022-12-18 21:10] VITALS: BP 168/78; PULSE 78; RESP 18; TEMP 37.1; O2SAT 94
== END 2022-12-18 22:52 ==
PROVIDERS: Emergency Provider Emergency Medicine; PCP Family Medicine; Visit Provider Emergency Medicine
DX: G89.4 Chronic pain syndrome (principal); Z93.1 Gastrostomy status; I10 Essential (primary) hypertension; Z87.891 Personal history of nicotine dependence; E03.9 Hypothyroidism, unspecified; F41.9 Anxiety disorder, unspecified; K21.9 Gastro-esophageal reflux disease without esophagitis; Z79.899 Other long term (current) drug therapy
CPT/HCPCS: 96372; 99285

== ENCOUNTER 2022-12-20 15:38 | Emergency (ER) | payer MEDICARE, MEDICAID, SELFPAY ==
[2022-12-20] VITALS (9 sets, daily range): BP systolic 152–173; BP diastolic 78–132; PULSE 67–76; RESP 17–28; TEMP 37; O2SAT 91–92; BMI 16.5
--- NOTE | 2022-12-20 16:00 | EDS_ITS ---
HPI History of Present Illness Chief Complaint: Back Onset/Context/Timing Onset: Today Context: Gradual Onset Timing: Continuous Quality: Sharp and - (Stabbing) Location: Lumbar Worsened by: improves with Movement Relieved by: Nothing Associated Symptoms Associated Symptoms: Tingling and Radiation to Left Leg; Negative for Numbness, Radiation to Right Leg, Fever, Abdominal Pain, Dysuria, Urinary Retention, Urinary Incontinence, Constipation or Fecal Incontinence Narrative Narrative: Patient presents with exacerbation of his chronic back pain that began again today. Patient states it is constant. Patient states it is sharp and stabbing. Patient states it is over the lower lumbar area. Patient states pain does radiate down his left leg and into his foot. Patient admits to some tingling into his left foot. Patient denies any new trauma or injury. Patient denies any urinary complaints. Patient denies any bowel or bladder changes. Patient denies any saddle anesthesia. Patient states he has an appointment with his pain management physician in [address] [facility] Medical History Anxiety Arthropathy of lumbar facet joint Chronic hyponatremia Chronic pain syndrome GERD (gastroesophageal reflux disease) history of malignant tumor of oropharynx History of pneumococcal pneumonia History of throat cancer Hypertension Hyponatremia Hypothyroidism Leukocytosis Normocytic anemia pain pump Rheumatoid arthritis Viral gastroenteritis Home Medications levothyroxine 125 mcg tablet 137 mcg GT DAILY 09/22/14 [History Last Taken 02/21/18 03:00 125 mcg] acetaminophen 500 mg tablet 1,000 mg GT TID PAIN 11/22/16 [History Last Taken 02/21/18 04:00] lisinopril 10 mg tablet 20 mg GT DAILY 02/15/17 [History Last Taken 06/03/19 06:00 10 mg] MorphINE 0.86 ml intrathecal CONT 09/03/17 [History Last Taken 11/24/17] lactose-reduced food with fiber 0.06 gram-1.2 kcal/mL oral liquid 237 ml GT Q4H 04/12/18 [History Last Taken Unknown] Gracey's wort 300 mg capsule 300 mg GT BID 05/31/19 [History Last Taken Unknown] clonazepam 0.5 mg tablet 0.5 mg GT Q4H PRN PRN Anxiety 05/31/19 [History Last Taken Unknown] tramadol 50 mg tablet 50 mg GT Q4H PRN PRN Pain Or Fever 05/31/19 [History Last Taken Unknown] turmeric root extract 500 mg capsule 700 mg GT DAILY 05/31/19 [History Last Taken Unknown] omeprazole 40 mg capsule,delayed release See Rx Instructions .Route .COMPLEX #30 caps 10/19/20 [Rx Last Taken Unknown] doxycycline monohydrate 25 mg/5 mL oral suspension 20 ml feeding tube BID 7 days #280 mL 12/08/22 [Rx Last Taken Unknown] albuterol sulfate 2.5 mg/3 mL (0.083 %) solution for nebulization 2.5 mg inhalation BID 12/10/22 [History Last Taken Unknown] sertraline 100 mg tablet 100 mg feeding tube DAILY 12/10/22 [History Last Taken Unknown] Allergy/AdvReac Type Severity Reaction Status Date / Time Fish Containing Products Allergy Severe NEEDS Verified 12/07/22 21:44 FOLLOW-UP shellfish derived Allergy Severe NEEDS Verified 12/07/22 21:44 FOLLOW-UP ciprofloxacin [From Cipro] Allergy Itching Verified 12/07/22 21:44 diclofenac sodium Allergy Anaphylaxis Verified 12/07/22 21:44 [From Solaraze] fluorouracil Allergy Anaphylaxis Verified 12/07/22 21:44 methotrexate Allergy Anaphylaxis Verified 12/07/22 21:44 Penicillins Allergy Itching Verified 12/07/22 21:44 pentazocine lactate Allergy Other Verified 12/07/22 21:44 [From Talwin] venom-honey bee Allergy Anaphylaxis Verified 12/07/22 21:44 [bee venom (honey bee)] amlodipine AdvReac Nausea Verified 12/07/22 21:44 buspirone AdvReac Other Verified 12/07/22 21:44 ciprofloxacin HCl AdvReac Pain in Verified 12/07/22 21:44 [From Cipro] joints clonidine AdvReac Other Verified 12/07/22 21:44 fentanyl AdvReac NEEDS Verified 12/14/22 02:03 FOLLOW-UP linezolid AdvReac PT UNSURE Verified 12/14/22 02:04 OF REACTION NSAIDS (Non-Steroidal AdvReac Upset Verified 12/07/22 21:44 Anti-Inflamma Stomach promethazine AdvReac Other Verified 12/07/22 21:44 trazodone AdvReac Other Verified 12/07/22 21:44 Surgical History History of appendectomy History of colonoscopy History of esophagogastroduodenoscopy (EGD) (~01/17/18) History of laminectomy History of rhinoplasty History of tonsillectomy and adenoidectomy S/P percutaneous endoscopic gastrostomy (PEG) tube placement Social History Smoking Status: Former smoker alcohol intake: never ROS ROS ED Constitutional Constitutional ED: Denies chills or fever(s) Eyes Eyes: Denies blurry vision or change in vision ENT ENT ED: Denies rhinorrhea or sore throat Cardiovascular Cardiovascular: Denies chest pain or palpitations Respiratory/Chest Respiratory/Chest: Denies cough or dyspnea Gastrointestinal Gastrointestinal: Reports nausea; Denies vomiting Genitourinary Genitourinary ED: Reports dysuria; Denies hematuria Musculoskeletal Musculoskeletal: Reports back pain; Denies neck pain Integumentary Denies abscess or rash Neurologic Neurologic: Denies headache(s) or weakness Allergic/Immunologic Allergic/Immunologic ED: Denies mouth swelling or urticaria EXAM Physical Exam Const Vital Signs: 12/20/22 15:39 Temperature 98.6 F Temperature Source Temporal Pulse Rate 71 Respiratory Rate 24 H Blood Pressure 157/80 H Blood Pressure Mean 105 Pulse Ox 91 Oxygen Delivery Method Room Air Positive well nourished and well developed General Appearance ED: well developed and NAD HEENT Reports moist mucous membranes Neck supple and no JVD Resp normal respiratory effort and clear to auscultation bilaterally Cardio regular rate and regular rhythm GI normal to inspection, nondistended, normoactive bowel sounds and non-tender Palpation: soft Back/Spine Back/Spine Narrative: There is tenderness over the lumbar paraspinal muscles bilaterally, slightly worse on the left. There is no midline tenderness. There is no bony crepitance or step-off. Range of motion was limited in all motions of the lumbar spine secondary to pain. Strength is 5/5 bilaterally in the lower extremities. There are no sensory deficits noted. Lumbar Spine / Lower Back: ROM limited Extremity normal to inspection General Extremety ED: Negative for edema or tenderness General Extremity: Negative for edema Neuro oriented x3, CN's II-XII intact bilaterally and no sensory deficits noted Sensorium / Orientation: alert Motor Exam: strength 5/5 throughout Psych mental status grossly normal Skin no rashes or lesions noted MDM MDM MDM Narrative Medical decision making narrative: Patient has no signs or symptoms of cauda equina syndrome. Patient was advised that this is likely exacerbation of his chronic pain. I do not feel we need to do any new testing at this time. Patient was advised that we cannot give him chronic opiate medications for his chronic pain. Patient was given injection of Toradol and Norflex here. Patient states he got this 2 days ago and felt better after that. Patient was advised to follow-up with his pain management physician in 2 days as scheduled for further management of his pain. Patient understood and was agreeable with the plan. All questions were answered. Discharge Plan Triage Chief Complaint: Back ED Provider: Prince Durham Dx/Rx/DC Orders Clinical Impression: Acute exacerbation of chronic low back pain, Chronic pain syndrome Instructions: ED Chronic Pain, ED Back and Neck Pain, General Prescriptions: No Action levothyroxine 125 MCG tablet 137 mcg GT DAILY Label Comments: THYROID acetaminophen 500 MG tablet 1,000 mg GT TID lactose-reduced food with fibr 237 ML liquid 237 ml GT Q4H Label Comments: per pt takes q3hrs to make a total of 6 times a day. lisinopril 10 MG tablet 20 mg GT DAILY Rx Instructions: took 10 mg MorphINE 0.86 ml INTRATH CONT Label Comments: .074 MG CONTINUOUS VIA INTRATHECAL PAIN PUMP IN SPINAL CORD. clonazepam 0.5 MG tablet 0.5 mg GT Q4H PRN PRN (Reason: Anxiety) tramadol 50 MG tablet 50 mg GT Q4H PRN PRN (Reason: Pain Or Fever) Zee's wort 300 MG capsule 300 mg GT BID turmeric root extract 500 MG capsule 700 mg GT DAILY doxycycline monohydrate 25 mg/5 mL suspension for reconstitution 20 ml feeding tube BID 7 Days Qty: 280 0RF albuterol sulfate 2.5 mg /3 mL (0.083 %) solution for nebulization 2.5 mg inhalation BID Label Comments: inhale contents of 1 vial ( 3 milliliters ) in nebulizer by mouth... (REFER TO PRESCRIPTION NOTES). sertraline 100 mg tablet 100 mg feeding tube DAILY Label Comments: take 1 tablet by mouth once daily omeprazole 40 mg capsule,delayed release(DR/EC) See Rx Instructions .ROUTE .COMPLEX Qty: 30 0RF Dose Instruction: take 1 capsule by mouth once daily Rx Instructions: take 1 capsule by mouth once daily Primary Care Provider: Morgan Gomez Referrals: Theresa Ortega MD [Med Staff - Active Staff] - Keep Carlos appointment Morgan Gomez MD [Primary Care Provider] - 3-5 Days Disposition Disposition: Home, Self Care
[2022-12-20] MEDS: Orphenadrine 60 MG/2 ML Ampul IM (16:16)
[2022-12-20] MEDS: Ketorolac 30 MG/ML Syringe IM (16:16)
--- NOTE | 2022-12-20 16:17 | NURSING ---
SET UP RIDE WITH PHYSICIANS TO [facility] GIVEN 3 HOURS [id number]
--- NOTE | 2022-12-20 17:42 | ED.RN ---
PT RINGING CALL LIGHT EVERY TWO MINUTES. PT COMPLAINING OF BEING COLD. PT NEEDS ADDRESSED WITH WARM BLANKETS AND THERMOSTAT ADJUSTMENT PER PRIMARY RN. PT EDUCATED THAT IT IS INAPPROPRIATE TO RING CALL LIGHT EVERY TWO MINUTES TO INFORM STAFF THAT HE IS STILL COLD. THIS RN RECEIVED A PHONE CALL FROM [facility]. PT CALLED 911 COMPLAINING OF A COLD ROOM. PT NEEDS ADDRESSED PER PRIMARY RN. PT EDUCATED NOT TO CALL 911 FROM THE EMERGENCY DEPARTMENT.
[2022-12-20] MEDS: Acetaminophen 650 MG/20 ML UDC GT (18:36)
== END 2022-12-20 20:10 | disposition skilled nursing facility (03) ==
PROVIDERS: Emergency Provider Emergency Medicine; PCP Family Medicine; Visit Provider Emergency Medicine
DX: M54.50 Low back pain, unspecified (principal); Z93.1 Gastrostomy status; I10 Essential (primary) hypertension; Z87.891 Personal history of nicotine dependence; G89.4 Chronic pain syndrome; E03.9 Hypothyroidism, unspecified; F41.9 Anxiety disorder, unspecified; K21.9 Gastro-esophageal reflux disease without esophagitis; Z79.899 Other long term (current) drug therapy
CPT/HCPCS: 96372; 99284